=== PATIENT | female | born 1930 | race Caucasian/White ===

== ENCOUNTER → 2018-07-07 | Outpatient (CLI) | payer MEDICARE ==
[~2018-07-07] MED LIST: FURO20TA4; IRBE300T42 PO; METF500T8; NITR-65 PO; ONDA4TAB8 PO; POTA10CA43
[2018-07-07 14:41] LABS: BASOPHILS % (AUTO) 0 % (0-10); EOSINOPHILS # (AUTO) 0.2 10^3/uL (0.0-0.3); EOSINOPHILS % (AUTO) 3 % (0-10); HEMATOCRIT 32 % (35-52); HEMOGLOBIN 10.3 G/DL (11.5-16.0); LYMPHOCYTES # (AUTO) 1.1 X 10^3 (1.0-4.0); LYMPHOCYTES % (AUTO) 17 % (12-44); MEAN CORPUSCULAR HEMOGLOBIN 29 PG (25-34); MEAN CORPUSCULAR HGB CONC 32 G/DL (32-36); MEAN CORPUSCULAR VOLUME 92 FL (80-99); MEAN PLATELET VOLUME 9.1 FL (7.4-10.4); MONOCYTES # (AUTO) 0.6 X 10^3 (0.0-1.0); MONOCYTES % (AUTO) 10 % (0-12); NEUTROPHILS # (AUTO) 4.5 X 10^3 (1.8-7.8); NEUTROPHILS % (AUTO) 71 % (42-75); PLATELET COUNT 232 10^3/uL (130-400); RED CELL DISTRIBUTION WIDTH 15.4 % (10.0-14.5); WHITE BLOOD COUNT 6.4 10^3/uL (4.3-11.0)
[2018-07-07 14:56] LABS: CALCIUM 9.4 MG/DL (8.5-10.1); CREATININE SERUM 1.22 MG/DL (0.60-1.30)
[2018-07-07 15:07] LABS: ABG BASE EXCESS -0.5 MMOL/L (-2.5-2.5); ABG OXYGEN SATURATION 96 % (94-100); ABG PCO2 39 MMHG (35-45); ABG PO2 72 MMHG (79-93); ABG TCO2 25.1 MMOL/L (21.0-31.0)
[2018-07-07 15:08] LABS: ALLENS TEST YES-POS; INSPIRED O2 RA; PATIENT TEMP 96.3; VENTILATOR NO
== END ==
LOC: RT 14:23
PROVIDERS: ATTEND Internal Medicine Critical Care Medicine
DX: G47.33 Obstructive sleep apnea (adult) (pediatric) (principal); R06.00 Dyspnea, unspecified; R05 Cough; R04.0 Epistaxis; R60.9 Edema, unspecified; E66.01 Morbid (severe) obesity due to excess calories
CPT/HCPCS: 36415; 36600; 80048; 82805; 83880; 85025; 94761

== ENCOUNTER → 2018-08-13 | Outpatient (CLI) | payer MEDICARE ==
[~2018-08-13] MED LIST changes: +RT-ALBUTEROL SULF 2.5 MG/3 ML PRE-MIX VIAL INH ONE
--- NOTE | 2018-08-13 16:16 | Diagnostic Imaging Report ---
PROCEDURE: US Venous Lower Ext Thiago. TECHNIQUE: Multiple real-time grayscale images were obtained over the lower extremities in various projections, bilaterally. Additional duplex Doppler and color Doppler images were also obtained. INDICATION: Leg swelling. The deep veins have good color filling and compressibility. There is normal phasic and augmented flow. IMPRESSION: Negative venous Doppler lower extremities. Dictated by: Dictated on workstation # [id number]
--- NOTE | 2018-08-13 16:24 | Diagnostic Imaging Report ---
PROCEDURE: CT chest without contrast. TECHNIQUE: Multiple contiguous axial images were obtained through the chest without the use of intravenous contrast. Auto Exposure Controls were utilized during the CT exam to meet ALARA standards for radiation dose reduction. INDICATION: Shortness of air with exertion. COMPARISON: No priors. FINDINGS: Coronary arterial calcifications and coronary arterial stenting noted. The aorta is calcified but appeared nonaneurysmal. Vascular patency cannot be addressed owing to the absence of contrast. There is tiny pericardial effusion anterior versus mild pericardial thickening. There is no pleural effusion. Heart size is within normal limits. No gross overdistention of the vascularity. No edema, pneumonia, effusion or pneumothorax. There is a thin-walled air cyst in the left lower lobe. There is no bronchiectasis. There is no evidence for thoracic lymphadenopathy and no acute chest wall abnormality. Visualized upper abdomen showed previous cholecystectomy with no acute abnormality. IMPRESSION: Nonaneurysmal atherosclerosis. No suspicious mass or acute abnormality. Dictated by: Dictated on workstation # [id number]
== END ==
LOC: RAD 13:53
PROVIDERS: ATTEND Internal Medicine Critical Care Medicine
DX: E66.01 Morbid (severe) obesity due to excess calories (principal); G47.33 Obstructive sleep apnea (adult) (pediatric); M79.89 Other specified soft tissue disorders; I70.0 Atherosclerosis of aorta; R04.0 Epistaxis; Z90.49 Acquired absence of other specified parts of digestive tract
CPT/HCPCS: 71250; 93970; 94060; 94726; 94729

== ENCOUNTER 2018-09-07 10:29 | Inpatient (IN) | payer MEDICARE ==
[~2018-09-07] VITALS: Ht 160 cm; Wt 140.6 kg
[~2018-09-07 10:29] MED LIST changes: -RT-ALBUTEROL SULF 2.5 MG/3 ML PRE-MIX VIAL INH ONE
--- NOTE | 2018-09-07 11:04 | NUR ---
PT STATES DOES TAKE RT TX AT HOME
--- NOTE | 2018-09-07 11:04 | NUR ---
SEE LIST FOR CURRENT MEDS
--- OUTSIDE RECORDS SUMMARY | 2018-09-07 11:07 | XMS REPORT | Continuity of Care Document ---
Author Organization Unknown Address Unknown Allergies Active Description Code Type Severity Reaction Onset Reported/Identified Relationship to Patient Clinical Status Yes CODEINE SULFATE UNKNOWN OTHER Yes NO KNOWN DRUG ALLERGIES UNKNOWN NO KNOWN DRUG ALLERG Yes PENICILLINS UNKNOWN ITCHING Yes codeine [id number] Drug Allergy Unknown N/A 10/15/2015 Yes Penicillins [id number] Drug Allergy Unknown N/A 10/15/2015 Medications Medication Packaging Start Date Stop Date Route Dosage Sig NEOSYNEPHRINE NASAL SPRAY LIQ 1 % (PHENYLEPHRINE NS) spray 03/17/2018 03/17/2018 ONCE&1230 Tranexamic acid IV solution 1 Gm vials (TXA) ML 05/13/2018 05/13/2018 ONCE&2350 Problems Date Dx Coded Attending Type Code Diagnosis Diagnosed By 09/11/2013 ELIE LYLES DO Ot 327.23 OBSTRUCTIVE SLEEP APNEA (ADULT) (PEDIATR 09/11/2013 ELIE LYLES DO Ot 401.9 HYPERTENSION NOS 09/11/2013 ELIE LYLES DO Ot 799.02 HYPOXEMIA 10/25/2014 ELIE LYLES DO Ot 401.9 11/17/2014 PAVEL LYLES Ot 719.45 11/17/2014 PAVEL LYLES TRACK LAYING EQUIPMENT OPERATOR Ot 724.3 12/06/2014 PAVEL LYLES TRACK LAYING EQUIPMENT OPERATOR Ot 719.45 12/06/2014 PAVEL LYLESP Ot 724.3 04/16/2015 ELIE LYLES DO Ot 401.9 04/16/2015 PAVEL LYLESP Ot 719.45 04/16/2015 PAVEL LYLES TRACK LAYING EQUIPMENT OPERATOR Ot 724.3 04/17/2015 ELIE LYLES DO Ot G47.33 OBSTRUCTIVE SLEEP APNEA (ADULT) (PEDIATR 10/15/2015 SILVIA DO, ALEX K Ot E86.0 DEHYDRATION 10/15/2015 SILVIA DO, ALEX K Ot I44.0 ATRIOVENTRICULAR BLOCK, FIRST DEGREE 10/15/2015 SILVIA DO, ALEX K Ot N39.0 URINARY TRACT INFECTION, SITE NOT SPECIF 10/19/2015 SILVIA SHERI MAUROA K Ot E86.0 DEHYDRATION 10/19/2015 SILVIA DO, ALEX K Ot I44.0 ATRIOVENTRICULAR BLOCK, FIRST DEGREE 10/19/2015 SILVIA DO, ALEX Pelletier Ot N39.0 URINARY TRACT INFECTION, SITE NOT SPECIF 11/29/2017 SARAY ONEIL JR 724.4 THORACIC OR LUMBOSACRAL NEURITIS OR RADICULITIS, UNSPECIFIED 11/29/2017 SARAY ONEIL JR M54.16 RADICULOPATHY, LUMBAR REGION 11/29/2017 SARAY ONEIL JR 724.4 THORACIC OR LUMBOSACRAL NEURITIS OR RADICULITIS, UNSPECIFIED 11/29/2017 SARAY ONEIL JR M54.16 RADICULOPATHY, LUMBAR REGION 12/05/2017 LYLESELIE MOREJON DO Ot I10 ESSENTIAL (PRIMARY) HYPERTENSION 12/05/2017 LYLES DO, ELIE Saucedo Ot R06.00 DYSPNEA, UNSPECIFIED 01/03/2018 LYLES DO, ELIE Saucedo Ot I10 ESSENTIAL (PRIMARY) HYPERTENSION 01/03/2018 LYLES DO, ELIE Saucedo Ot R06.00 DYSPNEA, UNSPECIFIED 01/08/2018 LYLES DO, ELIE Saucedo Ot I10 ESSENTIAL (PRIMARY) HYPERTENSION 01/08/2018 LYLES ELIE MAURO Ot R06.00 DYSPNEA, UNSPECIFIED 02/27/2018 Lucas Morel 784.7 EPISTAXIS 02/27/2018 Lucas Morel R04.0 EPISTAXIS 03/17/2018 Ar French 784.7 EPISTAXIS 03/17/2018 Ar French R04.0 EPISTAXIS 03/18/2018 Ar French V58.30 ENCOUNTER FOR CHANGE OR REMOVAL OF NONSURGICAL WOUND DRESSING 03/18/2018 Ar French Z48.00 ENCOUNTER FOR CHANGE OR REMOVAL OF NONSURG WOUND DRESSING 03/18/2018 Ar French 784.7 EPISTAXIS 03/18/2018 Ar French R04.0 EPISTAXIS 05/13/2018 Lucas Morel W 784.7 EPISTAXIS 05/13/2018 Lucas Morel W R04.0 EPISTAXIS 06/17/2018 Ar French W 784.7 EPISTAXIS 06/17/2018 BarbaraalexanderAr W R04.0 EPISTAXIS 07/08/2018 SISSY LEE DO Ot E66.01 MORBID (SEVERE) OBESITY DUE TO EXCESS CA 07/08/2018 ROSA DOSISSY Ot G47.33 OBSTRUCTIVE SLEEP APNEA (ADULT) (PEDIATR 07/08/2018 ROSA DO, SISSY Navarro Ot R04.0 EPISTAXIS 07/08/2018 ROSA DOSISSY Ot R05 COUGH 07/08/2018 SISSY LEE DO Ot R06.00 DYSPNEA, UNSPECIFIED 07/08/2018 ROSA DOSISSY Ot R60.9 EDEMA, UNSPECIFIED 07/08/2018 ROSA DOSISSY Ot R60.9 EDEMA, UNSPECIFIED 07/16/2018 ROSA DOSISSY Ot R60.9 EDEMA, UNSPECIFIED 07/31/2018 ROSA DOSISSY Ot E66.01 MORBID (SEVERE) OBESITY DUE TO EXCESS CA 07/31/2018 ROSA DOSISSY Ot G47.33 OBSTRUCTIVE SLEEP APNEA (ADULT) (PEDIATR 07/31/2018 ROSA DOSISSY Ot R04.0 EPISTAXIS 07/31/2018 ROSA DOSISSY Ot R05 COUGH 07/31/2018 ROSA DOSISSY Ot R06.00 DYSPNEA, UNSPECIFIED 07/31/2018 ROSA DOSISSY Ot R60.9 EDEMA, UNSPECIFIED 08/06/2018 ROSA DOSISSY Ot E66.01 MORBID (SEVERE) OBESITY DUE TO EXCESS CA 08/06/2018 ROSA DOSISSY Ot G47.33 OBSTRUCTIVE SLEEP APNEA (ADULT) (PEDIATR 08/06/2018 ROSA DOSISSY Ot R04.0 EPISTAXIS 08/06/2018 ROSA DOSISSY Ot R05 COUGH 08/06/2018 ROSA DOSISSY Ot R06.00 DYSPNEA, UNSPECIFIED 08/06/2018 SISSY LEE DO Ot R60.9 EDEMA, UNSPECIFIED 08/12/2018 ELIE LYLES DO Ot 401.9 HYPERTENSION NOS 08/12/2018 PAVEL LYLES TRACK LAYING EQUIPMENT OPERATOR Ot 719.45 JOINT PAIN-PELVIS 08/12/2018 PAVEL LYLES TRACK LAYING EQUIPMENT OPERATOR Ot 724.3 SCIATICA 08/12/2018 LYLES DOELIE Ot I10 ESSENTIAL (PRIMARY) HYPERTENSION 08/12/2018 RAFAL DO ELIE Lewis Ot R06.00 DYSPNEA, UNSPECIFIED 08/12/2018 SISSY LEE DO Ot E66.01 MORBID (SEVERE) OBESITY DUE TO EXCESS CA 08/12/2018 SISSY LEE DO Ot G47.33 OBSTRUCTIVE SLEEP APNEA (ADULT) (PEDIATR 08/12/2018 SISSY LEE DO Ot R04.0 EPISTAXIS 08/12/2018 SISSY LEE DO Ot R05 COUGH 08/12/2018 SISSY LEE DO Ot R06.00 DYSPNEA, UNSPECIFIED 08/12/2018 SISSY LEE DO Ot R60.9 EDEMA, UNSPECIFIED 08/12/2018 SISSY LEE DO Ot R60.0 LOCALIZED EDEMA 08/12/2018 SISSY LEE DO Ot R60.0 LOCALIZED EDEMA 08/13/2018 SISSY LEE DO Ot R60.0 LOCALIZED EDEMA 08/13/2018 SISSY LEE DO Ot R60.0 LOCALIZED EDEMA 08/13/2018 SISSY LEE DO Ot R60.0 LOCALIZED EDEMA 09/04/2018 SISSY LEE DO Ot E66.01 MORBID (SEVERE) OBESITY DUE TO EXCESS CA 09/04/2018 SISSY LEE DO Ot G47.33 OBSTRUCTIVE SLEEP APNEA (ADULT) (PEDIATR 09/04/2018 SISSY LEE DO Ot I70.0 ATHEROSCLEROSIS OF AORTA 09/04/2018 SISSY LEE DO Ot M79.89 OTHER SPECIFIED SOFT TISSUE DISORDERS 09/04/2018 SISSY LEE DO Ot R04.0 EPISTAXIS 09/04/2018 SISSY LEE DO Ot Z90.49 ACQUIRED ABSENCE OF OTHER SPECIFIED PART Procedures There is no data. Results Test Result Range CBC with Auto Diff - 03/17/18 12:55 Baso% 0.30 % 0.00-2.50 Eos 0.1 K/uL 0.0-0.7 Eos% 1.7 % 0.0-7.0 Hct 36.3 % 36.0-46.0 Hgb 11.3 g/dL 13.0-15.0 Lym 1.02 K/uL 0.60-3.40 Lym% 14.2 % 10.0-50.0 MCH 30.0 pg 27.0-31.0 MCHC 31.1 g/dL 32.0-36.0 MCV 96.3 fL 80.0-97.0 Sublette% 7.5 % 0.0-12.0 MPV 9.0 fL 7.4-10.0 Leno% 76.3 % 37.0-80.0 Plt 274 K/uL 150-400 RBC 3.77 M/uL 3.60-5.00 RDW 14.2 % 11.6-14.8 WBC 7.16 K/uL 5.00-10.00 Leno 5.46 K/uL 2.00-6.90 Sublette 0.5 K/uL 0.0-0.9 Baso 0.0 K/uL 0.0-0.2 HH - 03/18/18 20:15 Hct 36.2 % 36.0-46.0 Hgb 11.3 Result Verified by Repeat Analysis g/dL 13.0-15.0 Arterial blood gas measurement - 07/07/18 14:57 Blood pCO2 39 mm[Hg] 35-45 Blood pO2 72 mm[Hg] 79-93 Arterial blood bicarbonate measurement (moles/volume) 24 mmol/L 23-27 Arterial blood base excess by calculation -0.5 mmol/L -2.5-2.5 Arterial blood oxygen saturation measurement 96 % 94-100 * Inhaled oxygen flow rate RA NRG Arterial blood pH measurement with patient temperature correction 7.40 7.37-7.43 Arterial blood carbon dioxide, total measurement (moles/volume) 25.1 mmol/L 21.0-31.0 Body site R BRACH NRG Assessment of wrist artery patency prior to arterial puncture YES-POS NRG Setting of ventilation mode NO NRG Measurement of body temperature 96.3 NRG Encounters ACCT No. Visit Date/Time Discharge Status Pt. Type Provider Facility Loc./Unit Complaint [id number] 08/13/2018 13:53:00 08/13/2018 23:59:59 CLS Outpatient SISSY LEE DO [facility] RAD STEPHAN ON CPAP, MORBID OBESITY. [id number] 07/08/2018 15:58:00 07/08/2018 23:59:59 CLS Preadmit ROSA MAUROSISSY [facility] RAD STEPHAN ON CPAP, MORBID OBESITY [id number] 07/07/2018 14:23:00 07/07/2018 23:59:59 CLS Outpatient ROSA MAURO SISSY [facility] RT G47.33,E66.01,R05 [id number] 04/30/2018 11:45:00 04/30/2018 23:59:59 CLS Preadmit ELIE LYLES DO [facility] RT R06.00 DYSPNEA [id number] 12/02/2017 06:33:00 12/02/2017 23:59:59 CLS Outpatient ELIE LYLES DO [facility] CARD HYPERTENSION,DYSPNEA [id number] 10/15/2015 17:25:00 10/15/2015 20:25:00 DIS Emergency SILVIA DO ALEX Liyah [facility] ER WEAKNESS [id number] 04/16/2015 19:47:00 04/17/2015 07:10:00 DIS Outpatient ELIE LYLES DO [facility] SLEEP OBSERVED SLEEP APPNEA, [id number] 10/25/2014 12:30:00 10/25/2014 23:59:59 CLS Outpatient PAVEL LYLES [facility] RAD HIP PAIN [id number] 09/10/2013 21:02:00 09/11/2013 06:45:00 DIS Outpatient ELIE LYLES DO [facility] SLEEP STEPHAN,SNORING [id number] 06/26/2013 09:33:00 06/26/2013 23:59:59 CLS Outpatient ELIE LYLES DO [facility] CARD REFRACTORY HTN [id number] 06/17/2018 11:00:00 06/17/2018 11:58:[address] [id number] 05/13/2018 23:17:00 05/13/2018 23:53:00 DIS Outpatient [facility] ER [id number] 03/18/2018 19:31:00 03/18/2018 20:55:00 [facility] [id number] 03/18/2018 07:52:00 03/18/2018 08:10:00 DIS Outpatient Man[facility] [place] [id number] 03/17/2018 11:49:00 03/17/2018 13:12:00 DIS Outpatient [facility] ER [id number] 02/27/2018 12:44:00 02/27/2018 13:20:00 DIS Outpatient [facility] ER [id number] 11/26/2017 13:48:00 11/29/2017 15:20:00 DIS Outpatient SARAY ONEIL JR [id number] 03/17/2018 12:59:17 Document Registration
[2018-09-07] MEDS ORDERED: fentaNYL INJECTION 100 MCG/2 ML AMP IVP STA ×2 (11:20→11:55)
--- NOTE | 2018-09-07 11:24 | ED General ---
General Chief Complaint: Respiratory Problems Stated Complaint: DX WITH PNEUMONIA/COUGH/SOB Nursing Triage Note: PT TO ROOM 6 PT CO OF SOB, STATE HAS L RIB PAIN FROM COUGHING STATES WAS SEEN AT [facility] AND [facility] AND IS CURRENTLY ON LEVOQUIN, PREDNISONE, AND TESSLON PEARLS. WAS SEEN AT [facility] AND [facility] ON 09/02/18 Nursing Sepsis Screen: No Definite Risk Source of Information: Patient Exam Limitations: No Limitations History of Present Illness Date Seen by Provider: September 07, 2018 Time Seen by Provider: 11:14 Initial Comments Here with report of shortness of breath and left rib pain that started coughing. She apparently has been diagnosed with pneumonia and currently is on Levaquin. States that she is not yet better and in fact she is getting more weak. Denies fever currently. Having difficulty even moving around because of the pain with coughing and weakness. Timing/Duration: 1 Week, Getting Worse Severity: Moderate Associated Systoms: Chest Pain, Cough; No Fever/Chills; Malaise; No Nausea/Vomiting; Shortness of Air, Weakness Allergies and Home Medications Allergies Coded Allergies: Penicillins (Verified Allergy, Unknown, 10/15/15) codeine (Verified Allergy, Unknown, 10/15/15) Home Medications Nitrofurantoin Monohyd/M-Cryst 100 Mg Capsule, 100 MG PO BID Prescribed by: ALEX VEGA on 10/15/151933 Ondansetron 4 Mg Tab.rapdis, 4 MG PO Q4H Prescribed by: ALEX VEGA on 10/15/151933 Patient Home Medication List Home Medication List Reviewed: Yes Review of Systems Review of Systems Constitutional: see HPI; No chills, No fever; weakness EENTM: no symptoms reported Respiratory: see HPI Cardiovascular: chest pain, edema; No palpitations Gastrointestinal: No abdominal pain, No nausea, No vomiting Genitourinary: no symptoms reported Musculoskeletal: see HPI, joint pain, muscle pain Skin: no symptoms reported Psychiatric/Neurological: No Symptoms Reported Hematologic/Lymphatic: No Symptoms Reported All Other Systems Reviewed Negative Unless Noted: Yes Past Svryotk-Sooqej-Gpmoaf Hx Past Med/Social Hx: Reviewed Nursing Past Med/Soc Hx Patient Social History Alcohol Use: Denies Use Recreational Drug Use: No Smoking Status: Never a Smoker Recent Foreign Travel: No Contact w/Someone Who Travel: No Recent Infectious Disease Expo: No Recent Hopitalizations: No Past Medical History Surgeries: Yes Appendectomy, Eye Surgery, Gallbladder Respiratory: Yes (BI PAP) Sleep Apnea Cardiac: Yes Chronic Edema/Swelling, Hypertension Neurological: No Gastrointestinal: No Musculoskeletal: Yes Arthritis, Back Injury Endocrine: Yes Diabetes, Non-Insulin dep Cancer: No Psychosocial: No Integumentary: No Blood Disorders: No Family Medical History Reviewed Nursing Family Hx Physical Exam-Suspected Sepsis Physical Exam Vital Signs Vital Signs - First Documented 09/07/18 09/07/18 10:35 12:33 Temp 98.1 Pulse 75 Resp 25 B/P (MAP) 143/83 (103) Pulse Ox 91 O2 Delivery Room Air Capillary Refill : Less Than 3 Seconds Blood Pressure Mean: 103 Height, Weight, BMI Height: 5'3.00" Weight: 300lbs. oz. 136.166383hn; BMI Method:Stated General Appearance: No Apparent Distress, WD/WN HEENT: PERRL/EOMI, Pharynx Normal Neck: Non Tender, Supple Respiratory: Decreased Breath Sounds, Other (pain to left chest wall on palpation lateral aspect and lower) Cardiovascular: Regular Rate, Rhythm, No Murmur Gastrointestinal: Non Tender, Soft Back: Normal Inspection, No CVA Tenderness, No Vertebral Tenderness Extremity: Normal Range of Motion, Non Tender, Pedal Edema (1+ bilateral to mid tibia) Neurologic/Psychiatric: Alert, Oriented x3 Skin: normal color, warm/dry Focused Exam Lactate Level 09/07/18 10:50: Lactic Acid Level 1.67 Lactic Acid Level Laboratory Tests Test 09/07/18 10:50 Lactic Acid Level 1.67 MMOL/L (0.50-2.00) Progress/Results/Core Measures Suspected Sepsis Recent Fever Within 48 Hours: No Infection Criteria Present: Documented Infection New/Unexplained Altered Menta: No Sepsis Screen: No Definite Risk SIRS Temperature:98.1 Pulse: 75 Respiratory Rate: 25 Laboratory Tests 09/07/18 10:50: White Blood Count 7.6 Blood Pressure 143 /83 Mean: 103 09/07/18 10:50: Lactic Acid Level 1.67 Laboratory Tests 09/07/18 10:50: Creatinine 1.61H, INR Comment 1.0, Platelet Count 264, Total Bilirubin 0.4 Results/Orders Lab Results Laboratory Tests Test 09/07/18 10:50 09/07/18 13:03 Range/Units White Blood Count 7.6 4.3-11.0 10^3/uL Red Blood Count 4.04 L 4.35-5.85 10^6/uL Hemoglobin 11.5 11.5-16.0 G/DL Hematocrit 36 35-52 % Mean Corpuscular Volume 90 80-99 FL Mean Corpuscular Hemoglobin 29 25-34 PG Mean Corpuscular Hemoglobin Concent 32 32-36 G/DL Red Cell Distribution Width 15.5 H 10.0-14.5 % Platelet Count 264 130-400 10^3/uL Mean Platelet Volume 9.3 7.4-10.4 FL Neutrophils (%) (Auto) 73 42-75 % Lymphocytes (%) (Auto) 18 12-44 % Monocytes (%) (Auto) 8 0-12 % Eosinophils (%) (Auto) 1 0-10 % Basophils (%) (Auto) 0 0-10 % Neutrophils # (Auto) 5.5 1.8-7.8 X 10^3 Lymphocytes # (Auto) 1.4 1.0-4.0 X 10^3 Monocytes # (Auto) 0.6 0.0-1.0 X 10^3 Eosinophils # (Auto) 0.1 0.0-0.3 10^3/uL Basophils # (Auto) 0.0 0.0-0.1 10^3/uL Prothrombin Time 14.0 12.2-14.7 SEC INR Comment 1.0 0.8-1.4 Activated Partial Thromboplast Time 24 24-35 SEC Sodium Level 141 135-145 MMOL/L Potassium Level 4.3 3.6-5.0 MMOL/L Chloride Level 103 98-107 MMOL/L Carbon Dioxide Level 31 21-32 MMOL/L Anion Gap 7 5-14 MMOL/L Blood Urea Nitrogen 35 H 7-18 MG/DL Creatinine 1.61 H 0.60-1.30 MG/DL Estimat Glomerular Filtration Rate 30 BUN/Creatinine Ratio 22 Glucose Level 102 70-105 MG/DL Lactic Acid Level 1.67 0.50-2.00 MMOL/L Calcium Level 10.1 8.5-10.1 MG/DL Corrected Calcium 10.3 H 8.5-10.1 MG/DL Total Bilirubin 0.4 0.1-1.0 MG/DL Aspartate Amino Transf (AST/SGOT) 14 5-34 U/L Alanine Aminotransferase (ALT/SGPT) 13 0-55 U/L Alkaline Phosphatase 91 40-136 U/L Troponin I < 0.028 <0.028 NG/ML Total Protein 6.5 6.4-8.2 GM/DL Albumin 3.7 3.2-4.5 GM/DL My Orders Orders - VERONIKA CHEUNG MD Cbc With Automated Diff (09/07/18 11:20) Comprehensive Metabolic Panel (09/07/18 11:20) Blood Culture (09/07/18 11:20) Sputum Culture (09/07/18 11:20) Urinalysis (09/07/18 11:20) Urine Culture (09/07/18 11:20) Protime With Inr (09/07/18 11:20) Partial Thromboplastin Time (09/07/18 11:20) Chest 1 View, Ap/Pa Only (09/07/18 11:20) Ed Iv/Invasive Line Start (09/07/18 11:20) Ed Iv/Invasive Line Start (09/07/18 11:20) Ekg Tracing (09/07/18 11:20) Troponin I (09/07/18 11:20) Vital Signs Adult Sepsis Patie Q15M (09/07/18 11:20) O2 (09/07/18 11:20) Remove Rings In Anticipation O (09/07/18 11:20) Lactic Acid Analyzer (09/07/18 11:20) Fentanyl Injection (Sublimaze Injection (09/07/18 11:20) Ct Chest Wo (09/07/18 11:47) Fentanyl Injection (Sublimaze Injection (09/07/18 11:55) Albuterol/Ipra Inhalation Soln (Duoneb I (09/07/18 12:25) Meropenem (Merrem 500 Mg) (09/07/18 13:00) Medications Given in ED Current Medications Medications Dose Ordered Sig/Desirae Route Start Time Stop Time Status Last Admin Dose Admin Albuterol/ Ipratropium 3 ml STK-MED ONCE .ROUTE 09/07/18 12:25 09/07/18 12:30 DC 09/07/18 12:32 3 ML Vital Signs/I&O 09/07/18 09/07/18 10:35 12:33 Temp 98.1 Pulse 75 Resp 25 B/P (MAP) 143/83 (103) Pulse Ox 91 92 O2 Delivery Room Air Capillary Refill : Less Than 3 Seconds Blood Pressure Mean: 103 Progress Note : Progress Note Seen and evaluated. IV, labs, blood cultures and lactic acid ordered. Chest x- ray and EKG ordered. Family is very concerned about her weakness and would like admission. We will evaluate for validity and then rediscuss. Monitor patient. 1248: CT scan has been ordered due to persistent pain and concerns of rib fracture after acute persistent cough. This does show pretty good size left lower lobe pneumonia. Patient has failed outpatient therapy for pneumonia with Levaquin and we will change that to meropenem and vancomycin. I did discuss the case with Dr. Friedman. He will see the patient in consult and recommends the vancomycin. All findings concerns discussed with patient and family who agree with plan. Catheter UA obtained as patient was unable to urinate. She requested Miller catheter placement and we can do that at least initially. We did discuss with her regarding the need for her to be active to help improve her overall physical health. Family is requesting evaluation for inpatient rehabilitation at the end of hospitalization and this was passed on to Dr. Edwards. Dr. Edwards accepts patient for admission, inpatient status. ECG Initial ECG Impression Date: September 07, 2018 Initial ECG Impression Time: 11:33 Initial ECG Rate: 69 Initial ECG Rhythm: Normal Sinus Comment Sinus rhythm with multifocal PVCs. No evidence of ST elevation [place]. Similar to 15 October 2015. Normal axis. Interpreted by me. Diagnostic Imaging Diagonstic Imaging: Xray Plain Films/CT/US/NM/MRI: chest Comments NAME: AMARILYS MINAYA [facility] REC#: [id number] PT STATUS: REG ER : 1930 PHYSICIAN: VERONIKA CHEUNG MD ADMIT DATE: 09/07/18/ER Signed Date of Exam: 09/07/18 CHEST 1 VIEW, AP/PA ONLY Indication: Pneumonia, bronchitis Comparison: 12/02/2017 Technique: Single radiograph of the chest dated 09/07/2018. Findings: The cardiac silhouette is enlarged, though stable from prior examination. No significant pulmonary vascular congestion. Low lung volumes with developing bibasilar pulmonary opacities. No significant pleural effusion. No pneumothorax. No acute osseous abnormality. Impression: Low lung volumes with new bibasilar infiltrate or less likely atelectasis. Dictated by: Dictated on workstation # [id number] Dict: 09/07/18 1149 Trans: 09/07/18 1155 Interpreted by: SAIMA WILSON MD Electronically signed by: SAIMA WILSON MD 09/07/18 1155 Diagonstic Imaging: CT Plain Films/CT/US/NM/MRI: chest Comments [facility] [place] NAME: AMARILYS MINAYA [facility] REC#: [id number] PT STATUS: REG ER : 1930 PHYSICIAN: VERONIKA CHEUNG MD ADMIT DATE: 09/07/18/ER Draft Date of Exam:09/07/18 CT CHEST WO PROCEDURE: CT chest without contrast. TECHNIQUE: Multiple contiguous axial images were obtained through the chest without the use of intravenous contrast. Auto Exposure Controls were utilized during the CT exam to meet ALARA standards for radiation dose reduction. INDICATION: Chest pain, respiratory distress. FINDINGS: The previous CT chest exam of 08/13/2018 failed to show any sign of an acute abnormality. The chest exam performed prior to this study did note bibasilar atelectasis/infiltrate. On this study, there is indeed atelectasis/infiltrate involving both lung bases, particularly the left lower lobe. Most likely, these findings are due to pneumonia/atelectasis. The upper lungs are generally clear. The heart size is borderline enlarged but stable when compared to the prior exam. The extensive coronary artery calcifications seen previously are again visualized and no different. There is no sign of a pericardial effusion. The aorta is not abnormally dilated and stable when compared to the prior study. There is no mediastinal or hilar adenopathy. The thyroid gland where visualized is unremarkable. There is no obvious breast mass. The sections through the upper abdomen fail to show any sign of an acute abnormality. The bone windows are unremarkable for fracture or for destructive lesion. IMPRESSION: 1. In the interval since the prior exam of 08/13/2018, bibasilar pneumonia/atelectasis has developed. There is greater involvement on the left. 2. There is no acute cardiopulmonary abnormality noted, otherwise. 3. There is borderline cardiomegaly and coronary artery disease. Dictated on workstation # [id number] Dict: 09/07/18 1225 Trans: 09/07/18 1243 [id number] Interpreted by: CHRISTINE NEWELL MD Electronically signed by: Departure Communication (Admissions) Time/Spoke to Admitting Phy: 12:48 Time/Spoke to Consulting Phy: 12:55 Impression Primary Impression: Pneumonia of both lower lobes Qualified Codes: J18.1 - Lobar pneumonia, unspecified organism Disposition: ADMITTED INPATIENT Condition: Stable Admissions Decision to Admit Reason: Admit from ER (General) Decision to Admit/Date: September 07, 2018 Time/Decision to Admit Time: 12:48 Departure-Patient Inst. Referrals: ELIE LYLES DO (PCP/Family) Primary Care Physician VERONIKA CHEUNG MD September 07, 2018 11:24
[2018-09-07 11:28] LABS: BASOPHILS % (AUTO) 0 % (0-10); EOSINOPHILS # (AUTO) 0.1 10^3/uL (0.0-0.3); EOSINOPHILS % (AUTO) 1 % (0-10); HEMATOCRIT 36 % (35-52); HEMOGLOBIN 11.5 G/DL (11.5-16.0); LYMPHOCYTES # (AUTO) 1.4 X 10^3 (1.0-4.0); LYMPHOCYTES % (AUTO) 18 % (12-44); MEAN CORPUSCULAR HEMOGLOBIN 29 PG (25-34); MEAN CORPUSCULAR HGB CONC 32 G/DL (32-36); MEAN CORPUSCULAR VOLUME 90 FL (80-99); MEAN PLATELET VOLUME 9.3 FL (7.4-10.4); MONOCYTES # (AUTO) 0.6 X 10^3 (0.0-1.0); MONOCYTES % (AUTO) 8 % (0-12); NEUTROPHILS # (AUTO) 5.5 X 10^3 (1.8-7.8); NEUTROPHILS % (AUTO) 73 % (42-75); PLATELET COUNT 264 10^3/uL (130-400); RED CELL DISTRIBUTION WIDTH 15.5 % (10.0-14.5); WHITE BLOOD COUNT 7.6 10^3/uL (4.3-11.0)
[2018-09-07 11:42] LABS: ALANINE AMINOTRANSFERASE 13 U/L (0-55); ALBUMIN 3.7 GM/DL (3.2-4.5); ALKALINE PHOSPHATASE 91 U/L (40-136); BILIRUBIN,TOTAL 0.4 MG/DL (0.1-1.0); BUN/CREATININE RATIO 22; CALCIUM 10.1 MG/DL (8.5-10.1); CARBON DIOXIDE 31 MMOL/L (21-32); CHLORIDE 103 MMOL/L (98-107); CREATININE SERUM 1.61 MG/DL (0.60-1.30); GFR ESTIMATED 30; GLUCOSE 102 MG/DL (70-105); POTASSIUM 4.3 MMOL/L (3.6-5.0); SODIUM 141 MMOL/L (135-145); TOTAL PROTEIN 6.5 GM/DL (6.4-8.2)
--- NOTE | 2018-09-07 11:53 | Diagnostic Imaging Report ---
Indication: Pneumonia, bronchitis Comparison: 12/02/2017 Technique: Single radiograph of the chest dated 09/07/2018. Findings: The cardiac silhouette is enlarged, though stable from prior examination. No significant pulmonary vascular congestion. Low lung volumes with developing bibasilar pulmonary opacities. No significant pleural effusion. No pneumothorax. No acute osseous abnormality. Impression: Low lung volumes with new bibasilar infiltrate or less likely atelectasis. Dictated by: Dictated on workstation # [id number]
[2018-09-07] MEDS ORDERED: RT-ALBUTEROL/IPRATROPIUM 3 ML (DUONEB) VIAL ONE (12:25)
--- NOTE | 2018-09-07 12:43 | Diagnostic Imaging Report ---
PROCEDURE: CT chest without contrast. TECHNIQUE: Multiple contiguous axial images were obtained through the chest without the use of intravenous contrast. Auto Exposure Controls were utilized during the CT exam to meet ALARA standards for radiation dose reduction. INDICATION: Chest pain, respiratory distress. FINDINGS: The previous CT chest exam of 08/13/2018 failed to show any sign of an acute abnormality. The chest exam performed prior to this study did note bibasilar atelectasis/infiltrate. On this study, there is indeed atelectasis/infiltrate involving both lung bases, particularly the left lower lobe. Most likely, these findings are due to pneumonia/atelectasis. The upper lungs are generally clear. The heart size is borderline enlarged but stable when compared to the prior exam. The extensive coronary artery calcifications seen previously are again visualized and no different. There is no sign of a pericardial effusion. The aorta is not abnormally dilated and stable when compared to the prior study. There is no mediastinal or hilar adenopathy. The thyroid gland where visualized is unremarkable. There is no obvious breast mass. The sections through the upper abdomen fail to show any sign of an acute abnormality. The bone windows are unremarkable for fracture or for destructive lesion. IMPRESSION: 1. In the interval since the prior exam of 08/13/2018, bibasilar pneumonia/atelectasis has developed. There is greater involvement on the left. 2. There is no acute cardiopulmonary abnormality noted, otherwise. 3. There is borderline cardiomegaly and coronary artery disease. Dictated by: Dictated on workstation # [id number]
[2018-09-07] MEDS ORDERED: MEROPENEM 500 MG in WATER (STERILE) FOR INJECTION 10 ML IV ONE (13:00)
--- OUTSIDE RECORDS SUMMARY | 2018-09-07 13:11 | XMS REPORT | Continuity of Care Document ---
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 724.3 12/06/2014 PAVEL LYLES SN[employer]SPORT INSTRUCTOR Ot 719.45 12/06/2014 PAVEL LYLESP Ot 724.3 04/16/2015 ELIE LYLES DO Ot 401.9 04/16/2015 PAVEL LYLESP Ot 719.45 04/16/2015 PAVEL LYLES [employer]SP[employer] INSTRUCTOR Ot 724.3 04/17/2015 ELIE LYLES DO Ot [...] Ot 401.9 HYPERTENSION NOS 08/12/2018 PAVEL LYLES SNOWSPORT INSTRUCTOR Ot 719.45 JOINT PAIN-PELVIS 08/12/2018 PAVEL LYLES [employer]SP[employer] INSTRUCTOR Ot 724.3 SCIATICA 08/12/2018 LYLES DOELIE Ot [...] 31.1 g/dL 32.0-36.0 MCV 96.3 fL 80.0-97.0 Lares% 7.5 % 0.0-12.0 MPV 9.0 fL 7.4-10.0 Leno% 76.3 % 37.0-80.0 Plt 274 K/uL 150-400 RBC 3.77 M/uL 3.60-5.00 RDW 14.2 % 11.6-14.8 WBC 7.16 K/uL 5.00-10.00 Leno 5.46 K/uL 2.00-6.90 Lares 0.5 K/uL 0.0-0.9 Baso 0.0 K/uL 0.0-0.2 [...] NRG Measurement of body temperature 96.3 NRG Complete blood count (CBC) with automated white blood cell (WBC) differential - 09/07/18 10:50 Blood leukocytes automated count (number/volume) 7.6 10*3/uL 4.3-11.0 Blood erythrocytes automated count (number/volume) 4.04 10*6/uL 4.35-5.85 Venous blood hemoglobin measurement (mass/volume) 11.5 g/dL 11.5-16.0 Blood hematocrit (volume fraction) 36 % 35-52 Automated erythrocyte mean corpuscular volume 90 [foz_us] 80-99 Automated erythrocyte mean corpuscular hemoglobin (mass per erythrocyte) 29 pg 25-34 Automated erythrocyte mean corpuscular hemoglobin concentration measurement (mass/volume) 32 g/dL 32-36 Automated erythrocyte distribution width ratio 15.5 % 10.0- 14.5 Automated blood platelet count (count/volume) 264 10*3/uL 130-400 Automated blood platelet mean volume measurement 9.3 [foz_us] 7.4-10.4 Automated blood neutrophils/100 leukocytes 73 % 42-75 Automated blood lymphocytes/100 leukocytes 18 % 12-44 Blood monocytes/100 leukocytes 8 % 0-12 Automated blood eosinophils/100 leukocytes 1 % 0-10 Automated blood basophils/100 leukocytes 0 % 0-10 Blood neutrophils automated count (number/volume) 5.5 10*3 1.8-7.8 Blood lymphocytes automated count (number/volume) 1.4 10*3 1.0-4.0 Blood monocytes automated count (number/volume) 0.6 10*3 0.0- 1.0 Automated eosinophil count 0.1 10*3/uL 0.0-0.3 Automated blood basophil count (count/volume) 0.0 10*3/uL 0.0-0.1 Blood lactic acid measurement (moles/volume) - 09/07/18 10:50 Blood lactic acid measurement (moles/volume) 1.67 mmol/L 0.50- 2.00 PT panel in platelet poor plasma by coagulation assay - 09/07/18 10:50 Prothrombin time (PT) in platelet poor plasma by coagulation assay 14.0 s 12.2-14.7 INR in platelet poor plasma or blood by coagulation assay 1.0 0.8-1.4 Activated partial thromboplastin time (aPTT) in platelet poor plasma bycoagulation assay - 09/07/18 10:50 Activated partial thromboplastin time (aPTT) in platelet poor plasma bycoagulation assay 24 s 24-35 Comprehensive metabolic panel - 09/07/18 10:50 Serum or plasma sodium measurement (moles/volume) 141 mmol/L 135-145 Serum or plasma potassium measurement (moles/volume) 4.3 mmol/L 3.6-5.0 Serum or plasma chloride measurement (moles/volume) 103 mmol/L 98-107 Carbon dioxide 31 mmol/L 21-32 Serum or plasma anion gap determination (moles/volume) 7 mmol/L 5-14 Serum or plasma urea nitrogen measurement (mass/volume) 35 mg/dL 7-18 Serum or plasma creatinine measurement (mass/volume) 1.61 mg/dL 0.60-1.30 Serum or plasma urea nitrogen/creatinine mass ratio 22 NRG Serum or plasma creatinine measurement with calculation of estimated glomerular filtration rate 30 NRG Serum or plasma glucose measurement (mass/volume) 102 mg/dL 70-105 Serum or plasma calcium measurement (mass/volume) 10.1 mg/dL 8.5-10.1 Serum or plasma total bilirubin measurement (mass/volume) 0.4 mg/dL 0.1-1.0 Serum or plasma alkaline phosphatase measurement (enzymatic activity/volume) 91 U/L 40-136 Serum or plasma aspartate aminotransferase measurement (enzymatic activity/volume) 14 U/L 5-34 Serum or plasma alanine aminotransferase measurement (enzymatic activity/volume) 13 U/L 0-55 Serum or plasma protein measurement (mass/volume) 6.5 g/dL 6.4-8.2 Serum or plasma albumin measurement (mass/volume) 3.7 g/dL 3.2-4.5 CALCIUM CORRECTED 10.3 mg/dL 8.5-10.1 Serum or plasma troponin i.cardiac measurement (mass/volume) - 09/07/18 10:50 Serum or plasma troponin i.cardiac measurement (mass/volume) < ng/mL <0.028 Encounters ACCT No. Visit Date/Time Discharge Status Pt. Type Provider Facility Loc./Unit Complaint [id number] 08/13/2018 13:53:00 08/13/2018 23:59:59 CLS Outpatient SISSY LEE DO [facility] RAD STEPHAN ON CPAP, MORBID OBESITY. [id number] 07/08/2018 15:58:00 07/08/2018 23:59:59 CLS Preadmit SISSY LEE DO [facility] RAD STEPHAN ON CPAP, MORBID OBESITY [id number] 07/07/2018 14:23:00 07/07/2018 23:59:59 CLS Outpatient SISSY LEE DO [facility] RT G47.33,E66.01,R05 [id number] 04/30/2018 11:45:00 04/30/2018 23:59:59 CLS Preadmit ELIE LYLES DO [facility] RT R06.00 DYSPNEA [id number] 12/02/2017 06:33:00 12/02/2017 23:59:59 CLS Outpatient ELIE LYLES DO [facility] CARD HYPERTENSION,DYSPNEA [id number] 10/15/2015 17:25:00 10/15/2015 20:25:00 DIS Emergency ALEX VEGA DO [facility] ER WEAKNESS [id number] 04/16/2015 19:47:00 04/17/2015 07:10:00 DIS Outpatient ELIE LYLES DO [facility] SLEEP OBSERVED SLEEP APPNEA, [id number] 10/25/2014 12:30:00 10/25/2014 23:59:59 CLS Outpatient PAVEL LYLES [employer] INSTRUCTOR [facility] RAD HIP PAIN [id number] 09/10/2013 21:02:00 09/11/2013 06:45:00 DIS Outpatient ELIE LYLES DO [facility] SLEEP STEPHAN,SNORING [id number] 06/26/2013 09:33:00 06/26/2013 23:59:59 CLS Outpatient ELIE LYLES DO [facility] CARD REFRACTORY HTN [id number] 09/07/2018 11:29:00 Document Registration [id number] 06/17/2018 11:00:00 06/17/2018 11:58:00 [id number]/13/2018 23:17:00 05/13/2018 23:53:00 [id number] 03/18/2018 19:31:00 03/18/2018 20:55:00 [id number] 03/18/2018 07:52:00 03/18/2018 08:10:00 DIS Outpatient Manolo [place] [id number] 03/17/2018 11:49:00 03/17/2018 13:12:00 DIS Outpatient Manolo [facility] ER [id number] 02/27/2018 12:44:00 02/27/2018 13:20:00 DIS Outpatient [facility] ER [id number] 11/26/2017 13:48:00 11/29/2017 15:20:00 DIS Outpatient SARAY ONEIL JR [id number] 03/17/2018 12:59:17 Document Registration
[2018-09-07 13:14] LABS: BILIRUBIN,URINE NEGATIVE (NEGATIVE); CLARITY,URINE CLEAR; COLOR,URINE YELLOW; GLUCOSE, URINE (UA) NEGATIVE (NEGATIVE); KETONES,URINE NEGATIVE (NEGATIVE); LEUKOCYTE ESTERASE ,URINE NEGATIVE (NEGATIVE); NITRITE,URINE NEGATIVE (NEGATIVE); PH,URINE 7 (5-9); PROTEIN,URINE NEGATIVE (NEGATIVE); UROBILINOGEN,URINE NORMAL (NORMAL)
[2018-09-07 13:23] LABS: BACTERIA,URINE NEGATIVE /HPF; SQUAMOUS EPITHELIAL CELL,UR RARE /HPF
--- NOTE | 2018-09-07 14:00 | NUR ---
AMARILYS MINAYA admitted to room 420-1, with an admitting diagnosis of PNEUMONIA, on 09/07/18 from ER via STRETCHER, accompanied by STAFF.AMARILYS MINAYA introduced to surroundings, call light, bed controls, phone, TV, temperature control, lights, meal times, smoking policy, visitor policy, side rail policy, bathrooms and showers. Patient Rights given to patient in the handbook. AMARILYS MINAYA verbalizes understanding that [facility] is not responsible for the loss or damage to any personal effects or valuables that are kept in the patients posession during their hospitalization. AMARILYS MINAYA verbalizes understanding of Interdisciplinary Patient Education. Patient and/or family were informed about the Rapid Response Team and its purpose.
[2018-09-07 14:05] VITALS: BP 129/60
[2018-09-07 14:13] VITALS: BP 129/71
[2018-09-07] MEDS: HYDROcodone/APAP 5 MG/325 MG (LORTAB) TAB PO PRN ×2 (14:17→20:28)
[2018-09-07] MEDS: NS IV 1000 ML 1,000 ML IV SCH (14:18)
--- NOTE | 2018-09-07 14:20 | NUR ---
Antibiotics: Vancomycin - Loading Dose: 2gm IVPB x 1, then 750mg IVPB every 12 hours. CrCl of 33ml/min utilizing patient adjusted body weight. Trough ordered for 09/09 @ 0200. Hold subsequent doses IF trough result is 20 or greater. Meropenem - Reduced schedule to Q8H secondary to reduced renal function, CrCl of 33ml/min.
[2018-09-07] MEDS ORDERED: VANCOMYCIN 2000 MG/NS 500 ML IVPB IV NR ×2 (15:00)
[2018-09-07 16:16] VITALS: BP 129/60
[2018-09-07] MEDS: ACETAMINOPHEN 325 MG TABLET PO PRN ×2 (16:57→22:57)
[2018-09-07] MEDS: RT-ALBUTEROL/IPRATROPIUM 3 ML (DUONEB) VIAL INH SCH ×2 (17:25→20:59)
[2018-09-07] MEDS ORDERED: AMLO5TAB4 PO (18:48)
[2018-09-07] MEDS ORDERED: CLOP75TA69 PO (18:48)
[2018-09-07] MEDS ORDERED: BENZ100C18 PO (18:49)
[2018-09-07] MEDS ORDERED: LEVO750T39 PO (18:49)
[2018-09-07] MEDS ORDERED: ATOR40TA70 PO (18:49)
[2018-09-07 19:16] VITALS: BP 149/67
[2018-09-07] MEDS: MEROPENEM 500 MG/SWFI 10 ML IV PUSH IV SCH ×2 (19:37)
[2018-09-07] MEDS ORDERED: BENZONATATE 100 MG (TESSALON) CAPSULE PO ONE (19:38)
[2018-09-07] MEDS ORDERED: ATORVASTATIN 40 MG (LIPITOR) TABLET ONE (19:38)
[2018-09-07] MEDS: BENZONATATE 100 MG (TESSALON) CAPSULE PO SCH (19:43)
[2018-09-07] MEDS: ATORVASTATIN 40 MG (LIPITOR) TABLET PO SCH (19:43)
[2018-09-08] VITALS (8 sets, daily range): BP systolic 129–188; BP diastolic 52–71
[2018-09-08] MEDS ORDERED: guaiFENesin/DM (ROBITUSSIN DM) 10 ML UDC ONE (00:04)
[2018-09-08] MEDS ORDERED: HYDROcodone/APAP 10 MG/325 MG (LORTAB) TAB PO ONE (00:04)
[2018-09-08] MEDS: RT-ALBUTEROL/IPRATROPIUM 3 ML (DUONEB) VIAL INH PRN (00:06)
[2018-09-08] MEDS: guaiFENesin/DM (ROBITUSSIN DM) 10 ML UDC PO PRN ×3 (00:10→09:40)
[2018-09-08] MEDS: HYDROcodone/APAP 10 MG/325 MG (LORTAB) TAB PO PRN ×3 (00:10→09:40)
[2018-09-08] MEDS: RT-ALBUTEROL/IPRATROPIUM 3 ML (DUONEB) VIAL INH SCH ×4 (02:49→19:51)
[2018-09-08] MEDS: MEROPENEM 500 MG/SWFI 10 ML IV PUSH IV SCH ×6 (03:42→20:06)
[2018-09-08] MEDS: BENZONATATE 100 MG (TESSALON) CAPSULE PO SCH ×3 (03:43→20:06)
[2018-09-08] MEDS: VANCOMYCIN 750 MG/NS 250 ML IVPB IV SCH ×4 (03:58→15:43)
[2018-09-08 05:41] LABS: BASOPHILS % (AUTO) 0 % (0-10); EOSINOPHILS # (AUTO) 0.1 10^3/uL (0.0-0.3); EOSINOPHILS % (AUTO) 1 % (0-10); HEMATOCRIT 34 % (35-52); HEMOGLOBIN 10.9 G/DL (11.5-16.0); LYMPHOCYTES % (AUTO) 20 % (12-44); MEAN CORPUSCULAR HEMOGLOBIN 29 PG (25-34); MEAN CORPUSCULAR HGB CONC 32 G/DL (32-36); MEAN CORPUSCULAR VOLUME 90 FL (80-99); MONOCYTES # (AUTO) 0.8 X 10^3 (0.0-1.0); MONOCYTES % (AUTO) 9 % (0-12); NEUTROPHILS # (AUTO) 6.9 X 10^3 (1.8-7.8); NEUTROPHILS % (AUTO) 70 % (42-75); PLATELET COUNT 263 10^3/uL (130-400); RED CELL DISTRIBUTION WIDTH 15.7 % (10.0-14.5); WHITE BLOOD COUNT 9.8 10^3/uL (4.3-11.0)
[2018-09-08] MEDS: predniSONE 10 MG TAB PO SCH (06:03)
[2018-09-08 06:04] LABS: ALBUMIN 3.2 GM/DL (3.2-4.5); BILIRUBIN,TOTAL 0.5 MG/DL (0.1-1.0); CALCIUM 9.4 MG/DL (8.5-10.1); CREATININE SERUM 1.35 MG/DL (0.60-1.30); POTASSIUM 4.2 MMOL/L (3.6-5.0); TOTAL PROTEIN 5.7 GM/DL (6.4-8.2)
--- NOTE | 2018-09-08 08:55 | Pulmonary Consultation ---
History of Present Illness History of Present Illness Date of Consultation 09/08/18 08:55 Time Seen by Provider: 09:51 Date of Admission History of Present Illness 88yo presented to ED secondary to worsening SOB, Left rib pain secondary to coughing. Pt was seen at [facility] and was dx with pneumonia. SHe was placed on Levaquin, prednisone, and tessalon pearls then discharged. Pt stats her SOB and weakness worsened and decided to come here. CT scan done in ED shows new onset pulmonary infiltrates. I am consulted for pulmonary management. Allergies and Home Medications Allergies Coded Allergies: Penicillins (Verified Allergy, Unknown, 10/15/15) codeine (Verified Allergy, Unknown, 10/15/15) Home Medications Amlodipine Besylate 5 Mg Tablet, 5 MG PO DAILY, (Reported) Atorvastatin Calcium 40 Mg Tablet, 40 MG PO HS, (Reported) Benzonatate 100 Mg Capsule, 100 MG PO Q8H, (Reported) Clopidogrel Bisulfate 75 Mg Tablet, 75 MG PO DAILY, (Reported) Past Cjoksuq-Ieuofc-Ifmxtn Hx Past Med/Social Hx: Reviewed Nursing Past Med/Soc Hx Patient Social History Alcohol Use: Denies Use Recreational Drug Use: No Smoking Status: Never a Smoker Recent Foreign Travel: No Contact w/Someone Who Travel: No Recent Infectious Disease Expo: No Recent Hopitalizations: No Past Medical History Surgeries: Yes Appendectomy, Eye Surgery, Gallbladder Respiratory: Yes (BI PAP) Sleep Apnea Cardiac: Yes Chronic Edema/Swelling, Hypertension Neurological: No Gastrointestinal: No Musculoskeletal: Yes Arthritis, Back Injury Endocrine: Yes Diabetes, Non-Insulin dep Cancer: No Psychosocial: No Integumentary: No Blood Disorders: No Family Medical History Reviewed Nursing Family Hx Review of Systems Time Seen by Provider: 09:54 Sepsis Event Evaluation Height, Weight, BMI Height: 5'3.00" Weight: 310lbs. 0.0oz. 140.192232xi; 54.9 BMI Method:Stated Exam Exam Vital Signs Date Time Temp Pulse Resp B/P (MAP) Pulse Ox O2 Delivery O2 Flow Rate FiO2 09/08/18 08:26 97.8 72 20 141/52 (81) 95 Room Air 0.00 09/08/18 04:39 97.4 70 18 150/61 (90) 91 Room Air 09/08/18 02:49 93 Room Air 09/08/18 00:54 98.0 67 16 188/64 (105) 93 Room Air 09/08/18 00:06 65 93 21 09/08/18 00:06 93 Room Air 09/07/18 21:00 91 Room Air 09/07/18 20:00 Room Air 09/07/18 19:16 98.0 74 20 149/67 (94) 91 Room Air 09/07/18 17:26 94 Room Air 09/07/18 16:16 97.9 72 20 129/60 (83) 91 Room Air 09/07/18 14:13 65 93 21 09/07/18 14:05 97.9 72 20 129/60 91 Room Air 09/07/18 14:00 Room Air 09/07/18 13:38 65 31 129/71 (90) 93 09/07/18 12:33 92 Room Air 09/07/18 10:35 98.1 75 25 143/83 (103) 91 I & O 09/08/18 07:00 Intake Total 1237.5 ml Output Total 1400 ml Balance -162.5 ml Height & Weight Height: 5'3.00" Weight: 310lbs. 0.0oz. 140.125321tr; 54.9 BMI Method:Stated General Appearance: No Apparent Distress, WD/WN HEENT: PERRL/EOMI, Pharynx Normal Neck: Non Tender, Supple Respiratory: Decreased Breath Sounds, Other (pain to left chest wall on palpation lateral aspect and lower) Cardiovascular: Regular Rate, Rhythm, No Murmur Capillary Refill: Less Than 3 Seconds Extremity: Normal Range of Motion, Non Tender, Pedal Edema (1+ bilateral to mid tibia) Neurologic/Psychiatric: Alert, Oriented x3 Results Lab Laboratory Tests 09/07/18 10:50 09/08/18 05:25 Assessment/Plan Assessment/Plan Bibasilar pneumonia - failed out pt treatment -continue Merrem -IS Asthma - per last PFT -SVNS Deconditioning -PT/OT SISSY LEE DO September 08, 2018 08:55
[2018-09-08] MEDS ORDERED: NON-FORMULARY MEDICATION 1 EA EA (Amlodipine Besylate (Norvasc) 5 MG) PO SCH (09:00)
[2018-09-08] MEDS ORDERED: methylPREDNISolone 40 MG/ML (Solu-MEDROL) VIAL IV ONE (09:00)
[2018-09-08] MEDS: CLOPIDOGREL 75 MG (PLAVIX) TABLET PO SCH (09:02)
[2018-09-08] MEDS: metFORMIN XR 500 MG (GLUCOPHAGE XR) TAB PO SCH (09:02)
[2018-09-08] MEDS: amLODIPine 5 MG (NORVASC) TAB PO SCH (09:02)
[2018-09-08] MEDS: ACETAMINOPHEN 325 MG TABLET PO PRN (09:04)
--- NOTE | 2018-09-08 09:32 | History & Physical-Hospitalist ---
History of Present Illness HPI/Chief Complaint The patient is an 88-year-old white female who reports feeling fatigued and short of breath really since around of last year. She first underwent cardiac evaluation was noted to have triple-vessel disease and had multiple stents placed by Dr. Rubin sometime around . This was done for her shortness of breath but did not improve her symptoms. She even underwent repeat catheterization revealing stent patency. Have after 6 months aspirin was stopped and Plavix was continued partially due to problematic epistaxis. Roughly 10 days ago she noted increased coughing without chills or fever was reportedly nonproductive and she blamed it on a recently initiated inhaler which may have been Advair by Dr. Friedman. This was done his pulmonary function tests were compatible with reactive airways responsive to bronchodilator therapy and she apparently was still having symptoms despite albuterol. Her DLCO was normal and she had bilateral venous Doppler studies that were normal. I suspect helical CT scanning was not done because of renal insufficiency. Cough became worse and she presented to [facility] last Saturday where she was started on Levaquin. She reported no improvement and then developed severe left-sided pleuritic chest pain the reason for her presentation to the emergency room. She denied chills or fever but did report significant fatigue. Her cough remained loose but nonproductive. In the emergency room initial chest x-ray revealed some minor atelectasis with subsequent noncontrast CT scan revealed by basilar infiltrates worse on the left suspicious for pneumonia. She was subsequently admitted for treatment of presumed pneumonia with broad-spectrum antibiotics considering failure of Levaquin. Date Seen 09/08/18 Time Seen by a Provider: 07:30 Attending Physician George Edwards MD PCP Elie Blakely DO Referring Physician Date of Admission September 07, 2018 at 12:45 Home Medications & Allergies Home Medications Reviewed patient Home Medication Reconciliation performed by pharmacy medication reconciliations chemical radiation technician and/or nursing. Patients Allergies have been reviewed. Allergies Allergies Coded Allergies Penicillins (Verified Allergy, Unknown, 10/15/15) codeine (Verified Allergy, Unknown, 10/15/15) Past Yvehnjk-Sazdsl-Zubhut Hx Past Med/Social Hx: Reviewed Nursing Past Med/Soc Hx, Reviewed and Corrections made Patient Social History Alcohol Use: Denies Use Recreational Drug Use: No Smoking Status: Never a Smoker Recent Foreign Travel: No Contact w/other who traveled: No Recent Hopitalizations: No Recent Infectious Disease Expo: No Past Medical History Surgeries: Appendectomy, Eye Surgery, Gallbladder Cardiac: Chronic Edema/Swelling, Hypertension Musculoskeletal: Arthritis, Back Injury Endocrine: Diabetes, Non-Insulin dep History of Blood Disorders: No Family History Reviewed Nursing Family Hx Review of Systems Constitutional: see HPI; No chills, No diaphoresis, No dizziness, No fever, No malaise; weakness; No weight gain, No weight loss, No other Respiratory: cough, dyspnea on exertion; No hemoptysis, No orthopnea, No phlegm, No short of breath, No stridor; wheezing; No other Cardiovascular: see HPI; No chest pain; edema, Hx of Intervention; No palpitations, No syncope; vascular heart diseas; No other Physical Exam Physical Exam Vital Signs Vital Signs - First Documented 09/07/18 09/07/18 09/07/18 09/08/18 10:35 12:33 14:13 08:26 Temp 98.1 Pulse 75 Resp 25 B/P (MAP) 143/83 (103) Pulse Ox 91 O2 Delivery Room Air O2 Flow Rate 0.00 FiO2 21 Capillary Refill : Less Than 3 Seconds Height, Weight, BMI Height: 5'3.00" Weight: 310lbs. 0.0oz. 140.602570mw; 54.9 BMI Method:Stated General Appearance: Chronically ill, Mild Distress, Obese HEENT: PERRL/EOMI Neck: Full Range of Motion, Normal Inspection, Non Tender Respiratory: No Accessory Muscle Use, Other (Bibasilar rales and rhonchi left greater than right there is significant splinting on inspiration reportedly due to left-sided chest pain.) Cardiovascular: Regular Rate, Rhythm, No Gallop, No JVD, No Murmur, Normal Peripheral Pulses Gastrointestinal: Normal Bowel Sounds, No Organomegaly, No Pulsatile Mass, Non Tender, Soft Extremity: Normal Capillary Refill, No Calf Tenderness, Pedal Edema Neurologic/Psychiatric: Alert, Oriented x3 Results Results/Procedures Labs Laboratory Tests 09/07/18 10:50 09/08/18 05:25 Patient resulted labs reviewed. Assessment/Plan Admission Diagnosis 1. Probable bibasilar pneumonia due to Levaquin failure and history of penicillin allergy patient was started on meropenem will continue to monitor. 2. Likely adult-onset asthma continue bronchodilator therapy. While the patient is not significantly wheezing at this time considering pleuritic chest pain and renal insufficiency will give a dose of IV Solu-Medrol today and switch to prednisone tomorrow. 3. Coronary artery disease clinically stable. 4. Mild hypercalcemia will add PTH level. 5. Multifactorial deconditioning Will consult physical therapy and strongly encouraged the patient to follow through with outpatient pulmonary rehabilitation that the patient reports she was being set up for I believe in [place] where she lives. 6. Hypertension continue antihypertensive medication considering edema may try to find a substitute for amlodipine. Admission Status: Inpatient Order (span 2 midnights) Reason for Inpatient Admission: See admission diagnosis Clinical Quality Measures DVT/VTE Risk/Contraindication: Risk Factor Score Per Nursin RFS Level Per Nursing on Admit: 4+=Very High Copy Copies To 1: ELIE BLAKELY MARK D MD September 08, 2018 09:32
[2018-09-08] MEDS ORDERED: KETOROLAC 30 MG/ML VIAL IVP ONE (10:00)
[2018-09-08] MEDS ORDERED: KETOROLAC 30 MG/ML VIAL IVP PRN (15:45)
[2018-09-08] MEDS ORDERED: KETOROLAC 15 MG/ML VIAL IV PRN (15:45)
[2018-09-08] MEDS: NS IV 1000 ML 1,000 ML IV SCH (15:48)
[2018-09-08] MEDS: ATORVASTATIN 40 MG (LIPITOR) TABLET PO SCH (20:06)
[2018-09-09] MEDS ORDERED: TROUGH ORDER-PHARMACY XX NR (02:00)
[2018-09-09] MEDS: guaiFENesin/DM (ROBITUSSIN DM) 10 ML UDC PO PRN ×2 (03:32→12:20)
[2018-09-09] MEDS: HYDROcodone/APAP 10 MG/325 MG (LORTAB) TAB PO PRN ×3 (03:33→23:44)
[2018-09-09] MEDS: BENZONATATE 100 MG (TESSALON) CAPSULE PO SCH ×3 (03:34→20:00)
[2018-09-09] MEDS: RT-ALBUTEROL/IPRATROPIUM 3 ML (DUONEB) VIAL INH SCH ×4 (03:53→18:53)
[2018-09-09] MEDS: MEROPENEM 500 MG/SWFI 10 ML IV PUSH IV SCH ×6 (04:11→20:01)
[2018-09-09 04:21] LABS: CALCIUM 9.7 MG/DL (8.5-10.1); CREATININE SERUM 1.29 MG/DL (0.60-1.30); POTASSIUM 4.8 MMOL/L (3.6-5.0)
[2018-09-09] MEDS: VANCOMYCIN 750 MG/NS 250 ML IVPB IV SCH ×4 (04:35→15:55)
[2018-09-09] MEDS: predniSONE 10 MG TAB PO SCH (05:52)
[2018-09-09] MEDS: predniSONE 20 MG TAB PO SCH (05:52)
[2018-09-09 08:30] VITALS: BP 136/83
[2018-09-09] MEDS: metFORMIN XR 500 MG (GLUCOPHAGE XR) TAB PO SCH (09:21)
[2018-09-09] MEDS: CLOPIDOGREL 75 MG (PLAVIX) TABLET PO SCH (09:21)
[2018-09-09] MEDS: amLODIPine 5 MG (NORVASC) TAB PO SCH (09:21)
[2018-09-09] MEDS: NS IV 1000 ML 1,000 ML IV SCH ×2 (09:22→14:13)
[2018-09-09] MEDS ORDERED: AZIT250T12 PO (10:28)
[2018-09-09] MEDS ORDERED: IRBE300T18 PO (10:28)
[2018-09-09] MEDS ORDERED: TORS20TA3 PO (10:28)
[2018-09-09] MEDS ORDERED: ALBU2.5V4 NEB (10:28)
[2018-09-09] MEDS ORDERED: ALBU18HF2 INH (10:28)
[2018-09-09] MEDS ORDERED: CNC1KV INJ (10:28)
[2018-09-09] MEDS ORDERED: PRD20T PO (10:28)
[2018-09-09] MEDS ORDERED: LABE100T6 PO (10:28)
[2018-09-09] MEDS ORDERED: MV-M1TAB38 PO (10:28)
[2018-09-09] MEDS ORDERED: METF-397 PO (10:28)
[2018-09-09] MEDS ORDERED: BENZ-36 PO (10:28)
[2018-09-09] MEDS ORDERED: AMLO5TAB9 PO (10:28)
[2018-09-09] MEDS ORDERED: POTA10TA10 PO (10:28)
[2018-09-09] MEDS ORDERED: CLOP75TA28 PO (10:28)
[2018-09-09] MEDS ORDERED: CHOL50005 PO (10:30)
--- NOTE | 2018-09-09 10:32 | NUR ---
WENT OVER THE EXT MED HX WELL THE LIST THE PATIENT BROUGHT IN. SHE STATES SHE WAS TAKING ALL THE ANTIBIOTICS THAT WERE PRESCRIBED TO HER RECENTLY. SHE IS NOT CURRENTLY TAKING THE DOXAZOSIN.
--- NOTE | 2018-09-09 13:45 | Pulmonary Progress Note ---
Subjective Time Seen by a Provider: 07:05 Subjective/Events-last exam Appears to be doing better. Sepsis Event Evaluation Height, Weight, BMI Height: 5'3.00" Weight: 310lbs. 0.0oz. 140.503898lj; 54.9 BMI Method:Stated Focused Exam Lactate Level 09/07/18 10:50: Lactic Acid Level 1.67 Exam Exam Vital Signs Date Time Temp Pulse Resp B/P (MAP) Pulse Ox O2 Delivery O2 Flow Rate FiO2 09/09/18 09:42 91 Room Air 09/09/18 08:30 97.5 72 22 136/83 (100) 92 Room Air 0.00 09/09/18 08:00 Room Air 09/08/18 23:55 97.1 72 20 144/63 (90) 93 Room Air 09/08/18 20:00 Room Air 09/08/18 20:00 97.5 70 18 146/69 (94) 94 Room Air 09/08/18 19:51 92 Room Air 09/08/18 16:00 97.5 70 20 163/71 (101) 92 Room Air 09/08/18 14:39 94 Room Air I & O 09/09/18 07:00 Intake Total 2360 ml Output Total 1425 ml Balance 935 ml Height & Weight Height: 5'3.00" Weight: 310lbs. 0.0oz. 140.508216wg; 54.9 BMI Method:Stated General Appearance: No Apparent Distress, WD/WN HEENT: PERRL/EOMI, Pharynx Normal Neck: Non Tender, Supple Respiratory: Decreased Breath Sounds, Other (pain to left chest wall on palpation lateral aspect and lower) Cardiovascular: Regular Rate, Rhythm, No Murmur Capillary Refill: Less Than 3 Seconds Extremity: Normal Range of Motion, Non Tender, Pedal Edema (1+ bilateral to mid tibia) Neurologic/Psychiatric: Alert, Oriented x3 Results Lab Laboratory Tests 09/08/18 05:25 09/09/18 03:55 Assessment/Plan Assessment/Plan Bibasilar pneumonia - failed out pt treatment - vanco Merrem -IS -CT scan reviewed Atelectasis Asthma - per last PFT -SVNS Deconditioning -PT/OT SISSY LEE DO September 09, 2018 13:45
--- NOTE | 2018-09-09 15:15 | NUR ---
Pastoral care visit.
--- NOTE | 2018-09-09 15:52 | Progress Note-Hospitalist ---
Progress Note Progress Notes/Assess & Plan Date Seen 09/09/18 Time Seen by Provider: 15:46 Assessment & Plan The patient reports that she had a spell at 0230 this morning. With chest pain and coughing. She was given a pain medicine this helped for several hours. She had an additional spell later this morning. She is not coughing anything up. Chest x-ray showed a possible bibasilar infiltrate. White blood count was no rmal. Physical exam: I awakened her from napping in her chair and snoring. Her cheeks are flushed. Lungs show rather distant breath sounds without wheezing. CV was regular. Impression: Likely bibasilar pneumonia with failed outpatient treatment. Plan: RAMIN Miller. Check on frequency of respiratory therapy treatments. Focused Exam Lactate Level 09/07/18 10:50: Lactic Acid Level 1.67 MARCO A MANZANO MD September 09, 2018 15:52
[2018-09-09 15:55] VITALS: BP 185/76
[2018-09-09] MEDS: POLYETHYLENE GLYCOL 17 GM (MIRALAX) PACK PO SCH (20:00)
[2018-09-09] MEDS: ATORVASTATIN 40 MG (LIPITOR) TABLET PO SCH (20:00)
[2018-09-09] MEDS: RT-ALBUTEROL/IPRATROPIUM 3 ML (DUONEB) VIAL INH PRN (23:50)
[2018-09-10] VITALS: BP 160/61
[2018-09-10] MEDS: guaiFENesin/DM (ROBITUSSIN DM) 10 ML UDC PO PRN (02:18)
[2018-09-10] MEDS: RT-ALBUTEROL/IPRATROPIUM 3 ML (DUONEB) VIAL INH SCH ×4 (03:20→20:40)
[2018-09-10] MEDS: MEROPENEM 500 MG/SWFI 10 ML IV PUSH IV SCH ×2 (03:24)
[2018-09-10] MEDS: BENZONATATE 100 MG (TESSALON) CAPSULE PO SCH ×4 (03:24→20:45)
[2018-09-10] MEDS: VANCOMYCIN 750 MG/NS 250 ML IVPB IV SCH ×2 (03:24)
[2018-09-10] MEDS: predniSONE 10 MG TAB PO SCH (05:57)
[2018-09-10] MEDS: predniSONE 20 MG TAB PO SCH (05:57)
--- NOTE | 2018-09-10 07:11 | Pulmonary Progress Note ---
Subjective Time Seen by a Provider: 07:11 Subjective/Events-last exam PT complains of rib pain from coughing Sepsis Event Evaluation Height, Weight, BMI Height: 5'3.00" Weight: 310lbs. 0.0oz. 140.864349ux; 54.9 BMI Method:Stated Focused Exam Lactate Level 09/07/18 10:50: Lactic Acid Level 1.67 Exam Exam Vital Signs Date Time Temp Pulse Resp B/P (MAP) Pulse Ox O2 Delivery O2 Flow Rate FiO2 09/10/18 03:20 90 NIV Bilevel 09/10/18 00:00 96.6 81 18 160/61 (94) 92 Room Air 09/09/18 23:51 94 Room Air 09/09/18 20:00 Room Air 09/09/18 18:53 94 09/09/18 16:06 93 Room Air 09/09/18 15:55 98.2 77 20 185/76 (112) 95 Room Air 0.00 09/09/18 09:42 91 Room Air 09/09/18 08:30 97.5 72 22 136/83 (100) 92 Room Air 0.00 09/09/18 08:00 Room Air I & O 09/10/18 07:00 Intake Total 3060 ml Output Total 950 ml Balance 2110 ml Height & Weight Height: 5'3.00" Weight: 310lbs. 0.0oz. 140.385950kl; 54.9 BMI Method:Stated General Appearance: No Apparent Distress, WD/WN HEENT: PERRL/EOMI, Pharynx Normal Neck: Non Tender, Supple Respiratory: Decreased Breath Sounds, Other (pain to left chest wall on palpation lateral aspect and lower) Cardiovascular: Regular Rate, Rhythm, No Murmur Capillary Refill: Less Than 3 Seconds Extremity: Normal Range of Motion, Non Tender, Pedal Edema (1+ bilateral to mid tibia) Neurologic/Psychiatric: Alert, Oriented x3 Results Lab Laboratory Tests 09/09/18 03:55 Assessment/Plan Assessment/Plan Bibasilar pneumonia - failed out pt treatment - Omnicef -Repeat CXR -Check BNP and repeat labs -IS -CT scan reviewed Persistent cough with pleuritic CP -Lidoderm patch -Pt is allergic Codeine -Tessalon pearls -Will give Ketorolac IV x1 Atelectasis Asthma - per last PFT -SVNS Deconditioning -PT/OT SISSY LEE DO September 10, 2018 07:11
[2018-09-10 07:30] LABS: BASOPHILS % (AUTO) 0 % (0-10); EOSINOPHILS # (AUTO) 0.1 10^3/uL (0.0-0.3); EOSINOPHILS % (AUTO) 1 % (0-10); HEMATOCRIT 38 % (35-52); HEMOGLOBIN 11.9 G/DL (11.5-16.0); LYMPHOCYTES # (AUTO) 1.7 X 10^3 (1.0-4.0); LYMPHOCYTES % (AUTO) 15 % (12-44); MEAN CORPUSCULAR HEMOGLOBIN 29 PG (25-34); MEAN CORPUSCULAR HGB CONC 32 G/DL (32-36); MEAN CORPUSCULAR VOLUME 90 FL (80-99); MEAN PLATELET VOLUME 8.6 FL (7.4-10.4); MONOCYTES # (AUTO) 1.1 X 10^3 (0.0-1.0); MONOCYTES % (AUTO) 10 % (0-12); NEUTROPHILS # (AUTO) 8.3 X 10^3 (1.8-7.8); NEUTROPHILS % (AUTO) 74 % (42-75); PLATELET COUNT 305 10^3/uL (130-400); RED CELL DISTRIBUTION WIDTH 15.7 % (10.0-14.5); WHITE BLOOD COUNT 11.2 10^3/uL (4.3-11.0)
[2018-09-10 07:45] LABS: CALCIUM 9.7 MG/DL (8.5-10.1); CREATININE SERUM 1.05 MG/DL (0.60-1.30); POTASSIUM 4.6 MMOL/L (3.6-5.0)
[2018-09-10 08:00] VITALS: BP 133/71
--- NOTE | 2018-09-10 08:09 | Diagnostic Imaging Report ---
INDICATION: Respiratory distress. COMPARISON: 09/07/2018. FINDINGS: Bibasilar infiltrates have improved in the interim with much better visualization of the heart borders and diaphragms. Upper lobes clear. No adverse development. IMPRESSION: Significant improvements in bibasilar infiltrates with no apparent pleural fluid or adverse change. Dictated by: Dictated on workstation # [id number]
[2018-09-10] MEDS ORDERED: KETOROLAC 30 MG/ML VIAL IVP NR (08:30)
[2018-09-10] MEDS ORDERED: FUROSEMIDE 40 MG/4 ML INJ (LASIX) IVP NR (08:30)
[2018-09-10 09:27] VITALS: BP 133/71
[2018-09-10] MEDS: metFORMIN XR 500 MG (GLUCOPHAGE XR) TAB PO SCH (09:36)
[2018-09-10] MEDS: CLOPIDOGREL 75 MG (PLAVIX) TABLET PO SCH (09:36)
[2018-09-10] MEDS: CEFDINIR 300 MG (OMNICEF) CAP PO SCH ×2 (09:36→20:45)
[2018-09-10] MEDS: LIDOCAINE 4% (SALONPAS) PATCH TOP SCH (09:37)
[2018-09-10] MEDS: amLODIPine 5 MG (NORVASC) TAB PO SCH (09:37)
--- NOTE | 2018-09-10 10:59 | Progress Note-Hospitalist ---
Subjective HPI/CC On Admission Date Seen by Provider: September 10, 2018 Time Seen by Provider: 10:30 The patient is an 88-year-old white female who reports feeling fatigued and short of breath really since around of last year. She first underwent cardiac evaluation was noted to have triple-vessel disease and had multiple stents placed by Dr. Rubin sometime around . This was done for her shortness of breath but did not improve her symptoms. She even underwent repeat catheterization revealing stent patency. Have after 6 months aspirin was stopped and Plavix was continued partially due to problematic e pistaxis. Roughly 10 days ago she noted increased coughing without chills or fever was reportedly nonproductive and she blamed it on a recently initiated inhaler which may have been Advair by Dr. Friedman. This was done his pulmonary function tests were compatible with reactive airways responsive to bronchodilator therapy and she apparently was still having symptoms despite albuterol. Her DLCO was normal and she had bilateral venous Doppler studies that were normal. I suspect helical CT scanning was not done because of renal insufficiency. Cough became worse and she presented to [place] emergency room last Saturday where she was started on Levaquin. She reported no improvement and then developed severe left-sided pleuritic chest pain the reason for her presentation to the emergency room. She denied chills or fever but did report significant fatigue. Her cough remained loose but nonproductive. In the emergency room initial chest x-ray revealed some minor atelectasis with subsequent noncontrast CT scan revealed by basilar infiltrates worse on the left suspicious for pneumonia. She was subsequently admitted for treatment of presumed pneumonia with broad-spectrum antibiotics considering failure of Levaquin. Subjective/Events-last exam Patient "feels awful." Chest pain continues and considering elevated BNP I will consult Dr Luna since he treats her son and she is familiar with him since her primary Manager Field Service is Dr Rubin. Checked meds and labs Very weak and considering her advanced age she has high risk for requiring residential placement Talks to me with her eyes closed most of the time Daughter called adjunct nursing faculty and told her that she looked everything up on [employer] and she is now convinced that the inhaler and Lasix "will kill her mother" so we will try our best to update her daughter on our management and the daughter is set to arrive from [place] tomorrow. I conferred with Dr Friedman in-depth Will order PT/OT IRF possibility as long as daughter is satisfied with the care we are providing the patient here at [facility] O2 sat is stable Needs BM since she is constipated Review of Systems General: Fatigue Pulmonary: Cough Cardiovascular: Chest Pain Gastrointestinal: Constipation Neurological: Weakness Objective Exam Vital Signs Vital Signs Date Time Temp Pulse Resp B/P (MAP) Pulse Ox O2 Delivery O2 Flow Rate FiO2 09/10/18 09:27 82 94 09/10/18 09:27 Room Air 09/10/18 08:00 96.9 18 133/71 (91) 09/09/18 15:55 0.00 09/08/18 00:06 21 Capillary Refill : Less Than 3 Seconds General Appearance: No Apparent Distress, WD/WN, Chronically ill, Obese HEENT: PERRL/EOMI, Pharynx Normal Neck: Non Tender, Supple Respiratory: Decreased Breath Sounds, Other (pain to left chest wall on palpation lateral aspect and lower) Cardiovascular: Regular Rate, Rhythm, No Murmur Gastrointestinal: Normal Bowel Sounds, No Organomegaly, No Pulsatile Mass, Non Tender, Soft Back: Normal Inspection, No CVA Tenderness, No Vertebral Tenderness Extremity: Normal Range of Motion, Non Tender, Pedal Edema (1+ bilateral to mid tibia) Neurologic/Psychiatric: Alert, Oriented x3, Disoriented (subtle poor recall) Results/Procedures Lab Laboratory Tests 09/10/18 07:20 Patient resulted labs reviewed. Assessment/Plan Assessment and Plan Assess & Plan/Chief Complaint Assessment: Bibasilar pneumonia now on PO Omnicef to complete treatment Persistent cough with pleuritic CP- on max meds to manage this acute issue Atelectasis on CXR Asthma placed on ICS Deconditioning- oredered PT/OT may need IRF or SNF CAD recent stents 03/02 Dr Rubin Elevated BNP consulting Dr Jeremy Franz given gently ARF improved creatinine Subtle poor memory recall noted Constipation DM HLP Leukocytosis STEPHAN on biPAP Plan: Roxi Luna and Idalia are both appreciated especially considering additional time required for daughter's questions and confusion regarding medical management Severe weakness may require IRF or SNF Monitor labs including creatinine Advanced age precludes anything other than a poor prison prognosis Diagnosis/Problems Diagnosis/Problems (1) Pneumonia of both lower lobes Status: Acute Qualifiers: Pneumonia type: due to unspecified organism Qualified Codes: J18.1 - Lobar pneumonia, unspecified organism (2) STEPHAN treated with BiPAP Status: Chronic (3) Obesity Status: Chronic Qualifiers: Obesity type: due to excess calories Obesity classification: adult class 3 (BMI >= 40) Serious obesity comorbidity presence: with serious comorbidity Body mass index: BMI 50.0-59.9 Qualified Codes: E66.01 - Morbid (severe) obesity due to excess calories; Z68.43 - Body mass index (BMI) 50-59.9, adult (4) Weakness Status: Acute (5) Renal insufficiency Status: Acute (6) Elevated brain natriuretic peptide (BNP) level Status: Acute (7) CAD (coronary artery disease) Status: Chronic Qualifiers: Coronary Disease-Associated Artery/Lesion type: [place] artery [place] vs. transplanted heart: [place] heart Associated angina: without angina Qualified Codes: I25.10 - Atherosclerotic heart disease of [place] coronary artery without angina pectoris (8) Constipation Status: Acute Qualifiers: Constipation type: slow transit constipation Qualified Codes: K59.01 - Slow transit constipation (9) Diabetes mellitus Status: Chronic Qualifiers: Diabetes mellitus type: type 2 Diabetes mellitus loan and credit manager insulin use: without prison use Diabetes mellitus complication status: with circulatory complication Diabetes mellitus complication detail: with other circulatory complications Qualified Codes: E11.59 - Type 2 diabetes mellitus with other circulatory complications (10) Hypertension (11) Hyperlipemia Status: Chronic Qualifiers: Hyperlipidemia type: mixed hyperlipidemia Qualified Codes: E78.2 - Mixed hyperlipidemia (12) Cough Status: Acute (13) Pleurisy Status: Acute (14) Asthma Status: Acute Qualifiers: Asthma severity: moderate Asthma persistence: persistent Asthma complicat ion type: with acute exacerbation Qualified Codes: J45.41 - Moderate persistent asthma with (acute) exacerbation (15) Leukocytosis Status: Acute Qualifiers: Leukocytosis type: leukemoid reaction Qualified Codes: D72.823 - Leukemoid reaction (16) History of coronary artery stent placement Status: Chronic Clinical Quality Measures DVT/VTE Risk/Contraindication: Risk Factor Score Per Nursin RFS Level Per Nursing on Admit: 4+=Very High ROXANA BISHOP DO September 10, 2018 10:59
--- NOTE | 2018-09-10 11:49 | NUR ---
Timeline note: 1105- Spoke with Bette- patients daughter in [place] about her mothers condition and current care. Bette voiced concerns about the lasix her mother received this morning due to history of kidney failure within the last 3 months. 1120-Dr. Gonzalez notified of concerns. 1127-Dr. Friedman notified of concerns. 1146-Bette called back at [phone]. Informed her of conversation with Dr. Morris. She stated that she felt better and plans to come to [place] tomorrow.
[2018-09-10] MEDS ORDERED: LACTULOSE SYRUP 10GM/15ML (ENULOSE) 30ML UDC PO NR (12:00)
[2018-09-10] MEDS ORDERED: SENNA W/DOCUSATE (SENOKOT S) TABLET PO NR (12:00)
--- NOTE | 2018-09-10 12:50 | NUR ---
IRF Evaluation Order received to evaluate patient for the ARU. Chart reviewed and discussed with Dr. Gonzalez - patient accepted to ARU. CM/SS notified. Met with patient to discuss details of rehabilitation program. She is agreeable to admission and required therapy regimen. Anticipate admission, 09/11/18. Thank you for this referral.
--- NOTE | 2018-09-10 13:02 | Occupational Therapy Eval ---
OT Evaluation-General/PLF Medical Diagnosis Admission Date September 07, 2018 at 12:45 Medical Diagnosis: pneumonia Onset Date: September 07, 2018 Therapy Diagnosis Therapy Diagnosis: decreased self care skills Height/Weight Height (Feet): 5 Height (Inches): 3.00 Weight (Pounds): 310 Weight (Ounces): 0.0 Precautions Precautions/Isolations: Fall Prevention Safety Interventions: Bed Exit Alarm Referral Physician: Carlos Medical History Pertinent Medical History: Arthritis, CAD, DM, HTN Additional Medical History sleep apnea, chronic edema Reviewed History: Yes Social History Home: Assisted Living ADL-Prior Level of Function Therapy Code Descriptions/Definitions Functional [place] Measure: 0=Not Assessed/NA 4=Minimal Assistance 1=Total Assistance 5=Supervision or Setup 2=Maximal Assistance 6=Modified [place] 3=Moderate Assistance 7=Complete [place] Therapy Quality Codes: 6 Independent with activity with or without an assistive device 5 Patient requires set up or clean up by helper. Patient completes activity by themselves 4 Supervision or touching assist (CGA). Robins provide cues , steadying assist 3 The helper provides less than half the effort to complete the activity 2 The helper provides more than half the effort to complete the activity 1 Dependent. The helper does all the effort to complete an activity 7 Patient refused to complete or attempt activity 9 The patient did not perform the activity before the current illness or injury 88 Not attempted due to Medical conditions or safety concerns Functional Abilities and Goals: Independent: Patient completed the activities by him/herself, with or without an assistive device, with no assistance from a helper. Needed Some Help: Patient needed partial assistance from another person to complete activities. Dependent: A helper completed the activities for the patient. Unknown: Not Applicable: ADL PLOF Comments Pt states she is normally able to complete self care tasks without assist, but she can get help if needed. Meals are provided by assisted living. Pt states she does her own laundry, but does not clean her apartment. Self Care: Needed Some Help DME/Equipment: Bath Chair, Grab Bars, Shower, Tall Toilet OT Current Status Subjective Pt sitting in chair, states she's not feeling well today. Reports 4/10 pain in left rib area secondary to coughing. Mental Status/Objective Patient Orientation: Person, Place, Situation Current Glasses/Contacts: Yes Hearing Aids: No Dentures/Partials: No Hand Dominance: Right Upper Extremity ROM Grossly WFL Upper Extremity Coordination Intact ADL-Treatment ADL-Current Pt sitting in chair, states she has already taken a shower this morning, but reports difficulty with ADLs secondary to weakness and fatigue. Pt states she has been getting up to restroom with assist. Pt required assist to don socks. Able to complete sit to stand with supervision and transfer with CGA using FWW. Fatigues with activity. Pt's meal tray arrives. Pt able to open containers and feed herself. Sitting in chair with needs met after session. Therapy Code Descriptions/Definitions Functional [place] Measure: 0=Not Assessed/NA 4=Minimal Assistance 1=Total Assistance 5=Supervision or Setup 2=Maximal Assistance 6=Modified [place] 3=Moderate Assistance 7=Complete [place] Therapy Quality Codes: 6 Independent with activity with or without an assistive device 5 Patient requires set up or clean up by helper. Patient completes activity by themselves 4 Supervision or touching assist (CGA). Robins provide cues , steadying assist 3 The helper provides less than half the effort to complete the activity 2 The helper provides more than half the effort to complete the activity 1 Dependent. The helper does all the effort to complete an activity 7 Patient refused to complete or attempt activity 9 The patient did not perform the activity before the current illness or injury 88 Not attempted due to Medical conditions or safety concerns Eating (FIM): 7 Education OT Patient Education: Rehab process Teaching Recipient: Patient Teaching Methods: Discussion Response to Teaching: Verbalize Understanding OT Short Term Goals Short Term Goals 1=Demonstrate adherence to instructed precautions during ADL tasks. 2=Patient will verbalize/demonstrate understanding of assistive devices/modifications for ADL. 3=Patient will improve strength/tolerance for activity to enable patient to perform ADL's. OT House Painter Helper Goals House Painter Helper Goals Time Frame: Sep 24, 2018 Grooming(FIM): 6 Bathing(FIM): 5 Upper Body Dressing(FIM): 6 Lower Body Dressing(FIM): 5 Toileting(FIM): 6 Toilet/Commode Transfer(FIM): 6 Additional Goals: 1-Demonstrate ADL Tasks, 2-Verbalize Understanding, 3-ImproveStrength/Lucia 1=Demonstrate adherence to instructed precautions during ADL tasks. 2=Patient will verbalize/demonstrate understanding of assistive devices/modifications for ADL. 3=Patient will improve strength/tolerance for activity to enable patient to perform ADL's. OT Education/Plan Problem List/Assessment Assessment: Decreased Activ Tolerance, Decreased UE Strength, Dependent Transfers, Impaired Self-Care Skills Discharge Recommendations Plan/Recommendations: Continue POC Treatment Plan/Plan of Care Treatment,Training & Education: Yes Patient would benefit from OT for education, treatment and training to promote independence in ADL's, mobility, safety and/or upper extremity function for ADL's. Plan of Care: ADL Retraining, Functional Mobility, UE Funct Exercise/Act Treatment Duration: Sep 24, 2018 Frequency: 5 times per week Estimated Hrs Per Day: .25 hour per day Rehab Potential: Fair Time/GCodes Start Time: 11:32 Stop Time: 11:47 Total Time Billed (hr/min): 15 Billed Treatment Time 1 visit, PARMINDER(15minutes) KRISTIN FUENTES OT September 10, 2018 13:02
--- NOTE | 2018-09-10 14:47 | Physical Therapy Evaluation ---
PT Evaluation-General Medical Diagnosis Admission Date September 07, 2018 at 12:45 Medical Diagnosis: pneumonia Onset Date: September 07, 2018 Therapy Diagnosis Therapy Diagnosis: impaired mobility, endurance, strength Height/Weight Height (Feet): 5 Height (Inches): 3.00 Weight (Pounds): 310 Weight (Ounces): 0.0 Precautions Precautions/Isolations: Fall Prevention Referral Physician: Rhonda Gonzalez DO Reason for Referral: Evaluation/Treatment Medical History Pertinent Medical History: Arthritis, CAD, DM, HTN Additional Medical History Past Medical History Surgeries: Appendectomy, Eye Surgery, Gallbladder Cardiac: Chronic Edema/Swelling, Hypertension Musculoskeletal: Arthritis, Back Injury Endocrine: Diabetes, Non-Insulin dep History of Blood Disorders: No Reviewed History: Yes Social History Home: Assisted Living Entry Into Home: Level Entry Prior/Core FIM Prior Level of Function Therapy Code Descriptions/Definitions Functional [place] Measure: 0=Not Assessed/NA 4=Minimal Assistance 1=Total Assistance 5=Supervision or Setup 2=Maximal Assistance 6=Modified [place] 3=Moderate Assistance 7=Complete [place] Therapy Quality Codes: 6 Independent with activity with or without an assistive device 5 Patient requires set up or clean up by helper. Patient completes activity by themselves 4 Supervision or touching assist (CGA). Andrews provide cues , steadying assist 3 The helper provides less than half the effort to complete the activity 2 The helper provides more than half the effort to complete the activity 1 Dependent. The helper does all the effort to complete an activity 7 Patient refused to complete or attempt activity 9 The patient did not perform the activity before the current illness or injury 88 Not attempted due to Medical conditions or safety concerns Functional Abilities and Goals: Independent: Patient completed the activities by him/herself, with or without an assistive device, with no assistance from a helper. Needed Some Help: Patient needed partial assistance from another person to complete activities. Dependent: A helper completed the activities for the patient. Unknown: Not Applicable: Bed Mobility: 7 Transfers (B,C,W/C) (FIM): 7 Gait: 7 Indoor Mobility (Ambulation): Independent PT Evaluation-Current Subjective Patient in recliner pre tx, agrees to PT, has pain of 9-10/10 when coughing. Pt/Family Goals "to improve my endurance, I get SOB easily" Objective Patient Orientation: Person, Place, Situation ROM/Strength ROM Lower Extremities Limited generally due to obesity and LE edema Strength Lower Extremities 4+/5 gross bilateral lower extremities Neuromuscular (Tone, Coordination, Reflexes) NT Sensory Hearing: Functional Hand Dominance: Right Sensation Right Lower Extremit: Impaired Sensation Left Lower Extremity: Impaired Sensation Lower Extremities Decreased light touch sensation from the calves down Transfers Therapy Code Descriptions/Definitions Functional [place] Measure: 0=Not Assessed/NA 4=Minimal Assistance 1=Total Assistance 5=Supervision or Setup 2=Maximal Assistance 6=Modified [place] 3=Moderate Assistance 7=Complete [place] Transfers (B, C, W/C) (FIM): 5 Sit to/from Stand: 5 Gait Mode of Locomotion: Walk Anticipated Mode of Locomotion: Walk Gait (FIM): 2 Distance: 100' Gait Level of Assist: 5 Gait Persons Needed: 1 Gait Assistive Device: None Comments/Gait Description Steady ambulation, no LOB, slow, wide DARBY Balance Sitting Static: Normal Sitting Dynamic: Normal Standing Static: Good Standing Dynamic: Good Treatment seated BLE exercises x15 (AP, LAQ) Assessment/Needs Patient has impaired mobility, strength, endurance. She got SOB after walking about 100'. Patient in recliner post tx with nurse call, phone, tray, all needs met. Rehab Potential: Fair PT Short Term Goals Short Term Goals Time Frame: Sep 17, 2018 Transfers (B,C,W/C) (FIM): 7 Gait (FIM): 5 Gait Distance Comment: 150' Gait Level of Assist: 5 Gait Assistive Device: None PT Plan Problem List Problem List: Activity Tolerance, Functional Strength, Safety, Balance, Gait, Transfer, Bed Mobility, ROM Treatment/Plan Treatment Plan: Continue Plan of Care Treatment Plan: Bed Mobility, Education, Functional Activity Lucia, Functional Strength, Gait, Safety, Therapeutic Exercise, Transfers Treatment Duration: Sep 17, 2018 Frequency: 6 times per week Estimated Hrs Per Day: .25 hour per day (15-30') Patient and/or Family Agrees t: Yes Safety Risks/Education Patient Education: Gait Training, Transfer Techniques, Correct Positioning, S afety Issues Teaching Recipient: Patient Teaching Methods: Demonstration, Discussion Response to Teaching: Reinforcement Needed Discharge Recommendations Plan Patient will perform bed mobility and transfer training, balance and endurance training, functional strengthening, gait training, and education, to improve functional mobility and independence at home. Therapy D/C Recommendations: Assisted Living, Home w/ Family Support Time/GCodes Time In: 1428 Time Out: 1440 Total Billed Treatment Time: 12 Total Billed Treatment 1 visit NITZA PORTLILO PT September 10, 2018 14:47
[2018-09-10 15:40] VITALS: BP 138/72
--- NOTE | 2018-09-10 19:00 | Consultation-Cardiology ---
HPI-Cardiology Cardiology Consultation: Date of Consultation 09/10/18 Time Seen by a Provider: 17:15 Date of Admission Attending Physician George Edwards MD Admitting Physician Mark Blakely DO Consulting Physician AUNG AARON MD, MA FACP, FACC, [facility] [place], [facility] Physician requesting consult: Dr Gonzalez HPI: Chief Complaint: Reason for consultation: Elevated BNP HPI: 88 yo woman with several months of exertional shortness of breath, slowly progressive. A workup in Feb 2018 in [place] had indicated CAD. She underwent cor stenting (2 stents, according to her) by Dr Rubin. Symptoms did not improve. Repeat cath a few weeks ago (according to her) by Dr Rubin showed patent stents and no significant cardiac issues. She remains short of breath and has generalized malaise and weakness. Has been admitted with the diagnosis of bibasilar pneumonia. BNP has been elevated for which she has received Lasix and we have been asked to see her. He notes pain with deep inspiration the R lower ribcage area (at the back). She does not repeat fever or chills. She does report bilat leg swelling that is chronic and has been worse lately Review of Systems-Cardiology Review of Systems Constitutional: As described under HPI Eyes: No vision change Ears/Nose/Throat: No ear discharge, No nasal drainage, No recent hearing loss Respiratory: As described under HPI Cardiovascular: As described under HPI Gastrointestinal: No constipation, No diarrhea, No nausea, No vomiting Genitourinary: No dysuria, No hematuria, No urine frequency changes Musculoskeletal: back pain (chronic) Skin: No rash, No ulcerations Psychiatric/Neurological: No seizure, No focal weakness, No syncope Hematologic: No bleeding abnormalities All Other Systems Reviewed Negative Unless Noted: Yes [id number] Hx Patient Social History Alcohol Use: Denies Use Recreational Drug Use: No Smoking Status: Never a Smoker Recent Foreign Travel: No Recent Infectious Disease Expo: No Hospitalization with Isolation: Denies Past Medical History PMH As described under Assessment. Family Medical History Family Medical History: A son has had known CAD since his 40s Allergies and Home Medications Allergies Coded Allergies: Penicillins (Verified Allergy, Unknown, 10/15/15) codeine (Verified Allergy, Unknown, 10/15/15) Home Medications Albuterol Sulfate 2.5 Mg/3 Ml Vial.neb, 2.5 MG NEB Q4H PRN for SHORTNESS OF BREATH, (Reported) Albuterol Sulfate 18 Gm Hfa.aer.ad, 2 PUFF INH QID PRN for SHORTNESS OF BREATH, (Reported) Amlodipine Besylate 5 Mg Tablet, 5 MG PO DAILY, (Reported) Atorvastatin Calcium 40 Mg Tablet, 40 MG PO HS, (Reported) Azithromycin 250 Mg Tablet, PO UD, (Reported) TAKE 2 TABLETS BY MOUTH TODAY, THEN 1 TABLET DAILY UNTIL GONE 5 DAY THEARPY FILLED 09-03-18 Benzonatate 100 Mg Capsule, 100 MG PO Q8H PRN for COUGH, (Reported) Cholecalciferol (Vitamin D3) 50,000 Unit Capsule, 50,000 UNITS PO WEEK, (Reported) Clopidogrel Bisulfate 75 Mg Tablet, 75 MG PO DAILY, (Reported) Cyanocobalamin 1,000 Mcg/Ml Inj, 1,000 MCG INJ MONTHLY, (Reported) Irbesartan 300 Mg Tablet, 300 MG PO DAILY, (Reported) Labetalol HCl 100 Mg Tablet, 100 MG PO BID, (Reported) Levofloxacin 750 Mg Tablet, 750 MG PO DAILY, (Reported) 7 DAY THERAPY FILLED 09-02-18 Metformin HCl 500 Mg Tablet, 1,000 MG PO DAILY, (Reported) TAKES 2 (500MG) TABLETS Mv-Mn/FA/Vit K/Lycop/Lut/Zeaxa 1 Each Tablet, 1 TAB PO DAILY, (Reported) Potassium Chloride 10 Meq Tablet.er, 10 MEQ PO DAILY, (Reported) Prednisone 20 Mg Tab, 20 MG PO DAILY, (Reported) 7 DAY THERAPY FILLED 09-02-18 Torsemide 20 Mg Tablet, 60 MG PO DAILY, (Reported) TAKES 3 (20MG) TABLETS Patient Home Medication List Home Medication List Reviewed: Yes Physical Exam-Cardiology Physical Exam Vital Signs/I&O 09/10/18 09/10/18 09/10/18 09/10/18 08:00 08:20 09:27 09:27 Temp 96.9 Pulse 77 82 Resp 18 B/P (MAP) 133/71 (91) Pulse Ox 94 94 94 O2 Delivery Room Air Room Air Room Air 09/10/18 09/10/18 14:55 15:40 Temp 98.0 Pulse 80 Resp 22 B/P (MAP) 138/72 (94) Pulse Ox 93 95 O2 Delivery Room Air Room Air 09/10/18 00:00 Intake Total 2660 ml Output Total 950 ml Balance 1710 ml Capillary Refill : Less Than 3 Seconds Constitutional: AAO x 3, well-developed, well-nourished, other (obese) HEENT: PERRL, EOMI, hearing is well preserved; No xanthelasmas are seen Neck: No carotid bruit; carotid pulses are 2 + bilaterally, with good upstrokes Respiratory: No accessory muscle use; other (fair to good air entry, but diminished at the bases) Cardiovascular: regular rate-rhythm, S1 and S2, systolic murmur (soft JACK at card base) Gastrointestinal: No tender; soft; No guarding, No rebound; audible bowel sounds Extremities: No clubbing, No cyanosis; significant edema (mod, bilat, pitting edema of the legs) Neurologic/Psychiatric: oriented x 3, grossly intact, power is 5/5 both on sides Skin: normal color, warm/dry; No rash on exposed areas, No ulcerations on exposed areas Data Review Labs Laboratory Tests 09/10/18 07:20: White Blood Count 11.2H, Red Blood Count 4.17L, Hemoglobin 11.9, Hematocrit 38, Mean Corpuscular Volume 90, Mean Corpuscular Hemoglobin 29, Mean Corpuscular Hemoglobin Concent 32, Red Cell Distribution Width 15.7H, Platelet Count 305, Mean Platelet Volume 8.6, Neutrophils (%) (Auto) 74, Lymphocytes (%) (Auto) 15, Monocytes (%) (Auto) 10, Eosinophils (%) (Auto) 1, Basophils (%) (Auto) 0, Neutrophils # (Auto) 8.3H, Lymphocytes # (Auto) 1.7, Monocytes # (Auto) 1.1H, Eosinophils # (Auto) 0.1, Basophils # (Auto) 0.0, Sodium Level 141, Potassium Level 4.6, Chloride Level 107, Carbon Dioxide Level 26, Anion Gap 8, Blood Urea Nitrogen 29H, Creatinine 1.05, Estimat Glomerular Filtration Rate 49, BUN/Creatinine Ratio 28, Glucose Level 112H, Calcium Level 9.7, Phosphorus Level 4.0, Magnesium Level 2.0, B-Type Natriuretic Peptide 531.1H Microbiology 09/07/18 Blood Culture - Preliminary, Resulted No growth 09/07/18 Urine Culture - Final, Complete NO GROWTH Laboratory Tests 09/09/18 03:55 09/10/18 07:20 A/P-Cardiology Assessment/Admission Diagnosis Multifactorial shortness of breath: pneumonia, obesity-hypoventilation, ac CHF (etiology undetermined) H/o CAD and cor stents in Feb [address] Rubin in [place], [place]. A recent cath showed patent stents, according to the patient HTN HL Borderline DM II H/o asthma Discussion and Recomendations * Diuretics as needed and as tolerated * Monitor labs * Obtain cardiac records from [facility] * Echo * Further recs to be based on her hosp course Clinical Quality Measures DVT/VTE Risk/Contraindication: Risk Factor Score Per Nursin RFS Level Per Nursing on Admit: 4+=Very High AUNG AARON MD FACP FACC CCDS September 10, 2018 19:00
[2018-09-10] MEDS: POLYETHYLENE GLYCOL 17 GM (MIRALAX) PACK PO SCH (20:45)
[2018-09-10] MEDS: ATORVASTATIN 40 MG (LIPITOR) TABLET PO SCH (20:45)
[2018-09-10] MEDS: SENNA W/DOCUSATE (SENOKOT S) TABLET PO SCH (20:45)
[2018-09-10] MEDS ORDERED: LIDOCAINE PATCH REMOVAL TP SCH (21:00)
[2018-09-11] VITALS: BP 113/73
[2018-09-11] MEDS: RT-ALBUTEROL/IPRATROPIUM 3 ML (DUONEB) VIAL INH SCH ×2 (02:35→08:14)
[2018-09-11] MEDS: HYDROcodone/APAP 10 MG/325 MG (LORTAB) TAB PO PRN (02:43)
[2018-09-11] MEDS: guaiFENesin/DM (ROBITUSSIN DM) 10 ML UDC PO PRN (02:43)
[2018-09-11 06:00] LABS: BASOPHILS % (AUTO) 0 % (0-10); EOSINOPHILS # (AUTO) 0.1 10^3/uL (0.0-0.3); EOSINOPHILS % (AUTO) 1 % (0-10); HEMATOCRIT 35 % (35-52); HEMOGLOBIN 11.2 G/DL (11.5-16.0); LYMPHOCYTES # (AUTO) 2.1 X 10^3 (1.0-4.0); LYMPHOCYTES % (AUTO) 20 % (12-44); MEAN CORPUSCULAR HEMOGLOBIN 29 PG (25-34); MEAN CORPUSCULAR HGB CONC 32 G/DL (32-36); MEAN CORPUSCULAR VOLUME 89 FL (80-99); MONOCYTES # (AUTO) 1.1 X 10^3 (0.0-1.0); MONOCYTES % (AUTO) 11 % (0-12); NEUTROPHILS # (AUTO) 7.2 X 10^3 (1.8-7.8); NEUTROPHILS % (AUTO) 68 % (42-75); PLATELET COUNT 278 10^3/uL (130-400); RED CELL DISTRIBUTION WIDTH 15.6 % (10.0-14.5); WHITE BLOOD COUNT 10.5 10^3/uL (4.3-11.0)
[2018-09-11] MEDS: predniSONE 20 MG TAB PO SCH (06:20)
[2018-09-11] MEDS: predniSONE 10 MG TAB PO SCH (06:20)
[2018-09-11 06:22] LABS: ALBUMIN 3.3 GM/DL (3.2-4.5); BILIRUBIN,TOTAL 0.4 MG/DL (0.1-1.0); CALCIUM 9.6 MG/DL (8.5-10.1); CREATININE SERUM 1.08 MG/DL (0.60-1.30); POTASSIUM 4.8 MMOL/L (3.6-5.0); TOTAL PROTEIN 5.9 GM/DL (6.4-8.2)
--- NOTE | 2018-09-11 06:29 | Pulmonary Progress Note ---
Subjective Time Seen by a Provider: 07:11 Subjective/Events-last exam PT is feeling better. SHe is on Room air. Sepsis Event Evaluation Height, Weight, BMI Height: 5'3.00" Weight: 310lbs. 0.0oz. 140.689619lv; 54.9 BMI Method:Stated Exam Exam Vital Signs Date Time Temp Pulse Resp B/P (MAP) Pulse Ox O2 Delivery O2 Flow Rate FiO2 09/11/18 02:36 95 Room Air 09/11/18 00:00 97.6 74 18 113/73 (86) 95 Room Air 09/10/18 20:41 91 Room Air 09/10/18 20:00 Room Air 09/10/18 15:40 98.0 80 22 138/72 (94) 95 Room Air 09/10/18 14:55 93 Room Air 09/10/18 09:27 82 94 09/10/18 09:27 94 Room Air 09/10/18 08:20 Room Air 09/10/18 08:00 96.9 77 18 133/71 (91) 94 Room Air I & O 09/11/18 07:00 Intake Total 2180 ml Balance 2180 ml Height & Weight Height: 5'3.00" Weight: 310lbs. 0.0oz. 140.231498xb; 54.9 BMI Method:Stated General Appearance: No Apparent Distress, WD/WN, Chronically ill, Obese HEENT: PERRL/EOMI, Pharynx Normal Neck: Non Tender, Supple Respiratory: Decreased Breath Sounds Cardiovascular: Regular Rate, Rhythm, No Murmur Capillary Refill: Less Than 3 Seconds Extremity: Normal Range of Motion, Non Tender, Pedal Edema (1+ bilateral to mid tibia) Neurologic/Psychiatric: Alert, Oriented x3 Skin: Normal Color, Warm/Dry Lymphatic: No Adenopathy Results Lab Laboratory Tests 09/10/18 07:20 09/11/18 05:38 Assessment/Plan Assessment/Plan Bibasilar pneumonia - failed out pt treatment - Omnicef -Repeat CXR this AM -Last CXR is showing improvement. -BNP and repeat labs - reviewed -S/P lasix x 1 dose yesterday secondary to SOB and elevated BNP -IVF SL -IS -CT scan reviewed -Will need repeat CT scan of chest 8 wks after discharge to ensure complete resolution Persistent cough with pleuritic CP -Lidoderm patch -Pt is allergic Codeine -Tessalon pearls Atelectasis Asthma - per last PFT -SVNS Deconditioning -PT/OT Pt is ok from pulmonary standpoint for discharge. SISSY LEE DO September 11, 2018 06:29
--- NOTE | 2018-09-11 07:07 | Pulmonary Procedures ---
SISSY LEE DO September 11, 2018 07:07
[2018-09-11 08:18] VITALS: BP 153/73
[2018-09-11] MEDS: CLOPIDOGREL 75 MG (PLAVIX) TABLET PO SCH (08:41)
[2018-09-11] MEDS: BENZONATATE 100 MG (TESSALON) CAPSULE PO SCH (08:41)
[2018-09-11] MEDS: CEFDINIR 300 MG (OMNICEF) CAP PO SCH (08:41)
[2018-09-11] MEDS: SENNA W/DOCUSATE (SENOKOT S) TABLET PO SCH (08:41)
[2018-09-11] MEDS: amLODIPine 5 MG (NORVASC) TAB PO SCH (08:41)
[2018-09-11] MEDS: metFORMIN XR 500 MG (GLUCOPHAGE XR) TAB PO SCH (08:41)
[2018-09-11] MEDS: LIDOCAINE 4% (SALONPAS) PATCH TOP SCH (08:41)
--- NOTE | 2018-09-11 09:08 | Progress Note-Cardiology ---
Cardiology SOAP Progress Note Subjective: Still short of breath. Has a dry cough Denies cp or palp or syncope Notes gen malaise Bothered by her leg swelling Objective: I&O/Vital Signs 09/11/18 09/11/18 09/11/18 09/11/18 00:00 02:36 07:49 08:14 Temp 97.6 Pulse 74 Resp 18 B/P (MAP) 113/73 (86) Pulse Ox 95 95 95 O2 Delivery Room Air Room Air Room Air Room Air 09/11/18 08:18 Temp 97.5 Pulse 74 Resp 21 B/P (MAP) 153/73 (99) Pulse Ox 94 O2 Delivery Room Air O2 Flow Rate 0.00 09/11/18 00:00 Intake Total 2080 ml Balance 2080 ml Weight (Pounds): 310 Weight (Ounces): 0.0 Weight (Calculated Kilograms): 140.078009 Constitutional: AAO x 3, well-developed, well-nourished, other (obese) Respiratory: No accessory muscle use; other (fair to good air entry, but dimi nished at the bases) Cardiovascular: regular rate-rhythm, S1 and S2, systolic murmur (soft JACK at card base) Gastrointestional: No tender; soft; No guarding, No rebound; audible bowel sounds Extremities: No clubbing, No cyanosis; significant edema (mod, bilat, pitting edema of the legs) Neurologic/Psychiatric: oriented x 3, grossly intact, power is 5/5 both on sides Skin: normal color, warm/dry; No rash on exposed areas, No ulcerations on exposed areas Results/Procedures: Labs Laboratory Tests 09/11/18 05:38: White Blood Count 10.5, Red Blood Count 3.93L, Hemoglobin 11.2L, Hematocrit 35, Mean Corpuscular Volume 89, Mean Corpuscular Hemoglobin 29, Mean Corpuscular Hemoglobin Concent 32, Red Cell Distribution Width 15.6H, Platelet Count 278, Mean Platelet Volume 9.0, Neutrophils (%) (Auto) 68, Lymphocytes (%) (Auto) 20, Monocytes (%) (Auto) 11, Eosinophils (%) (Auto) 1, Basophils (%) (Auto) 0, Neutrophils # (Auto) 7.2, Lymphocytes # (Auto) 2.1, Monocytes # (Auto) 1.1H, Eosinophils # (Auto) 0.1, Basophils # (Auto) 0.0, Sodium Level 141, Potassium Level 4.8, Chloride Level 106, Carbon Dioxide Level 28, Anion Gap 7, Blood Urea Nitrogen 32H, Creatinine 1.08, Estimat Glomerular Filtration Rate 48, BUN/Creatinine Ratio 30, Glucose Level 114H, Calcium Level 9.6, Corrected Calcium 10.2H, Total Bilirubin 0.4, Aspartate Amino Transf (AST/SGOT) 16, Alanine Aminotransferase (ALT/SGPT) 14, Alkaline Phosphatase 86, Total Protein 5.9L, Albumin 3.3 Microbiology 09/07/18 Blood Culture - Preliminary, Resulted No growth 09/07/18 Urine Culture - Final, Complete NO GROWTH A/P: Assessment: Multifactorial shortness of breath: pneumonia, obesity-hypoventilation, ac CHF (etiology undetermined, suspected to be [id number] diastolic) Leg swelling, multifactorial: venous insuff and amlodipine therapy and suspected diastolic CHF H/o CAD and cor stents in Feb [address] Rubin in [place], [place]. A recent cath showed patent stents, according to the patient HTN HL Borderline DM II H/o asthma Plan: * We recommend the following: * D/c amlodipine in effort to reduce leg swelling * Diuretics to treat suspected acute ponce CHF * Initiate beta-blockers to control bp and because of a h/o CAD * Continue to try to obtain cardiac records from [facility] * Echo * Further recs to be based on her hosp course AUNG AARON MD FACP FAC CCDS September 11, 2018 09:08
[2018-09-11] MEDS ORDERED: meTOprolol SUCCINATE 100 MG (TOPROL XL) TAB PO ONE (09:15)
[2018-09-11] MEDS ORDERED: FUROSEMIDE 40 MG (LASIX) TAB PO ONE (09:15)
[2018-09-11] MEDS ORDERED: KCL 10 MEQ TAB (MICRO K) PO ONE (09:15)
--- NOTE | 2018-09-11 10:01 | Discharge Summary-Hospitalist ---
Diagnosis/Chief Complaint Date of Admission September 07, 2018 at 12:45 Date of Discharge Discharge Date: September 11, 2018 Admission Diagnosis 1. Probable bibasilar pneumonia due to Levaquin failure and history of penicillin allergy patient was started on meropenem will continue to monitor. 2. Likely adult-onset asthma continue bronchodilator therapy. While the patient is not significantly wheezing at this time considering pleuritic chest pain and renal insufficiency will give a dose of IV Solu-Medrol today and switch to prednisone tomorrow. 3. Coronary artery disease clinically stable. 4. Mild hypercalcemia will add PTH level. 5. Multifactorial deconditioning Will consult physical therapy and strongly encouraged the patient to follow through with outpatient pulmonary rehabilitation that the patient reports she was being set up for I believe in [place] where she lives. 6. Hypertension continue antihypertensive medication considering edema may try to find a substitute for amlodipine. Discharge Diagnosis (1) Pneumonia of both lower lobes Status: Acute (2) STEPHAN treated with BiPAP Status: Chronic (3) Obesity Status: Chronic (4) Weakness Status: Acute (5) Renal insufficiency Status: Acute (6) Elevated brain natriuretic peptide (BNP) level Status: Acute (7) CAD (coronary artery disease) Status: Chronic (8) Constipation Status: Acute (9) Diabetes mellitus Status: Chronic (10) Hypertension (11) Hyperlipemia Status: Chronic (12) Cough Status: Acute (13) Pleurisy Status: Acute (14) Asthma Status: Acute (15) Leukocytosis Status: Acute (16) History of coronary artery stent placement Status: Chronic Discharge Summary Discharge Physical Exam Allergies: Coded Allergies: Penicillins (Verified Allergy, Unknown, 10/15/15) codeine (Verified Allergy, Unknown, 10/15/15) Vitals & I&Os Vital Signs Date Time Temp Pulse Resp B/P (MAP) Pulse Ox O2 Delivery O2 Flow Rate FiO2 09/11/18 10:50 Room Air 09/11/18 08:18 97.5 74 21 94 0.00 09/08/18 00:06 21 General Appearance: No Apparent Distress, WD/WN, Chronically ill Respiratory: Chest Non Tender, Lungs Clear, Normal Breath Sounds, No Accessory Muscle Use, No Respiratory Distress Cardiovascular: Regular Rate, Rhythm, No Edema, No Gallop, No JVD, No Murmur, Normal Peripheral Pulses Neurologic/Psychiatric: Alert, Oriented x3, No Motor/Sensory Deficits, Normal Mood/Affect Hospital Course Was the Problem List Reviewed?: Yes Hospital Course: Pt had an uneventful hospital course for 5 days after she was admitted for B/L Pneumonia and failed oral antibiotics so she was placed on Meropenem and Iv steroids and close monitoring. Dr. Friedman saw her in consu ltation initiated nebulizer treatments and maintained her CPAP machine. Overall she did well, bowels were not moving at time of DC so that will be aggressively treated in inpatient rehab but overall her lungs were much improved although the cough and pleuritic chest pain continued to be an issue so will aggressively treat that as best as we can. Her daughter was said to arrive from [place] and she will be started in an intensive therapy program in order to [place] able [place] Labs (last 24 hrs) Laboratory Tests 09/11/18 05:38: White Blood Count 10.5, Red Blood Count 3.93L, Hemoglobin 11.2L, Hematocrit 35, Mean Corpuscular Volume 89, Mean Corpuscular Hemoglobin 29, Mean Corpuscular Hemoglobin Concent 32, Red Cell Distribution Width 15.6H, Platelet Count 278, Mean Platelet Volume 9.0, Neutrophils (%) (Auto) 68, Lymphocytes (%) (Auto) 20, Monocytes (%) (Auto) 11, Eosinophils (%) (Auto) 1, Basophils (%) (Auto) 0, Neutrophils # (Auto) 7.2, Lymphocytes # (Auto) 2.1, Monocytes # (Auto) 1.1H, Eosinophils # (Auto) 0.1, Basophils # (Auto) 0.0, Sodium Level 141, Potassium Level 4.8, Chloride Level 106, Carbon Dioxide Level 28, Anion Gap 7, Blood Urea Nitrogen 32H, Creatinine 1.08, Estimat Glomerular Filtration Rate 48, BUN/Creatinine Ratio 30, Glucose Level 114H, Calcium Level 9.6, Corrected Calcium 10.2H, Total Bilirubin 0.4, Aspartate Amino Transf (AST/SGOT) 16, Alanine Aminotransferase (ALT/SGPT) 14, Alkaline Phosphatase 86, Total Protein 5.9L, Albumin 3.3 Microbiology 09/07/18 Blood Culture - Preliminary, Resulted No growth 09/07/18 Urine Culture - Final, Complete NO GROWTH Patient resulted labs reviewed. Pending Labs Discussion & Recommendations Discharge Planning: <30 minutes discharge planning Discharge Home Medications: Active Scripts Active Reported D3-50 (Cholecalciferol (Vitamin D3)) 50,000 Unit Capsule 50,000 Units PO WEEK Cyanocobalamin Injection (Cyanocobalamin) 1,000 Mcg/Ml Inj 1,000 Mcg INJ MONTHLY Ocuvite Eye + Multi Tablet (Mv-Mn/FA/Vit K/Lycop/Lut/Zeaxa) 1 Each Tablet 1 Tab PO DAILY Amlodipine Besylate 5 Mg Tablet 5 Mg PO DAILY Metformin HCl 500 Mg Tablet 1,000 Mg PO DAILY TAKES 2 (500MG) TABLETS Irbesartan 300 Mg Tablet 300 Mg PO DAILY Potassium Chloride 10 Meq Tablet.er 10 Meq PO DAILY Clopidogrel (Clopidogrel Bisulfate) 75 Mg Tablet 75 Mg PO DAILY Torsemide 20 Mg Tablet 60 Mg PO DAILY TAKES 3 (20MG) TABLETS Ventolin Hfa (Albuterol Sulfate) 18 Gm Hfa.aer.ad 2 Puff INH QID PRN Labetalol HCl 100 Mg Tablet 100 Mg PO BID Prednisone 20 Mg Tab 20 Mg PO DAILY 7 Days 7 DAY THERAPY FILLED 09-02-18 Benzonatate 100 Mg Capsule 100 Mg PO Q8H PRN Azithromycin 250 Mg Tablet PO UD TAKE 2 TABLETS BY MOUTH TODAY, THEN 1 TABLET DAILY UNTIL GONE 5 DAY THEARPY FILLED 09-03-18 Albuterol Sulfate 2.5 Mg/3 Ml Vial.neb 2.5 Mg NEB Q4H PRN Levofloxacin 750 Mg Tablet 750 Mg PO DAILY 7 DAY THERAPY FILLED 09-02-18 Atorvastatin Calcium 40 Mg Tablet 40 Mg PO HS Instructions to patient/family Please see electronic discharge instructions given to patient. Clinical Quality Measures DVT/VTE Risk/Contraindication: Risk Factor Score Per Nursin RFS Level Per Nursing on Admit: 4+=Very High Problem Qualifiers (1) Pneumonia of both lower lobes: Pneumonia type: due to unspecified organism Qualified Codes: J18.1 - Lobar pneumonia, unspecified organism (2) Obesity: Obesity type: due to excess calories Obesity classification: adult class 3 (BMI >= 40) Serious obesity comorbidity presence: with serious comorbidity Body mass index: BMI 50.0-59.9 Qualified Codes: E66.01 - Morbid (severe) obesity due to excess calories; Z68.43 - Body mass index (BMI) 50-59.9, adult (3) CAD (coronary artery disease): Coronary Disease-Associated Artery/Lesion type: [place] artery [place] vs. transplanted heart: [place] heart Associated angina: without angina Qualified Codes: I25.10 - Atherosclerotic heart disease of [place] coronary artery without angina pectoris (4) Constipation: Constipation type: slow transit constipation Qualified Codes: K59.01 - Slow transit constipation (5) Diabetes mellitus: Diabetes mellitus type: type 2 Diabetes mellitus alf insulin use: without alf use Diabetes mellitus complication status: with circulatory complication Diabetes mellitus complication detail: with other circulatory complications Qualified Codes: E11.59 - Type 2 diabetes mellitus with other circulatory complications (6) Hypertension: Hypertension type: essential hypertension Qualified Codes: I10 - Essential (primary) hypertension (7) Hyperlipemia: Hyperlipidemia type: mixed hyperlipidemia Qualified Codes: E78.2 - Mixed hyperlipidemia (8) Asthma: Asthma severity: moderate Asthma persistence: persistent Asthma complication type: with acute exacerbation Qualified Codes: J45.41 - Moderate persistent asthma with (acute) exacerbation (9) Leukocytosis: Leukocytosis type: leukemoid reaction Qualified Codes: D72.823 - Leukemoid reaction ROXANA BISHOP DO September 11, 2018 10:01
[2018-09-12] MEDS ORDERED: KCL 10 MEQ TAB (MICRO K) PO SCH (07:00)
[2018-09-12] MEDS ORDERED: FUROSEMIDE 40 MG (LASIX) TAB PO SCH (09:00)
[2018-09-12] MEDS ORDERED: meTOprolol SUCCINATE 100 MG (TOPROL XL) TAB PO SCH (09:00)
== END 2018-09-11 10:50 | DRG 193 ==
LOC: EDUNIT# 10:29 → ER 10:30 → 4TH 12:45
PROVIDERS: ADMIT Internal Medicine; ATTEND Internal Medicine
DX: J18.1 Lobar pneumonia, unspecified organism (principal); I11.0 Hypertensive heart disease with heart failure; I50.33 Acute on chronic diastolic (congestive) heart failure; J98.11 Atelectasis; J45.41 Moderate persistent asthma with (acute) exacerbation; N17.9 Acute kidney failure, unspecified; E66.2 Morbid (severe) obesity with alveolar hypoventilation; Z68.43 Body mass index [BMI] 50.0-59.9, adult; R07.81 Pleurodynia; R60.0 Localized edema; E11.9 Type 2 diabetes mellitus without complications; E83.52 Hypercalcemia; I25.10 Atherosclerotic heart disease of native coronary artery without angina pectoris; E78.2 Mixed hyperlipidemia; K59.01 Slow transit constipation; M19.91 Primary osteoarthritis, unspecified site; R53.1 Weakness; Z95.5 Presence of coronary angioplasty implant and graft; Z79.84 Long term (current) use of oral hypoglycemic drugs
CPT/HCPCS: 36415; 51702; 71045; 71250; 80048; 80053; 80202; 81000; 83605; 83735; 83880; 83970; 84100; 84484; 85025; 85610; 85730; 87040; 87088; 93005; 93306; 94640; 94664; 94760; 96374; 96375; 96376

== ENCOUNTER 2018-09-11 09:27 | Inpatient (IN) | payer MEDICARE ==
[~2018-09-11] VITALS: Ht 160 cm; Wt 140.0 kg
[~2018-09-11 09:27] MED LIST changes: +ALBU18HF2 INH; +ALBU2.5V4 NEB; +AMLO5TAB4 PO; +AMLO5TAB9 PO; +ATOR40TA70 PO; +AZIT250T12 PO; +BENZ-36 PO; +BENZ100C18 PO; +CHOL50005 PO; +CLOP75TA28 PO; +CLOP75TA69 PO; +CNC1KV INJ; +IRBE300T18 PO; +LABE100T6 PO; +LEVO750T39 PO; +METF-397 PO; +MV-M1TAB38 PO; +POTA10TA10 PO; +PRD20T PO; +TORS20TA3 PO
--- NOTE | 2018-09-11 10:50 | NUR ---
Pt admitted to room 228-1, with an admitting diagnosis of debility, S/P LLL Pneumonia on 09/11/18 from 4th floor, via w/c, accompanied by PT. AMARILYS MINAYA introduced to surroundings, call light, bed controls, phone, TV, temperature control, lights, meal times, smoking policy, visitor policy, side rail policy, bathrooms and showers. Patient Rights given to patient in the handbook.AMARILYS MINAYA acknowledges understanding that [facility] is not responsible for the loss or damage to any personal effects or valuables that are kept in the patients posession during their hospitalization. The following Patient Care Plans were discussed with the pt: Discharge Planning, Impaired Mobility, Self Care Deficit, Potential for fall/injury, alteration in gas exchange/pneumonia. AMARILYS MINAYA verbalizes understanding of Interdisciplinary Patient Education. Patient and/or family were informed about the Rapid Response Team and its purpose. Patient received Patient Rights Booklet, which includes Privacy Act Statement and Data Collection Information Summary. Pt working w PT upon admission.
--- NOTE | 2018-09-11 10:56 | NUR ---
REVIEWED MED REC IT WAS REPORTED UPON ADMISSION TO 4TH FLOOR. NO CHANGES WERE MADE WHEN THE PATIENT DISCHARGED TO REHAB.
--- NOTE | 2018-09-11 11:53 | Physical Therapy Evaluation ---
PT Evaluation-General Medical Diagnosis Admission Date September 11, 2018 at 10:55 Medical Diagnosis: debility Onset Date: September 07, 2018 Therapy Diagnosis Therapy Diagnosis: impaired mobility, strength, endurance Height/Weight Height (Feet): 5 Height (Inches): 3.00 Weight (Pounds): 310 Weight (Ounces): 0.0 Referral Physician: Rhonda Gonzalez DO Medical History Pertinent Medical History: Arthritis, CAD, DM, HTN Additional Medical History Past Medical History Surgeries: Appendectomy, Eye Surgery, Gallbladder Cardiac: Chronic Edema/Swelling, Hypertension Musculoskeletal: Arthritis, Back Injury Endocrine: Diabetes, Non-Insulin dep History of Blood Disorders: No Reviewed History: Yes Reviewed History: Yes Social History Home: Assisted Living Entry Into Home: Level Entry Prior/Core FIM Prior Level of Function Therapy Code Descriptions/Definitions Functional [place] Measure: 0=Not Assessed/NA 4=Minimal Assistance 1=Total Assistance 5=Supervision or Setup 2=Maximal Assistance 6=Modified [place] 3=Moderate Assistance 7=Complete [place] Therapy Quality Codes: 6 Independent with activity with or without an assistive device 5 Patient requires set up or clean up by helper. Patient completes activity by themselves 4 Supervision or touching assist (CGA). [place] provide cues , steadying assist 3 The helper provides less than half the effort to complete the activity 2 The helper provides more than half the effort to complete the activity 1 Dependent. The helper does all the effort to complete an activity 7 Patient refused to complete or attempt activity 9 The patient did not perform the activity before the current illness or injury 88 Not attempted due to Medical conditions or safety concerns Functional Abilities and Goals: Independent: Patient completed the activities by him/herself, with or without an assistive device, with no assistance from a helper. Needed Some Help: Patient needed partial assistance from another person to complete activities. Dependent: A helper completed the activities for the patient. Unknown: Not Applicable: Bed Mobility: 7 Transfers (B,C,W/C) (FIM): 7 Gait: 7 Indoor Mobility (Ambulation): Independent PT Evaluation-Current Subjective Patient in recliner pre tx, agrees to PT, has no pain at rest. She says she has pain mostly when she coughs, pain located in her left trunk/side area. Pt/Family Goals to be independent at home Objective Patient Orientation: Person, Place, Situation ROM/Strength ROM Lower Extremities limited generally due to obesity and LE swelling Strenght Lower Extremities 4+/5 gross bilateral lower extremities Neuromuscular (Tone, Coordination, Reflexes) NT Sensory Vision: Wears Glasses Hearing: Functional Sensation Right Lower Extremit: Impaired Sensation Left Lower Extremity: Impaired Sensation Lower Extremities Decreased light touch sensation from the calves down Transfers Therapy Code Descriptions/Definitions Functional [place] Measure: 0=Not Assessed/NA 4=Minimal Assistance 1=Total Assistance 5=Supervision or Setup 2=Maximal Assistance 6=Modified [place] 3=Moderate Assistance 7=Complete [place] Therapy Quality Codes: 6 Independent with activity with or without an assistive device 5 Patient requires set up or clean up by helper. Patient completes activity by themselves 4 Supervision or touching assist (CGA). [place] provide cues , steadying assist 3 The helper provides less than half the effort to complete the activity 2 The helper provides more than half the effort to complete the activity 1 Dependent. The helper does all the effort to complete an activity 7 Patient refused to complete or attempt activity 9 The patient did not perform the activity before the current illness or injury 88 Not attempted due to Medical conditions or safety concerns Transfers (B, C, W/C) (FIM): 3 Scootin Rollin Roll Left to Right (QC): 4 Supine to/from Sit: 3 Sit to/from Stand: 5 Sit to Lying (QC): 2 Lying to Sitting/Side of Bed(Q: 2 Sit to Stand (QC): 4 Chair/Efm-zt-Rusee Xfer(QC): 4 Car Transfer (QC): 3 Patient performs bed mobility with SBA, supine <-> sit with mod assist, sit <-> stand with SBA, transfers with SBA, car transfer min assist. Patient needs assist with one leg getting into car simulator and both legs going from sit to supine and mod assist also for supine to sit. Gait Does the Patient Walk?: Yes Mode of Locomotion: Walk Anticipated Mode of Locomotion: Walk Gait (FIM): 2 Walk 10 feet (QC): 4 Walk 50 ft with 2 Turns(QC): 4 Walking 10ft/uneven surface-QC: 4 Distance: 120', 20', 100' Gait Level of Assist: 5 Gait Persons Needed: 1 Gait Assistive Device: None Comments/Gait Description Patient can ambulate 120' without an assistive device with SBA (including 50' with at least 2 turns of 90 degrees but needs CGA for ambulating 10' over an uneven surface). Patient wobbles back and forth due to hip weakness, no LOB. Wheelchair Training Does the Pt Use a Wheelchair?: No Stairs If not tested on admit;explain Patient refuses to perform stairs or even a step at this time, she says she can't do it and doesn't want to try. Balance Sitting Static: Normal Sitting Dynamic: Normal Standing Static: Good Standing Dynamic: Good Treatment NuStep level 5 for 15 min. Parallel bars exercises x15 (heel raises, mini- squats, hip abd, marching, hamstring curls, hip flexion) Assessment/Needs Patient has impaired mobility, strength, endurance. She gets SOB quickly with activity and needs frequent rest breaks. Poor endurance. Rehab Potential: Fair PT Short Term Goals Short Term Goals Time Frame: Sep 18, 2018 Transfers (B,C,W/C) (FIM): 6 Gait (FIM): 5 Gait Distance Comment: 150' Gait Level of Assist: 5 Gait Assistive Device: None PT Usp Goals Usp Goals PT Certified Histologic Technician Goals Time Frame: Oct 02, 2018 Transfers (B,C,W/C) (FIM): 6 Sit to Lying (QC): 6 Lying-Sitting on Side/Bed(QC): 6 Sit to Stand (QC): 6 Rollin Roll Left to Right (QC): 6 Chair/Ryo-gw-Febyw Xfer(QC): 6 Car Transfer (QC): 6 Gait (FIM): 5 Distance: 200' Walk 10 feet (QC): 4 Walk 10ft-Uneven Surface(QC): 4 Walk 50ft with 2 Turns (QC): 4 Walk 150 ft (QC): 4 Gait Level of Assist: 5 Gait Assistive Device: None Stairs (FIM): 2 # of Steps: 4 1 Step (curb) (QC): 4 4 Steps (QC): 4 Stairs Level Of Assist: 4 PT Plan Problem List Problem List: Activity Tolerance, Functional Strength, Safety, Balance, Gait, Transfer, Bed Mobility, ROM Treatment/Plan Treatment Plan: Continue Plan of Care Treatment Plan: Bed Mobility, Education, Functional Activity Lucia, Functional Strength, Group Therapy, Gait, Safety, Therapeutic Exercise, Transfers Treatment Duration: Oct 02, 2018 Frequency: At least 5 of 7 days/Wk (IRF) Estimated Hrs Per Day: 1.5 hours per day Patient and/or Family Agrees t: Yes Safety Risks/Education Patient Education: Gait Training, Transfer Techniques, Correct Positioning, Safety Issues Teaching Recipient: Patient Teaching Methods: Demonstration, Discussion Response to Teaching: Reinforcement Needed Discharge Recommendations Plan Patient will perform bed mobility and transfer training, balance and endurance training, functional strengthening, stair training, gait training, and education, to improve functional mobility and independence at home. Therapy D/C Recommendations: Home w/ Family Support Time/GCodes Time In: 1045 Time Out: 1155 Total Billed Treatment Time: 70 Total Billed Treatment 1 visit EVM 30' GT 10' EX 30' NITZA DING PT September 11, 2018 11:53
[2018-09-11] MEDS ORDERED: BISACODYL 10 MG SUPP (DULCOLAX) PR ONE (12:15)
[2018-09-11 12:38] VITALS: BP 149/67
[2018-09-11 12:56] VITALS: BP 149/67
--- NOTE | 2018-09-11 14:02 | ST Cognitive Linguistic Eval ---
Speech Evaluation-General Medical Diagnosis debility Onset Date: September 07, 2018 Therapy Diagnosis Therapy Diagnosis: Cognitive-communication Precautions Precautions/Isolations: Standard Precautions Referral Referring Physician: Dr. Gonzalez Medical History Pertinent Medical History: Arthritis, CAD, DM, HTN Reviewed History: Yes Speech PLF-Current Status Prior Level of Function The patient lived home alone in an assisted living apartment where she was independent for most of her daily needs. Subjective The patient was cooperative and attentive during the evaluation process. Language Eval: Auditory Comprehends Simple Yes/No Ques: Functional Indent/Objects Multiple [place]: Functional Ident/Pics in Multiple [place]: Functional Follows 1-Step Commands: Functional Follows Complex Directions: Mild Follows General Conversations: Functional Language Eval: Verbal Language Completes Spontaneous Greeting: Functional Produces Auto, Serial Info: Functional Imitates Simple Words/Phrases: Functional Word Finding: Functional Requests Basic Needs: Functional States Basic Personal Info: Functional Expresses Complex Ideas: Mild Objective Cognitive Domain Attention: WNL Memory: Mild Problem Solving: Mild Executive Functions: Mild Composite Severity Rating: WNL Clock Drawing Severity Rating: WNL Objective Formal/Standardized Tests [facility] Mental Status ([facility]) Results The patient scored 25/30 with deficits noted in memory and problem solving. 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 Oral Motor/Speech Production Within Functional Limits Impression The patient is a pleasant 88 year old female who was admitted to the ARU due to debility. The patient was referred for cognitive evaluation to determine if skilled ST services were warranted. The patient completed the [facility] with MNCD status, which warrants skilled services related to safety and independence. She plans on returning home. Communication/Social Cognition Comprehension: 7 Expression: 6 Social Interaction: 7 Problem Solvin Memory: 5 Speech Patient Assess Expression of Ideas/Wants: Expression (4) Understanding Verbal Content: Understands (4) Brief Interview-Mental Status: Yes Repetition of Three Words: Three (3) Temporal Orientation: Month: Accurate within 5 days(2) Temporal Orientation: Day: Correct (1) Recall : Wear to say "Sock": Yes,after cueing (1) Recall : Color: No, could not recall (0) Recall : Bed: No, could not recall (0) Memory/Recall Ability: Current season, That he or she is in a hsp/hsp unit Speech Short Term Goals Short Term Goals Short Term Goals 1) The patient will complete memory tasks at 90% or greater without verbal cues. 2) The patient will complete problem solving tasks at 90% or greater without verbal cues. Speech Computer Typesetter Keyliner Goals Computer Typesetter Keyliner Goals The patient will improve her memory and problem solving abilities to increase his level of safety and independence. Speech-Plan Patient/Family Goals Patient/Family Goals: The patient plans on returning home to her assisted living apartment post rehab. Treatment Plan Speech Therapy Treatment Plan: Continue Plan of Care The patient will receive skilled ST services with focus on improving safety and independence. Treatment Duration: Sep 19, 2018 Frequency: 1 time per week Estimated Hrs Per Day: .25 hour per day Rehab Potential: Fair Barriers to Learning: Memory and problem solving deficits Pt/Family Agrees to Plan: Yes Safety Risks/Education Teaching Recipient: Patient Teaching Methods: Discussion Response to Teaching: Verbalize Understanding Education Topics Provided: Safety within her room Time Speech Therapy Time In: 13:00 Speech Therapy Time Out: 13:15 Total Billed Time: 15 Billed Treatment Time 1, SPSNDCOMP LITTLE Lynn September 11, 2018 14:02
[2018-09-11] MEDS: BENZONATATE 100 MG (TESSALON) CAPSULE PO SCH ×2 (14:10→20:29)
--- NOTE | 2018-09-11 14:53 | Occupational Ther Daily Note ---
OT Current Status-Daily Note Subjective No pain reported other than when she coughs in her side. Pt. is wearing a pain patch. Appearance Pt. up in chair. Alert and oriented. Mental Status/Objective Patient Orientation: Person, Place, Time, Situation Therapy Code Descriptions/Definitions Functional [place] Measure: 0=Not Assessed/NA 4=Minimal Assistance 1=Total Assistance 5=Supervision or Setup 2=Maximal Assistance 6=Modified [place] 3=Moderate Assistance 7=Complete [place] ADL-Treatment Therapy Code Descriptions/Definitions Functional [place] Measure: 0=Not Assessed/NA 4=Minimal Assistance 1=Total Assistance 5=Supervision or Setup 2=Maximal Assistance 6=Modified [place] 3=Moderate Assistance 7=Complete [place] Therapy Quality Codes: 6 Independent with activity with or without an assistive device 5 Patient requires set up or clean up by helper. Patient completes activity by themselves 4 Supervision or touching assist (CGA). [place] provide cues , steadying assist 3 The helper provides less than half the effort to complete the activity 2 The helper provides more than half the effort to complete the activity 1 Dependent. The helper does all the effort to complete an activity 7 Patient refused to complete or attempt activity 9 The patient did not perform the activity before the current illness or injury 88 Not attempted due to Medical conditions or safety concerns Eating (FIM): 6 (Lunch arrived in room and pt. able to set up tray with no difficulty.) Eating (QC): 6 Grooming (FIM): 5 Bathing (FIM): 4 (Pt. requires assistance to wash anthony area.) Shower/Bathe Self (QC): 4 Upper Body (FIM): 4 (Min assist in stance to don house gown.) Upper Body Dressing (QC): 4 Lower Body Dressing (FIM): 3 (Pt. requires assistance to doff slipper socks, but requires no assist to don house shoes.) Lower Body Dressing (QC): 3 On/Off Footwear (QC): 3 Toileting (FIM): 4 (CGA for urination only.) Toileting Hygiene (QC): 4 Transfers (B, C, W/C) (FIM): 4 (CGA to ambulate to bathroom and to shower.) Toilet/Commode Transfer (FIM): 4 Toilet Transfer (QC): 4 Shower Transfer(FIM): 4 OT Short Term Goals Short Term Goals Transfers (B,C,W/C) (FIM): 6 1=Demonstrate adherence to instructed precautions during ADL tasks. 2=Patient will verbalize/demonstrate understanding of assistive devices/modifications for ADL. 3=Patient will improve strength/tolerance for activity to enable patient to perform ADL's. OT Fdc Goals Ordnance Keeper Goals 1=Demonstrate adherence to instructed precautions during ADL tasks. 2=Patient will verbalize/demonstrate understanding of assistive devices/modifications for ADL. 3=Patient will improve strength/tolerance for activity to enable patient to perform ADL's. OT Education/Plan Treatment Plan/Plan of Care Patient would benefit from OT for education, treatment and training to promote independence in ADL's, mobility, safety and/or upper extremity function for ADL's. Rehab Potential: MAGGY Gayle OT September 11, 2018 14:53
[2018-09-11] MEDS ORDERED: LORATADINE (CLARITIN) 10 MG TAB PO NR (15:00)
--- NOTE | 2018-09-11 15:00 | NUR ---
Pt stated that, "the ER doctor at [facility] in [place] told her that she should start taking Claritin daily for allergies." Notified Dr. Gonzalez & received orders for this.
--- NOTE | 2018-09-11 15:02 | Occupational Therapy Eval ---
OT Evaluation-General/PLF Medical Diagnosis Admission Date September 11, 2018 at 10:55 Medical Diagnosis: debility Onset Date: September 07, 2018 Therapy Diagnosis Therapy Diagnosis: Weakness Height/Weight Height (Feet): 5 Height (Inches): 3.00 Weight (Pounds): 310 Weight (Ounces): 0.0 Precautions Precautions/Isolations: Standard Precautions Weight Bear Status Weight Bearing Restriction: Weight Bearing/Tolerated Referral Physician: Rhonda Gonzalez DO Referral Reason: Activity Tolerance, Self Care, Evaluation/Treatment, Strengthening/ROM Medical History Pertinent Medical History: Arthritis, CAD, DM, HTN Current History Pt. has pneumonia. States that she had two stents put in in February. Reviewed History: Yes Social History Home: Assisted Living Current Living Status: Entry Into Home: Level Entry Pt. lives in assisted living facility. She states that she does her own laundry, but that someone cooks for her and cleans for her. ADL-Prior Level of Function Therapy Code Descriptions/Definitions Functional [place] Measure: 0=Not Assessed/NA 4=Minimal Assistance 1=Total Assistance 5=Supervision or Setup 2=Maximal Assistance 6=Modified [place] 3=Moderate Assistance 7=Complete [place] Therapy Quality Codes: 6 Independent with activity with or without an assistive device 5 Patient requires set up or clean up by helper. Patient completes activity by themselves 4 Supervision or touching assist (CGA). [place] provide cues , steadying assist 3 The helper provides less than half the effort to complete the activity 2 The helper provides more than half the effort to complete the activity 1 Dependent. The helper does all the effort to complete an activity 7 Patient refused to complete or attempt activity 9 The patient did not perform the activity before the current illness or injury 88 Not attempted due to Medical conditions or safety concerns Functional Abilities and Goals: Independent: Patient completed the activities by him/herself, with or without an assistive device, with no assistance from a helper. Needed Some Help: Patient needed partial assistance from another person to complete activities. Dependent: A helper completed the activities for the patient. Unknown: Not Applicable: ADL PLOF Comments Pt. is independent with daily tasks such as bathing/dressing. States that she drives "some" short distances. 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 Self Care: Independent Functional Cognition: Independent DME/Equipment: Bath Chair, Shower DME/Equipment Comments Pt. sleeps in lift recliner. OT Current Status Subjective Pt. doesn't report pain other than when she coughs. Pt. is currently wearing a pain patch. Appearance Pt. up in chair. Agrees to work with OT. Mental Status/Objective Patient Orientation: Person, Place, Time, Situation Attachments: IV Current Glasses/Contacts: Yes Upper Extremity ROM WFL Upper Extremity Strength WFL ADL-Treatment Eating (FIM): 6 (Lunch tray came in room and pt. able to set up full meal tray.) Eating (QC): 6 Grooming (FIM): 5 (SBA to brush hair.) Bathing (FIM): 4 (Pt. requires min assist to wash anthony area.) Shower/Bathe Self (QC): 4 Upper Body Dressing (FIM): 4 (CGA to don house dress in stance.) Upper Body Dressing (QC): 4 Lower Body Dressing (FIM): 3 (Pt. requires assistance to doff slipper socks but is able to don house shoes. Pt. states that she has AE at home for this.) Lower Body Dressing (QC): 3 On/Off Footwear (QC): 3 Toileting (FIM): 4 (CGA for urination only.) Toileting Hygiene (QC): 4 Transfers (B, C, W/C) (FIM): 4 (CGA to ambulate to bathroom and into shower.) Toilet/Commode Transfer (FIM): 4 Toilet Transfer (QC): 4 Shower Transfer (FIM): 4 Education OT Patient Education: Correct positioning, Modified ADL techniques, Progress toward Goal/Update tx plan, Purpose of tx/functional activities, Reviewed precautions, Rehab process, Transfer techniques Teaching Recipient: Patient Teaching Methods: Demonstration, Discussion Response to Teaching: Verbalize Understanding, Return Demonstration OT Short Term Goals Short Term Goals Transfers (B,C,W/C) (FIM): 6 1=Demonstrate adherence to instructed precautions during ADL tasks. 2=Patient will verbalize/demonstrate understanding of assistive devices/modifications for ADL. 3=Patient will improve strength/tolerance for activity to enable patient to perform ADL's. OT Case Fitter Goals [facility]it[facility]iary Goals Time Frame: Sep 25, 2018 Eating (FIM): 6 Eating (QC): 6 Groomin Oral Hygiene (QC): 6 Bathing(FIM): 5 Shower/Bathe Self (QC): 5 Upper Body Dressing(FIM): 6 Upper Body Dressing (QC): 6 Lower Body Dressing(FIM): 6 Lower Body Dressing (QC): 6 On/Off Footwear (QC): 6 Toileting(FIM): 6 Toileting Hygiene (QC): 6 Transfers (B,C,W/C) (FIM): 6 Toilet/Commode Transfer(FIM): 6 Toilet/Commode Transfer (QC): 6 Shower Transfer(FIM): 5 Additional Goals: 1-Demonstrate ADL Tasks, 2-Verbalize Understanding, 3- ImproveStrength/Lucia 1=Demonstrate adherence to instructed precautions during ADL tasks. 2=Patient will verbalize/demonstrate understanding of assistive devices/modifications for ADL. 3=Patient will improve strength/tolerance for activity to enable patient to perform ADL's. OT Education/Plan Problem List/Assessment Assessment: Decreased Activ Tolerance, Decreased UE Strength, Impaired I ADL's, Impaired Self-Care Skills Discharge Recommendations Plan/Recommendations: Continue POC Therapy D/C Recommendations: Home w/ Family Support, Occupational Therapy Home Care Equpiment Recommendations-D/C: Hip Kit Treatment Plan/Plan of Care Treatment,Training & Education: Yes Patient would benefit from OT for education, treatment and training to promote independence in ADL's, mobility, safety and/or upper extremity function for ADL's. Plan of Care: ADL Retraining, Functional Mobility, Group Exercise/Act as Ind, UE Funct Exercise/Act Treatment Duration: Sep 25, 2018 Frequency: At least 5 of 7 days/Wk (IRF) Estimated Hrs Per Day: 1.5 hours per day Agreement: Yes Rehab Potential: Fair Time/GCodes Start Time: 12:00 Stop Time: 13:30 Total Time Billed (hr/min): 75 Billed Treatment Time 5412-2590 1, EVL x 15minutes, ADL x 45minutes [id number] ADL x 15minutes MAGGY DAVIS OT September 11, 2018 15:01
--- NOTE | 2018-09-11 15:15 | Occupational Ther Daily Note ---
OT Current Status-Daily Note Subjective Pt alert, sitting in recliner. Agrees to therapy. No c/o pain. Mental Status/Objective Patient Orientation: Person, Place, Time, Situation Therapy Code Descriptions/Definitions Functional [place] Measure: 0=Not Assessed/NA 4=Minimal Assistance 1=Total Assistance 5=Supervision or Setup 2=Maximal Assistance 6=Modified [place] 3=Moderate Assistance 7=Complete [place] ADL-Treatment Pt is having difficulty with cleansing self after toileting, cleansing buttocks while shower. Pt was educated on toilet tongs and long handle sponge. Pt verbalized understanding of AE and was able to retell how to use equipment. After therapy, pt sitting in recliner with call light/phone in reach. All needs met in room. Therapy Code Descriptions/Definitions Functional [place] Measure: 0=Not Assessed/NA 4=Minimal Assistance 1=Total Assistance 5=Supervision or Setup 2=Maximal Assistance 6=Modified [place] 3=Moderate Assistance 7=Complete [place] Therapy Quality Codes: 6 Independent with activity with or without an assistive device 5 Patient requires set up or clean up by helper. Patient completes activity by themselves 4 Supervision or touching assist (CGA). [place] provide cues , steadying assist 3 The helper provides less than half the effort to complete the activity 2 The helper provides more than half the effort to complete the activity 1 Dependent. The helper does all the effort to complete an activity 7 Patient refused to complete or attempt activity 9 The patient did not perform the activity before the current illness or in jury 88 Not attempted due to Medical conditions or safety concerns OT Short Term Goals Short Term Goals Transfers (B,C,W/C) (FIM): 6 1=Demonstrate adherence to instructed precautions during ADL tasks. 2=Patient will verbalize/demonstrate understanding of assistive devices/modifications for ADL. 3=Patient will improve strength/tolerance for activity to enable patient to perform ADL's. OT Mcfp Goals Polls Or Surveys Interviewer Goals 1=Demonstrate adherence to instructed precautions during ADL tasks. 2=Patient will verbalize/demonstrate understanding of assistive devic es/modifications for ADL. 3=Patient will improve strength/tolerance for activity to enable patient to perform ADL's. OT Education/Plan Problem List/Assessment Assessment: Decreased UE Strength, Impaired Funct Balance, Impaired Self-Care Skills Discharge Recommendations Plan/Recommendations: Continue POC Treatment Plan/Plan of Care Patient would benefit from OT for education, treatment and training to promote independence in ADL's, mobility, safety and/or upper extremity function for ADL's. Treatment Duration: Sep 25, 2018 Frequency: At least 5 of 7 days/Wk (IRF) Estimated Hrs Per Day: 1.5 hours per day Rehab Potential: Good Time/GCodes Start Time: 14:50 Stop Time: 15:10 Total Time Billed (hr/min): 20 Billed Treatment Time 1 visit-ADL 1 (20 min) ABRIL ELENA September 11, 2018 15:15
[2018-09-11] MEDS: RT-ALBUTEROL/IPRATROPIUM 3 ML (DUONEB) VIAL INH SCH ×2 (15:39→20:38)
[2018-09-11 16:34] VITALS: BP 173/69
--- NOTE | 2018-09-11 16:56 | NUR ---
WATER POLLUTION CONTROL TECHNICIAN met with patient to complete initial assessment. Patient was alert and oriented and agreeable to assessment. Patient admitted to a [facility] from [facility] with debility. Prior to hospitalization patient resided in independent living at [place], [place]. 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 Prior to recent declined patient was able to complete all ambulation and ADLs independently, but does have staff to assist with cooking and cleaning. Patient does possess a lift chair, home bipap and front-wheeled walker; however, did not utilize FWW prior to hospitalization. Patient identifies primary, local contact as sonEdmond at [phone] and secondary contact as daughter Bette of [place], [place] at [phone]. Edmond provides patient transportation as needed. Bette plans to arrive in town later today and will stay for a few days. Patient does inquire about POA paperwork, as she would like to appoint her daughter. WATER POLLUTION CONTROL TECHNICIAN provided by mouth a documents and will request notary services tomorrow. PCP identified as Dr. Mark Blakely, engraver letter as Dr. Jackson of [place] and internet marketing executive as Dr. Friedman. Insurance verified as Medicare and Blue Cross Medicare supplement with [employer] prescription coverage and preferred pharmacy as [facility] in [place]. Patient also has a long-term care policy which provides 100% financial coverage for independent living placement. WATER POLLUTION CONTROL TECHNICIAN reviewed typical a length of stay and weekly team conferences. Patient expresses no concerns at this time; however, is hopeful to complete only a short length of stay. WATER POLLUTION CONTROL TECHNICIAN will continue to follow.
[2018-09-11 18:34] VITALS: BP 136/55
[2018-09-11] MEDS: CEFDINIR 300 MG (OMNICEF) CAP PO SCH (20:29)
[2018-09-11] MEDS: HYDROcodone/APAP 10 MG/325 MG (LORTAB) TAB PO PRN (20:29)
[2018-09-11] MEDS: guaiFENesin/DM (ROBITUSSIN DM) 10 ML UDC PO PRN (20:29)
[2018-09-11] MEDS: ATORVASTATIN 40 MG (LIPITOR) TABLET PO SCH (20:29)
[2018-09-11] MEDS: LIDOCAINE PATCH REMOVAL TP SCH (20:30)
[2018-09-11] MEDS: POLYETHYLENE GLYCOL 17 GM (MIRALAX) PACK PO SCH (20:55)
[2018-09-11] MEDS: SENNA W/DOCUSATE (SENOKOT S) TABLET PO SCH (20:55)
[2018-09-12] MEDS: RT-ALBUTEROL/IPRATROPIUM 3 ML (DUONEB) VIAL INH SCH ×4 (02:56→20:11)
[2018-09-12 05:29] VITALS: BP 164/66
[2018-09-12 05:43] LABS: BASOPHILS % (AUTO) 0 % (0-10); EOSINOPHILS # (AUTO) 0.2 10^3/uL (0.0-0.3); EOSINOPHILS % (AUTO) 2 % (0-10); HEMATOCRIT 34 % (35-52); LYMPHOCYTES # (AUTO) 2.2 X 10^3 (1.0-4.0); LYMPHOCYTES % (AUTO) 20 % (12-44); MEAN CORPUSCULAR HEMOGLOBIN 28 PG (25-34); MEAN CORPUSCULAR HGB CONC 32 G/DL (32-36); MEAN CORPUSCULAR VOLUME 89 FL (80-99); MEAN PLATELET VOLUME 8.8 FL (7.4-10.4); MONOCYTES # (AUTO) 1.1 X 10^3 (0.0-1.0); MONOCYTES % (AUTO) 11 % (0-12); NEUTROPHILS # (AUTO) 7.2 X 10^3 (1.8-7.8); NEUTROPHILS % (AUTO) 67 % (42-75); PLATELET COUNT 274 10^3/uL (130-400); RED CELL DISTRIBUTION WIDTH 15.7 % (10.0-14.5); WHITE BLOOD COUNT 10.7 10^3/uL (4.3-11.0)
[2018-09-12 06:04] LABS: ALBUMIN 3.1 GM/DL (3.2-4.5); BILIRUBIN,TOTAL 0.5 MG/DL (0.1-1.0); CALCIUM 9.2 MG/DL (8.5-10.1); CREATININE SERUM 0.95 MG/DL (0.60-1.30); POTASSIUM 4.3 MMOL/L (3.6-5.0); TOTAL PROTEIN 5.5 GM/DL (6.4-8.2)
[2018-09-12] MEDS: predniSONE 10 MG TAB PO SCH (06:28)
[2018-09-12] MEDS: predniSONE 20 MG TAB PO SCH (06:28)
[2018-09-12] MEDS: KCL 10 MEQ TAB (MICRO K) PO SCH (06:28)
--- NOTE | 2018-09-12 06:37 | Pulmonary Progress Note ---
Subjective Time Seen by a Provider: 07:08 Subjective/Events-last exam Pt is doing much better. Daughter at bedside. Sepsis Event Evaluation Height, Weight, BMI Height: 5'3.00" Weight: 310lbs. 0.0oz. 140.664914zq; 54.9 BMI Method:Stated Exam Exam Vital Signs Date Time Temp Pulse Resp B/P (MAP) Pulse Ox O2 Delivery O2 Flow Rate FiO2 09/12/18 05:29 97.0 68 20 164/66 (98) 94 Room Air 09/12/18 02:56 96 NIV CPAP 09/11/18 20:38 95 Room Air 09/11/18 20:00 Room Air 09/11/18 18:34 136/55 (82) 09/11/18 16:34 96.2 68 16 173/69 (103) 95 Room Air 09/11/18 15:39 95 Room Air 09/11/18 12:56 99.0 72 20 149/67 Room Air 09/11/18 12:43 Room Air I & O 09/12/18 07:00 Intake Total 1600 ml Balance 1600 ml Height & Weight Height: 5'3.00" Weight: 310lbs. 0.0oz. 140.045121ma; 54.9 BMI Method:Stated General Appearance: No Apparent Distress, WD/WN HEENT: PERRL/EOMI, Normal ENT Inspection, Pharynx Normal Neck: Full Range of Motion, Normal Inspection, Non Tender, Supple Respiratory: Chest Non Tender, No Accessory Muscle Use, No Respiratory Distres s, Decreased Breath Sounds, Rhonci, Wheezing Cardiovascular: Regular Rate, Rhythm, No Edema, No Gallop Capillary Refill: Less Than 3 Seconds Gastrointestinal: normal bowel sounds, non tender, soft Extremity: Normal Capillary Refill, Normal Inspection Neurologic/Psychiatric: Alert, Oriented x3 Skin: Normal Color, Warm/Dry Lymphatic: No Adenopathy Results Lab Laboratory Tests 09/12/18 05:30 Assessment/Plan Assessment/Plan Bibasilar pneumonia - failed out pt treatment - Omnicef -IS -CT scan reviewed -Will need repeat CT scan of chest 8 wks after discharge to ensure complete resolution Persistent cough with pleuritic CP -Lidoderm patch -Pt is allergic Codeine -Tessalon pearls Atelectasis Asthma - per last PFT -SVNS Deconditioning -PT/OT Daughter at bedside with RN present I answered all of daughters questions and concerns. Daughter is very concerned about steroid INH that was started as out patient. Daughter states "I have researched this and steroid INH can cause pneumonia" . I explained to daughter that is a possible complication however just because she had this PNA 1 time after starting on steroid INH doesn't mean we should absolutely not use it. Pt was referred to me initially secondary to worsening SOB and INH were started. Secondary to daughter's concerns I will try to avoid steroid INH. I did explain to daughter despite possible side effects of steroid INH they are sometime needed in patients with lung disease/asthma. Daughter had multiple complaints/concerns (Lasix, PNA, renal failure tx, doctors, RTs, and nurses.). I did my best to explain and to comfort daughter. Overall pt is getting much better secondary to the good medical care delivered to patient during this hospitalization. Critical Care: Critically Ill Patient Time spent with patient (mins): 30 Advance Care discuss with: patient, family member (s) SISSY LEE DO September 12, 2018 06:37
--- NOTE | 2018-09-12 08:35 | PM&R H&P / Post Admit Assess ---
History of Present Illness HPI/Chief Complaint CC: Debility HPI: This is an 88yoWF clinic patient of Dr Blakely who presents to IRF in need of aggressive rehab before returning to [facility] in [place] following an lengthy hospital course for bilateral pneumonia and AECOPD. Patient was very weak and could not manage her ADL's or walk very well in order to go back to AL facility. Currently patient is improving quite a bit since arrival to IRF. OT will focus on ADL's and toileting processes and PT will focus on strengthening and ambulation with walker. Daughter at the bedside has arrived from [place], [place] and is convinced the ICS caused an allergic reaction and gave her pneumonia. Patient is completing abx and steroid taper and her bowels are now moving well after meds given yesterday. Patient denies pain issues and I have checked meds and labs. Labs were checked and creatinine was normal of which her daughter was very concerned that the Lasix would "kill her kidneys." I spent a great deal of time in the room educating and counseling the patient and her daughter regarding her results and meds. Source: patient Exam Limitations: no limitations Date Seen 09/12/18 Time Seen by a Provider: 09:45 Attending Physician Rhonda Gonzalez DO PCP Mark Blakely DO Referring Physician Date of Admission September 11, 2018 at 10:55 Home Medications & Allergies Home Medications Reviewed patient Home Medication Reconciliation performed by pharmacy medication reconciliations pest control chemical technician and/or nursing. Patients Allergies have been reviewed. Allergies Allergies Coded Allergies Penicillins (Verified Allergy, Unknown, 10/15/15) codeine (Verified Allergy, Unknown, 10/15/15) Past Ztxrdrr-Vhpshk-Vigtvy Hx Past Med/Social Hx: Reviewed Nursing Past Med/Soc Hx, Reviewed and Corrections made Patient Social History Marrital Status: single Employed/Student: retired Alcohol Use: Denies Use Recreational Drug Use: No Smoking Status: Never a Smoker Physical Abuse Screen: No Sexual Abuse: No Recent Foreign Travel: No Contact w/other who traveled: No Recent Hopitalizations: No Recent Infectious Disease Expo: No Seasonal Allergies Seasonal Allergies: No Past Medical History Surgeries: Appendectomy, Eye Surgery, Gallbladder Respiratory: Asthma, COPD, Sleep Apnea Currently Using CPAP: No Currently Using BIPAP: Yes Cardiac: Chronic Edema/Swelling, Hypertension Genitourinary: Renal Failure Gastrointestinal: Chronic Constipation Musculoskeletal: Arthritis, Back Injury Endocrine: Diabetes, Non-Insulin dep History of Blood Disorders: No Adverse Reaction to Blood Baldwin: No Review of Systems Constitutional: see HPI, weakness EENTM: no symptoms reported Respiratory: dyspnea on exertion Cardiovascular: no symptoms reported Gastrointestinal: constipation Genitourinary: no symptoms reported Musculoskeletal: back pain, joint pain Skin: no symptoms reported Psychiatric/Neurological: Anxiety All Other Systems Reviewed Negative Unless Noted: Yes Physical Exam Exam Vital Signs Vital Signs Date Time Temp Pulse Resp B/P (MAP) Pulse Ox O2 Delivery O2 Flow Rate FiO2 09/12/18 05:29 97.0 68 20 164/66 (98) 94 Room Air Capillary Refill : Less Than 3 Seconds General Appearance: No Apparent Distress, WD/WN, Chronically ill, Obese HEENT: PERRL/EOMI, Normal ENT Inspection, Pharynx Normal Neck: Full Range of Motion, Normal Inspection, Non Tender, Supple Respiratory: Chest Non Tender, Lungs Clear, Normal Breath Sounds, No Accessory Muscle Use, No Respiratory Distress Cardiovascular: Regular Rate, Rhythm, No Edema, No Gallop, No JVD, No Murmur, Normal Peripheral Pulses Back: Normal Inspection, No CVA Tenderness, No Vertebral Tenderness Extremity: Normal Capillary Refill, Normal Inspection, Normal Range of Motion, Non Tender, No Calf Tenderness Neurologic/Psychiatric: Alert, Oriented x3, No Motor/Sensory Deficits, Normal Mood/Affect, core cleaner II-XII Norm as Tested, Abnormal Gait, Motor Weakness (subtle weakness all extremities) Skin: Normal Color, Warm/Dry Lymphatic: No Adenopathy Results Results/Procedures Labs Laboratory Tests 09/12/18 05:30 Patient resulted labs reviewed. Assessment/Plan Assessment and Plan Assess & Plan/Chief Complaint Assessment: (1) Pneumonia of both lower lobes Status: Acute (2) STEPHAN treated with BiPAP Status: Chronic (3) Obesity Status: Chronic (4) Weakness Status: Acute (5) Renal insufficiency Status: Acute (6) Elevated brain natriuretic peptide (BNP) level Status: Acute (7) CAD (coronary artery disease) Status: Chronic (8) Constipation Status: Acute (9) Diabetes mellitus Status: Chronic (10) Hypertension (11) Hyperlipemia Status: Chronic (12) Cough Status: Acute (13) Pleurisy Status: Acute (14) Asthma Status: Acute (15) Leukocytosis Status: Acute (16) History of coronary artery stent placement Status: Chronic Plan: Reviewed all meds Improved status Updated daughter and patient on results Lasix prn IRF protocols (1) Debility (2) History of coronary artery stent placement (3) Pleurisy (4) Asthma (5) Leukocytosis (6) Cough (7) STEPHAN treated with BiPAP (8) Elevated brain natriuretic peptide (BNP) level (9) Obesity (10) Hypertension (11) Weakness (12) Renal insufficiency (13) Hyperlipemia (14) CAD (coronary artery disease) (15) Diabetes mellitus (16) Constipation (17) Pneumonia of both lower lobes Critical Care Critical Care: Critically Ill Patient Post Admission Physician Asses Date seen by provider: September 12, 2018 Time seen by provider: 08:45 Admisison Dx: (1) Debility (2) Constipation Status: Acute (3) Diabetes mellitus Status: Chronic (4) CAD (coronary artery disease) Status: Chronic (5) Cough Status: Acute (6) Hyperlipemia Status: Chronic (7) Leukocytosis Status: Acute (8) Renal insufficiency Status: Acute (9) Weakness Status: Acute (10) Hypertension (11) Pleurisy Status: Acute (12) Obesity Status: Chronic (13) Asthma Status: Acute (14) Elevated brain natriuretic peptide (BNP) level Status: Acute (15) STEPHAN treated with BiPAP Status: Chronic (16) History of coronary artery stent placement Status: Chronic (17) Pneumonia of both lower lobes Status: Acute The preadmission screen agrees with the post admission assessment that the patient is a good candidate for inpatient rehabilitation. The patient will have a comprehensive program of inpatient rehabilitation with a goal of maximizing level of functional independence prior to discharge home to [place]. The patient will have PT/OT ninety minutes per day, each discipline, five days a week for gait, strengthening, conditioning, balance, ADLs, any patient/family/caregiver training as necessary. Speech therapy to do cognitive assessment and treat as indicated. Rehabilitation nursing to assist with bowel, bladder, skin, wound care, medication administration, pain management. Cook Helper Dessert to assist with discharge planning, community reentry. SCD's for DVT prophylaxis. She appears to be well motivated to participate in three hours of therapy a day. She should be able to tolerate three hours of therapy a day from a medical standpoint. She should benefit from the three hours of therapy a day. She has a reasonable discharge plan, reasonable discharge rehabilitation goals and a supportive family. She has various comorbidities that need to be closely monitored with medications and treatments adjusted on a daily basis as needed. These include: see list Barriers to discharge for this patient who had been independent prior to this are for her to be modified independent to supervision for ADLs and mobility skills prior to discharge home to AL, so as to lessen the burden of the careg aldo. Risks for this patient include: 1. Fall 2. Fracture 3. DVT 4. Pulmonary embolism 5. Wound infection 6. Skin breakdown 7. Contractures 8. Poorly controlled pain 9. Urinary retention 10. UTI 11. Respiratory infection 12. Aspiration Estimated Length of Stay: 7 days Prognosis: Rehab prognosis appears good for goal of discharge home to AL modified independent to supervision for ADLs and mobility skills. RHONDA GONZALEZ DO September 12, 2018 08:35
[2018-09-12] MEDS: BENZONATATE 100 MG (TESSALON) CAPSULE PO SCH ×3 (09:36→21:30)
[2018-09-12] MEDS: CEFDINIR 300 MG (OMNICEF) CAP PO SCH ×2 (09:36→21:30)
[2018-09-12] MEDS: LORATADINE (CLARITIN) 10 MG TAB PO SCH (09:36)
[2018-09-12] MEDS: LIDOCAINE 4% (SALONPAS) PATCH TOP SCH (09:36)
[2018-09-12] MEDS: metFORMIN XR 500 MG (GLUCOPHAGE XR) TAB PO SCH (09:36)
[2018-09-12] MEDS: meTOprolol SUCCINATE 100 MG (TOPROL XL) TAB PO SCH (09:37)
[2018-09-12] MEDS: CLOPIDOGREL 75 MG (PLAVIX) TABLET PO SCH (09:37)
[2018-09-12] MEDS: FUROSEMIDE 40 MG (LASIX) TAB PO SCH (09:38)
--- NOTE | 2018-09-12 10:50 | Occupational Ther Daily Note ---
OT Current Status-Daily Note Subjective Pt alert, sitting in recliner. Daughter present in room. Pt agrees to therapy. Mental Status/Objective Patient Orientation: Person, Place, Time, Situation Therapy Code Descriptions/Definitions Functional [place] Measure: 0=Not Assessed/NA 4=Minimal Assistance 1=Total Assistance 5=Supervision or Setup 2=Maximal Assistance 6=Modified [place] 3=Moderate Assistance 7=Complete [place] Attachments: IV ADL-Treatment Pt agrees to shower. Pt ambulated to sink, no AD, then stood and completed grooming by self. Pt then transferred into shower with supervision using grabbars. Pt completed shower using grabbar, hand held shower, shower bench and long handle sponge. Pt has difficulty with cleansing self after toileting and has toilet tongs though is getting used to them and used towel at this time. Pt does use long handle sponges and is getting use to using them. After set up, pt able to complete upper body dressing and with difficulty donning/doffing pants and sandals. Assist to don/doff JAVY hose and socks. Pt introduced to AE for lower body dressing for energy conservation. Pt demonstrated understanding to complete dressing with AE and will require continued skilled instruction. After therapy, pt sitting in recliner with call light/phone in reach. All needs met in room. Therapy Code Descriptions/Definitions Functional [place] Measure: 0=Not Assessed/NA 4=Minimal Assistance 1=Total Assistance 5=Supervision or Setup 2=Maximal Assistance 6=Modified [place] 3=Moderate Assistance 7=Complete [place] Therapy Quality Codes: 6 Independent with activity with or without an assistive device 5 Patient requires set up or clean up by helper. Patient completes activity by themselves 4 Supervision or touching assist (CGA). [place] provide cues , steadying assist 3 The helper provides less than half the effort to complete the activity 2 The helper provides more than half the effort to complete the activity 1 Dependent. The helper does all the effort to complete an activity 7 Patient refused to complete or attempt activity 9 The patient did not perform the activity before the current illness or injury 88 Not attempted due to Medical conditions or safety concerns Grooming (FIM): 6 Oral Hygiene (QC): 6 Bathing (FIM): 5 Bathing Location: L Arm, R Arm, L Upper Leg, R Upper Leg, L Lower Leg (includi ng foot), R Lower Leg (including foot), Chest, Abdomen, Buttocks, Perineal Area Shower/Bathe Self (QC): 4 Upper Body (FIM): 5 Upper Body Dressing (QC): 5 Lower Body Dressing (FIM): 4 Lower Body Dressing (QC): 4 On/Off Footwear (QC): 3 Transfers (B, C, W/C) (FIM): 5 Shower Transfer(FIM): 5 OT Short Term Goals Short Term Goals Transfers (B,C,W/C) (FIM): 6 1=Demonstrate adherence to instructed precautions during ADL tasks. 2=Patient will verbalize/demonstrate understanding of assistive devices/modifications for ADL. 3=Patient will improve strength/tolerance for activity to enable patient to perform ADL's. OT Cafe Helper Goals Skilled Nursing Goals Time Frame: Sep 25, 2018 Eating (FIM): 6 Eating (QC): 6 Groomin Oral Hygiene (QC): 6 Bathing(FIM): 5 Shower/Bathe Self (QC): 5 Upper Body Dressing(FIM): 6 Upper Body Dressing (QC): 6 Lower Body Dressing(FIM): 6 Lower Body Dressing (QC): 6 On/Off Footwear (QC): 6 Toileting(FIM): 6 Toileting Hygiene (QC): 6 Transfers (B,C,W/C) (FIM): 6 Toilet/Commode Transfer(FIM): 6 Toilet/Commode Transfer (QC): 6 Shower Transfer(FIM): 5 Comprehension(FIM): 6 Expression (FIM): 6 Social Interaction(FIM): 6 Problem Solving(FIM): 6 Memory(FIM): 6 Additional Goals: 1-Demonstrate ADL Tasks, 2-Verbalize Understanding, 3-ImproveStrength/Lucia 1=Demonstrate adherence to instructed precautions during ADL tasks. 2=Patient will verbalize/demonstrate understanding of assistive devices/modifications for ADL. 3=Patient will improve strength/tolerance for activity to enable patient to perform ADL's. OT Education/Plan Problem List/Assessment Assessment: Decreased Activ Tolerance, Impaired Self-Care Skills Discharge Recommendations Plan/Recommendations: Continue POC Treatment Plan/Plan of Care Patient would benefit from OT for education, treatment and training to promote independence in ADL's, mobility, safety and/or upper extremity function for ADL's. Plan of Care: ADL Retraining, Functional Mobility, Group Exercise/Act as Ind, UE Funct Exercise/Act Treatment Duration: Sep 25, 2018 Frequency: At least 5 of 7 days/Wk (IRF) Estimated Hrs Per Day: 1.5 hours per day Agreement: Yes Rehab Potential: Good Time/GCodes Start Time: 08:30 Stop Time: 09:30 Total Time Billed (hr/min): 60 Billed Treatment Time 1 visit-ADL 4 (60 min) ABRIL ELENA September 12, 2018 10:50
[2018-09-12] MEDS: SENNA W/DOCUSATE (SENOKOT S) TABLET PO SCH ×2 (10:58→21:33)
--- NOTE | 2018-09-12 11:02 | Speech Therapy Daily Note ---
Speech Daily Progress Note Subjective Date Seen by Provider: September 12, 2018 Time Seen by Provider: 00:30 The patient was happy to have her daughter and granddaughter visiting from [place]. Objective The patient completed memory tasks related to her daily routine with 80% accuracy given minimal verbal cues. Assessment Assessment Current Status: Good Progress Treatment Plan Continue Plan of Care Communication Comprehension: 7 Expression: 6 Social Cognition Social Interaction: 7 Problem Solvin Memory: 5 Speech Short Term Goals Short Term Goals Short Term Goals 1) The patient will complete memory tasks at 90% or greater without verbal cues. 2) The patient will complete problem solving tasks at 90% or greater without verbal cues. Speech Engagement Quality Consultant Goals Retirement Goals The patient will improve her memory and problem solving abilities to increase his level of safety and independence. Comprehension: 6 Expression: 6 Social Interaction: 6 Problem Solvin Memory: 6 Speech-Plan Patient/Family Goals Patient/Family Goals: The patient plans to return home with family support near by post rehab. Treatment Plan Speech Therapy Treatment Plan: Continue Plan of Care The patient is working hard to be able to return home. Treatment Duration: Sep 19, 2018 Frequency: 1 time per week Estimated Hrs Per Day: .25 hour per day Rehab Potential: Good Barriers to Learning: Patient's debility as well as memory and problem solving deficits Pt/Family Agrees to Plan: Yes Safety Risks/Education Teaching Recipient: Patient, Family Teaching Methods: Discussion Response to Teaching: Verbalize Understanding Education Topics Provided: Continued safety within her room Time Speech Therapy Time In: 09:30 Speech Therapy Time Out: 10:00 Total Billed Time: 30 Billed Treatment Time 1, LITTLE Rizvi September 12, 2018 11:02
--- NOTE | 2018-09-12 11:02 | Physical Therapy Daily Note ---
PT Daily Note-Current Appearance Pt. agrees to Rx, spoke a lot about not making sense of what happened to her, feels she was given an inhaler that may have caused a reaction Mental Status Patient Orientation: Normal For Age Transfers Therapy Code Descriptions/Definitions Functional [place] Measure: 0=Not Assessed/NA 4=Minimal Assistance 1=Total Assistance 5=Supervision or Setup 2=Maximal Assistance 6=Modified [place] 3=Moderate Assistance 7=Complete [place] Therapy Quality Codes: 6 Independent with activity with or without an assistive device 5 Patient requires set up or clean up by helper. Patient completes activity by themselves 4 Supervision or touching assist (CGA). [place] provide cues , steadying assist 3 The helper provides less than half the effort to complete the activity 2 The helper provides more than half the effort to complete the activity 1 Dependent. The helper does all the effort to complete an activity 7 Patient refused to complete or attempt activity 9 The patient did not perform the activity before the current illness or injury 88 Not attempted due to Medical conditions or safety concerns Transfers (B, C, W/C) (FIM): 6 Scootin Rollin Supine to/from Sit: 6 Sit to/from Stand: 6 Bed to/from Chair: 6 Gait Training Does the Patient Walk?: Yes Gait (FIM): 6 Distance (FIM): 3=150 ft (175x2,50) Gait Level of Assist: 6 Gait Persons Needed: 0 Gait Assistive Device: None Pt. weight shifts laterally quite a bit, with noted upper body side flexion etc. 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 Exercises Seated Therapy Exercises: Ankle pumps, Sit to stand, Long arc quads Seated Reps: 15 Standing: Hip Abduction, Hamstring curls, Heel/toe raises, Marching, Mini squats Standing Reps: 12 NuStep Minutes: 11 NuStep Workload: 5 Treatments balance challenges for eyes closed, attempted SLS, unable, side step and retro with no LOB Assessment Current Status: Good Progress audible wheezes, nasal breathing PT Short Term Goals Short Term Goals Time Frame: Sep 18, 2018 Transfers (B,C,W/C) (FIM): 6 Gait (FIM): 5 Gait Distance Comment: 150' Gait Level of Assist: 5 Gait Assistive Device: None PT Intermediate Goals Intermediate Goals PT Freight Breaker Goals Time Frame: Oct 02, 2018 Transfers (B,C,W/C) (FIM): 6 Sit to Lying (QC): 6 Lying-Sitting on Side/Bed(QC): 6 Sit to Stand (QC): 6 Rollin Roll Left to Right (QC): 6 Chair/Enw-wl-Yelug Xfer(QC): 6 Car Transfer (QC): 6 Gait (FIM): 5 Distance: 200' Walk 10 feet (QC): 4 Walk 10ft-Uneven Surface(QC): 4 Walk 50ft with 2 Turns (QC): 4 Walk 150 ft (QC): 4 Gait Level of Assist: 5 Gait Assistive Device: None Stairs (FIM): 2 # of Steps: 4 1 Step (curb) (QC): 4 4 Steps (QC): 4 Stairs Level Of Assist: 4 PT Plan Treatment/Plan Treatment Plan: Continue Plan of Care Treatment Plan: Bed Mobility, Education, Functional Activity Lucia, Functional Strength, Group Therapy, Gait, Safety, Therapeutic Exercise, Transfers Treatment Duration: Oct 02, 2018 Frequency: At least 5 of 7 days/Wk (IRF) Estimated Hrs Per Day: 1.5 hours per day Patient and/or Family Agrees t: Yes Safety Risks/Education Patient Education: Gait Training, Transfer Techniques, Disease Process, Safety Issues Teaching Recipient: Patient Teaching Methods: Demonstration, Discussion Response to Teaching: Verbalize Understanding, Return Demonstration, Reinforcement Needed Time/GCodes Time In: 1000 Time Out: 1100 Total Billed Treatment Time: 60 Total Billed Treatment 1,EX30m,FA10m,GT20m G Codes Necessary: SARAH Maki ASSISTANT GOLF COURSE SUPERINTENDENT September 12, 2018 11:02
[2018-09-12] MEDS: HYDROcodone/APAP 10 MG/325 MG (LORTAB) TAB PO PRN (11:15)
[2018-09-12] MEDS: inSUlin ASPART (NovoLOG) 1 UNIT/0.01 ML (CHARGE PER UNIT) SC SCH ×2 (11:46→16:53)
--- NOTE | 2018-09-12 14:20 | Individualized Plan of Care ---
Individualized Plan of Care Rehab Nursing IPOC Order Admission Date September 11, 2018 at 10:55 Current Orders Orders Admission Order(Inpt,Obs,Sdc) (09/11/18 10:02) Vital Signs: Per Unit Policy ( 08,16,00 (09/11/18 10:02) Obstetrician Gynecologist-Inpt Rehab Con (09/11/18 10:02) Rehab Nursing Orders-Ipoc (09/11/18 10:02) Physical Therapy Rehab Orders (09/11/18 10:02) Occupational Therapy Rehab Ord (09/11/18 10:02) Speech Therapy Rehab Orders (09/11/18 10:02) Precautions (Aru) (09/11/18 10:02) Weekly Weight (Lbs) WEEK (09/11/18 10:02) Rehab-Intensity Of Therapy (09/11/18 10:02) Initiate Admission Nursing Pro .admission (09/11/18 10:02) Code/Resuscitation (09/11/18 12:05) Follow-Up Appointment (09/11/18 12:05) Initiate Admission Nursing Pro .admission (09/11/18 12:05) Notify Physician (09/11/18 12:05) Sequential Compression Device 08,20 (09/11/18 12:05) Acetaminophen Tablet/Caplet (Tylenol T (09/11/18 12:15) Albuterol/Ipra Inhalation Soln (Duoneb I (09/11/18 15:00) Atorvastatin Tablet (Lipitor) (09/11/18 21:00) Benzonatate Capsule (Tessalon Perles) (09/11/18 13:00) Cefdinir Capsule (Omnicef Capsule) (09/11/18 21:00) Clopidogrel Tablet (Plavix Tablet) (09/12/18 09:00) Furosemide Tablet (Lasix Tablet) (09/12/18 09:00) Hydrocodone/Apap 10/325 Tablet (Lortab 1 (09/11/18 12:15) Lidocaine 4% Patch (Salonpas 4% Patch) (09/12/18 09:00) Patch Removal (Patch Removal) (09/11/18 21:00) Polyethylene Glycol Powder Pkt (Miralax (09/11/18 21:00) Potassium Chloride (Tablet) (Klor Con Ta (09/12/18 07:00) Senna S Tablet (Senokot S Tablet) (09/11/18 21:00) Guaifenesin/Dm Syrup (Robitussin Dm Syru (09/11/18 12:15) Metoprolol Succinate (Xl) Tab (Toprol Xl (09/12/18 09:00) Metformin Xr Tablet (Glucophage Xr Table (09/12/18 09:00) Prednisone Tablet (Deltasone Tablet) (09/12/18 07:00) Prednisone Tablet (Deltasone Tablet) (09/12/18 07:00) Communication For Respiratory (09/11/18 12:05) Consult Cardiology (09/11/18 12:05) Consult Pulmonology (09/11/18 12:05) Incentive Spirometry Initial (09/11/18 12:05) Mat Initiate Protocol (09/11/18 12:05) Rt Request For Service (09/11/18 12:05) Svn Small Volume Nebulizer (09/11/18 12:05) Svn Small Volume Nebulizer (09/11/18 12:05) Incentive Spirometry (Nursing) Q2H (09/11/18 12:05) Bisacodyl Suppository (Dulcolax Supposit (09/11/18 12:15) General/Regular (09/11/18 Lunch) Ambulate 08,12,20 (09/11/18 12:40) Dvt/Vte Risk - Notifiy Physici 08 (09/11/18 12:40) Patient Visit (09/11/18 ) Speech Sound Lang Comp (09/11/18 ) Loratadine Tablet (Claritin Tablet) (09/11/18 15:00) Loratadine Tablet (Claritin Tablet) (09/12/18 09:00) Patient Visit (09/11/18 ) Pt Eval Moderate Complexity (09/11/18 ) Exercise Therap, Ea 15 Min (09/11/18 ) Gait Training, Ea 15 Min (09/11/18 ) Cbc With Automated Diff (09/12/18 06:00) Comprehensive Metabolic Panel (09/12/18 06:00) Accucheck Bid DBID (09/12/18 11:25) Insulin Aspart (Novolog) (Novolog (Charg (09/12/18 11:30) Patient Visit (09/12/18 ) Treat. Speech/Lang/Voice (09/12/18 ) Rehab Nursing Orders: Ongoing Assess. of Cognitive Status, Ongoing Assess. of Function Status, Bladder Management, Bladder Scan, Bladder Training, Bowel Management, Bowel Training, Disease Management & Educaiton, DVT Prophylaxis, Fall Prevention, Fluid/Electrolyte/Nutrition Mgmt, Infection Prevention, Medication Management & Education, Management of Risks & Complications, Management of Skin Intergrity, Pain Management, Patient/Family Support, Safety Management Intensity of Therapy to be met Patient to be seen: Min.3h per day/5 of 7d PT IPOC Problem List: Activity Tolerance, Functional Strength, Safety, Balance, Gait, Transfer, Bed Mobility, ROM Treatment Plan: Continue Plan of Care Bed Mobility, Education, Functional Activity Lucia, Functional Strength, Group Therapy, Gait, Safety, Therapeutic Exercise, Transfers Treatment Duration: Oct 02, 2018 Frequency: At least 5 of 7 days/Wk (IRF) Estimated Hrs Per Day: 1.5 hours per day OT IPOC Problems: Decreased Activ Tolerance, Impaired Self-Care Skills OT Treatment, Training and Edu: Yes Plan of Care: ADL Retraining, Functional Mobility, Group Exercise/Act as Ind, UE Funct Exercise/Act Treatment Duration: Sep 25, 2018 Frequency: At least 5 of 7 days/Wk (IRF) Estimated Hrs Per Day: 1.[address] IPOC Speech Therapy Treatment Plan: Continue Plan of Care Treatment Duration: Sep 19, 2018 Frequency: 1 time per week Estimated Hrs Per Day: .25 hour per day Obstetrician Gynecologist/Case Mgmt Obstetrician Gynecologist/Case Managemen: Discharge Planning Dietitian/Environmental Assistant Dietitian/Environmental Assistant to monitor nutritional status and make changes and/or recommendations as needed and work with speech pathology on dietary upgrades as the occur. Physician IPOC Medical Issues being managed closely and that require the 24 hour availability of a physician: Hypoxia and dyspnea will require close monitoring in order to return back to [place] Medical Issues: Bowel/Bladder Function, DVT Prophylaxis, Falls Precautions, Fluid/Electrolyte/Nutrition Balance, Infection Protection Brief Synthesis of Preadmission Screen, Post-Admission Evaluation, and Therapy Evaluations: PT will focus on ambulation and gain stamina for dyspnea OT will focus on ADL's in order to return back to [place] Medical Prognosis: Good Anticipated Length of Stay: 7 days ROXANA BISHOP DO September 12, 2018 14:20
--- NOTE | 2018-09-12 14:31 | Therapy Group Daily Note ---
Therapy Daily Group Note Patient Education Topic Other List Below (benefits of exercise, ARU orientation) Exercises LE Seated Exercise, UE Exercise Session Ratio (pt:therapist): 3:1 Goal of Session: Education on ARU Expectations, UE/LE Strengthing Goal Met for this Session: Yes Pt Benefit of Group: Increased Functional Strength, Recognition of Peers, Soci alization Other/Notes Pt. participated in group PT OT session this date. Pt. came and went by w/c walking short dist to from w/c and bed. Pt. was social and shared her name , home town and her favorite exercise/activity. Pt. participated in ADARTIS for # then leading and demonstrating an exercise they had learned or practiced at home previously. Pt. to room after with some assist to bed, emmett at hand Start Time: 13:00 Stop Time: 14:05 Total Billed Treatment Time: 65 Total Billed Treatment 1,GRP SARAH PIZANO RUNSTITCHING MACHINE OPERATOR September 12, 2018 14:31
--- NOTE | 2018-09-12 15:10 | NUR ---
Dr. Luna in room, talking w pt, dgtr, & granddgtr, answering questions. Pt received RT tx prior to that.
[2018-09-12] MEDS: guaiFENesin/DM (ROBITUSSIN DM) 10 ML UDC PO PRN ×2 (15:25→21:30)
[2018-09-12 16:29] VITALS: BP 153/80
--- NOTE | 2018-09-12 19:34 | NUR ---
bedside report received from DONNIE PERRY, assume care of pt
--- NOTE | 2018-09-12 21:00 | NUR ---
assessments & interventions completed, see assessments & interventions
[2018-09-12] MEDS: ATORVASTATIN 40 MG (LIPITOR) TABLET PO SCH (21:30)
--- NOTE | 2018-09-12 21:30 | NUR ---
refused miralax & Senemmyot, requested Robitussin cough syrup
[2018-09-12] MEDS: POLYETHYLENE GLYCOL 17 GM (MIRALAX) PACK PO SCH (21:32)
[2018-09-12] MEDS: LIDOCAINE PATCH REMOVAL TP SCH (21:35)
[2018-09-13] MEDS: HYDROcodone/APAP 10 MG/325 MG (LORTAB) TAB PO PRN ×2 (00:10→09:23)
--- NOTE | 2018-09-13 00:10 | NUR ---
c/o lt rib pain level 10/10 on numeric scale, Lortab 10/325 1 tab po given
--- NOTE | 2018-09-13 00:45 | NUR ---
resting quietly in bed, pain level 0/10 on flacc scale
[2018-09-13] MEDS: RT-ALBUTEROL/IPRATROPIUM 3 ML (DUONEB) VIAL INH SCH ×2 (02:44→19:08)
[2018-09-13 06:10] VITALS: BP 134/55
[2018-09-13] MEDS: KCL 10 MEQ TAB (MICRO K) PO SCH (06:27)
[2018-09-13] MEDS: predniSONE 20 MG TAB PO SCH (06:27)
[2018-09-13] MEDS: inSUlin ASPART (NovoLOG) 1 UNIT/0.01 ML (CHARGE PER UNIT) SC SCH ×2 (06:27→16:15)
[2018-09-13] MEDS: predniSONE 10 MG TAB PO SCH (06:27)
--- NOTE | 2018-09-13 07:28 | NUR ---
bedside report given to VIOLETTA PERRY
--- NOTE | 2018-09-13 07:34 | Pulmonary Progress Note ---
Sepsis Event Evaluation Height, Weight, BMI Height: 5'3.00" Weight: 310lbs. 0.0oz. 140.935759rw; 54.9 BMI Method:Stated Exam Exam Vital Signs Date Time Temp Pulse Resp B/P (MAP) Pulse Ox O2 Delivery O2 Flow Rate FiO2 09/13/18 06:10 97.7 56 18 134/55 (81) 96 Room Air 09/13/18 06:03 97 21 09/13/18 02:45 97 Room Air 09/12/18 21:00 Room Air 09/12/18 20:11 94 Room Air 09/12/18 16:29 96.6 54 16 153/80 (104) 95 Room Air 09/12/18 14:58 98 Room Air 09/12/18 08:48 98 Room Air I & O 09/13/18 07:00 Intake Total 1600 ml Balance 1600 ml Height & Weight Height: 5'3.00" Weight: 310lbs. 0.0oz. 140.174002mo; 54.9 BMI Method:Stated General Appearance: No Apparent Distress, WD/WN, Chronically ill, Obese HEENT: PERRL/EOMI, Normal ENT Inspection, Pharynx Normal Neck: Full Range of Motion, Normal Inspection, Non Tender, Supple Respiratory: Chest Non Tender, Lungs Clear, Normal Breath Sounds, No Accessory Muscle Use, No Respiratory Distress Cardiovascular: Regular Rate, Rhythm, No Edema, No Gallop, No JVD, No Murmur, Normal Peripheral Pulses Capillary Refill: Less Than 3 Seconds Gastrointestinal: normal bowel sounds, non tender, soft Extremity: Normal Capillary Refill, Normal Inspection, Normal Range of Motion, Non Tender, No Calf Tenderness Neurologic/Psychiatric: Alert, Oriented x3, No Motor/Sensory Deficits, Normal Mood/Affect, starch and prosize mixer II-XII Norm as Tested, Abnormal Gait, Motor Weakness (subtle weakness all extremities) Skin: Normal Color, Warm/Dry Lymphatic: No Adenopathy Results Lab Laboratory Tests 09/12/18 05:30 Assessment/Plan Assessment/Plan Bibasilar pneumonia - failed out pt treatment - Omnicef -IS -CT scan reviewed -Will need repeat CT scan of chest 8 wks after discharge to ensure complete resolution Persistent cough with pleuritic CP -Lidoderm patch -Pt is allergic Codeine -Tessalon pearls Atelectasis Asthma - per last PFT -SVNS Deconditioning -PT/OT SISSY LEE DO Sep 13, 2018 07:33
[2018-09-13 08:00] VITALS: BP 125/53
[2018-09-13] MEDS: BENZONATATE 100 MG (TESSALON) CAPSULE PO SCH ×3 (08:17→20:38)
[2018-09-13] MEDS: LORATADINE (CLARITIN) 10 MG TAB PO SCH (08:17)
[2018-09-13] MEDS: ACETAMINOPHEN 325 MG TABLET PO PRN ×2 (08:17→20:50)
[2018-09-13] MEDS: CLOPIDOGREL 75 MG (PLAVIX) TABLET PO SCH (08:17)
[2018-09-13] MEDS: CEFDINIR 300 MG (OMNICEF) CAP PO SCH ×2 (08:17→20:38)
[2018-09-13] MEDS: meTOprolol SUCCINATE 100 MG (TOPROL XL) TAB PO SCH (08:17)
[2018-09-13] MEDS: FUROSEMIDE 40 MG (LASIX) TAB PO SCH (08:17)
[2018-09-13] MEDS: metFORMIN XR 500 MG (GLUCOPHAGE XR) TAB PO SCH (08:17)
[2018-09-13] MEDS: SENNA W/DOCUSATE (SENOKOT S) TABLET PO SCH ×3 (08:17→20:47)
--- NOTE | 2018-09-13 09:25 | Diagnostic Imaging Report ---
INDICATION: Pneumonia. TIME OF EXAM: 9:03 AM CORRELATION is made with prior study of 09/10/2018. FINDINGS: The heart size is stable. The lungs are clear. No infiltrate or failure is detected. No effusion or pneumothorax is seen. IMPRESSION: No acute cardiopulmonary process is detected. Dictated by: Dictated on workstation # [id number]
--- NOTE | 2018-09-13 09:30 | NUR ---
DR. LEE HAS SEEN PATIENT. CXR DONE. STATES LIDOCAINE HELPS LEFT SIDE PAIN. STATES NOT COUGHING MUCH AND PAIN IS BETTER. LOWER EXTREMITY EDEMA NOTED AND JAVY YUNG APPLIED. FAMILY VISITING.
[2018-09-13] MEDS: LIDOCAINE 4% (SALONPAS) PATCH TOP SCH (10:30)
--- NOTE | 2018-09-13 11:00 | NUR ---
NOT ON ANY IV MEDS AND PATIENT STATES SALINE LOCK IS 4 DAYS OLD AND WOULD LIKE IT OUT. IV DC'D.
--- NOTE | 2018-09-13 11:39 | PM&R Progress Note ---
Subjective HPI/CC On Admission Date Seen by Provider: Sep 13, 2018 Time Seen by Provider: 11:00 CC: Debility HPI: This is an 88yoWF clinic patient of Dr Blakely who presents to IRF in need of aggressive rehab before returning to [facility] in [place] following an lengthy hospital course for bilateral pneumonia and AECOPD. Patient was very weak and could not manage her ADL's or walk very well in order to go back to [place] facility. Currently patient is improving quite a bit since arrival to IRF. OT will focus on ADL's and toileting processes and PT will focus on strengthening and ambulation with walker. Daughter at the bedside has arrived from [place], [place] and is convinced the ICS caused an allergic reaction and gave her pneumonia. Patient is completing abx and steroid taper and her bowels are now moving well after meds given yesterday. Patient denies pain issues and I have checked meds and labs. Labs were checked and creatinine was normal of which her daughter was very concerned that the Lasix would "kill her kidneys." I spent a great deal of time in the room educating and counseling the patient and her daughter regarding her results and meds. Subjective/Events-last exam CXR clear Dr Friedman saw the patient in consultation and thinks she is doing very well Daughter at he bedside Eating well BM+ Overall much improved No pain except left sided chest pain when she coughs Lidocaine is much improved No falls Uses assistive devices Review of Systems General: Fatigue Pulmonary: Cough Cardiovascular: Chest Pain Objective Exam Vital Signs Vital Signs Date Time Temp Pulse Resp B/P (MAP) Pulse Ox O2 Delivery O2 Flow Rate FiO2 09/13/18 09:00 Room Air 09/13/18 06:10 97.7 56 18 134/55 (81) 96 09/13/18 06:03 21 Capillary Refill : Less Than 3 Seconds General Appearance: No Apparent Distress, WD/WN, Chronically ill, Obese HEENT: PERRL/EOMI, Normal ENT Inspection, Pharynx Normal Neck: Full Range of Motion, Normal Inspection, Non Tender, Supple Respiratory: Chest Non Tender, Lungs Clear, Normal Breath Sounds, No Accessory Muscle Use, No Respiratory Distress Cardiovascular: Regular Rate, Rhythm, No Edema, No Gallop, No JVD, No Murmur, Normal Peripheral Pulses Back: Normal Inspection, No CVA Tenderness, No Vertebral Tenderness Extremity: Normal Capillary Refill, Normal Inspection, Normal Range of Motion, Non Tender, No Calf Tenderness Neurologic/Psychiatric: Alert, Oriented x3, No Motor/Sensory Deficits, Normal Mood/Affect, line inspector II-XII Norm as Tested, Abnormal Gait, Motor Weakness (subtle weakness all extremities) Skin: Normal Color, Warm/Dry Lymphatic: No Adenopathy Results/Procedures Lab Patient resulted labs reviewed. FIM Transfers Therapy Code Descriptions/Definitions Functional [place] Measure: 0=Not Assessed/NA 4=Minimal Assistance 1=Total Assistance 5=Supervision or Setup 2=Maximal Assistance 6=Modified [place] 3=Moderate Assistance 7=Complete [place] Therapy Quality Codes: 6 Independent with activity with or without an assistive device 5 Patient requires set up or clean up by helper. Patient completes activity by themselves 4 Supervision or touching assist (CGA). [place] provide cues , steadying assist 3 The helper provides less than half the effort to complete the activity 2 The helper provides more than half the effort to complete the activity 1 Dependent. The helper does all the effort to complete an activity 7 Patient refused to complete or attempt activity 9 The patient did not perform the activity before the current illness or injury 88 Not attempted due to Medical conditions or safety concerns Transfers (B, C, W/C) (FIM): 6 Scootin Rollin Roll Left to Right (QC): 4 Supine to/from Sit: 6 Sit to/from Stand: 6 Sit to Lying (QC): 2 Sit to Stand (QC): 4 Chair/Zwh-da-Xlcqq Xfer(QC): 4 Bed to/from Chair: 6 Car Transfer (QC): 3 Gait Training Does the Patient Walk?: Yes Gait (FIM): 6 Distance (FIM): 3=150 ft (175x2,50) Walk 10 feet (QC): 4 Walk 50 ft with 2 Turns(QC): 4 Walking 10ft/uneven surface-QC: 4 Gait Level of Assist: 6 Gait Persons Needed: 0 Gait Assistive Device: None Wheelchair Training Does the Pt Use a Wheelchair?: No Stair Training Stair Training: Handrails/: 2 handrails Stairs (FIM): 5 #of Steps: 4 Stairs: Pattern: Step to Level of Assist: 5 Mental Status/Objective Comprehension: 7 Expression: 6 Social Interaction: 7 Problem Solvin Memory: 5 ADL-Treatment Feedin (Lunch tray came in room and pt. able to set up full meal tray.) Eating (QC): 6 Groomin Oral Hygiene (QC): 6 Bathin Bathing Location: L Arm, R Arm, L Upper Leg, R Upper Leg, L Lower Leg (including foot), R Lower Leg (including foot), Chest, Abdomen, Buttocks, Perineal Area Shower/Bathe Self (QC): 4 Upper Extremity Dressin Upper Body Dressing (QC): 5 Lower Extremity Dressin Lower Body Dressing (QC): 4 On/Off Footwear (QC): 3 Toiletin (CGA for urination only.) Toileting Hygiene (QC): 4 Toilet/Commode Transfer: 4 Toilet Transfer (QC): 4 Shower: 5 Assessment/Plan Assessment and Plan Assess & Plan/Chief Complaint Assessment: (1) Pneumonia of both lower lobes Status: Acute (2) STEPHAN treated with BiPAP Status: Chronic (3) Obesity Status: Chronic (4) Weakness Status: Acute (5) Renal insufficiency Status: Acute (6) Elevated brain natriuretic peptide (BNP) level Status: Acute (7) CAD (coronary artery disease) Status: Chronic (8) Constipation Status: Acute (9) Diabetes mellitus Status: Chronic (10) Hypertension (11) Hyperlipemia Status: Chronic (12) Cough Status: Acute (13) Pleurisy Status: Acute (14) Asthma Status: Acute (15) Leukocytosis Status: Acute (16) History of coronary artery stent placement Status: Chronic Plan: Reviewed all meds Improved status Updated daughter and patient on results Lasix prn IRF protocols (1) Debility (2) Constipation (3) Diabetes mellitus (4) CAD (coronary artery disease) (5) Cough (6) Hyperlipemia (7) Leukocytosis (8) Renal insufficiency (9) Weakness (10) Hypertension (11) Pleurisy (12) Obesity (13) Asthma (14) Elevated brain natriuretic peptide (BNP) level (15) STEPHAN treated with BiPAP (16) History of coronary artery stent placement (17) Pneumonia of both lower lobes Critical Care Critical Care: Critically Ill Patient ROXANA BISHOP DO Sep 13, 2018 11:39
--- NOTE | 2018-09-13 12:14 | Physical Therapy Daily Note ---
PT Daily Note-Current Subjective Pt reports she had a rough night, coughing and pain in ribs. States she does not feel that her LLE works as well as her RLE. Agreeable to PT session Pain Numeric Pain Scale: 10-Worst Possible Pain Comment: in ribs with coughing, slowly subsides then right back with more coughing Appearance 1st attempt, pt getting ready to get into shower. 2nd attempt, upon arrival, pt sitting up in chair conversing with visitors, agreeable to session. Mental Status Patient Orientation: Person, Place, Eyes Open Transfers Therapy Code Descriptions/Definitions Functional [place] Measure: 0=Not Assessed/NA 4=Minimal Assistance 1=Total Assistance 5=Supervision or Setup 2=Maximal Assistance 6=Modified [place] 3=Moderate Assistance 7=Complete [place] Therapy Quality Codes: 6 Independent with activity with or without an assistive device 5 Patient requires set up or clean up by helper. Patient completes activity by themselves 4 Supervision or touching assist (CGA). [place] provide cues , steadying assist 3 The helper provides less than half the effort to complete the activity 2 The helper provides more than half the effort to complete the activity 1 Dependent. The helper does all the effort to complete an activity 7 Patient refused to complete or attempt activity 9 The patient did not perform the activity before the current illness or injury 88 Not attempted due to Medical conditions or safety concerns Transfers (B, C, W/C) (FIM): 5 Sit to/from Stand: 5 pt demonstrating safety with all transitions performed this session. Noted some effort required to transition to standing but able to perform upon 1st attempt Gait Training Does the Patient Walk?: Yes Gait (FIM): 2 Distance (FIM): 5=329-70 ft Distance: 125 x2 Gait Level of Assist: 5 Gait Persons Needed: 1 Gait Assistive Device: None SOA, wheezing, steady katya, fair speed, lateral sway, decreased step length and height Exercises Seated Therapy Exercises: Ankle pumps, Long arc quads, Hip flexion Seated Reps: 15 Standing: Hip Abduction, Marching, Mini squats, Sit to Stand Standing Reps: 15 (in // bars) NuStep Minutes: 10 NuStep Workload: 3 (seat 11 and 10, arms 12. Followed instruction to scoot seat further forward to increase motion in LE's) Treatments transfers, safety, gait, activity tolerance, functional mobility, balance, strengthening, breathing techniques Assessment Pt very motivated to improve and increase activity PT Short Term Goals Short Term Goals Time Frame: Sep 18, 2018 Transfers (B,C,W/C) (FIM): 6 Gait (FIM): 5 Gait Distance Comment: 150' Gait Level of Assist: 5 Gait Assistive Device: None PT Chcf Goals Intelligence Applications Goals PT Intelligence Applications Goals Time Frame: Oct 02, 2018 Transfers (B,C,W/C) (FIM): 6 Sit to Lying (QC): 6 Lying-Sitting on Side/Bed(QC): 6 Sit to Stand (QC): 6 Rollin Roll Left to Right (QC): 6 Chair/Cze-pk-Kgyth Xfer(QC): 6 Car Transfer (QC): 6 Gait (FIM): 5 Distance: 200' Walk 10 feet (QC): 4 Walk 10ft-Uneven Surface(QC): 4 Walk 50ft with 2 Turns (QC): 4 Walk 150 ft (QC): 4 Gait Level of Assist: 5 Gait Assistive Device: None Stairs (FIM): 2 # of Steps: 4 1 Step (curb) (QC): 4 4 Steps (QC): 4 Stairs Level Of Assist: 4 PT Plan Treatment/Plan Treatment Plan: Continue Plan of Care Treatment Plan: Bed Mobility, Education, Functional Activity Lucia, Functional Strength, Group Therapy, Gait, Safety, Therapeutic Exercise, Transfers Treatment Duration: Oct 02, 2018 Frequency: At least 5 of 7 days/Wk (IRF) Estimated Hrs Per Day: 1.5 hours per day Patient and/or Family Agrees t: Yes Safety Risks/Education Patient Education: Gait Training, Transfer Techniques, Safety Issues Teaching Recipient: Patient Teaching Methods: Discussion Response to Teaching: Verbalize Understanding Time/GCodes Time In: 945 Time Out: 1008 Total Billed Treatment Time: 23 Total Billed Treatment 1 visit, GT x 1 unit, Ex x 1 unit PEDRITO ROSS UPPER TIER Sep 13, 2018 12:14
--- NOTE | 2018-09-13 16:14 | Progress Note-Cardiology ---
Cardiology SOAP Progress Note Subjective: No cp or palp or syncope Gen malaise and exertional shortness of breath and weakness Objective: I&O/Vital Signs 09/13/18 09/13/18 09/13/18 06:03 06:10 09:00 Temp 97.7 Pulse 56 Resp 18 B/P (MAP) 134/55 (81) Pulse Ox 97 96 O2 Delivery Room Air Room Air FiO2 21 09/13/18 00:00 Intake Total 1200 ml Balance 1200 ml Weight (Pounds): 310 Weight (Ounces): 0.0 Weight (Calculated Kilograms): 140.144891 Constitutional: AAO x 3, well-developed, well-nourished, other (obese) Respiratory: No accessory muscle use; other (fair air entry; exp rhonchi; basal coarse crackles) Cardiovascular: regular rate-rhythm, S1 and S2, systolic murmur (soft JACK at card basee) Gastrointestional: No tender; soft; No guarding, No rebound; audible bowel sounds Extremities: No clubbing, No cyanosis; significant edema (bilateral mod, pitting and non-pitting edema of legs) Neurologic/Psychiatric: oriented x 3, other (moves all limbs equally), grossly intact Results/Procedures: Labs Laboratory Tests 09/12/18 16:51: Glucometer 171H 09/13/18 05:13: Glucometer 118H 09/13/18 15:41: Glucometer 252H Laboratory Tests 09/12/18 05:30 A/P: Assessment: Multifactorial shortness of breath: pneumonia, obesity-hypoventilation, ac CHF (etiology undetermined, suspected to be cmubw-ae-daitkcg diastolic) Leg swelling, multifactorial: venous insuff and amlodipine therapy and suspected diastolic CHF CAD. She had kissing LAD stents (LAD and a diag) in Feb [address] Rubin in [place], [place]. A cath in 2019 showed patent stents, LVEF 60% HTN HL Borderline DM II Plan: * I obtained, reviewed and discussed with her and her family the records from [facility]. They are summarized above (see italics) * On 09/11/18, the pt was hesitant to take furosemide. Her records from Dr Rubin indicate that she has chronically been on torsemide. I discussed this with her and her family today. She is ok with taking one diuretic (furosemide) but states that she went into renal failure on a previous occasion when another diuretic was added to furosemide * Monitor labs from time to time * I answered her and her family's questions Note: This is late entry to document my visit to the patient on 09/12/18 at around 2:30 pm AUNG AARON MD FACP FAC CCDS Sep 13, 2018 16:14
--- NOTE | 2018-09-13 16:22 | Progress Note-Cardiology ---
Cardiology SOAP Progress Note Subjective: Has been having recurrent, intermittent, right lower rib cage pain since yesterday evening No palp or syncope Gen weakness, malaise and exertional shortness of breath as before Objective: I&O/Vital Signs 09/13/18 09/13/18 09/13/18 06:03 06:10 09:00 Temp 97.7 Pulse 56 Resp 18 B/P (MAP) 134/55 (81) Pulse Ox 97 96 O2 Delivery Room Air Room Air FiO2 21 09/13/18 00:00 Intake Total 1200 ml Balance 1200 ml Weight (Pounds): 310 Weight (Ounces): 0.0 Weight (Calculated Kilograms): 140.893498 Constitutional: AAO x 3, well-developed, well-nourished, other (obese) Respiratory: No accessory muscle use; other (fair air entry; exp rhonchi; basal coarse crackles) Cardiovascular: regular rate-rhythm, S1 and S2, systolic murmur (soft JACK at card basee) Gastrointestional: No tender; soft; No guarding, No rebound; audible bowel sounds Extremities: No clubbing, No cyanosis; significant edema (bilateral mod, pitting and non-pitting edema of legs) Neurologic/Psychiatric: oriented x 3, other (moves all limbs equally), grossly intact Results/Procedures: Labs Laboratory Tests 09/12/18 16:51: Glucometer 171H 09/13/18 05:13: Glucometer 118H 09/13/18 15:41: Glucometer 252H A/P: Assessment: Intermittent, left lower rib cage pain, noncardiac Multifactorial shortness of breath: pneumonia, obesity-hypoventilation, ac CHF (etiology undetermined, suspected to be yvvog-wt-dkujeyt diastolic) Leg swelling, multifactorial: venous insuff and amlodipine therapy and suspected diastolic CHF CAD. She had kissing LAD stents (LAD and a diag) in Feb [address] Rubin in [place], [place]. A cath in 2019 showed patent stents, LVEF 60% HTN HL Borderline DM II Plan: * Continue current cardiac regimen * We have her on only on clopidogrel because the DAPT has resulted in marked nose bleeds. Dr Rubin, her regular erp developer, has since had her on clopidogrel only and his has worked well for her * I spoke with her and her family again today and answered CV-related questions GALEN,ALI MD FACP FACC CCDS Sep 13, 2018 16:22
[2018-09-13 17:15] VITALS: BP 149/70
--- NOTE | 2018-09-13 19:24 | NUR ---
bedside report received from VIOLETTA PERRY, assume care of pt
[2018-09-13] MEDS: ATORVASTATIN 40 MG (LIPITOR) TABLET PO SCH (20:38)
[2018-09-13] MEDS: guaiFENesin/DM (ROBITUSSIN DM) 10 ML UDC PO PRN (20:42)
[2018-09-13] MEDS: POLYETHYLENE GLYCOL 17 GM (MIRALAX) PACK PO SCH (20:47)
[2018-09-13] MEDS: LIDOCAINE PATCH REMOVAL TP SCH (20:47)
--- NOTE | 2018-09-13 20:50 | NUR ---
c/o lt sided pain level 8/10 on numeric scale, Tylenol 650mg po given
--- NOTE | 2018-09-13 21:00 | NUR ---
assessments & interventions completed, see assessments & interventions, pt refused miralax & Senokot, took Robitussin 10ml for cough
--- NOTE | 2018-09-13 21:45 | NUR ---
pain level 4/10 on numeric scale
--- NOTE | 2018-09-13 23:30 | NUR ---
states having trouble catching breath, 02 sat 98% up to chair with cpap on, given warm blanket, resting up in the chair, resp unlabored & even, lung sounds clear & diminished
[2018-09-14 06:18] VITALS: BP 125/61
[2018-09-14] MEDS: inSUlin ASPART (NovoLOG) 1 UNIT/0.01 ML (CHARGE PER UNIT) SC SCH ×2 (06:22→15:56)
[2018-09-14] MEDS: predniSONE 20 MG TAB PO SCH (06:30)
[2018-09-14] MEDS: predniSONE 10 MG TAB PO SCH (06:30)
[2018-09-14] MEDS: KCL 10 MEQ TAB (MICRO K) PO SCH (06:30)
[2018-09-14] MEDS: RT-ALBUTEROL/IPRATROPIUM 3 ML (DUONEB) VIAL INH SCH ×2 (06:54→15:00)
--- NOTE | 2018-09-14 07:25 | NUR ---
bedside report given to VIOLETTA PERRY
[2018-09-14] MEDS: FUROSEMIDE 40 MG (LASIX) TAB PO SCH (09:09)
[2018-09-14] MEDS: BENZONATATE 100 MG (TESSALON) CAPSULE PO SCH ×3 (09:09→20:20)
[2018-09-14] MEDS: CEFDINIR 300 MG (OMNICEF) CAP PO SCH ×2 (09:09→20:20)
[2018-09-14] MEDS: CLOPIDOGREL 75 MG (PLAVIX) TABLET PO SCH (09:09)
[2018-09-14] MEDS: LORATADINE (CLARITIN) 10 MG TAB PO SCH (09:09)
[2018-09-14] MEDS: meTOprolol SUCCINATE 100 MG (TOPROL XL) TAB PO SCH (09:10)
[2018-09-14] MEDS: metFORMIN XR 500 MG (GLUCOPHAGE XR) TAB PO SCH (09:10)
[2018-09-14] MEDS: LIDOCAINE 4% (SALONPAS) PATCH TOP SCH (09:11)
[2018-09-14] MEDS: SENNA W/DOCUSATE (SENOKOT S) TABLET PO SCH ×2 (09:11→20:20)
[2018-09-14] MEDS: HYDROcodone/APAP 10 MG/325 MG (LORTAB) TAB PO PRN (09:17)
--- NOTE | 2018-09-14 10:30 | NUR ---
STATES HAS MORE PAIN AT HS BECAUSE COUGHS MORE. WILL BE CHANGED TO TESSALON PERLES Q 8 HOURS INSTEAD OF TID. IS COARSE SOUNDING AND MM TX CHANGED TO TID. 2+ EDEMA CONTINUES IN LOWER LEGS AND JAVY HOSE PUT ON.
--- NOTE | 2018-09-14 11:21 | PM&R Progress Note ---
Subjective HPI/CC On Admission Date Seen by Provider: Sep 14, 2018 Time Seen by Provider: 11:20 CC: Debility HPI: This is an 88yoWF clinic patient of Dr Blakely who presents to IRF in need of aggressive rehab before returning to [facility] in [place] following an lengthy hospital course for bilateral pneumonia and AECOPD. Patient was very weak and could not manage her ADL's or walk very well in order to go back to [place] facility. Currently patient is improving quite a bit since arrival to IRF. OT will focus on ADL's and toileting processes and PT will focus on strengthening and ambulation with walker. Daughter at the bedside has arrived from [place], [place] and is convinced the ICS caused an allergic reaction and gave her pneumonia. Patient is completing abx and steroid taper and her bowels are now moving well after meds given yesterday. Patient denies pain issues and I have checked meds and labs. Labs were checked and creatinine was normal of which her daughter was very concerned that the Lasix would "kill her kidneys." I spent a great deal of time in the room educating and counseling the patient and her daughter regarding her results and meds. Subjective/Events-last exam Lungs sound a bit more coarse today so increasing the Nebs from BID to TID Daughter is at bedside Denies any pain except during cough Eating well BM+ Overall much improved No hypoxia noted Slept in chair last night with her CPAP Tessalon Pearles will be given at night also Lidocaine is much improved No falls Uses assistive devices Conferred with RN Reviewed therapy notes Walking very well Review of Systems General: Fatigue Pulmonary: Cough Objective Exam Vital Signs Vital Signs Date Time Temp Pulse Resp B/P (MAP) Pulse Ox O2 Delivery O2 Flow Rate FiO2 09/14/18 17:19 98.7 65 18 163/75 (104) 95 Room Air 09/13/18 06:03 21 Capillary Refill : Less Than 3 Seconds General Appearance: No Apparent Distress, WD/WN, Chronically ill, Obese HEENT: PERRL/EOMI, Normal ENT Inspection, Pharynx Normal Neck: Full Range of Motion, Normal Inspection, Non Tender, Supple Respiratory: Chest Non Tender, No Accessory Muscle Use, No Respiratory Distress, Crackles, Decreased Breath Sounds Cardiovascular: Regular Rate, Rhythm, No Edema, No Gallop, No JVD, No Murmur, Normal Peripheral Pulses Back: Normal Inspection, No CVA Tenderness, No Vertebral Tenderness Extremity: Normal Capillary Refill, Normal Inspection, Normal Range of Motion, Non Tender, No Calf Tenderness Neurologic/Psychiatric: Alert, Oriented x3, No Motor/Sensory Deficits, Normal Mood/Affect, blocker heated metal forms II-XII Norm as Tested, Abnormal Gait, Motor Weakness (subtle weakness all extremities) Skin: Normal Color, Warm/Dry Lymphatic: No Adenopathy Results/Procedures Lab Patient resulted labs reviewed. FIM Transfers Therapy Code Descriptions/Definitions Functional [place] Measure: 0=Not Assessed/NA 4=Minimal Assistance 1=Total Assistance 5=Supervision or Setup 2=Maximal Assistance 6=Modified [place] 3=Moderate Assistance 7=Complete [place] Therapy Quality Codes: 6 Independent with activity with or without an assistive device 5 Patient requires set up or clean up by helper. Patient completes activity by themselves 4 Supervision or touching assist (CGA). [place] provide cues , steadying assist 3 The helper provides less than half the effort to complete the activity 2 The helper provides more than half the effort to complete the activity 1 Dependent. The helper does all the effort to complete an activity 7 Patient refused to complete or attempt activity 9 The patient did not perform the activity before the current illness or injury 88 Not attempted due to Medical conditions or safety concerns Transfers (B, C, W/C) (FIM): 5 Scootin Rollin Roll Left to Right (QC): 4 Supine to/from Sit: 6 Sit to/from Stand: 5 Sit to Lying (QC): 2 Sit to Stand (QC): 4 Chair/Faa-sq-Sxpph Xfer(QC): 4 Bed to/from Chair: 6 Car Transfer (QC): 3 Gait Training Does the Patient Walk?: Yes Gait (FIM): 2 Distance (FIM): 9=437-62 ft Distance: 125 x2 Walk 10 feet (QC): 4 Walk 50 ft with 2 Turns(QC): 4 Walking 10ft/uneven surface-QC: 4 Gait Level of Assist: 5 Gait Persons Needed: 1 Gait Assistive Device: None Wheelchair Training Does the Pt Use a Wheelchair?: No Stair Training Stair Training: Handrails/: 2 handrails Stairs (FIM): 5 #of Steps: 4 Stairs: Pattern: Step to Level of Assist: 5 Mental Status/Objective Comprehension: 7 Expression: 6 Social Interaction: 7 Problem Solvin Memory: 5 ADL-Treatment Feedin (Lunch tray came in room and pt. able to set up full meal tray.) Eating (QC): 6 Groomin Oral Hygiene (QC): 6 Bathin Bathing Location: L Arm, R Arm, L Upper Leg, R Upper Leg, L Lower Leg (including foot), R Lower Leg (including foot), Chest, Abdomen, Buttocks, Perineal Area Shower/Bathe Self (QC): 4 Upper Extremity Dressin Upper Body Dressing (QC): 5 Lower Extremity Dressin Lower Body Dressing (QC): 4 On/Off Footwear (QC): 3 Toiletin (CGA for urination only.) Toileting Hygiene (QC): 4 Toilet/Commode Transfer: 4 Toilet Transfer (QC): 4 Shower: 5 Assessment/Plan Assessment and Plan Assess & Plan/Chief Complaint Assessment: (1) Pneumonia of both lower lobes Status: Acute (2) STEPHAN treated with BiPAP Status: Chronic (3) Obesity Status: Chronic (4) Weakness Status: Acute (5) Renal insufficiency Status: Acute (6) Elevated brain natriuretic peptide (BNP) level Status: Acute (7) CAD (coronary artery disease) Status: Chronic (8) Constipation Status: Acute (9) Diabetes mellitus Status: Chronic (10) Hypertension (11) Hyperlipemia Status: Chronic (12) Cough Status: Acute (13) Pleurisy Status: Acute (14) Asthma Status: Acute (15) Leukocytosis Status: Acute (16) History of coronary artery stent placement Status: Chronic Plan: Reviewed all meds Improved status Updated daughter and patient on results Lasix prn IRF protocols Nebs TID instead of BID due to coarseness of lungs today (1) Debility (2) Constipation (3) Diabetes mellitus (4) CAD (coronary artery disease) (5) Cough (6) Hyperlipemia (7) Leukocytosis (8) Renal insufficiency (9) Weakness (10) Hypertension (11) Pleurisy (12) Obesity (13) Asthma (14) Elevated brain natriuretic peptide (BNP) level (15) STEPHAN treated with BiPAP (16) History of coronary artery stent placement (17) Pneumonia of both lower lobes Critical Care Critical Care: Critically Ill Patient ROXANA BISHOP DO Sep 14, 2018 11:21
[2018-09-14 17:19] VITALS: BP 163/75
--- NOTE | 2018-09-14 19:20 | NUR ---
bedside report received from VIOLETTA PERRY, assume care of pt
[2018-09-14] MEDS: guaiFENesin/DM (ROBITUSSIN DM) 10 ML UDC PO PRN (20:20)
[2018-09-14] MEDS: ATORVASTATIN 40 MG (LIPITOR) TABLET PO SCH (20:20)
--- NOTE | 2018-09-14 20:20 | NUR ---
refused miralax, requesting cough syrup, given Robitussin
[2018-09-14] MEDS: LIDOCAINE PATCH REMOVAL TP SCH (20:24)
[2018-09-14] MEDS: POLYETHYLENE GLYCOL 17 GM (MIRALAX) PACK PO SCH (20:24)
--- NOTE | 2018-09-14 20:25 | NUR ---
assessments & interventions completed, see assessments & interventions, up in the chair
[2018-09-15] MEDS: guaiFENesin/DM (ROBITUSSIN DM) 10 ML UDC PO PRN ×3 (00:25→21:01)
[2018-09-15] MEDS: ACETAMINOPHEN 325 MG TABLET PO PRN ×2 (00:25→21:06)
--- NOTE | 2018-09-15 00:25 | NUR ---
c/o lt sided pain level 5/10 on numeric scale, tylenol 650mg & Robitussin 10ml for cough given
--- NOTE | 2018-09-15 00:55 | NUR ---
resting quietly in chair, pain level 0/10 on flacc scale
[2018-09-15] MEDS: BENZONATATE 100 MG (TESSALON) CAPSULE PO SCH ×3 (05:12→21:01)
[2018-09-15 05:47] VITALS: BP 147/82
[2018-09-15] MEDS: inSUlin ASPART (NovoLOG) 1 UNIT/0.01 ML (CHARGE PER UNIT) SC SCH ×2 (06:30→16:08)
[2018-09-15 06:36] LABS: BASOPHILS % (AUTO) 0 % (0-10); EOSINOPHILS # (AUTO) 0.1 10^3/uL (0.0-0.3); EOSINOPHILS % (AUTO) 1 % (0-10); HEMATOCRIT 37 % (35-52); HEMOGLOBIN 11.7 G/DL (11.5-16.0); LYMPHOCYTES # (AUTO) 2.1 X 10^3 (1.0-4.0); LYMPHOCYTES % (AUTO) 19 % (12-44); MEAN CORPUSCULAR HEMOGLOBIN 29 PG (25-34); MEAN CORPUSCULAR HGB CONC 32 G/DL (32-36); MEAN CORPUSCULAR VOLUME 90 FL (80-99); MEAN PLATELET VOLUME 9.2 FL (7.4-10.4); MONOCYTES # (AUTO) 0.9 X 10^3 (0.0-1.0); MONOCYTES % (AUTO) 9 % (0-12); NEUTROPHILS # (AUTO) 7.7 X 10^3 (1.8-7.8); NEUTROPHILS % (AUTO) 71 % (42-75); PLATELET COUNT 272 10^3/uL (130-400); WHITE BLOOD COUNT 10.8 10^3/uL (4.3-11.0)
[2018-09-15] MEDS: predniSONE 10 MG TAB PO SCH (06:37)
[2018-09-15] MEDS: predniSONE 20 MG TAB PO SCH (06:37)
[2018-09-15] MEDS: KCL 10 MEQ TAB (MICRO K) PO SCH (06:37)
[2018-09-15] MEDS: RT-ALBUTEROL/IPRATROPIUM 3 ML (DUONEB) VIAL INH SCH ×3 (06:38→20:04)
[2018-09-15 06:41] LABS: ALBUMIN 3.3 GM/DL (3.2-4.5); BILIRUBIN,TOTAL 0.4 MG/DL (0.1-1.0); CALCIUM 9.1 MG/DL (8.5-10.1); CREATININE SERUM 1.15 MG/DL (0.60-1.30); POTASSIUM 4.3 MMOL/L (3.6-5.0); TOTAL PROTEIN 5.8 GM/DL (6.4-8.2)
--- NOTE | 2018-09-15 07:31 | NUR ---
bedside report given to Pebbles jenkins
--- NOTE | 2018-09-15 08:10 | PM&R Progress Note ---
Subjective HPI/CC On Admission Date Seen by Provider: Sep 15, 2018 Time Seen by Provider: 08:15 CC: Debility HPI: This is an 88yoWF clinic patient of Dr Blakely who presents to IRF in need of aggressive rehab before returning to [facility] in [place] following an lengthy hospital course for bilateral pneumonia and AECOPD. Patient was very weak and could not manage her ADL's or walk very well in order to go back to [place] facility. Currently patient is improving quite a bit since arrival to IRF. OT will focus on ADL's and toileting processes and PT will focus on strengthening and ambulation with walker. Daughter at the bedside has arrived from [place], [place] and is convinced the ICS caused an allergic reaction and gave her pneumonia. Patient is completing abx and steroid taper and her bowels are now moving well after meds given yesterday. Patient denies pain issues and I have checked meds and labs. Labs were checked and creatinine was normal of which her daughter was very concerned that the Lasix would "kill her kidneys." I spent a great deal of time in the room educating and counseling the patient and her daughter regarding her results and meds. Subjective/Events-last exam Dr. Morin is consulted for toe nail care Doing much better Less pain with cough Slept well last night Overall improved a great deal Lungs are improved after nebulizer treatments are increased from BID to TID Conferred with RN Reviewed therapy notes Review of Systems General: Fatigue Pulmonary: Dyspnea, Cough Cardiovascular: Chest Pain Objective Exam Vital Signs Vital Signs Date Time Temp Pulse Resp B/P (MAP) Pulse Ox O2 Delivery O2 Flow Rate FiO2 09/15/18 15:40 97.5 65 16 175/72 (106) 97 Room Air 09/13/18 06:03 21 Capillary Refill : Less Than 3 Seconds General Appearance: No Apparent Distress, WD/WN, Chronically ill, Obese HEENT: PERRL/EOMI, Normal ENT Inspection, Pharynx Normal Neck: Full Range of Motion, Normal Inspection, Non Tender, Supple Respiratory: Chest Non Tender, Lungs Clear, Normal Breath Sounds, No Accessory Muscle Use, No Respiratory Distress Cardiovascular: Regular Rate, Rhythm, No Edema, No Gallop, No JVD, No Murmur, Normal Peripheral Pulses Back: Normal Inspection, No CVA Tenderness, No Vertebral Tenderness Extremity: Normal Capillary Refill, Normal Inspection, Normal Range of Motion, Non Tender, No Calf Tenderness Neurologic/Psychiatric: Alert, Oriented x3, No Motor/Sensory Deficits, Normal Mood/Affect, scrap materials buyer II-XII Norm as Tested, Abnormal Gait, Motor Weakness (subtle weakness all extremities) Skin: Normal Color, Warm/Dry Lymphatic: No Adenopathy Results/Procedures Lab Laboratory Tests 09/15/18 05:35 Patient resulted labs reviewed. FIM Transfers Therapy Code Descriptions/Definitions Functional [place] Measure: 0=Not Assessed/NA 4=Minimal Assistance 1=Total Assistance 5=Supervision or Setup 2=Maximal Assistance 6=Modified [place] 3=Moderate Assistance 7=Complete [place] Therapy Quality Codes: 6 Independent with activity with or without an assistive device 5 Patient requires set up or clean up by helper. Patient completes activity by themselves 4 Supervision or touching assist (CGA). [place] provide cues , steadying assist 3 The helper provides less than half the effort to complete the activity 2 The helper provides more than half the effort to complete the activity 1 Dependent. The helper does all the effort to complete an activity 7 Patient refused to complete or attempt activity 9 The patient did not perform the activity before the current illness or injury 88 Not attempted due to Medical conditions or safety concerns Transfers (B, C, W/C) (FIM): 5 Scootin Rollin Roll Left to Right (QC): 4 Supine to/from Sit: 6 Sit to/from Stand: 5 Sit to Lying (QC): 2 Sit to Stand (QC): 4 Chair/Rer-zf-Qymyu Xfer(QC): 4 Bed to/from Chair: 6 Car Transfer (QC): 3 Gait Training Does the Patient Walk?: Yes Gait (FIM): 2 Distance (FIM): 8=448-68 ft Distance: 125 x2 Walk 10 feet (QC): 4 Walk 50 ft with 2 Turns(QC): 4 Walking 10ft/uneven surface-QC: 4 Gait Level of Assist: 5 Gait Persons Needed: 1 Gait Assistive Device: None Wheelchair Training Does the Pt Use a Wheelchair?: No Stair Training Stair Training: Handrails/: 2 handrails Stairs (FIM): 5 #of Steps: 4 Stairs: Pattern: Step to Level of Assist: 5 Mental Status/Objective Comprehension: 7 Expression: 6 Social Interaction: 7 Problem Solvin Memory: 5 ADL-Treatment Feedin (Lunch tray came in room and pt. able to set up full meal tray.) Eating (QC): 6 Groomin Oral Hygiene (QC): 6 Bathin Bathing Location: L Arm, R Arm, L Upper Leg, R Upper Leg, L Lower Leg (including foot), R Lower Leg (including foot), Chest, Abdomen, Buttocks, Perineal Area Shower/Bathe Self (QC): 4 Upper Extremity Dressin Upper Body Dressing (QC): 5 Lower Extremity Dressin Lower Body Dressing (QC): 4 On/Off Footwear (QC): 3 Toiletin (CGA for urination only.) Toileting Hygiene (QC): 4 Toilet/Commode Transfer: 4 Toilet Transfer (QC): 4 Shower: 5 Assessment/Plan Assessment and Plan Assess & Plan/Chief Complaint Assessment: (1) Pneumonia of both lower lobes Status: Acute (2) STEPHAN treated with BiPAP Status: Chronic (3) Obesity Status: Chronic (4) Weakness Status: Acute (5) Renal insufficiency Status: Acute (6) Elevated brain natriuretic peptide (BNP) level Status: Acute (7) CAD (coronary artery disease) Status: Chronic (8) Constipation Status: Acute (9) Diabetes mellitus Status: Chronic (10) Hypertension (11) Hyperlipemia Status: Chronic (12) Cough Status: Acute (13) Pleurisy Status: Acute (14) Asthma Status: Acute (15) Leukocytosis Status: Acute (16) History of coronary artery stent placement Status: Chronic Plan: Reviewed all meds Improved status Updated daughter and patient on results Lasix prn IRF protocols Nebs TID instead of BID due to coarseness of lungs yesterday and now completely clear on exam (1) Debility (2) Constipation (3) Diabetes mellitus (4) CAD (coronary artery disease) (5) Cough (6) Hyperlipemia (7) Leukocytosis (8) Renal insufficiency (9) Weakness (10) Hypertension (11) Pleurisy (12) Obesity (13) Asthma (14) Elevated brain natriuretic peptide (BNP) level (15) STEPHAN treated with BiPAP (16) History of coronary artery stent placement (17) Pneumonia of both lower lobes Critical Care Critical Care: Critically Ill Patient ROXANA BISHOP DO Sep 15, 2018 08:10
--- NOTE | 2018-09-15 08:38 | Occupational Ther Daily Note ---
OT Current Status-Daily Note Subjective Pt alert, in bathroom. Pt agrees to therapy. No c/o pain at this time. Mental Status/Objective Patient Orientation: Person, Place, Time, Situation Therapy Code Descriptions/Definitions Functional [place] Measure: 0=Not Assessed/NA 4=Minimal Assistance 1=Total Assistance 5=Supervision or Setup 2=Maximal Assistance 6=Modified [place] 3=Moderate Assistance 7=Complete [place] ADL-Treatment Pt taking shower when DWYER entered room. Nrsg had gotten pt towels. Per pt, pt had retrieved own clothing and transported into bathroom. Pt completed shower by self using shower bench and grabbars. Pt completed own grooming. Therapy Code Descriptions/Definitions Functional [place] Measure: 0=Not Assessed/NA 4=Minimal Assistance 1=Total Assistance 5=Supervision or Setup 2=Maximal Assistance 6=Modified [place] 3=Moderate Assistance 7=Complete [place] Therapy Quality Codes: 6 Independent with activity with or without an assistive device 5 Patient requires set up or clean up by helper. Patient completes activity by themselves 4 Supervision or touching assist (CGA). [place] provide cues , steadying assist 3 The helper provides less than half the effort to complete the activity 2 The helper provides more than half the effort to complete the activity 1 Dependent. The helper does all the effort to complete an activity 7 Patient refused to complete or attempt activity 9 The patient did not perform the activity before the current illness or injury 88 Not attempted due to Medical conditions or safety concerns Grooming (FIM): 7 Oral Hygiene (QC): 6 Bathing (FIM): 6 Bathing Location: L Arm, R Arm, L Upper Leg, R Upper Leg, L Lower Leg (including foot), R Lower Leg (including foot), Chest, Abdomen, Buttocks, Perineal Area Shower/Bathe Self (QC): 6 Upper Body (FIM): 7 Upper Body Dressing (QC): 6 Lower Body Dressing (FIM): 4 (Pt dons/doff pants and underpants by self. Educated and assisted to use sock aide to don socks.) Lower Body Dressing (QC): 3 On/Off Footwear (QC): 3 Shower Transfer(FIM): 6 (Using grabbar and shower bench.) OT Short Term Goals Short Term Goals Transfers (B,C,W/C) (FIM): 6 1=Demonstrate adherence to instructed precautions during ADL tasks. 2=Patient will verbalize/demonstrate understanding of assistive devices/modifications for ADL. 3=Patient will improve strength/tolerance for activity to enable patient to perform ADL's. OT Bankruptcy Judge Goals Residential Goals Time Frame: Sep 25, 2018 Eating (FIM): 6 Eating (QC): 6 Groomin Oral Hygiene (QC): 6 Bathing(FIM): 5 Shower/Bathe Self (QC): 5 Upper Body Dressing(FIM): 6 Upper Body Dressing (QC): 6 Lower Body Dressing(FIM): 6 Lower Body Dressing (QC): 6 On/Off Footwear (QC): 6 Toileting(FIM): 6 Toileting Hygiene (QC): 6 Transfers (B,C,W/C) (FIM): 6 Toilet/Commode Transfer(FIM): 6 Toilet/Commode Transfer (QC): 6 Shower Transfer(FIM): 5 Comprehension(FIM): 6 Expression (FIM): 6 Social Interaction(FIM): 6 Problem Solving(FIM): 6 Memory(FIM): 6 Additional Goals: 1-Demonstrate ADL Tasks, 2-Verbalize Understanding, 3- ImproveStrength/Lucia 1=Demonstrate adherence to instructed precautions during ADL tasks. 2=Patient will verbalize/demonstrate understanding of assistive devices/modifications for ADL. 3=Patient will improve strength/tolerance for activity to enable patient to perform ADL's. OT Education/Plan Problem List/Assessment Assessment: Decreased Activ Tolerance Discharge Recommendations Plan/Recommendations: Continue POC Treatment Plan/Plan of Care Patient would benefit from OT for education, treatment and training to promote independence in ADL's, mobility, safety and/or upper extremity function for ADL's. Plan of Care: ADL Retraining, Functional Mobility, Group Exercise/Act as Ind, UE Funct Exercise/Act Treatment Duration: Sep 25, 2018 Frequency: At least 5 of 7 days/Wk (IRF) Estimated Hrs Per Day: 1.5 hours per day Agreement: Yes Rehab Potential: Good Time/GCodes Start Time: 08:30 Stop Time: 09:30 Total Time Billed (hr/min): 60 Billed Treatment Time 1 visit-ADL 4 (60 min) ABRIL ELENA Sep 15, 2018 08:38
[2018-09-15] MEDS: meTOprolol SUCCINATE 100 MG (TOPROL XL) TAB PO SCH (09:07)
[2018-09-15] MEDS: LIDOCAINE 4% (SALONPAS) PATCH TOP SCH (09:07)
[2018-09-15] MEDS: CEFDINIR 300 MG (OMNICEF) CAP PO SCH ×2 (09:07→21:01)
[2018-09-15] MEDS: CLOPIDOGREL 75 MG (PLAVIX) TABLET PO SCH (09:08)
[2018-09-15] MEDS: LORATADINE (CLARITIN) 10 MG TAB PO SCH (09:08)
[2018-09-15] MEDS: FUROSEMIDE 40 MG (LASIX) TAB PO SCH (09:08)
[2018-09-15] MEDS: SENNA W/DOCUSATE (SENOKOT S) TABLET PO SCH ×3 (09:08→21:00)
[2018-09-15] MEDS: metFORMIN XR 500 MG (GLUCOPHAGE XR) TAB PO SCH (09:08)
--- NOTE | 2018-09-15 09:41 | Pulmonary Progress Note ---
Sepsis Event Evaluation Height, Weight, BMI Height: 5'3.00" Weight: 310lbs. 0.0oz. 140.461320gy; 54.9 BMI Method:Stated Exam Exam Vital Signs Date Time Temp Pulse Resp B/P (MAP) Pulse Ox O2 Delivery O2 Flow Rate FiO2 09/15/18 06:38 96 Room Air 09/15/18 05:47 97.5 62 18 147/82 (103) 93 Room Air 09/14/18 20:25 Room Air 09/14/18 17:19 98.7 65 18 163/75 (104) 95 Room Air 09/14/18 15:01 95 Room Air I & O 09/15/18 07:00 Intake Total 1480 ml Balance 1480 ml Height & Weight Height: 5'3.00" Weight: 310lbs. 0.0oz. 140.979358gh; 54.9 BMI Method:Stated General Appearance: No Apparent Distress, WD/WN, Chronically ill, Obese HEENT: PERRL/EOMI, Normal ENT Inspection, Pharynx Normal Neck: Full Range of Motion, Normal Inspection, Non Tender, Supple Respiratory: Chest Non Tender, No Accessory Muscle Use, No Respiratory Distres s, Crackles, Decreased Breath Sounds Cardiovascular: Regular Rate, Rhythm, No Edema, No Gallop, No JVD, No Murmur, Normal Peripheral Pulses Capillary Refill: Less Than 3 Seconds Gastrointestinal: normal bowel sounds, non tender, soft Extremity: Normal Capillary Refill, Normal Inspection, Normal Range of Motion, Non Tender, No Calf Tenderness Neurologic/Psychiatric: Alert, Oriented x3, No Motor/Sensory Deficits, Normal Mood/Affect, mini shifter II-XII Norm as Tested, Abnormal Gait, Motor Weakness (subtle weakness all extremities) Skin: Normal Color, Warm/Dry Lymphatic: No Adenopathy Results Lab Laboratory Tests 09/15/18 05:35 Assessment/Plan Assessment/Plan Bibasilar pneumonia - failed out pt treatment - Omnicef -IS -CT scan reviewed -Will need repeat CT scan of chest 8 wks after discharge to ensure complete resolution Persistent cough with pleuritic CP -Lidoderm patch -Pt is allergic Codeine -Tessalon pearls Atelectasis Asthma - per last PFT -SVNS Deconditioning -PT/OT SISSY LEE DO Sep 15, 2018 09:41
--- NOTE | 2018-09-15 10:38 | Speech Therapy Daily Note ---
Speech Daily Progress Note Subjective Date Seen by Provider: Sep 15, 2018 Time Seen by Provider: 00:30 The patient stated she is feeling much stronger. Objective The patient completed some memory exercises with 90% accuracy given minimal cues. Assessment Assessment Current Status: Good Progress Treatment Plan Continue Plan of Care Communication Comprehension: 7 Expression: 6 Social Cognition Social Interaction: 7 Problem Solvin Memory: 5 Speech Short Term Goals Short Term Goals Short Term Goals 1) The patient will complete memory tasks at 90% or greater without verbal cues. 2) The patient will complete problem solving tasks at 90% or greater without verbal cues. Speech Fireworks Inspector Goals Fireworks Inspector Goals The patient will improve her memory and problem solving abilities to increase his level of safety and independence. Comprehension: 6 Expression: 6 Social Interaction: 6 Problem Solvin Memory: 6 Speech-Plan Patient/Family Goals Patient/Family Goals: The patient plans on returning home alone with family support post rehab. Treatment Plan Speech Therapy Treatment Plan: Continue Plan of Care The patient is making good progress as a result of skilled ST services. Treatment Duration: Sep 19, 2018 Frequency: 1 time per week Estimated Hrs Per Day: .25 hour per day Rehab Potential: Good Barriers to Learning: Patient has memory and problem solving deficits which are resolving. Pt/Family Agrees to Plan: Yes Safety Risks/Education Teaching Recipient: Patient Teaching Methods: Discussion Response to Teaching: Verbalize Understanding Education Topics Provided: Continued safety within her room. Time Speech Therapy Time In: 09:30 Speech Therapy Time Out: 10:00 Total Billed Time: 30 Billed Treatment Time 1[address] Sep 15, 2018 10:38
--- NOTE | 2018-09-15 11:13 | Physical Therapy Daily Note ---
PT Daily Note-Current Subjective Pt agreeable to PT although stating she has already ordered her lunch. Pain Numeric Pain Scale: 4 Comment: left side ribs only with coughing Appearance Pt in bathroom upon arrival. Pt's lunch arrived during therapy session and pt requesting to eat lunch and finish therapy later. At end of session, pt sitting in recliner eating lunch after it was heated up per pt request, call light, phone, bedside table within reach Mental Status Patient Orientation: Person, Place, Time, Eyes Open, Situation Transfers Therapy Code Descriptions/Definitions Functional [place] Measure: 0=Not Assessed/NA 4=Minimal Assistance 1=Total Assistance 5=Supervision or Setup 2=Maximal Assistance 6=Modified [place] 3=Moderate Assistance 7=Complete [place] Therapy Quality Codes: 6 Independent with activity with or without an assistive device 5 Patient requires set up or clean up by helper. Patient completes activity by themselves 4 Supervision or touching assist (CGA). [place] provide cues , steadying assist 3 The helper provides less than half the effort to complete the activity 2 The helper provides more than half the effort to complete the activity 1 Dependent. The helper does all the effort to complete an activity 7 Patient refused to complete or attempt activity 9 The patient did not perform the activity before the current illness or injury 88 Not attempted due to Medical conditions or safety concerns Transfers (B, C, W/C) (FIM): 5 Sit to/from Stand: 5 (demo's safe hand placement, does require effort to stand) Gait Training Does the Patient Walk?: Yes Gait (FIM): 5 Distance (FIM): 3=150 ft Distance: 232, 124 Gait Level of Assist: 5 (SBA provided due to fatigue, weakness and SOA and for safety) Gait Persons Needed: 1 Gait Assistive Device: None standing rest breaks required, short fast steps, slight fwd flexed posture, follows instruction to correct but re instruction is required Exercises NuStep Minutes: 20 NuStep Workload: 3 (arms 9, seat 10 x14 min, seat 9 x6 min to increase LE motions) Treatments bathroom, transfers, safety, balance, gait, activity tolerance, strength, functional mobility Assessment Current Status: Good Progress PT Short Term Goals Short Term Goals Time Frame: Sep 18, 2018 Transfers (B,C,W/C) (FIM): 6 Gait (FIM): 5 Gait Distance Comment: 150' Gait Level of Assist: 5 Gait Assistive Device: None PT Long-Term Goals Long-Term Goals PT Grants Analyst Goals Time Frame: Oct 02, 2018 Transfers (B,C,W/C) (FIM): 6 Sit to Lying (QC): 6 Lying-Sitting on Side/Bed(QC): 6 Sit to Stand (QC): 6 Rollin Roll Left to Right (QC): 6 Chair/Jtn-fs-Iydmx Xfer(QC): 6 Car Transfer (QC): 6 Gait (FIM): 5 Distance: 200' Walk 10 feet (QC): 4 Walk 10ft-Uneven Surface(QC): 4 Walk 50ft with 2 Turns (QC): 4 Walk 150 ft (QC): 4 Gait Level of Assist: 5 Gait Assistive Device: None Stairs (FIM): 2 # of Steps: 4 1 Step (curb) (QC): 4 4 Steps (QC): 4 Stairs Level Of Assist: 4 PT Plan Treatment/Plan Treatment Plan: Continue Plan of Care Treatment Plan: Bed Mobility, Education, Functional Activity Lucia, Functional Strength, Group Therapy, Gait, Safety, Therapeutic Exercise, Transfers Treatment Duration: Oct 02, 2018 Frequency: At least 5 of 7 days/Wk (IRF) Estimated Hrs Per Day: 1.5 hours per day Patient and/or Family Agrees t: Yes Safety Risks/Education Patient Education: Gait Training, Transfer Techniques, Safety Issues Teaching Recipient: Patient Teaching Methods: Discussion Response to Teaching: Verbalize Understanding, Return Demonstration, Reinforcement Needed Time/GCodes Time In: 1100 Time Out: 1146 Total Billed Treatment Time: 46 Total Billed Treatment 1 visit, GT x2 units, EX x 1 unit PEDRITO ROSS ESCALATOR ATTENDANT Sep 15, 2018 11:13
--- NOTE | 2018-09-15 13:50 | Occupational Ther Daily Note ---
OT Current Status-Daily Note Subjective Pt alert, sitting in recliner. Pt agrees to therapy. No c/o pain. Mental Status/Objective Patient Orientation: Person, Place, Time, Situation Therapy Code Descriptions/Definitions Functional [place] Measure: 0=Not Assessed/NA 4=Minimal Assistance 1=Total Assistance 5=Supervision or Setup 2=Maximal Assistance 6=Modified [place] 3=Moderate Assistance 7=Complete [place] ADL-Treatment Therapy Code Descriptions/Definitions Functional [place] Measure: 0=Not Assessed/NA 4=Minimal Assistance 1=Total Assistance 5=Supervision or Setup 2=Maximal Assistance 6=Modified [place] 3=Moderate Assistance 7=Complete [place] Therapy Quality Codes: 6 Independent with activity with or without an assistive device 5 Patient requires set up or clean up by helper. Patient completes activity by themselves 4 Supervision or touching assist (CGA). [place] provide cues , steadying assist 3 The helper provides less than half the effort to complete the activity 2 The helper provides more than half the effort to complete the activity 1 Dependent. The helper does all the effort to complete an activity 7 Patient refused to complete or attempt activity 9 The patient did not perform the activity before the current illness or injury 88 Not attempted due to Medical conditions or safety concerns Toileting (FIM): 6 (Completed by self. Using towel to completely get self clean.) Toileting Hygiene (QC): 6 Toilet/Commode Transfer (FIM): 7 Toilet Transfer (QC): 6 Other Treatment Pt ambulated to therapy gym by self. 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 After therapy, pt sitting in recliner with call light/phone in reach. All needs met in room. OT Short Term Goals Short Term Goals Transfers (B,C,W/C) (FIM): 6 1=Demonstrate adherence to instructed precautions during ADL tasks. 2=Patient will verbalize/demonstrate understanding of assistive devices/modific ations for ADL. 3=Patient will improve strength/tolerance for activity to enable patient to perform ADL's. OT Deployment Specialist Goals Deployment Specialist Goals Time Frame: Sep 25, 2018 Eating (FIM): 6 Eating (QC): 6 Groomin Oral Hygiene (QC): 6 Bathing(FIM): 5 Shower/Bathe Self (QC): 5 Upper Body Dressing(FIM): 6 Upper Body Dressing (QC): 6 Lower Body Dressing(FIM): 6 Lower Body Dressing (QC): 6 On/Off Footwear (QC): 6 Toileting(FIM): 6 Toileting Hygiene (QC): 6 Transfers (B,C,W/C) (FIM): 6 Toilet/Commode Transfer(FIM): 6 Toilet/Commode Transfer (QC): 6 Shower Transfer(FIM): 5 Comprehension(FIM): 6 Expression (FIM): 6 Social Interaction(FIM): 6 Problem Solving(FIM): 6 Memory(FIM): 6 Additional Goals: 1-Demonstrate ADL Tasks, 2-Verbalize Understanding, 3- ImproveStrength/Lucia 1=Demonstrate adherence to instructed precautions during ADL tasks. 2=Patient will verbalize/demonstrate understanding of assistive devices/modifications for ADL. 3=Patient will improve strength/tolerance for activity to enable patient to perform ADL's. OT Education/Plan Problem List/Assessment Assessment: Decreased Activ Tolerance Discharge Recommendations Plan/Recommendations: Continue POC Treatment Plan/Plan of Care Patient would benefit from OT for education, treatment and training to promote independence in ADL's, mobility, safety and/or upper extremity function for ADL's. Plan of Care: ADL Retraining, Functional Mobility, Group Exercise/Act as Ind, UE Funct Exercise/Act Treatment Duration: Sep 25, 2018 Frequency: At least 5 of 7 days/Wk (IRF) Estimated Hrs Per Day: 1.5 hours per day Agreement: Yes Rehab Potential: Good Time/GCodes Start Time: 13:00 Stop Time: 13:15 Total Time Billed (hr/min): 15 Billed Treatment Time 1 visit-EX 1 (15 min) ABRIL ELENA Sep 15, 2018 13:50
--- NOTE | 2018-09-15 14:00 | Physical Therapy Daily Note ---
PT Daily Note-Current Subjective Patient in recliner pre tx, agrees to PT, has no pain at rest. Appearance Patient in recliner post tx with nurse call, phone, tray, all needs met. Mental Status Patient Orientation: Person, Place, Situation Transfers Therapy Code Descriptions/Definitions Functional [place] Measure: 0=Not Assessed/NA 4=Minimal Assistance 1=Total Assistance 5=Supervision or Setup 2=Maximal Assistance 6=Modified [place] 3=Moderate Assistance 7=Complete [place] Therapy Quality Codes: 6 Independent with activity with or without an assistive device 5 Patient requires set up or clean up by helper. Patient completes activity by themselves 4 Supervision or touching assist (CGA). [place] provide cues , steadying assist 3 The helper provides less than half the effort to complete the activity 2 The helper provides more than half the effort to complete the activity 1 Dependent. The helper does all the effort to complete an activity 7 Patient refused to complete or attempt activity 9 The patient did not perform the activity before the current illness or injury 88 Not attempted due to Medical conditions or safety concerns Transfers (B, C, W/C) (FIM): 6 Sit to/from Stand: 6 Bed to/from Chair: 6 Gait Training Gait (FIM): 6 Distance: 150'x2, 120' Gait Level of Assist: 6 Gait Assistive Device: None Patient needs frequent rest breaks, fatigues quickly, not SOB but just fatigue. Exercises Seated Therapy Exercises: Ankle pumps, Hip flexion Seated Reps: 15 LAQ alternating for 5 min with 2# ankle weights Treatments transfers, ambulation, LE strengthening Assessment Current Status: Fair Progress slowly improving endurance, needs frequent rest breaks PT Short Term Goals Short Term Goals Time Frame: Sep 18, 2018 Transfers (B,C,W/C) (FIM): 6 Gait (FIM): 5 Gait Distance Comment: 150' Gait Level of Assist: 5 Gait Assistive Device: None PT Senior Living Goals Senior Living Goals PT Senior Living Goals Time Frame: Oct 02, 2018 Transfers (B,C,W/C) (FIM): 6 Sit to Lying (QC): 6 Lying-Sitting on Side/Bed(QC): 6 Sit to Stand (QC): 6 Rollin Roll Left to Right (QC): 6 Chair/Amr-dy-Waxlu Xfer(QC): 6 Car Transfer (QC): 6 Gait (FIM): 5 Distance: 200' Walk 10 feet (QC): 4 Walk 10ft-Uneven Surface(QC): 4 Walk 50ft with 2 Turns (QC): 4 Walk 150 ft (QC): 4 Gait Level of Assist: 5 Gait Assistive Device: None Stairs (FIM): 2 # of Steps: 4 1 Step (curb) (QC): 4 4 Steps (QC): 4 Stairs Level Of Assist: 4 PT Plan Problem List Problem List: Activity Tolerance, Functional Strength, Safety, Balance, Gait, Transfer, Bed Mobility, ROM Treatment/Plan Treatment Plan: Continue Plan of Care Treatment Plan: Bed Mobility, Education, Functional Activity Lucia, Functional Strength, Group Therapy, Gait, Safety, Therapeutic Exercise, Transfers Treatment Duration: Oct 02, 2018 Frequency: At least 5 of 7 days/Wk (IRF) Estimated Hrs Per Day: 1.5 hours per day Patient and/or Family Agrees t: Yes Safety Risks/Education Patient Education: Gait Training, Transfer Techniques, Correct Positioning, Safety Issues Teaching Recipient: Patient Teaching Methods: Demonstration, Discussion Response to Teaching: Reinforcement Needed Time/GCodes Time In: 1330 Time Out: 1400 Total Billed Treatment Time: 30 Total Billed Treatment 1 visit GT 20' EX 10' NITZA DING PT Sep 15, 2018 14:00
[2018-09-15 15:40] VITALS: BP 175/72
--- NOTE | 2018-09-15 19:25 | NUR ---
bedside report received from DONNIE PERRY, assume care of pt
[2018-09-15] MEDS: POLYETHYLENE GLYCOL 17 GM (MIRALAX) PACK PO SCH (21:00)
--- NOTE | 2018-09-15 21:00 | NUR ---
assessments & interventions completed, see assessments & interventions, up in the chair, up to bathroom with stand by assist
[2018-09-15] MEDS: ATORVASTATIN 40 MG (LIPITOR) TABLET PO SCH (21:01)
[2018-09-15] MEDS: LIDOCAINE PATCH REMOVAL TP SCH (21:02)
--- NOTE | 2018-09-15 21:06 | NUR ---
c/o lt sided pain from coughing, pain level 4/10 on numeric scale, Tylenol 650mg & Robitussin 10ml po given
--- NOTE | 2018-09-15 21:35 | NUR ---
resting quietly in chair, pain level 0/10 on flacc scale
[2018-09-16 05:40] VITALS: BP 132/78
[2018-09-16] MEDS: BENZONATATE 100 MG (TESSALON) CAPSULE PO SCH ×3 (05:46→20:19)
[2018-09-16] MEDS: predniSONE 20 MG TAB PO SCH (06:28)
[2018-09-16] MEDS: KCL 10 MEQ TAB (MICRO K) PO SCH (06:28)
[2018-09-16] MEDS: inSUlin ASPART (NovoLOG) 1 UNIT/0.01 ML (CHARGE PER UNIT) SC SCH ×2 (06:28→18:04)
[2018-09-16] MEDS: predniSONE 10 MG TAB PO SCH (06:28)
--- NOTE | 2018-09-16 07:06 | NUR ---
bedside report given to BREANNA PERRY
--- NOTE | 2018-09-16 08:11 | Cardiology Progress Note ---
Subjective Date Seen by Provider: Sep 16, 2018 Time Seen by Provider: 08:07 Subjective/Events-last exam Patient with PT, no new complaints. Continues to complain of some rib pain, denies chest pain or dyspnea. Objective-Cardiology Exam Last Set of Vital Signs Vital Signs 09/13/18 09/17/18 09/17/18 09/17/18 06:03 06:00 08:12 08:15 Temp 97.0 Pulse 82 Resp 20 B/P (MAP) 130/61 (84) Pulse Ox 96 O2 Delivery Room Air FiO2 21 Capillary Refill : Less Than 3 Seconds I&O Intake and Output 09/17/18 00:00 Intake Total 1370 ml Balance 1370 ml Intake Oral 1370 ml # Voids 6 # Bowel Movements 1 General: Alert, Oriented X3, Cooperative HEENT: Atraumatic, PERRLA Neck: Supple, No JVD, No Thyromegaly Lungs: Clear to Auscultation, Normal Air Movement Heart: Regular Rate, Normal S1, Normal S2, No Murmurs Abdomen: Normal Bowel Sounds, Soft, No Tenderness, No Hepatosplenomegaly, No Masses Extremities: No Clubbing, No Cyanosis, No Edema, Normal Pulses, No Tenderness/Swelling Skin: No Rashes, No Breakdown, No Significant Lesion Neuro: Normal Gait, Normal Speech, Strength at 5/5 X4 Ext, Normal Tone, Sensation Intact Psych/Mental Status: Mental Status NL, Mood NL A/P-Cardiology Admission Diagnosis Rib pain Dyspnea CAD HTN HLP Assessment/Plan Intermittent, left lower rib cage pain, noncardiac in nature. Patient reports some improvement. Multifactorial shortness of breath: pneumonia, obesity-hypoventilation, acute CHF (etiology undetermined, suspected to be ilegd-ap-qsfbfyv diastolic) Leg swelling, multifactorial: venous insuff and amlodipine therapy and suspected diastolic CHF CAD, history of kissing LAD stents (LAD and a diag) in Feb [address] Rubin in [place], [place]. Most recent cath in 2019 showed patent stents, LVEF 60%. Maintained on Plavix. Patient has history of frequent nose bleed while on DAPT. HTN, controlled, continue to monitor. Hyperlipidemia, continue to monitor lipids as outpatient. Borderline DM II, management per medical services. Clinical Quality Measures DVT/VTE Risk/Contraindication: Risk Factor Score Per Nursin RFS Level Per Nursing on Admit: 4+=Very High MOSHE RODRIGUEZ Sep 16, 2018 08:10
[2018-09-16] MEDS: RT-ALBUTEROL/IPRATROPIUM 3 ML (DUONEB) VIAL INH SCH ×3 (08:21→19:36)
--- NOTE | 2018-09-16 08:21 | NUR ---
PATIENT WAS NOT IN THE ROOM AND THE BOARD ON THE FLOOR SHOWS THAT SHE IS UNAVAILABLE UNTIL 1015
--- NOTE | 2018-09-16 08:37 | PM&R Progress Note ---
Subjective HPI/CC On Admission Date Seen by Provider: Sep 16, 2018 Time Seen by Provider: 08:45 CC: Debility HPI: This is an 88yoWF clinic patient of Dr Blakely who presents to IRF in need of aggressive rehab before returning to [facility] in [place] following an lengthy hospital course for bilateral pneumonia and AECOPD. Patient was very weak and could not manage her ADL's or walk very well in order to go back to [facility] facility. Currently patient is improving quite a bit since arrival to IRF. OT will focus on ADL's and toileting processes and PT will focus on strengthening and ambulation with walker. Daughter at the bedside has arrived from [place], [place] and is convinced the ICS caused an allergic reaction and gave her pneumonia. Patient is completing abx and steroid taper and her bowels are now moving well after meds given yesterday. Patient denies pain issues and I have checked meds and labs. Labs were checked and creatinine was normal of which her daughter was very concerned that the Lasix would "kill her kidneys." I spent a great deal of time in the room educating and counseling the patient and her daughter regarding her results and meds. Subjective/Events-last exam Pt feels much better Pain is better with the cough Stand by assist now No significant issues Will discuss disposition tomorrow in conference Conferred with RN Reviewed therapy notes Review of Systems General: Fatigue Objective Exam Vital Signs Vital Signs Date Time Temp Pulse Resp B/P (MAP) Pulse Ox O2 Delivery O2 Flow Rate FiO2 09/16/18 19:38 96 Room Air 09/16/18 15:59 97.2 53 16 187/74 (111) 09/13/18 06:03 21 Capillary Refill : Less Than 3 Seconds General Appearance: No Apparent Distress, WD/WN, Chronically ill, Obese HEENT: PERRL/EOMI, Normal ENT Inspection, Pharynx Normal Neck: Full Range of Motion, Normal Inspection, Non Tender, Supple Respiratory: Chest Non Tender, Lungs Clear, Normal Breath Sounds, No Accessory Muscle Use, No Respiratory Distress Cardiovascular: Regular Rate, Rhythm, No Edema, No Gallop, No JVD, No Murmur, Normal Peripheral Pulses Back: Normal Inspection, No CVA Tenderness, No Vertebral Tenderness Extremity: Normal Capillary Refill, Normal Inspection, Normal Range of Motion, Non Tender, No Calf Tenderness Neurologic/Psychiatric: Alert, Oriented x3, No Motor/Sensory Deficits, Normal Mood/Affect, travel counselor II-XII Norm as Tested, Abnormal Gait, Motor Weakness (subtle weakness all extremities) Skin: Normal Color, Warm/Dry Lymphatic: No Adenopathy Results/Procedures Lab Patient resulted labs reviewed. FIM Transfers Therapy Code Descriptions/Definitions Functional [place] Measure: 0=Not Assessed/NA 4=Minimal Assistance 1=Total Assistance 5=Supervision or Setup 2=Maximal Assistance 6=Modified [place] 3=Moderate Assistance 7=Complete [place] Therapy Quality Codes: 6 Independent with activity with or without an assistive device 5 Patient requires set up or clean up by helper. Patient completes activity by themselves 4 Supervision or touching assist (CGA). [place] provide cues , steadying assist 3 The helper provides less than half the effort to complete the activity 2 The helper provides more than half the effort to complete the activity 1 Dependent. The helper does all the effort to complete an activity 7 Patient refused to complete or attempt activity 9 The patient did not perform the activity before the current illness or injury 88 Not attempted due to Medical conditions or safety concerns Transfers (B, C, W/C) (FIM): 6 Scootin Rollin Roll Left to Right (QC): 4 Supine to/from Sit: 6 Sit to/from Stand: 6 Sit to Lying (QC): 2 Sit to Stand (QC): 4 Chair/Uch-ug-Azioy Xfer(QC): 4 Bed to/from Chair: 6 Car Transfer (QC): 3 Gait Training Does the Patient Walk?: Yes Gait (FIM): 6 Distance (FIM): 3=150 ft Distance: 150'x2, 120' Walk 10 feet (QC): 4 Walk 50 ft with 2 Turns(QC): 4 Walking 10ft/uneven surface-QC: 4 Gait Level of Assist: 6 Gait Persons Needed: 1 Gait Assistive Device: None Wheelchair Training Does the Pt Use a Wheelchair?: No Stair Training Stair Training: Handrails/: 2 handrails Stairs (FIM): 5 #of Steps: 4 Stairs: Pattern: Step to Level of Assist: 5 Mental Status/Objective Comprehension: 7 Expression: 6 Social Interaction: 7 Problem Solvin Memory: 5 ADL-Treatment Feedin (Lunch tray came in room and pt. able to set up full meal tray.) Eating (QC): 6 Groomin Oral Hygiene (QC): 6 Bathin Bathing Location: L Arm, R Arm, L Upper Leg, R Upper Leg, L Lower Leg (including foot), R Lower Leg (including foot), Chest, Abdomen, Buttocks, Perineal Area Shower/Bathe Self (QC): 6 Upper Extremity Dressin Upper Body Dressing (QC): 6 Lower Extremity Dressin (Pt dons/doff pants and underpants by self. Educated and assisted to use sock aide to don socks.) Lower Body Dressing (QC): 3 On/Off Footwear (QC): 3 Toiletin (Completed by self. Using towel to completely get self clean.) Toileting Hygiene (QC): 6 Toilet/Commode Transfer: 7 Toilet Transfer (QC): 6 Shower: 6 (Using grabbar and shower bench.) Assessment/Plan Assessment and Plan Assess & Plan/Chief Complaint Assessment: (1) Pneumonia of both lower lobes Status: Acute (2) STEPHAN treated with BiPAP Status: Chronic (3) Obesity Status: Chronic (4) Weakness Status: Acute (5) Renal insufficiency Status: Acute (6) Elevated brain natriuretic peptide (BNP) level Status: Acute (7) CAD (coronary artery disease) Status: Chronic (8) Constipation Status: Acute (9) Diabetes mellitus Status: Chronic (10) Hypertension (11) Hyperlipemia Status: Chronic (12) Cough Status: Acute (13) Pleurisy Status: Acute (14) Asthma Status: Acute (15) Leukocytosis Status: Acute (16) History of coronary artery stent placement Status: Chronic Plan: Reviewed all meds Improved status Updated daughter and patient on results Lasix prn IRF protocols Nebs TID instead of BID due to coarseness of lungs yesterday and now completely clear on exam Dispo soon (1) Debility (2) Constipation (3) Diabetes mellitus (4) CAD (coronary artery disease) (5) Cough (6) Hyperlipemia (7) Leukocytosis (8) Renal insufficiency (9) Weakness (10) Hypertension (11) Pleurisy (12) Obesity (13) Asthma (14) Elevated brain natriuretic peptide (BNP) level (15) STEPHAN treated with BiPAP (16) History of coronary artery stent placement (17) Pneumonia of both lower lobes Critical Care Critical Care: Critically Ill Patient ROXANA BISHOP DO Sep 16, 2018 08:37
--- NOTE | 2018-09-16 08:42 | Physical Therapy Daily Note ---
PT Daily Note-Current Subjective Patient in recliner pre tx, agrees to PT, has no complaints of pain but wants a tylenol, nurse notified. Patient wants to get dressed and she does so with independence. Appearance Patient in recliner post tx with nurse call, phone, tray, all needs met. Mental Status Patient Orientation: Normal For Age Transfers Therapy Code Descriptions/Definitions Functional [place] Measure: 0=Not Assessed/NA 4=Minimal Assistance 1=Total Assistance 5=Supervision or Setup 2=Maximal Assistance 6=Modified [place] 3=Moderate Assistance 7=Complete [place] Therapy Quality Codes: 6 Independent with activity with or without an assistive device 5 Patient requires set up or clean up by helper. Patient completes activity by themselves 4 Supervision or touching assist (CGA). [place] provide cues , steadying assist 3 The helper provides less than half the effort to complete the activity 2 The helper provides more than half the effort to complete the activity 1 Dependent. The helper does all the effort to complete an activity 7 Patient refused to complete or attempt activity 9 The patient did not perform the activity before the current illness or injury 88 Not attempted due to Medical conditions or safety concerns Transfers (B, C, W/C) (FIM): 6 Sit to/from Stand: 6 Bed to/from Chair: 6 Gait Training Gait (FIM): 6 Distance: 150'x2 Gait Level of Assist: 6 Gait Assistive Device: FWW Patient wanted to try a walker so she could take some pressure off of her back. She can ambulate 150' with a rolling walker with mod I. She also ambulated 150' without an assistive device with SBA. Exercises NuStep Minutes: 15 NuStep Workload: 5 Treatments transfers, ambulation, functional strengthening Assessment Current Status: Fair Progress improving endurance PT Short Term Goals Short Term Goals Time Frame: Sep 18, 2018 Transfers (B,C,W/C) (FIM): 6 Gait (FIM): 5 Gait Distance Comment: 150' Gait Level of Assist: 5 Gait Assistive Device: None PT Cook Italian Style Food Goals Cook Italian Style Food Goals PT Penitent[facility] Goals Time Frame: Oct 02, 2018 Transfers (B,C,W/C) (FIM): 6 Sit to Lying (QC): 6 Lying-Sitting on Side/Bed(QC): 6 Sit to Stand (QC): 6 Rollin Roll Left to Right (QC): 6 Chair/Fyv-gk-Kbzib Xfer(QC): 6 Car Transfer (QC): 6 Gait (FIM): 5 Distance: 200' Walk 10 feet (QC): 4 Walk 10ft-Uneven Surface(QC): 4 Walk 50ft with 2 Turns (QC): 4 Walk 150 ft (QC): 4 Gait Level of Assist: 5 Gait Assistive Device: None Stairs (FIM): 2 # of Steps: 4 1 Step (curb) (QC): 4 4 Steps (QC): 4 Stairs Level Of Assist: 4 PT Plan Problem List Problem List: Activity Tolerance, Functional Strength, Safety, Balance, Gait, Transfer, Bed Mobility, ROM Treatment/Plan Treatment Plan: Continue Plan of Care Treatment Plan: Bed Mobility, Education, Functional Activity Lucia, Functional Strength, Group Therapy, Gait, Safety, Therapeutic Exercise, Transfers Treatment Duration: Oct 02, 2018 Frequency: At least 5 of 7 days/Wk (IRF) Estimated Hrs Per Day: 1.5 hours per day Patient and/or Family Agrees t: Yes Safety Risks/Education Patient Education: Gait Training, Transfer Techniques, Correct Positioning, Safety Issues Teaching Recipient: Patient Teaching Methods: Demonstration, Discussion Response to Teaching: Reinforcement Needed Time/GCodes Time In: 0800 Time Out: 0830 Total Billed Treatment Time: 30 Total Billed Treatment 1 visit EX 15' GT 15' NITZA DING PT Sep 16, 2018 08:42
[2018-09-16] MEDS: meTOprolol SUCCINATE 100 MG (TOPROL XL) TAB PO SCH (08:55)
[2018-09-16] MEDS: LORATADINE (CLARITIN) 10 MG TAB PO SCH (08:55)
[2018-09-16] MEDS: ACETAMINOPHEN 325 MG TABLET PO PRN (08:55)
[2018-09-16] MEDS: LIDOCAINE 4% (SALONPAS) PATCH TOP SCH (08:55)
[2018-09-16] MEDS: CLOPIDOGREL 75 MG (PLAVIX) TABLET PO SCH (08:55)
[2018-09-16] MEDS: FUROSEMIDE 40 MG (LASIX) TAB PO SCH (08:55)
[2018-09-16] MEDS: CEFDINIR 300 MG (OMNICEF) CAP PO SCH ×2 (08:55→20:19)
[2018-09-16] MEDS: SENNA W/DOCUSATE (SENOKOT S) TABLET PO SCH ×2 (08:55→20:19)
[2018-09-16] MEDS: metFORMIN XR 500 MG (GLUCOPHAGE XR) TAB PO SCH (08:55)
[2018-09-16 08:56] VITALS: BP 166/80
--- NOTE | 2018-09-16 10:02 | Occupational Ther Daily Note ---
OT Current Status-Daily Note Subjective Pt alert, sitting in recliner. Pt agrees to therapy. No c/o pain at this time. Mental Status/Objective Patient Orientation: Person, Place, Time, Situation Therapy Code Descriptions/Definitions Functional [place] Measure: 0=Not Assessed/NA 4=Minimal Assistance 1=Total Assistance 5=Supervision or Setup 2=Maximal Assistance 6=Modified [place] 3=Moderate Assistance 7=Complete [place] ADL-Treatment Pt declines shower and changing clothing today. Pt stated that she has already completed grooming. Therapy Code Descriptions/Definitions Functional [place] Measure: 0=Not Assessed/NA 4=Minimal Assistance 1=Total Assistance 5=Supervision or Setup 2=Maximal Assistance 6=Modified [place] 3=Moderate Assistance 7=Complete [place] Therapy Quality Codes: 6 Independent with activity with or without an assistive device 5 Patient requires set up or clean up by helper. Patient completes activity by themselves 4 Supervision or touching assist (CGA). [place] provide cues , steadying assist 3 The helper provides less than half the effort to complete the activity 2 The helper provides more than half the effort to complete the activity 1 Dependent. The helper does all the effort to complete an activity 7 Patient refused to complete or attempt activity 9 The patient did not perform the activity before the current illness or injury 88 Not attempted due to Medical conditions or safety concerns Other Treatment Pt ambulates to therapy gym to complete UE exercises to increase strength and activity tolerance for daily functional tasks. During session, nrsg gave meds and took vital signs. Arm bike completed for 15 min at 15 pierre resistance with multiple recovery breaks. [place] dequan exercises no wt attached with B shldr exercises and 2# wt attached for bicep/tricep exercises, 30 reps each with recovery breaks throughout. Pt ambulated with FWW back to room. Discussed energy conservation with pt. Pt verbalized using some strategies already during the day. Pt stated that she does not like the meals that are provided at her home, discussed about services that grocery stores have available though pt does not use online and per pt that daughter does not want her to drive because of nose bleeds. Then pt states that she has breakfast with her son every morning and goes to [employer] 1x per week then to the [employer]. 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 Pt states that she will be getting new glasses from Dr. Kannar soon. After therapy, pt sitting in recliner with call light/phone in reach. All needs met in room. OT Short Term Goals Short Term Goals Transfers (B,C,W/C) (FIM): 6 1=Demonstrate adherence to instructed precautions during ADL tasks. 2=Patient will verbalize/demonstrate understanding of assistive devices/modifications for ADL. 3=Patient will improve strength/tolerance for activity to enable patient to perform ADL's. OT Tax Services Professional Goals Tax Services Professional Goals Time Frame: Sep 25, 2018 Eating (FIM): 6 Eating (QC): 6 Groomin Oral Hygiene (QC): 6 Bathing(FIM): 5 Shower/Bathe Self (QC): 5 Upper Body Dressing(FIM): 6 Upper Body Dressing (QC): 6 Lower Body Dressing(FIM): 6 Lower Body Dressing (QC): 6 On/Off Footwear (QC): 6 Toileting(FIM): 6 Toileting Hygiene (QC): 6 Transfers (B,C,W/C) (FIM): 6 Toilet/Commode Transfer(FIM): 6 Toilet/Commode Transfer (QC): 6 Shower Transfer(FIM): 5 Comprehension(FIM): 6 Expression (FIM): 6 Social Interaction(FIM): 6 Problem Solving(FIM): 6 Memory(FIM): 6 Additional Goals: 1-Demonstrate ADL Tasks, 2-Verbalize Understanding, 3- ImproveStrength/Lucia 1=Demonstrate adherence to instructed precautions during ADL tasks. 2=Patient will verbalize/demonstrate understanding of assistive devices/ modifications for ADL. 3=Patient will improve strength/tolerance for activity to enable patient to perform ADL's. OT Education/Plan Problem List/Assessment Assessment: Decreased Activ Tolerance, Impaired Self-Care Skills Discharge Recommendations Plan/Recommendations: Continue POC Treatment Plan/Plan of Care Patient would benefit from OT for education, treatment and training to promote independence in ADL's, mobility, safety and/or upper extremity function for ADL's. Plan of Care: ADL Retraining, Functional Mobility, Group Exercise/Act as Ind, UE Funct Exercise/Act Treatment Duration: Sep 25, 2018 Frequency: At least 5 of 7 days/Wk (IRF) Estimated Hrs Per Day: 1.5 hours per day Agreement: Yes Rehab Potential: Good Time/GCodes Start Time: 08:30 Stop Time: 09:45 Total Time Billed (hr/min): 75 Billed Treatment Time 1 visit-EX 4 (60 min) FA 1 (15 min) ABRIL ELENA Sep 16, 2018 10:02
--- NOTE | 2018-09-16 11:00 | NUR ---
Pastoral care visit.
--- NOTE | 2018-09-16 11:28 | Speech Therapy Daily Note ---
Speech Daily Progress Note Subjective Date Seen by Provider: Sep 16, 2018 Time Seen by Provider: 00:30 The patient was alert and participated with session well today. Objective The patient completed problem solving tasks related to her daily routine with 80% accuracy given minimal verbal cues. Assessment Assessment Current Status: Good Progress Treatment Plan Continue Plan of Care Communication Comprehension: 7 Expression: 6 Social Cognition Social Interaction: 7 Problem Solvin Memory: 5 Speech Short Term Goals Short Term Goals Short Term Goals 1) The patient will complete memory tasks at 90% or greater without verbal cues. 2) The patient will complete problem solving tasks at 90% or greater without verbal cues. Speech Fdc Goals Fdc Goals The patient will improve her memory and problem solving abilities to increase his level of safety and independence. Comprehension: 6 Expression: 6 Social Interaction: 6 Problem Solvin Memory: 6 Speech-Plan Patient/Family Goals Patient/Family Goals: The patient plans on returning home to her assisted living apartment. Treatment Plan Speech Therapy Treatment Plan: Continue Plan of Care The patient is progressing as her medical status improves. Treatment Duration: Sep 19, 2018 Frequency: 1 time per week Estimated Hrs Per Day: .25 hour per day Rehab Potential: Good Barriers to Learning: Patient has mild memory and problem solving deficits. Pt/Family Agrees to Plan: Yes Safety Risks/Education Teaching Recipient: Patient Teaching Methods: Discussion Response to Teaching: Verbalize Understanding Education Topics Provided: Safety within her room. Time Speech Therapy Time In: 09:45 Speech Therapy Time Out: 10:15 Total Billed Time: 30 Billed Treatment Time 1JOSE [address] Sep 16, 2018 11:28
--- NOTE | 2018-09-16 11:52 | Physical Therapy Daily Note ---
PT Daily Note-Current Subjective Patient in recliner pre tx, agrees to PT, no complaints of pain at rest. Appearance Patient in recliner post tx with nurse call, phone, tray, all needs met. Mental Status Patient Orientation: Person, Place, Situation, Normal For Age Transfers Therapy Code Descriptions/Definitions Functional [place] Measure: 0=Not Assessed/NA 4=Minimal Assistance 1=Total Assistance 5=Supervision or Setup 2=Maximal Assistance 6=Modified [place] 3=Moderate Assistance 7=Complete [place] Therapy Quality Codes: 6 Independent with activity with or without an assistive device 5 Patient requires set up or clean up by helper. Patient completes activity by themselves 4 Supervision or touching assist (CGA). [place] provide cues , steadying assist 3 The helper provides less than half the effort to complete the activity 2 The helper provides more than half the effort to complete the activity 1 Dependent. The helper does all the effort to complete an activity 7 Patient refused to complete or attempt activity 9 The patient did not perform the activity before the current illness or injury 88 Not attempted due to Medical conditions or safety concerns Transfers (B, C, W/C) (FIM): 6 Sit to/from Stand: 6 Bed to/from Chair: 6 safe transfers, appropriate hand placement and positioning Gait Training Gait (FIM): 6 Distance: 500'x2 Gait Level of Assist: 6 Gait Assistive Device: FWW slow ambulation, no LOB or unsteadiness, one rest break between bouts of ambulation Treatments transfers, ambulation Assessment Current Status: Fair Progress improving endurance, less to no back pain when using the walker PT Short Term Goals Short Term Goals Time Frame: Sep 18, 2018 Transfers (B,C,W/C) (FIM): 6 Gait (FIM): 5 Gait Distance Comment: 150' Gait Level of Assist: 5 Gait Assistive Device: None PT Warrant Clerk Goals Warrant Clerk Goals PT Warrant Clerk Goals Time Frame: Oct 02, 2018 Transfers (B,C,W/C) (FIM): 6 Sit to Lying (QC): 6 Lying-Sitting on Side/Bed(QC): 6 Sit to Stand (QC): 6 Rollin Roll Left to Right (QC): 6 Chair/Sln-dv-Dzxqz Xfer(QC): 6 Car Transfer (QC): 6 Gait (FIM): 5 Distance: 200' Walk 10 feet (QC): 4 Walk 10ft-Uneven Surface(QC): 4 Walk 50ft with 2 Turns (QC): 4 Walk 150 ft (QC): 4 Gait Level of Assist: 5 Gait Assistive Device: None Stairs (FIM): 2 # of Steps: 4 1 Step (curb) (QC): 4 4 Steps (QC): 4 Stairs Level Of Assist: 4 PT Plan Problem List Problem List: Activity Tolerance, Functional Strength, Safety, Balance, Gait, Transfer Treatment/Plan Treatment Plan: Continue Plan of Care Treatment Plan: Bed Mobility, Education, Functional Activity Lucia, Functional Strength, Group Therapy, Gait, Safety, Therapeutic Exercise, Transfers Treatment Duration: Oct 02, 2018 Frequency: At least 5 of 7 days/Wk (IRF) Estimated Hrs Per Day: 1.5 hours per day Patient and/or Family Agrees t: Yes Safety Risks/Education Patient Education: Gait Training, Transfer Techniques, Correct Positioning, Safety Issues Teaching Recipient: Patient Teaching Methods: Demonstration, Discussion Response to Teaching: Reinforcement Needed Time/GCodes Time In: 1130 Time Out: 1200 Total Billed Treatment Time: 30 Total Billed Treatment 1 visit GT 30' NITZA DING PT Sep 16, 2018 11:52
--- NOTE | 2018-09-16 14:55 | Physical Therapy Daily Note ---
PT Daily Note-Current Subjective Patient in recliner pre tx, agrees to PT, has no complaints of pain at rest. Appearance Patient in recliner post tx with nurse call, phone, tray, all needs met. Mental Status Patient Orientation: Person, Place, Situation Transfers Therapy Code Descriptions/Definitions Functional [place] Measure: 0=Not Assessed/NA 4=Minimal Assistance 1=Total Assistance 5=Supervision or Setup 2=Maximal Assistance 6=Modified [place] 3=Moderate Assistance 7=Complete [place] Therapy Quality Codes: 6 Independent with activity with or without an assistive device 5 Patient requires set up or clean up by helper. Patient completes activity by themselves 4 Supervision or touching assist (CGA). [place] provide cues , steadying assist 3 The helper provides less than half the effort to complete the activity 2 The helper provides more than half the effort to complete the activity 1 Dependent. The helper does all the effort to complete an activity 7 Patient refused to complete or attempt activity 9 The patient did not perform the activity before the current illness or injury 88 Not attempted due to Medical conditions or safety concerns Transfers (B, C, W/C) (FIM): 7 Sit to/from Stand: 7 Bed to/from Chair: 7 Gait Training Gait (FIM): 6 Distance: 400'x2 Gait Assistive Device: FWW slow but steady ambulation Exercises NuStep Minutes: 10 NuStep Workload: 4 Treatments ambulation, functional strengthening Assessment Current Status: Fair Progress some SOB with activity, recovers quickly with rest. PT Short Term Goals Short Term Goals Time Frame: Sep 18, 2018 Transfers (B,C,W/C) (FIM): 6 Gait (FIM): 5 Gait Distance Comment: 150' Gait Level of Assist: 5 Gait Assistive Device: None PT Skilled Nursing Goals Skilled Nursing Goals PT Skilled Nursing Goals Time Frame: Oct 02, 2018 Transfers (B,C,W/C) (FIM): 6 Sit to Lying (QC): 6 Lying-Sitting on Side/Bed(QC): 6 Sit to Stand (QC): 6 Rollin Roll Left to Right (QC): 6 Chair/Jib-tl-Ochuv Xfer(QC): 6 Car Transfer (QC): 6 Gait (FIM): 5 Distance: 200' Walk 10 feet (QC): 4 Walk 10ft-Uneven Surface(QC): 4 Walk 50ft with 2 Turns (QC): 4 Walk 150 ft (QC): 4 Gait Level of Assist: 5 Gait Assistive Device: None Stairs (FIM): 2 # of Steps: 4 1 Step (curb) (QC): 4 4 Steps (QC): 4 Stairs Level Of Assist: 4 PT Plan Problem List Problem List: Activity Tolerance, Functional Strength, Safety, Balance, Gait, Transfer, Bed Mobility, ROM Treatment/Plan Treatment Plan: Continue Plan of Care Treatment Plan: Bed Mobility, Education, Functional Activity Lucia, Functional Strength, Group Therapy, Gait, Safety, Therapeutic Exercise, Transfers Treatment Duration: Oct 02, 2018 Frequency: At least 5 of 7 days/Wk (IRF) Estimated Hrs Per Day: 1.5 hours per day Patient and/or Family Agrees t: Yes Safety Risks/Education Patient Education: Gait Training, Transfer Techniques, Correct Positioning, Safety Issues Teaching Recipient: Patient Teaching Methods: Demonstration, Discussion Response to Teaching: Reinforcement Needed Time/GCodes Time In: 1430 Time Out: 1500 Total Billed Treatment Time: 30 Total Billed Treatment 1 visit EX 10' GT 20' NITZA DING PT Sep 16, 2018 14:55
--- NOTE | 2018-09-16 15:14 | Pulmonary Progress Note ---
Sepsis Event Evaluation Height, Weight, BMI Height: 5'3.00" Weight: 310lbs. 0.0oz. 140.040212qb; 54.9 BMI Method:Stated Exam Exam Vital Signs Date Time Temp Pulse Resp B/P (MAP) Pulse Ox O2 Delivery O2 Flow Rate FiO2 09/16/18 09:00 97 Room Air 09/16/18 08:56 75 166/80 (108) 09/16/18 05:40 97.2 51 18 132/78 (96) 95 Room Air 09/15/18 21:00 Room Air 09/15/18 15:40 97.5 65 16 175/72 (106) 97 Room Air I & O 09/16/18 07:00 Intake Total 2030 ml Balance 2030 ml Height & Weight Height: 5'3.00" Weight: 310lbs. 0.0oz. 140.258278ga; 54.9 BMI Method:Stated General Appearance: No Apparent Distress, WD/WN, Chronically ill, Obese HEENT: PERRL/EOMI, Normal ENT Inspection, Pharynx Normal Neck: Full Range of Motion, Normal Inspection, Non Tender, Supple Respiratory: Chest Non Tender, Lungs Clear, Normal Breath Sounds, No Accessory Muscle Use, No Respiratory Distress Cardiovascular: Regular Rate, Rhythm, No Edema, No Gallop, No JVD, No Murmur, Normal Peripheral Pulses Capillary Refill: Less Than 3 Seconds Gastrointestinal: normal bowel sounds, non tender, soft Extremity: Normal Capillary Refill, Normal Inspection, Normal Range of Motion, Non Tender, No Calf Tenderness Neurologic/Psychiatric: Alert, Oriented x3, No Motor/Sensory Deficits, Normal Mood/Affect, car repairer helper II-XII Norm as Tested, Abnormal Gait, Motor Weakness (subtle weakness all extremities) Skin: Normal Color, Warm/Dry Lymphatic: No Adenopathy Results Lab Laboratory Tests 09/15/18 05:35 Assessment/Plan Assessment/Plan Bibasilar pneumonia - failed out pt treatment - Omnicef -IS -CT scan reviewed -Will need repeat CT scan of chest 8 wks after discharge to ensure complete resolution Persistent cough with pleuritic CP -Lidoderm patch -Pt is allergic Codeine -Tessalon pearls Atelectasis Asthma - per last PFT -SVNS Deconditioning -PT/OT SISSY LEE DO Sep 16, 2018 15:14
[2018-09-16 15:59] VITALS: BP 187/74
--- NOTE | 2018-09-16 16:23 | Podiatry Progress Note ---
Standard Progress Note Progress Notes/Assess & Plan Date Seen by a Provider: Sep 16, 2018 Time Seen by a Provider: 16:21 Progress/Assessment & Plan Consult dictated. Foot care given. Recommend follow up in no longer than 3 months. Final Diagnosis Diabetic Neuropathy, Edema, Onychomycosis AZUL SIMPSON DPM Sep 16, 2018 16:23
--- NOTE | 2018-09-16 18:52 | CONSULTATION REPORT ---
DATE OF SERVICE: 09/16/2018 REASON FOR CONSULTATION: Foot care. HISTORY OF PRESENT ILLNESS: This 88-year-old female was admitted for rehabilitation services secondary to renal failure as well as respiratory issues including bilateral pneumonia and COPD. She progresses in her rehabilitation, but she is unable to reach for and care for her feet. She has difficulty caring for the feet on a regular basis and was anticipating seeing myself at the [facility], but was unable to do so due to her rehabilitation here at [facility]. PAST MEDICAL HISTORY: Includes generalized weakness, wheelchair bound, dyspnea on exertion, back pain, joint pain, history of appendectomy, eye surgery, cholecystectomy. She also has a history of chronic edema of lower extremity. She will wear compression hose on occasion, but does not like them because of the exertion it takes to put them on. She is diabetic, which is non-insulin dependent. SOCIAL HISTORY: The patient lives at an assisted living in [place]. She denies tobacco or alcohol use. CURRENT MEDICATIONS: Listed on the patient's chart. PHYSICAL EXAMINATION: LOWER EXTREMITIES: The patient has 2/4 dorsalis pedis pulse bilaterally, 0/4 posterior tibial pulse bilaterally. Capillary refill time is less than 3 seconds. No digital hair growth. Pitting edema is noted to the lower leg, ankle and rearfoot bilaterally. NEUROLOGIC: The patient has diminished protective sensation per 10-gram monofilament wire examination bilaterally, absent vibratory sensation to the forefoot bilaterally. Deep tendon reflexes are also diminished to the Achilles tendon bilaterally. The patient has a thick, yellow, dystrophic toenail with subungual debris associated with the R2, 5 and L1, 3 5 digits. No open wounds are noted bilaterally. MUSCULOSKELETAL: The patient has 5/5 muscle strength to the four major quadrants of the foot bilaterally. ASSESSMENT: Diabetic neuropathy, edema, atherosclerosis, onychomycosis. PLAN: The toenails were debrided today manually and mechanically. Betadine was applied. The patient is advised to follow up in my clinic here in [place] or at the [facility] as needed. Diabetic foot care was discussed at length as well as appropriate shoe gear and fit. We will see the patient back in no later than 3 months period of time or sooner if necessary. Job ID: [id number] DocumentID: [id number] Dictated Date: 09/16/2018 16:21:19 Grinder Hand Date: 09/16/2018 18:52:13 Dictated By: ALBRET BURNS
--- NOTE | 2018-09-16 19:15 | Cardiology Progress Note ---
Subjective Date Seen by Provider: Sep 16, 2018 Time Seen by Provider: 18:00 Subjective/Events-last exam Patient is in a chair, feeling better, no new complaint Review of Systems General: No Chills, No Night Sweats, No Fatigue, No Malaise, No Appetite, No Other HEENT: No Head Aches, No Visual Changes, No Eye Pain, No Ear Pain, No Dysphasia, No Sinus Congestion, No Post Nasal Drip, No Sore Throat, No Other Pulmonary: No Dyspnea, No Cough, No Pleuritic Chest Pain, No Other Cardiovascular: No: Chest Pain, Palpitations, Orthopnea, Paroxysmal Noc. Dyspnea, Edema, Lt Headedness, Other Objective-Cardiology Exam Last Set of Vital Signs Vital Signs 09/13/18 09/16/18 06:03 15:59 Temp 97.2 Pulse 53 Resp 16 B/P (MAP) 187/74 (111) Pulse Ox 96 O2 Delivery Room Air FiO2 21 Capillary Refill : Less Than 3 Seconds I&O Intake and Output 09/16/18 00:00 Intake Total 1680 ml Balance 1680 ml Intake Oral 1680 ml # Voids 6 # Bowel Movements 1 General: Alert, Oriented X3, Cooperative HEENT: Atraumatic, PERRLA Neck: Supple, No JVD, No Thyromegaly Lungs: Clear to Auscultation, Normal Air Movement Heart: Regular Rate, Normal S1, Normal S2, No Murmurs Abdomen: Normal Bowel Sounds, Soft, No Tenderness, No Hepatosplenomegaly, No Masses Extremities: No Clubbing, No Cyanosis, No Edema, Normal Pulses, No Te nderness/Swelling Skin: No Rashes, No Breakdown, No Significant Lesion Neuro: Normal Gait, Normal Speech, Strength at 5/5 X4 Ext, Normal Tone, Sensation Intact Psych/Mental Status: Mental Status NL, Mood NL Results Lab Laboratory Tests Test 09/16/18 05:22 09/16/18 17:21 Range/Units Glucometer 108 221 H 70-110 MG/DL A/P-Cardiology Admission Diagnosis Rib pain Dyspnea CAD HTN HLP Assessment/Plan Intermittent, left lower rib cage pain, noncardiac in nature. Patient reports some improvement. Multifactorial shortness of breath: pneumonia, obesity-hypoventilation, acute CHF (etiology undetermined, suspected to be spjkh-[id number] diastolic) Leg swelling, multifactorial: venous insuff and amlodipine therapy and suspected diastolic CHF CAD, history of kissing LAD stents (LAD and a diag) in Feb [address] Rubin in [place], [place]. Most recent cath in 2019 showed patent stents, LVEF 60%. Maintained on Plavix. Patient has history of frequent nose bleed while on DAPT. HTN, controlled, continue to monitor. Hyperlipidemia, continue to monitor lipids as outpatient. Borderline DM II, management per medical services. Clinical Quality Measures DVT/VTE Risk/Contraindication: Risk Factor Score Per Nursin RFS Level Per Nursing on Admit: 4+=Very High RC VILLA MD Sep 16, 2018 19:15
[2018-09-16] MEDS: POLYETHYLENE GLYCOL 17 GM (MIRALAX) PACK PO SCH (19:20)
[2018-09-16] MEDS: LIDOCAINE PATCH REMOVAL TP SCH (20:19)
[2018-09-16] MEDS: ATORVASTATIN 40 MG (LIPITOR) TABLET PO SCH (20:19)
[2018-09-17] MEDS: BENZONATATE 100 MG (TESSALON) CAPSULE PO SCH ×3 (04:07→20:53)
[2018-09-17] MEDS: ACETAMINOPHEN 325 MG TABLET PO PRN (04:07)
[2018-09-17 06:00] VITALS: BP 150/68
[2018-09-17] MEDS: inSUlin ASPART (NovoLOG) 1 UNIT/0.01 ML (CHARGE PER UNIT) SC SCH ×2 (06:03→16:24)
[2018-09-17] MEDS: predniSONE 10 MG TAB PO SCH (06:20)
[2018-09-17] MEDS: KCL 10 MEQ TAB (MICRO K) PO SCH (06:20)
[2018-09-17] MEDS: predniSONE 20 MG TAB PO SCH (06:20)
[2018-09-17] MEDS: guaiFENesin/DM (ROBITUSSIN DM) 10 ML UDC PO PRN (06:20)
[2018-09-17 08:12] VITALS: BP 130/61
[2018-09-17] MEDS: LORATADINE (CLARITIN) 10 MG TAB PO SCH (08:13)
[2018-09-17] MEDS: meTOprolol SUCCINATE 100 MG (TOPROL XL) TAB PO SCH (08:13)
[2018-09-17] MEDS: FUROSEMIDE 40 MG (LASIX) TAB PO SCH (08:14)
[2018-09-17] MEDS: SENNA W/DOCUSATE (SENOKOT S) TABLET PO SCH ×2 (08:14→20:54)
[2018-09-17] MEDS: metFORMIN XR 500 MG (GLUCOPHAGE XR) TAB PO SCH (08:14)
[2018-09-17] MEDS: CLOPIDOGREL 75 MG (PLAVIX) TABLET PO SCH (08:14)
[2018-09-17] MEDS: LIDOCAINE 4% (SALONPAS) PATCH TOP SCH (08:14)
[2018-09-17] MEDS: RT-ALBUTEROL/IPRATROPIUM 3 ML (DUONEB) VIAL INH SCH ×3 (08:15→19:32)
--- NOTE | 2018-09-17 08:21 | PM&R Progress Note ---
Subjective HPI/CC On Admission Date Seen by Provider: Sep 17, 2018 Time Seen by Provider: 08:30 CC: Debility HPI: This is an 88yoWF clinic patient of Dr Blakely who presents to IRF in need of aggressive rehab before returning to [facility] in [place] following an lengthy hospital course for bilateral pneumonia and AECOPD. Patient was very weak and could not manage her ADL's or walk very well in order to go back to [place] facility. Currently patient is improving quite a bit since arrival to IRF. OT will focus on ADL's and toileting processes and PT will focus on strengthening and ambulation with walker. Daughter at the bedside has arrived from [place], [place] and is convinced the ICS caused an allergic reaction and gave her pneumonia. Patient is completing abx and steroid taper and her bowels are now moving well after meds given yesterday. Patient denies pain issues and I have checked meds and labs. Labs were checked and creatinine was normal of which her daughter was very concerned that the Lasix would "kill her kidneys." I spent a great deal of time in the room educating and counseling the patient and her daughter regarding her results and meds. Subjective/Events-last exam Pt is doing very well Coarse lungs at times Tylenol for pain Ambulating very well Disposition very soon Conferred with RN Reviewed therapy notes DC home to [place] tomorrow Review of Systems Pulmonary: Cough Objective Exam Vital Signs Vital Signs Date Time Temp Pulse Resp B/P (MAP) Pulse Ox O2 Delivery O2 Flow Rate FiO2 09/17/18 19:32 95 Room Air 09/17/18 17:31 98.4 66 18 193/63 (106) 09/13/18 06:03 21 Capillary Refill : Less Than 3 Seconds General Appearance: No Apparent Distress, WD/WN, Chronically ill, Obese HEENT: PERRL/EOMI, Normal ENT Inspection, Pharynx Normal Neck: Full Range of Motion, Normal Inspection, Non Tender, Supple Respiratory: Chest Non Tender, Lungs Clear, Normal Breath Sounds, No Accessory Muscle Use, No Respiratory Distress Cardiovascular: Regular Rate, Rhythm, No Edema, No Gallop, No JVD, No Murmur, Normal Peripheral Pulses Back: Normal Inspection, No CVA Tenderness, No Vertebral Tenderness Extremity: Normal Capillary Refill, Normal Inspection, Normal Range of Motion, Non Tender, No Calf Tenderness Neurologic/Psychiatric: Alert, Oriented x3, No Motor/Sensory Deficits, Normal Mood/Affect, 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 FIM Transfers Therapy Code Descriptions/Definitions Functional Counselor Measure: 0=Not Assessed/NA 4=Minimal Assistance 1=Total Assistance 5=Supervision or Setup 2=Maximal Assistance 6=Modified Counselor 3=Moderate Assistance 7=Complete Counselor Therapy Quality Codes: 6 Independent with activity with or without an assistive device 5 Patient requires set up or clean up by helper. Patient completes activity by themselves 4 Supervision or touching assist (CGA). [place] provide cues , steadying assist 3 The helper provides less than half the effort to complete the activity 2 The helper provides more than half the effort to complete the activity 1 Dependent. The helper does all the effort to complete an activity 7 Patient refused to complete or attempt activity 9 The patient did not perform the activity before the current illness or injury 88 Not attempted due to Medical conditions or safety concerns Transfers (B, C, W/C) (FIM): 7 Scootin Rollin Roll Left to Right (QC): 4 Supine to/from Sit: 6 Sit to/from Stand: 7 Sit to Lying (QC): 2 Sit to Stand (QC): 4 Chair/Ggp-pc-Joylk Xfer(QC): 4 Bed to/from Chair: 7 Car Transfer (QC): 3 Gait Training Does the Patient Walk?: Yes Gait (FIM): 6 Distance (FIM): 3=150 ft Distance: 400'x2 Walk 10 feet (QC): 4 Walk 50 ft with 2 Turns(QC): 4 Walking 10ft/uneven surface-QC: 4 Gait Level of Assist: 6 Gait Persons Needed: 1 Gait Assistive Device: FWW Wheelchair Training Does the Pt Use a Wheelchair?: No Stair Training Stair Training: Handrails/: 2 handrails Stairs (FIM): 5 #of Steps: 4 Stairs: Pattern: Step to Level of Assist: 5 Mental Status/Objective Comprehension: 7 Expression: 6 Social Interaction: 7 Problem Solvin Memory: 5 ADL-Treatment Feedin (Lunch tray came in room and pt. able to set up full meal tray.) Eating (QC): 6 Groomin Oral Hygiene (QC): 6 Bathin Bathing Location: L Arm, R Arm, L Upper Leg, R Upper Leg, L Lower Leg (including foot), R Lower Leg (including foot), Chest, Abdomen, Buttocks, Perineal Area Shower/Bathe Self (QC): 6 Upper Extremity Dressin Upper Body Dressing (QC): 6 Lower Extremity Dressin (Pt dons/doff pants and underpants by self. Educated and assisted to use sock aide to don socks.) Lower Body Dressing (QC): 3 On/Off Footwear (QC): 3 Toiletin (Completed by self. Using towel to completely get self clean.) Toileting Hygiene (QC): 6 Toilet/Commode Transfer: 7 Toilet Transfer (QC): 6 Shower: 6 (Using grabbar and shower bench.) Assessment/Plan Assessment and Plan Assess & Plan/Chief Complaint Assessment: (1) Pneumonia of both lower lobes Status: Acute (2) STEPHAN treated with BiPAP Status: Chronic (3) Obesity Status: Chronic (4) Weakness Status: Acute (5) Renal insufficiency Status: Acute (6) Elevated brain natriuretic peptide (BNP) level Status: Acute (7) CAD (coronary artery disease) Status: Chronic (8) Constipation Status: Acute (9) Diabetes mellitus Status: Chronic (10) Hypertension (11) Hyperlipemia Status: Chronic (12) Cough Status: Acute (13) Pleurisy Status: Acute (14) Asthma Status: Acute (15) Leukocytosis Status: Acute (16) History of coronary artery stent placement Status: Chronic Plan: Reviewed all meds Improved status Updated daughter and patient on results Lasix prn IRF protocols Nebs TID instead of BID due to coarseness of lungs yesterday and now completely clear on exam Dispo tomorrow (1) Debility (2) Constipation (3) Diabetes mellitus (4) CAD (coronary artery disease) (5) Cough (6) Hyperlipemia (7) Leukocytosis (8) Renal insufficiency (9) Weakness (10) Hypertension (11) Pleurisy (12) Obesity (13) Asthma (14) Elevated brain natriuretic peptide (BNP) level (15) STEPHAN treated with BiPAP (16) History of coronary artery stent placement (17) Pneumonia of both lower lobes Critical Care Critical Care: Critically Ill Patient ROXANA BISHOP DO Sep 17, 2018 08:20
--- NOTE | 2018-09-17 08:26 | Occupational Ther Daily Note ---
OT Current Status-Daily Note Subjective Pt alert, sitting in recliner. Nrsg and respiratory in room. Mental Status/Objective Patient Orientation: Person, Place, Time, Situation Therapy Code Descriptions/Definitions Functional [place] Measure: 0=Not Assessed/NA 4=Minimal Assistance 1=Total Assistance 5=Supervision or Setup 2=Maximal Assistance 6=Modified [place] 3=Moderate Assistance 7=Complete [place] ADL-Treatment Pt agrees to shower. Pt retrieves clothing without AD. Therapy Code Descriptions/Definitions Functional [place] Measure: 0=Not Assessed/NA 4=Minimal Assistance 1=Total Assistance 5=Supervision or Setup 2=Maximal Assistance 6=Modified [place] 3=Moderate Assistance 7=Complete [place] Therapy Quality Codes: 6 Independent with activity with or without an assistive device 5 Patient requires set up or clean up by helper. Patient completes activity by themselves 4 Supervision or touching assist (CGA). [place] provide cues , steadying assist 3 The helper provides less than half the effort to complete the activity 2 The helper provides more than half the effort to complete the activity 1 Dependent. The helper does all the effort to complete an activity 7 Patient refused to complete or attempt activity 9 The patient did not perform the activity before the current illness or injury 88 Not attempted due to Medical conditions or safety concerns Eating (FIM): 6 (Pt has demonstrates ability to complete by self.) Eating (QC): 6 Grooming (FIM): 7 (Completes standing at sink.) Oral Hygiene (QC): 6 Bathing (FIM): 6 (Using grabbar, hand held shower, long handle sponge and shower bench.) Bathing Location: L Arm, R Arm, L Upper Leg, R Upper Leg, L Lower Leg (including foot), R Lower Leg (including foot), Chest, Abdomen, Buttocks, Perineal Area Shower/Bathe Self (QC): 6 Upper Body (FIM): 7 (Retrieves clothing by self and dresses self.) Upper Body Dressing (QC): 6 Lower Body Dressing (FIM): 6 (Using AE to don/doff socks. Dresses self and retrieves clothing without AD.) Lower Body Dressing (QC): 6 On/Off Footwear (QC): 6 Toileting (FIM): 6 (Using AE to cleanse self and grabbars to steady self when needed.) Toileting Hygiene (QC): 6 Transfers (B, C, W/C) (FIM): 7 (Completes without AD.) Toilet/Commode Transfer (FIM): 7 (Completes without AD.) Toilet Transfer (QC): 6 Shower Transfer(FIM): 6 (Using grabbar and shower bench.) Other Treatment Ambulated to therapy gym with FWW. Completes arm bike 10 min at 15 pierre resistance to increase strength and activity tolerance for daily functional tasks. After therapy, pt sitting in recliner with call light/phone in reach. All needs met in room. OT Short Term Goals Short Term Goals Transfers (B,C,W/C) (FIM): 6 1=Demonstrate adherence to instructed precautions during ADL tasks. 2=Patient will verbalize/demonstrate understanding of assistive devices/modifications for ADL. 3=Patient will improve strength/tolerance for activity to enable patient to perform ADL's. OT Halfway Goals Halfway Goals Time Frame: Sep 25, 2018 Eating (FIM): 6 (met-09/17/18) Eating (QC): 6 (met-09/17/18) Groomin (met-09/17/18) Oral Hygiene (QC): 6 (met-09/17/18) Bathing(FIM): 5 (met-09/17/18) Shower/Bathe Self (QC): 5 (met-09/17/18) Upper Body Dressing(FIM): 6 (met-09/17/18) Upper Body Dressing (QC): 6 (met-09/17/18) Lower Body Dressing(FIM): 6 (met-09/17/18) Lower Body Dressing (QC): 6 (met-09/17/18) On/Off Footwear (QC): 6 (met-09/17/18) Toileting(FIM): 6 (met-09/17/18) Toileting Hygiene (QC): 6 (met-09/17/18) Transfers (B,C,W/C) (FIM): 6 (met-09/17/18) Toilet/Commode Transfer(FIM): 6 (met-09/17/18) Toilet/Commode Transfer (QC): 6 (met-09/17/18) Shower Transfer(FIM): 5 (met-09/17/18) Comprehension(FIM): 6 Expression (FIM): 6 Social Interaction(FIM): 6 Problem Solving(FIM): 6 Memory(FIM): 6 Additional Goals: 1-Demonstrate ADL Tasks, 2-Verbalize Understanding, 3- ImproveStrength/Lucia 1=Demonstrate adherence to instructed precautions during ADL tasks. 2=Patient will verbalize/demonstrate understanding of assistive devices/modifications for ADL. 3=Patient will improve strength/tolerance for activity to enable patient to perform ADL's. OT Education/Plan Problem List/Assessment Assessment: Decreased Activ Tolerance, Impaired Self-Care Skills Discharge Recommendations Plan/Recommendations: Continue POC Treatment Plan/Plan of Care Patient would benefit from OT for education, treatment and training to promote independence in ADL's, mobility, safety and/or upper extremity function for ADL's. Plan of Care: ADL Retraining, Functional Mobility, Group Exercise/Act as Ind, UE Funct Exercise/Act Treatment Duration: Sep 25, 2018 Frequency: At least 5 of 7 days/Wk (IRF) Estimated Hrs Per Day: 1.5 hours per day Agreement: Yes Rehab Potential: Good Time/GCodes Start Time: 08:15 Stop Time: 09:15 Total Time Billed (hr/min): 60 Billed Treatment Time 1 visit-ADL 3 (50 min) EX 1 (10 min) ABRIL ELENA Sep 17, 2018 08:26
--- NOTE | 2018-09-17 11:38 | Speech Therapy Daily Note ---
Speech Daily Progress Note Subjective Date Seen by Provider: Sep 17, 2018 Time Seen by Provider: 00:30 The patient was resting in her recliner when I entered her room. Objective The patient completed memory tasks related to her daily needs with 80% given minimal verbal cues. Assessment Assessment Current Status: Good Progress Treatment Plan Continue Plan of Care Communication Comprehension: 7 Expression: 6 Social Cognition Social Interaction: 7 Problem Solvin Memory: 5 Speech Short Term Goals Short Term Goals Short Term Goals 1) The patient will complete memory tasks at 90% or greater without verbal cues. 2) The patient will complete problem solving tasks at 90% or greater without verbal cues. Speech Lead Vulcanizing Operator Goals Prison Goals The patient will improve her memory and problem solving abilities to increase his level of safety and independence. Comprehension: 6 Expression: 6 Social Interaction: 6 Problem Solvin Memory: 6 Speech-Plan Patient/Family Goals Patient/Family Goals: The patient plans on returning home to her assisted living apartment post rehab. Treatment Plan Speech Therapy Treatment Plan: Continue Plan of Care The patient is progressing well as a result of skilled ST services. Treatment Duration: Sep 19, 2018 Frequency: 1 time per week Estimated Hrs Per Day: .25 hour per day Rehab Potential: Good Barriers to Learning: The patient has memory and problem solving deficits. Pt/Family Agrees to Plan: Yes Safety Risks/Education Teaching Recipient: Patient Teaching Methods: Discussion Response to Teaching: Verbalize Understanding Education Topics Provided: Continued safety within her room and upon her return home. Time Speech Therapy Time In: 10:00 Speech Therapy Time Out: 10:30 Total Billed Time: 30 Billed Treatment Time 1JOSE BETHANIA ST Sep 17, 2018 11:38
--- NOTE | 2018-09-17 11:53 | Pulmonary Progress Note ---
Sepsis Event Evaluation Height, Weight, BMI Height: 5'3.00" Weight: 308lbs. 11.2oz. 140.083765cc; 54.9 BMI Method:Stated Exam Exam Vital Signs Date Time Temp Pulse Resp B/P (MAP) Pulse Ox O2 Delivery O2 Flow Rate FiO2 09/17/18 09:00 97 Room Air 09/17/18 08:15 96 Room Air 09/17/18 08:12 82 130/61 (84) 09/17/18 06:00 97.0 53 20 150/68 (95) 96 Room Air 09/16/18 20:00 Room Air 09/16/18 19:38 96 Room Air 09/16/18 15:59 97.2 53 16 187/74 (111) 96 Room Air I & O 09/17/18 07:00 Intake Total 1490 ml Balance 1490 ml Height & Weight Height: 5'3.00" Weight: 308lbs. 11.2oz. 140.867850fe; 54.9 BMI Method:Stated General Appearance: No Apparent Distress, WD/WN, Chronically ill, Obese HEENT: PERRL/EOMI, Normal ENT Inspection, Pharynx Normal Neck: Full Range of Motion, Normal Inspection, Non Tender, Supple Respiratory: Chest Non Tender, Lungs Clear, Normal Breath Sounds, No Accessory Muscle Use, No Respiratory Distress Cardiovascular: Regular Rate, Rhythm, No Edema, No Gallop, No JVD, No Murmur, Normal Peripheral Pulses Capillary Refill: Less Than 3 Seconds Gastrointestinal: normal bowel sounds, non tender, soft Extremity: Normal Capillary Refill, Normal Inspection, Normal Range of Motion, Non Tender, No Calf Tenderness Neurologic/Psychiatric: Alert, Oriented x3, No Motor/Sensory Deficits, Normal 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
--- NOTE | 2018-09-17 11:57 | Physical Therapy Daily Note ---
PT Daily Note-Current Subjective Pt. feels she has made significant progress, misses her apartment and feels ready to go home. Says she will go to pulmonary rehab after DC, stilled plagued by a wheeze at exhale and with activity. States she has learned that if she is going to move around a lot she really finds the walker is an energy conservation tool Pain Location: No Pain Reported Appearance some audible wheezes but much better over last time pt.was seen by this DINKEY DRIVER Mental Status Patient Orientation: Normal For Age Transfers Therapy Code Descriptions/Definitions Functional [place] Measure: 0=Not Assessed/NA 4=Minimal Assistance 1=Total Assistance 5=Supervision or Setup 2=Maximal Assistance 6=Modified [place] 3=Moderate Assistance 7=Complete [place] Therapy Quality Codes: 6 Independent with activity with or without an assistive device 5 Patient requires set up or clean up by helper. Patient completes activity by themselves 4 Supervision or touching assist (CGA). [place] provide cues , steadying assist 3 The helper provides less than half the effort to complete the activity 2 The helper provides more than half the effort to complete the activity 1 Dependent. The helper does all the effort to complete an activity 7 Patient refused to complete or attempt activity 9 The patient did not perform the activity before the current illness or injury 88 Not attempted due to Medical conditions or safety concerns Transfers (B, C, W/C) (FIM): 6 Scootin Rollin Roll Left to Right (QC): 6 Supine to/from Sit: 6 Sit to/from Stand: 6 Sit to Lying (QC): 6 Sit to Stand (QC): 6 Chair/Ylo-yv-Phqiq Xfer(QC): 6 Bed to/from Chair: 6 Car Transfer (QC): 6 pt. gets into bed in crawl fashion so she can immediately go to sidelying , otherwise breathing is a problem. This is a longstanding issue. Pt. demonstrated this style TRF without problem Gait Training Does the Patient Walk?: Yes Gait (FIM): 6 Distance (FIM): 3=150 ft (200x2) Walk 10 feet (QC): 6 Walk 50 ft with 2 Turns(QC): 6 Walk 150 ft (QC): 6 Walking 10ft/uneven surface-QC: 6 Gait Level of Assist: 6 Gait Persons Needed: 0 Gait Assistive Device: FWW gait with and without AD no LOB Stair Training Stair Training: Handrails/: 2 handrails Stairs (FIM): 5 #of Steps: 4 1 Step (curb) (QC): 5 4 Steps (QC): 5 Stairs: Pattern: Reciprocal Level of Assist: 5 household exception Balance Picking up an Object (QC): 6 Exercises Supine Ex: Quad Set, Rolling, Heel Slides, Straight leg raise, Hip abd/add Supine Reps: 10 Seated Therapy Exercises: Ankle pumps, Sit to stand, Long arc quads, Hip flexion, Hip abd/add Seated Reps: 12 Assessment Current Status: Good Progress progressed well, meets goals PT Short Term Goals Short Term Goals Time Frame: Sep 18, 2018 Transfers (B,C,W/C) (FIM): 6 Gait (FIM): 5 Gait Distance Comment: 150' Gait Level of Assist: 5 Gait Assistive Device: None PT Reconcilement Clerk Goals [facility] Goals PT Reconcilement Clerk Goals Time Frame: Oct 02, 2018 Transfers (B,C,W/C) (FIM): 6 Sit to Lying (QC): 6 Lying-Sitting on Side/Bed(QC): 6 Sit to Stand (QC): 6 Rollin Roll Left to Right (QC): 6 Chair/Mrn-pu-Dmiwp Xfer(QC): 6 Car Transfer (QC): 6 Gait (FIM): 5 Distance: 200' Walk 10 feet (QC): 4 Walk 10ft-Uneven Surface(QC): 4 Walk 50ft with 2 Turns (QC): 4 Walk 150 ft (QC): 4 Gait Level of Assist: 5 Gait Assistive Device: None Stairs (FIM): 2 # of Steps: 4 1 Step (curb) (QC): 4 4 Steps (QC): 4 Stairs Level Of Assist: 4 PT Plan Treatment/Plan Treatment Plan: Continue Plan of Care Treatment Plan: Bed Mobility, Education, Functional Activity Lucia, Functional Strength, Group Therapy, Gait, Safety, Therapeutic Exercise, Transfers Treatment Duration: Oct 02, 2018 Frequency: At least 5 of 7 days/Wk (IRF) Estimated Hrs Per Day: 1.5 hours per day Patient and/or Family Agrees t: Yes Safety Risks/Education Patient Education: Gait Training, Transfer Techniques, Steps, Correct Positioning, Disease Process, Safety Issues Teaching Recipient: Patient Teaching Methods: Demonstration, Discussion Response to Teaching: Verbalize Understanding, Return Demonstration, Reinforcement Needed Time/GCodes Time In: 1115 Time Out: 1200 Total Billed Treatment Time: 60 Total Billed Treatment 1,FA25m,GT20m G Codes Necessary: SARAH Maki DINKEY DRIVER Sep 17, 2018 11:57
--- NOTE | 2018-09-17 14:42 | Therapy Group Daily Note ---
Therapy Daily Group Note Patient Education Topic Home Safety Exercises LE Seated Exercise, UE Exercise Session Ratio (pt:therapist): 3:1 Goal of Session: Home Safety Strategies, UE/LE Strengthing Goal Met for this Session: Yes Pt Benefit of Group: Contributions to Others, F/U Use of Strategies @Home, Increased Functional Safety, Increased Functional Strength, Improved Cognition, Recognition of Peers, Socialization Other/Notes Pt ambulated with FWW to OT/PT group. Group consisted of introductions (name, place born, unsafe home situations), socialization, seated UE/LE exercises, home safety education and home safety category activity. Pt introduced self appropriately and actively listened to peers. Pt verbalized understanding by name strategies for unsafe situations and how to prevent unsafe situations in the home. Pt able to assist others with coming up with ideas and strategies for home safety. Completed UE/LE seated exercises to increase strength and activity tolerance for daily functional tasks. After therapy, pt sitting EOB with call light/phone in reach. All needs met in room. Start Time: 13:00 Stop Time: 14:15 Total Billed Treatment Time: 75 Total Billed Treatment 1-GRP ABRIL ELENA Sep 17, 2018 14:42
[2018-09-17] MEDS ORDERED: HYDR-3820 PO (16:52)
[2018-09-17] MEDS ORDERED: Lidocaine 4% Patch TOP (16:52)
[2018-09-17] MEDS ORDERED: IPRA3AMP31 INH (16:52)
[2018-09-17] MEDS ORDERED: PRED10TA22 PO (16:52)
[2018-09-17] MEDS ORDERED: LORA10TA7 PO (16:52)
[2018-09-17 17:31] VITALS: BP 193/63
[2018-09-17] MEDS: POLYETHYLENE GLYCOL 17 GM (MIRALAX) PACK PO SCH (20:53)
[2018-09-17] MEDS: LIDOCAINE PATCH REMOVAL TP SCH (20:53)
[2018-09-17] MEDS: ATORVASTATIN 40 MG (LIPITOR) TABLET PO SCH (20:53)
[2018-09-18 03:41] VITALS: BP 141/57
[2018-09-18] MEDS: KCL 10 MEQ TAB (MICRO K) PO SCH (05:25)
[2018-09-18] MEDS: BENZONATATE 100 MG (TESSALON) CAPSULE PO SCH (05:25)
[2018-09-18] MEDS: inSUlin ASPART (NovoLOG) 1 UNIT/0.01 ML (CHARGE PER UNIT) SC SCH (05:25)
[2018-09-18] MEDS: predniSONE 10 MG TAB PO SCH (05:25)
[2018-09-18] MEDS: predniSONE 20 MG TAB PO SCH (05:25)
[2018-09-18] MEDS: RT-ALBUTEROL/IPRATROPIUM 3 ML (DUONEB) VIAL INH SCH (07:27)
--- NOTE | 2018-09-18 10:16 | Therapy Team Discharge Summary ---
Therapy Discharge Summary Discharge Recommendations Date of Discharge Therapy D/C Recommendations: Home w/ Family Support, Occupational Therapy Home Care Occupational Therapy Decreased Activ Tolerance, Impaired Self-Care Skills Speech-Language Pathology The patient is an 88 year old woman who was admitted to ARU due to debility secondary to respiratory disease. The patient was evaluated for cognitive function with the SLUMS. The evaluation results indicated mild neurocognitive evaluation. Deficits in memory and problem solving were the focus of ST services. The patient met all of her goals. She is discharging to her assisted living apartment today as well as from ST services. PT Correction Goals Mason Helper Goals PT Correction Goals Time Frame: Oct 02, 2018 Transfers (B,C,W/C) (FIM): 6 Roll Left to Right (QC): 6 Sit to Lying (QC): 6 Lying-Sitting on Side/Bed(QC): 6 Sit to Stand (QC): 6 Chair/Cqq-ce-Ipgvx Xfer(QC): 6 Car Transfer (QC): 6 Gait (FIM): 5 Distance: 200' Walk 10 feet (QC): 4 Walk 10ft-Uneven Surface(QC): 4 Walk 50ft with 2 Turns (QC): 4 Walk 150 ft (QC): 4 Gait Level of Assist: 5 Gait Assistive Device: None Stairs (FIM): 2 # of Steps: 4 1 Step (curb) (QC): 4 4 Steps (QC): 4 Stairs Level Of Assist: 4 OT Mason Helper Goals Correction Goals Time Frame: Sep 25, 2018 Eating (FIM): 6 (met-09/17/18) Eating (QC): 6 (met-09/17/18) Oral Hygiene (QC): 6 (met-09/17/18) Grooming(FIM): 6 (met-09/17/18) Bathing(FIM): 5 (met-09/17/18) Shower/Bathe Self (QC): 5 (met-09/17/18) Upper Body Dressing(FIM): 6 (met-09/17/18) Upper Body Dressing (QC): 6 (met-09/17/18) Lower Body Dressing(FIM): 6 (met-09/17/18) Lower Body Dressing (QC): 6 (met-09/17/18) On/Off Footwear (QC): 6 (met-09/17/18) Toileting(FIM): 6 (met-09/17/18) Toileting Hygiene (QC): 6 (met-09/17/18) Transfers (B,C,W/C) (FIM): 6 (met-09/17/18) Toilet/Commode Transfer(FIM): 6 (met-09/17/18) Toilet/Commode Transfer (QC): 6 (met-09/17/18) Shower Transfer(FIM): 5 (met-09/17/18) Comprehension(FIM): 6 Expression (FIM): 6 Social Interaction(FIM): 6 Problem Solving(FIM): 6 Memory(FIM): 6 Additional Goals: 1-Demonstrate ADL Tasks, 2-Verbalize Understanding, 3- ImproveStrength/Lucia 1=Demonstrate adherence to instructed precautions during ADL tasks. 2=Patient will verbalize/demonstrate understanding of assistive devices/modifications for ADL. 3=Patient will improve strength/tolerance for activity to enable patient to perform ADL's. Speech Mason Helper Goals Correction Goals The patient will improve her memory and problem solving abilities to increase his level of safety and independence. Met Comprehension: 6 Expression: 6 Social Interaction: 6 Problem Solvin Memory: 6 LITTLE BROWN Sep 18, 2018 10:16
[2018-09-18] MEDS: metFORMIN XR 500 MG (GLUCOPHAGE XR) TAB PO SCH (10:21)
[2018-09-18] MEDS: FUROSEMIDE 40 MG (LASIX) TAB PO SCH (10:21)
[2018-09-18] MEDS: CLOPIDOGREL 75 MG (PLAVIX) TABLET PO SCH (10:21)
[2018-09-18] MEDS: meTOprolol SUCCINATE 100 MG (TOPROL XL) TAB PO SCH (10:22)
[2018-09-18] MEDS: LIDOCAINE 4% (SALONPAS) PATCH TOP SCH (10:22)
[2018-09-18] MEDS: guaiFENesin/DM (ROBITUSSIN DM) 10 ML UDC PO PRN (10:22)
[2018-09-18] MEDS: LORATADINE (CLARITIN) 10 MG TAB PO SCH (10:22)
[2018-09-18] MEDS: SENNA W/DOCUSATE (SENOKOT S) TABLET PO SCH (10:22)
--- NOTE | 2018-09-18 10:56 | Discharge Summary ---
Diagnosis/Chief Complaint Date of Admission September 11, 2018 at 10:55 Date of Discharge Discharge Date: Sep 18, 2018 Discharge Diagnosis Assess & Plan/Chief Complaint Assessment: (1) Pneumonia of both lower lobes Status: Acute (2) STEPHAN treated with BiPAP Status: Chronic (3) Obesity Status: Chronic (4) Weakness Status: Acute (5) Renal insufficiency Status: Acute (6) Elevated brain natriuretic peptide (BNP) level Status: Acute (7) CAD (coronary artery disease) Status: Chronic (8) Constipation Status: Acute (9) Diabetes mellitus Status: Chronic (10) Hypertension (11) Hyperlipemia Status: Chronic (12) Cough Status: Acute (13) Pleurisy Status: Acute (14) Asthma Status: Acute (15) Leukocytosis Status: Acute (16) History of coronary artery stent placement Status: Chronic Plan: Reviewed all meds Improved status Updated daughter and patient on results Lasix prn IRF protocols Nebs TID instead of BID due to coarseness of lungs yesterday and now completely clear on exam Dispo today Discharge Summary Discharge Physical Examination Allergies: Coded Allergies: Penicillins (Verified Allergy, Unknown, 10/15/15) codeine (Verified Allergy, Unknown, 10/15/15) Vitals & I&Os Vital Signs Date Time Temp Pulse Resp B/P (MAP) Pulse Ox O2 Delivery O2 Flow Rate FiO2 09/18/18 09:00 97 Room Air 09/18/18 03:41 98.2 60 18 141/57 (85) 09/13/18 06:03 21 General Appearance: Alert, Oriented X3, Cooperative HEENT: Atraumatic, PERRLA Respiratory: Clear to Auscultation, Normal Air Movement Cardiovascular: Regular Rate, Normal S1, Normal S2 Abdominal: Normal Bowel Sounds, Soft Extremities: No Clubbing, No Cyanosis Skin: No Rashes, No Breakdown Neuro: Normal Gait, Normal Speech, Strength at 5/5 X4 Ext Psych/Mental Status: Mental Status NL, Mood NL Hospital Course Was the Problem List Reviewed?: Yes Hospital Course; Pt had an uneventful hospital course for 8 days in in-patient rehab. Pt was very debilitated and cough with chest pain from pleurisy was an issue. Dr. Friedman was consulted. Pt did not feel like she cold tolerate inhaled corticosteroids making management of her asthma more difficult but Nebulizer treatments were tolerated and did well for her. She participated in all therapies and she was able to walk with a walker and do very well and get back to prior level of functioning to return back to assisted living with the use of the walker and independent ADL's. She will have a close f/u with Dr. Blakely for PCP medical needs. Labs (last 24 hrs) Laboratory Tests 09/12/18 05:30: White Blood Count 10.7, Red Blood Count 3.88L, Hemoglobin 11.0L, Hematocrit 34L, Mean Corpuscular Volume 89, Mean Corpuscular Hemoglobin 28, Mean Corpuscular Hemoglobin Concent 32, Red Cell Distribution Width 15.7H, Platelet Count 274, Mean Platelet Volume 8.8, Neutrophils (%) (Auto) 67, Lymphocytes (%) (Auto) 20, Monocytes (%) (Auto) 11, Eosinophils (%) (Auto) 2, Basophils (%) (Auto) 0, Neutrophils # (Auto) 7.2, Lymphocytes # (Auto) 2.2, Monocytes # (Auto) 1.1H, Eosinophils # (Auto) 0.2, Basophils # (Auto) 0.0, Sodium Level 138, Potassium Level 4.3, Chloride Level 106, Carbon Dioxide Level 26, Anion Gap 6, Blood Urea Nitrogen 30H, Creatinine 0.95, Estimat Glomerular Filtration Rate 56, BUN/Creatinine Ratio 32, Glucose Level 112H, Calcium Level 9.2, Corrected Calcium 9.9, Total Bilirubin 0.5, Aspartate Amino Transf (AST/SGOT) 18, Alanine Aminotransferase (ALT/SGPT) 17, Alkaline Phosphatase 79, Total Protein 5.5L, Albumin 3.1L 09/12/18 16:51: Glucometer 171H 09/13/18 05:13: Glucometer 118H 09/13/18 15:41: Glucometer 252H 09/14/18 05:57: Glucometer 140H 09/14/18 15:30: Glucometer 236H 09/15/18 05:11: Glucometer 125H 09/15/18 05:35: White Blood Count 10.8, Red Blood Count 4.06L, Hemoglobin 11.7, Hematocrit 37, Mean Corpuscular Volume 90, Mean Corpuscular Hemoglobin 29, Mean Corpuscular Hemoglobin Concent 32, Red Cell Distribution Width 15.0H, Platelet Count 272, Mean Platelet Volume 9.2, Neutrophils (%) (Auto) 71, Lymphocytes (%) (Auto) 19, Monocytes (%) (Auto) 9, Eosinophils (%) (Auto) 1, Basophils (%) (Auto) 0, Neutrophils # (Auto) 7.7, Lymphocytes # (Auto) 2.1, Monocytes # (Auto) 0.9, Eosinophils # (Auto) 0.1, Basophils # (Auto) 0.0, Sodium Level 137, Potassium Level 4.3, Chloride Level 103, Carbon Dioxide Level 26, Anion Gap 8, Blood Urea Nitrogen 30H, Creatinine 1.15, Estimat Glomerular Filtration Rate 45, BUN/Creatinine Ratio 26, Glucose Level 120H, Calcium Level 9.1, Corrected Calcium 9.7, Total Bilirubin 0.4, Aspartate Amino Transf (AST/SGOT) 15, Alanine Aminotransferase (ALT/SGPT) 23, Alkaline Phosphatase 73, Total Protein 5.8L, Albumin 3.3 09/15/18 15:39: Glucometer 205H 09/16/18 05:22: Glucometer 108 09/16/18 17:21: Glucometer 221H 09/17/18 05:47: Glucometer 151H 09/17/18 15:34: Glucometer 209H 09/18/18 05:24: Glucometer 131H Pending Labs Laboratory Tests 09/12/18 05:30: White Blood Count 10.7, Red Blood Count 3.88, Hemoglobin 11.0, Hematocrit 34, Mean Corpuscular Volume 89, Mean Corpuscular Hemoglobin 28, Mean Corpuscular Hem oglobin Concent 32, Red Cell Distribution Width 15.7, Platelet Count 274, Mean Platelet Volume 8.8, Neutrophils (%) (Auto) 67, Lymphocytes (%) (Auto) 20, Monocytes (%) (Auto) 11, Eosinophils (%) (Auto) 2, Basophils (%) (Auto) 0, Neutrophils # (Auto) 7.2, Lymphocytes # (Auto) 2.2, Monocytes # (Auto) 1.1, Eosinophils # (Auto) 0.2, Basophils # (Auto) 0.0, Sodium Level 138, Potassium L evel 4.3, Chloride Level 106, Carbon Dioxide Level 26, Anion Gap 6, Blood Urea Nitrogen 30, Creatinine 0.95, Estimat Glomerular Filtration Rate 56, BUN/Creatinine Ratio 32, Glucose Level 112, Calcium Level 9.2, Corrected Calcium 9.9, Total Bilirubin 0.5, Aspartate Amino Transf (AST/SGOT) 18, Alanine Aminotransferase (ALT/SGPT) 17, Alkaline Phosphatase 79, Total Protein 5.5, Albumin 3.1 09/12/18 16:51: Glucometer 171 09/13/18 05:13: Glucometer 118 09/13/18 15:41: Glucometer 252 09/14/18 05:57: Glucometer 140 09/14/18 15:30: Glucometer 236 09/15/18 05:11: Glucometer 125 09/15/18 05:35: White Blood Count 10.8, Red Blood Count 4.06, Hemoglobin 11.7, Hematocrit 37, Mean Corpuscular Volume 90, Mean Corpuscular Hemoglobin 29, Mean Corpuscular Hemoglobin Concent 32, Red Cell Distribution Width 15.0, Platelet Count 272, Mean Platelet Volume 9.2, Neutrophils (%) (Auto) 71, Lymphocytes (%) (Auto) 19, Monocytes (%) (Auto) 9, Eosinophils (%) (Auto) 1, Basophils (%) (Auto) 0, Neutrophils # (Auto) 7.7, Lymphocytes # (Auto) 2.1, Monocytes # (Auto) 0.9, Eosinophils # (Auto) 0.1, Basophils # (Auto) 0.0, Sodium Level 137, Potassium Level 4.3, Chloride Level 103, Carbon Dioxide Level 26, Anion Gap 8, Blood Urea Nitrogen 30, Creatinine 1.15, Estimat Glomerular Filtration Rate 45, BUN/Creatinine Ratio 26, Glucose Level 120, Calcium Level 9.1, Corrected Calcium 9.7, Total Bilirubin 0.4, Aspartate Amino Transf (AST/SGOT) 15, Alanine Aminotransferase (ALT/SGPT) 23, Alkaline Phosphatase 73, Total Protein 5.8, Albumin 3.3 09/15/18 15:39: Glucometer 205 09/16/18 05:22: Glucometer 108 09/16/18 17:21: Glucometer 221 09/17/18 05:47: Glucometer 151 09/17/18 15:34: Glucometer 209 09/18/18 05:24: Glucometer 131 Discharge Home Medications: Active Scripts Active Prednisone 10 Mg Tab.ds.pk 10 Mg PO DAILY Take 5 tabs(50mg)daily,decrease by 1 tab(10MG)daily. [Lidocaine 4% Patch] 1 EA Patch 1 Ea TOP DAILY Hydrocodon-Acetaminophn 10-325 (Hydrocodone/Acetaminophen) 1 Each Tablet 1 Ea PO Q4H PRN Iprat-Albut 0.5-3(2.5) mg/3 ml (Ipratropium/Albuterol Sulfate) 3 Ml Ampul.neb 3 Ml INH RTTID Loratadine 10 Mg Tablet 10 Mg PO DAILY Reported D3-50 (Cholecalciferol (Vitamin D3)) 50,000 Unit Capsule 50,000 Units PO WEEK Cyanocobalamin Injection (Cyanocobalamin) 1,000 Mcg/Ml Inj 1,000 Mcg INJ MONTHLY Ocuvite Eye + Multi Tablet (Mv-Mn/FA/Vit K/Lycop/Lut/Zeaxa) 1 Each Tablet 1 Tab PO DAILY Amlodipine Besylate 5 Mg Tablet 5 Mg PO DAILY Metformin HCl 500 Mg Tablet 1,000 Mg PO DAILY TAKES 2 (500MG) TABLETS Potassium Chloride 10 Meq Tablet.er 10 Meq PO DAILY Clopidogrel (Clopidogrel Bisulfate) 75 Mg Tablet 75 Mg PO DAILY Torsemide 20 Mg Tablet 60 Mg PO DAILY TAKES 3 (20MG) TABLETS Ventolin Hfa (Albuterol Sulfate) 18 Gm Hfa.aer.ad 2 Puff INH QID PRN Labetalol HCl 100 Mg Tablet 100 Mg PO BID Benzonatate 100 Mg Capsule 100 Mg PO Q8H PRN Atorvastatin Calcium 40 Mg Tablet 40 Mg PO HS Instructions to patient/family Please see electronic discharge instructions given to patient. Diagnosis/Problems Diagnosis/Problems (1) Debility (2) Constipation Status: Acute (3) Diabetes mellitus Status: Chronic (4) CAD (coronary artery disease) Status: Chronic (5) Cough Status: Acute (6) Hyperlipemia Status: Chronic (7) Leukocytosis Status: Acute (8) Renal insufficiency Status: Acute (9) Weakness Status: Acute (10) Hypertension (11) Pleurisy Status: Acute (12) Obesity Status: Chronic (13) Asthma Status: Acute Qualifiers: Qualified Codes: J45.909 - Unspecified asthma, uncomplicated (14) Elevated brain natriuretic peptide (BNP) level Status: Acute (15) STEPHAN treated with BiPAP Status: Chronic (16) History of coronary artery stent placement Status: Chronic (17) Pneumonia of both lower lobes Status: Acute Clinical Quality Measures DVT/VTE Risk/Contraindication: Risk Factor Score Per Nursin RFS Level Per Nursing on Admit: 4+=Very High ROXANA BISHOP DO Sep 18, 2018 10:56
--- NOTE | 2018-09-18 13:29 | Therapy Team Discharge Summary ---
Therapy Discharge Summary Discharge Recommendations Date of Discharge Therapy D/C Recommendations: Home w/ Family Support, Occupational Therapy Home Care Physical Therapy Patient admitted to rehab secondary to debility. Patient presented with modified assist with all bed mobility and transfers with adequate strength. Patient ambulate SBA without assistive device ~100' with frequent recovery periods due to fatigue. During rehab stay, patient progressed with treatment plan and advanced to modified independent LOF with all gross motor skills and utilized FWW for energy conservation >200' to enable safe return to home at a safe LOF. Patient dismissed to home and will begin pulmonary rehab as an outpatient. Patient has attained all functional goals and is able to perform step to return to home. Occupational Therapy Decreased Activ Tolerance, Impaired Self-Care Skills PT Chcf Goals Tobacco Prevention Health Educator Goals PT Chcf Goals Time Frame: Oct 02, 2018 Transfers (B,C,W/C) (FIM): 6 (met 09/17/18) Roll Left to Right (QC): 6 (met 09/17/18) Sit to Lying (QC): 6 (met 09/17/18) Lying-Sitting on Side/Bed(QC): 6 (met 09/17/18) Sit to Stand (QC): 6 (met 09/17/18) Chair/Kgn-og-Ayvhb Xfer(QC): 6 (met 09/17/18) Car Transfer (QC): 6 (met 09/17/18) Gait (FIM): 5 (met 09/17/18) Distance: 200' Walk 10 feet (QC): 4 (met 09/17/18) Walk 10ft-Uneven Surface(QC): 4 (met 09/17/18) Walk 50ft with 2 Turns (QC): 4 (met 09/17/18) Walk 150 ft (QC): 4 (met 09/17/18) Gait Level of Assist: 5 (met 09/17/18) Gait Assistive Device: None, FWW Stairs (FIM): 2 (met 09/17/18) # of Steps: 4 (met 09/17/18) 1 Step (curb) (QC): 4 (met 09/17/18) 4 Steps (QC): 4 (met 09/17/18) Stairs Level Of Assist: 4 (met 09/17/18) OT Chcf Goals Chcf Goals Time Frame: Sep 25, 2018 Eating (FIM): 6 (met-09/17/18) Eating (QC): 6 (met-09/17/18) Oral Hygiene (QC): 6 (met-09/17/18) Grooming(FIM): 6 (met-09/17/18) Bathing(FIM): 5 (met-09/17/18) Shower/Bathe Self (QC): 5 (met-09/17/18) Upper Body Dressing(FIM): 6 (met-09/17/18) Upper Body Dressing (QC): 6 (met-09/17/18) Lower Body Dressing(FIM): 6 (met-09/17/18) Lower Body Dressing (QC): 6 (met-09/17/18) On/Off Footwear (QC): 6 (met-09/17/18) Toileting(FIM): 6 (met-09/17/18) Toileting Hygiene (QC): 6 (met-09/17/18) Transfers (B,C,W/C) (FIM): 6 (met-09/17/18) Toilet/Commode Transfer(FIM): 6 (met-09/17/18) Toilet/Commode Transfer (QC): 6 (met-09/17/18) Shower Transfer(FIM): 5 (met-09/17/18) Comprehension(FIM): 6 Expression (FIM): 6 Social Interaction(FIM): 6 Problem Solving(FIM): 6 Memory(FIM): 6 Additional Goals: 1-Demonstrate ADL Tasks, 2-Verbalize Understanding, 3- ImproveStrength/Lucia 1=Demonstrate adherence to instructed precautions during ADL tasks. 2=Patient will verbalize/demonstrate understanding of assistive devices/ modifications for ADL. 3=Patient will improve strength/tolerance for activity to enable patient to perform ADL's. Speech Chcf Goals Tobacco Prevention Health Educator Goals The patient will improve her memory and problem solving abilities to increase his level of safety and independence. Met Comprehension: 6 Expression: 6 Social Interaction: 6 Problem Solvin Memory: 6 IRWIN BARAJAS PT Sep 18, 2018 13:29
--- NOTE | 2018-09-19 15:06 | Therapy Team Discharge Summary ---
Therapy Discharge Summary Discharge Recommendations Date of Discharge Sep 18, 2018 at 13:00 Therapy D/C Recommendations: Home w/ Family Support, Occupational Therapy Home Care Occupational Therapy Pt admitted to ARU secondary to debility. On admission pt required mod assist with LE dressing and min assist with bathing, UE dressing, and transfers. Skilled OT intervention focused on ADL training, transfers, strengthening, and safety education. Pt made good progress with therapy and by discharge is completing ADLs and transfers modified independent to independent. Pt met all OT LTG. D/C ARU OT. Decreased Activ Tolerance, Impaired Self-Care Skills PT Scrap Dealer Goals Scrap Dealer Goals PT Scrap Dealer Goals Time Frame: Oct 02, 2018 Transfers (B,C,W/C) (FIM): 6 (met 09/17/18) Roll Left to Right (QC): 6 (met 09/17/18) Sit to Lying (QC): 6 (met 09/17/18) Lying-Sitting on Side/Bed(QC): 6 (met 09/17/18) Sit to Stand (QC): 6 (met 09/17/18) Chair/Qrs-gq-Witkj Xfer(QC): 6 (met 09/17/18) Car Transfer (QC): 6 (met 09/17/18) Gait (FIM): 5 (met 09/17/18) Distance: 200' Walk 10 feet (QC): 4 (met 09/17/18) Walk 10ft-Uneven Surface(QC): 4 (met 09/17/18) Walk 50ft with 2 Turns (QC): 4 (met 09/17/18) Walk 150 ft (QC): 4 (met 09/17/18) Gait Level of Assist: 5 (met 09/17/18) Gait Assistive Device: None, FWW Stairs (FIM): 2 (met 09/17/18) # of Steps: 4 (met 09/17/18) 1 Step (curb) (QC): 4 (met 09/17/18) 4 Steps (QC): 4 (met 09/17/18) Stairs Level Of Assist: 4 (met 09/17/18) OT Chcf Goals Scrap Dealer Goals Time Frame: Sep 25, 2018 Eating (FIM): 6 (met-09/17/18) Eating (QC): 6 (met-09/17/18) Oral Hygiene (QC): 6 (met-09/17/18) Grooming(FIM): 6 (met-09/17/18) Bathing(FIM): 5 (met-09/17/18) Shower/Bathe Self (QC): 5 (met-09/17/18) Upper Body Dressing(FIM): 6 (met-09/17/18) Upper Body Dressing (QC): 6 (met-09/17/18) Lower Body Dressing(FIM): 6 (-09/17/18) Lower Body Dressing (QC): 6 (-09/17/18) On/Off Footwear (QC): 6 (-09/17/18) Toileting(FIM): 6 (-09/17/18) Toileting Hygiene (QC): 6 (-09/17/18) Transfers (B,C,W/C) (FIM): 6 (-09/17/18) Toilet/Commode Transfer(FIM): 6 (-09/17/18) Toilet/Commode Transfer (QC): 6 (met-09/17/18) Shower Transfer(FIM): 5 (-09/17/18) Comprehension(FIM): 6 Expression (FIM): 6 Social Interaction(FIM): 6 Problem Solving(FIM): 6 Memory(FIM): 6 Additional Goals: 1-Demonstrate ADL Tasks, 2-Verbalize Understanding, 3- ImproveStrength/Lucia 1=Demonstrate adherence to instructed precautions during ADL tasks. 2=Patient will verbalize/demonstrate understanding of assistive maricel param/modifications for ADL. 3=Patient will improve strength/tolerance for activity to enable patient to perform ADL's. Speech Chcf Goals Chcf Goals The patient will improve her memory and problem solving abilities to increase his level of safety and independence. Met Comprehension: 6 Expression: 6 Social Interaction: 6 Problem Solvin Memory: 6 KRISTIN FUENTES OT Sep 19, 2018 15:06
== END 2018-09-18 13:00 | disposition home health service (06) | DRG 947 ==
PROVIDERS: ADMIT Internal Medicine; ATTEND Internal Medicine
DX: R53.81 Other malaise (principal); R53.1 Weakness; R26.2 Difficulty in walking, not elsewhere classified; J18.1 Lobar pneumonia, unspecified organism; I11.0 Hypertensive heart disease with heart failure; I50.33 Acute on chronic diastolic (congestive) heart failure; J98.11 Atelectasis; J44.0 Chronic obstructive pulmonary disease with (acute) lower respiratory infection; E66.2 Morbid (severe) obesity with alveolar hypoventilation; Z68.43 Body mass index [BMI] 50.0-59.9, adult; E11.42 Type 2 diabetes mellitus with diabetic polyneuropathy; R09.1 Pleurisy; N28.9 Disorder of kidney and ureter, unspecified; I25.10 Atherosclerotic heart disease of native coronary artery without angina pectoris; E78.5 Hyperlipidemia, unspecified; I87.2 Venous insufficiency (chronic) (peripheral); B35.1 Tinea unguium; F41.9 Anxiety disorder, unspecified; K59.09 Other constipation; M19.91 Primary osteoarthritis, unspecified site; Z95.5 Presence of coronary angioplasty implant and graft
CPT/HCPCS: 36415; 71045; 80053; 82962; 85025; 94640; 94760

== ENCOUNTER 2019-06-15 17:10 | Observation (INO) | payer MEDICARE ==
[~2019-06-15] VITALS: Ht 160 cm; Wt 134.8 kg
[~2019-06-15 17:10] MED LIST changes: +ACHYD1T PO; +IPRA3AMP31 INH; +IRBE300T17 PO; -IRBE300T18 PO; +LORA10TA7 PO; +Lidocaine 4% Patch TOP; +METF500T19; -METF500T8; +PRED10TA22 PO
[2019-06-15 17:45] LABS: BASOPHILS % (AUTO) 0 % (0-10); EOSINOPHILS # (AUTO) 0.1 10^3/uL (0.0-0.3); EOSINOPHILS % (AUTO) 3 % (0-10); HEMATOCRIT 40 % (35-52); HEMOGLOBIN 12.9 G/DL (11.5-16.0); LYMPHOCYTES # (AUTO) 1.1 X 10^3 (1.0-4.0); LYMPHOCYTES % (AUTO) 25 % (12-44); MEAN CORPUSCULAR HEMOGLOBIN 29 PG (25-34); MEAN CORPUSCULAR HGB CONC 32 G/DL (32-36); MEAN CORPUSCULAR VOLUME 91 FL (80-99); MEAN PLATELET VOLUME 9.4 FL (7.4-10.4); MONOCYTES # (AUTO) 0.7 X 10^3 (0.0-1.0); MONOCYTES % (AUTO) 15 % (0-12); NEUTROPHILS # (AUTO) 2.5 X 10^3 (1.8-7.8); NEUTROPHILS % (AUTO) 57 % (42-75); PLATELET COUNT 264 10^3/uL (130-400); RED CELL DISTRIBUTION WIDTH 15.4 % (10.0-14.5); WHITE BLOOD COUNT 4.4 10^3/uL (4.3-11.0)
[2019-06-15] MEDS ORDERED: NS IV 1000 ML 1,000 ML IV SCH ×2 (17:52)
[2019-06-15 17:59] LABS: BILIRUBIN,TOTAL 0.4 MG/DL (0.1-1.0); CALCIUM 9.6 MG/DL (8.5-10.1); CREATININE SERUM 1.23 MG/DL (0.60-1.30); POTASSIUM 3.6 MMOL/L (3.6-5.0); TOTAL PROTEIN 7.5 GM/DL (6.4-8.2)
[2019-06-15] MEDS ORDERED: cefTRIAXone FOR IV USE 1,000 MG in WATER (STERILE) FOR INJECTION 10 ML IV ONE (18:00)
[2019-06-15] MEDS ORDERED: AZITHROMYCIN INJECTION 500 MG in NS (IVPB) 250 ML IV ONE (18:00)
--- NOTE | 2019-06-15 18:01 | ED Respiratory ---
General Chief Complaint: Respiratory Problems Stated Complaint: PNEUMONIA IN BOTH LUNGS Nursing Triage Note: PT CO OF SOA AND HAS BEEN ON ANTIBIOTIC SINCE SATURDAY. SENT FROM DR CABALLERO OFFICE Source: patient, family (son) Exam Limitations: no limitations History of Present Illness Date Seen by Provider: Jun 15, 2019 Time Seen by Provider: 17:45 Initial Comments Patient arrives to the ER from Dr. Blakely's office with her son Edmond and chief complaint of shortness of breath since the weekend, 3 days ago progressively worsening. She's had a sometimes productive cough with phlegm. She was seen at urgent care on Saturday, 2 days ago and started on cefdinir. She was told she had crackles in the base of her lungs. She went to Dr. Blakely's office and he said that he thought she had double lung pneumonia. No labs, chest x-ray was obtained. Patient's had no fever subjective or objective. Patient says she had pneumonia about this time last year when she was undergoing some respiratory testing by Dr. Friedman, pulmonology to determine whether she had asthma or not. She has not had asthma her entire life and does not use breathing treatments except for the past 2 days when she was prescribed to him by urgent care. She says she's been using them ipwhqx-jdz-xlawt every 5 hours. She denies any wheezing. She denies feeling any better on cefdinir. She does have a history of coronary disease with several stents. She denies any chest pain. She says she feels very weak and since she lives alone in an assisted living apartment she does not feel comfortable staying by herself. She has difficulty getting out of the chair on her own. She typically ambulates independently. Allergies and Home Medications Allergies Coded Allergies: Penicillins (Verified Allergy, Unknown, 10/15/15) codeine (Verified Allergy, Unknown, 10/15/15) Home Medications Albuterol Sulfate 18 Gm Hfa.aer.ad, 2 PUFF INH QID PRN for SHORTNESS OF BREATH, (Reported) Amlodipine Besylate 5 Mg Tablet, 5 MG PO DAILY, (Reported) Atorvastatin Calcium 40 Mg Tablet, 40 MG PO HS, (Reported) Benzonatate 100 Mg Capsule, 100 MG PO Q8H PRN for COUGH, (Reported) Cholecalciferol (Vitamin D3) 50,000 Unit Capsule, 50,000 UNITS PO WEEK, (Reported) Clopidogrel Bisulfate 75 Mg Tablet, 75 MG PO DAILY, (Reported) Cyanocobalamin 1,000 Mcg/Ml Inj, 1,000 MCG INJ MONTHLY, (Reported) Hydrocodone/Acetaminophen 1 Each Tablet, 1 EA PO Q4H PRN for PAIN-MODERATE Prescribed by: ROXANA BISHOP on 09/17/181651 Ipratropium/Albuterol Sulfate 3 Ml Ampul.neb, 3 ML INH RTTID Prescribed by: ROXANA BISHOP on 09/17/181651 Labetalol HCl 100 Mg Tablet, 100 MG PO BID, (Reported) Loratadine 10 Mg Tablet, 10 MG PO DAILY Prescribed by: ROXANA BISHOP on 09/17/181651 Metformin HCl 500 Mg Tablet, 1,000 MG PO DAILY, (Reported) TAKES 2 (500MG) TABLETS Mv-Mn/FA/Vit K/Lycop/Lut/Zeaxa 1 Each Tablet, 1 TAB PO DAILY, (Reported) Potassium Chloride 10 Meq Tablet.er, 10 MEQ PO DAILY, (Reported) Prednisone 10 Mg Tab.ds.pk, 10 MG PO DAILY Take 5 tabs(50mg)daily,decrease by 1 tab(10MG)daily. Prescribed by: ROXANA BISHOP on 09/17/181651 Torsemide 20 Mg Tablet, 60 MG PO DAILY, (Reported) TAKES 3 (20MG) TABLETS [Lidocaine 4% Patch] 1 EA PATCH, 1 EA TOP DAILY Prescribed by: ROXANA BISHOP on 09/17/181651 Patient Home Medication List Home Medication List Reviewed: Yes Review of Systems Review of Systems Constitutional: No chills, No diaphoresis; malaise, weakness EENTM: No ear discharge, No ear pain Respiratory: cough, phlegm, short of breath; No wheezing Cardiovascular: No chest pain, No edema Gastrointestinal: No abdominal pain, No nausea, No vomiting Genitourinary: No discharge, No dysuria Musculoskeletal: No back pain, No joint pain Skin: No pruritus, No rash Psychiatric/Neurological: Denies Headache, Denies Numbness All Other Systems Reviewed Negative Unless Noted: Yes Past Zdanagm-Pmmhnx-Zkjjxr Hx Patient Social History Alcohol Use: Denies Use Recreational Drug Use: No Smoking Status: Never a Smoker Recent Foreign Travel: No Contact w/Someone Who Travel: No Recent Infectious Disease Expo: No Recent Hopitalizations: No Physical Abuse: No Sexual Abuse: No Seasonal Allergies Seasonal Allergies: No Past Medical History Surgeries: Yes Appendectomy, Eye Surgery, Gallbladder Respiratory: Yes (BI PAP) Asthma, Pneumonia, Sleep Apnea Currently Using CPAP: No Currently Using BIPAP: Yes Cardiac: Yes (STENTS) Chronic Edema/Swelling, Hypertension Neurological: No Genitourinary: Yes Renal Failure Gastrointestinal: Yes Chronic Constipation Musculoskeletal: Yes Arthritis, Back Injury Endocrine: Yes (PRE-DIABETES) Diabetes, Non-Insulin dep HEENT: No Cancer: No Psychosocial: No Integumentary: No Blood Disorders: No Adverse Reaction/Blood Tranf: No Physical Exam Vital Signs - First Documented 06/15/19 17:15 Temp 36.4 Pulse 76 Resp 19 B/P (MAP) 189/92 (124) Pulse Ox 92 O2 Delivery Room Air Capillary Refill : Less Than 3 Seconds Height: 5'3.00" Weight: 308lbs. 11.2oz. 140.712156ap; 53.00 BMI Method:Stated General Appearance: WD/WN, no apparent distress Eyes: Bilateral Eye Normal Inspection, Bilateral Eye PERRL, Bilateral Eye EOMI HEENT: PERRL/EOMI, TMs normal; No pharynx normal (oral mucosa is very dry) Neck: full range of motion, supple, normal inspection Respiratory: lungs clear, normal breath sounds, no accessory muscle use, respiratory distress (mild, 95% on room air with a rate of 25), decreased breath sounds Cardiovascular: normal peripheral pulses, regular rate, rhythm Gastrointestinal: normal bowel sounds, non tender, soft Extremities: normal range of motion, non-tender, normal inspection Neurologic/Psychiatric: alert, normal mood/affect, oriented x 3 Skin: normal color, warm/dry Focused Exam Lactate Level 06/15/19 17:20: Lactic Acid Level 1.79 Lactic Acid Level Laboratory Tests Test 06/15/19 17:20 Lactic Acid Level 1.79 MMOL/L (0.50-2.00) Progress/Results/Core Measures Suspected Sepsis Recent Fever Within 48 Hours: No Infection Criteria Present: None New/Unexplained Altered Menta: No Sepsis Screen: No Definite Risk SIRS Temperature: Pulse: 76 Respiratory Rate: 19 Laboratory Tests 06/15/19 17:20: White Blood Count 4.4 Blood Pressure 189 /92 Mean: 124 3/2/20 17:20: Lactic Acid Level 1.79 Laboratory Tests 06/15/19 17:20: Creatinine 1.23, INR Comment 1.0, Platelet Count 264, Total Bilirubin 0.4 Results/Orders Lab Results Laboratory Tests Test 06/15/19 17:20 06/15/19 18:04 Range/Units White Blood Count 4.4 4.3-11.0 10^3/uL Red Blood Count 4.40 4.35-5.85 10^6/uL Hemoglobin 12.9 11.5-16.0 G/DL Hematocrit 40 35-52 % Mean Corpuscular Volume 91 80-99 FL Mean Corpuscular Hemoglobin 29 25-34 PG Mean Corpuscular Hemoglobin Concent 32 32-36 G/DL Red Cell Distribution Width 15.4 H 10.0-14.5 % Platelet Count 264 130-400 10^3/uL Mean Platelet Volume 9.4 7.4-10.4 FL Neutrophils (%) (Auto) 57 42-75 % Lymphocytes (%) (Auto) 25 12-44 % Monocytes (%) (Auto) 15 H 0-12 % Eosinophils (%) (Auto) 3 0-10 % Basophils (%) (Auto) 0 0-10 % Neutrophils # (Auto) 2.5 1.8-7.8 X 10^3 Lymphocytes # (Auto) 1.1 1.0-4.0 X 10^3 Monocytes # (Auto) 0.7 0.0-1.0 X 10^3 Eosinophils # (Auto) 0.1 0.0-0.3 10^3/uL Basophils # (Auto) 0.0 0.0-0.1 10^3/uL Prothrombin Time 13.0 12.2-14.7 SEC INR Comment 1.0 0.8-1.4 Activated Partial Thromboplast Time 25 24-35 SEC Sodium Level 143 135-145 MMOL/L Potassium Level 3.6 3.6-5.0 MMOL/L Chloride Level 103 98-107 MMOL/L Carbon Dioxide Level 30 21-32 MMOL/L Anion Gap 10 5-14 MMOL/L Blood Urea Nitrogen 14 7-18 MG/DL Creatinine 1.23 0.60-1.30 MG/DL Estimat Glomerular Filtration Rate 41 BUN/Creatinine Ratio 11 Glucose Level 124 H 70-105 MG/DL Lactic Acid Level 1.79 0.50-2.00 MMOL/L Calcium Level 9.6 8.5-10.1 MG/DL Corrected Calcium 9.6 8.5-10.1 MG/DL Total Bilirubin 0.4 0.1-1.0 MG/DL Aspartate Amino Transf (AST/SGOT) 16 5-34 U/L Alanine Aminotransferase (ALT/SGPT) 15 0-55 U/L Alkaline Phosphatase 100 40-136 U/L Troponin I < 0.028 <0.028 NG/ML Total Protein 7.5 6.4-8.2 GM/DL Albumin 4.0 3.2-4.5 GM/DL Urine Color YELLOW Urine Clarity CLEAR Urine pH 7.0 5-9 Urine Specific Ransom 1.010 L 1.016-1.022 Urine Protein NEGATIVE NEGATIVE Urine Glucose (UA) NEGATIVE NEGATIVE Urine Ketones NEGATIVE NEGATIVE Urine Nitrite NEGATIVE NEGATIVE Urine Bilirubin NEGATIVE NEGATIVE Urine Urobilinogen 0.2 < = 1.0 MG/DL Urine Leukocyte Esterase NEGATIVE NEGATIVE Urine RBC (Auto) NEGATIVE NEGATIVE Urine RBC NONE /HPF Urine WBC NONE /HPF Urine Squamous Epithelial Cells 0-2 /HPF Urine Crystals NONE /LPF Urine Bacteria TRACE /HPF Urine Casts NONE /LPF Urine Mucus NEGATIVE /LPF Urine Culture Indicated CULTURE PENDING Micro Results Microbiology 06/15/19 Influenza Types A,B Antigen (SUSANNE) - Final, Complete My Orders Orders - TAL HERBERT Blood Culture (06/15/19 17:52) Sputum Culture (06/15/19 17:52) Urinalysis (06/15/19 17:52) Urine Culture (06/15/19 17:52) Protime With Inr (06/15/19 17:52) Partial Thromboplastin Time (06/15/19 17:52) Ed Iv/Invasive Line Start (06/15/19 17:52) Ed Iv/Invasive Line Start (06/15/19 17:52) Ekg Tracing (06/15/19 17:52) Troponin I (06/15/19 17:52) Vital Signs Adult Sepsis Patie Q15M (06/15/19 17:52) O2 (06/15/19 17:52) Remove Rings In Anticipation O (06/15/19 17:52) Lactic Acid Analyzer (06/15/19 17:52) Ns Iv 1000 Ml (Sodium Chloride 0.9%) (06/15/19 17:52) Ceftriaxone For Iv Use (Rocephin For I (06/15/19 18:00) Azithromycin Injection (Zithromax Inject (06/15/19 18:00) Ed Iv/Invasive Line Start (06/15/19 17:52) Ns Iv 1000 Ml (Sodium Chloride 0.9%) (06/15/19 17:52) Medications Given in ED Current Medications Medications Dose Ordered Sig/Desirae Route Start Time Stop Time Status Last Admin Dose Admin Ceftriaxone Sodium 1000 mg/ Sterile Water 10 ml @ 200 mls/hr ONCE ONCE IV 06/15/19 18:00 06/15/19 18:02 DC 06/15/19 18:20 200 MLS/HR Vital Signs/I&O 06/15/19 17:15 Temp 36.4 Pulse 76 Resp 19 B/P (MAP) 189/92 (124) Pulse Ox 92 O2 Delivery Room Air Capillary Refill : Less Than 3 Seconds Blood Pressure Mean: 124 Progress Note #1: Time: 18:01 Progress Note The patient is having some shortness of breath but only here an occasional faint wheeze. Oxygen sats are modest. Heart rate gets in the 90s when she talks 70s at rest. She could have early onset pneumonia. Atypical angina has to be entertained so we'll obtain an EKG and troponin. She would like very much to be admitted as she does not feel safe going home. She certainly does demonstrate debility and difficulty with ambulation. She had to be brought in by wheelchair and sustaining to transition him to the bed is about as mobile as she is right now. We will order a septic workup to include fluids 2 L which is more than 20 mL/kg based on an adjusted ideal body weight is 86 kg. Influenza swab Progress Note #2: Time: 19:04 Progress Note On reexamination the patient still has aseptic vital signs. She is no longer even remotely hyperventilating. She does demonstrate debility and weakness as well as a great amount of fear about going back to her assisted living. She certainly appears clinically to be dry and this would be consistent with somebody who is not getting up to eat something to eat or drink on their own in an independent living situation. She likely has bronchitis or an upper respiratory tract infection. She may be a candidate for some physical rehabilitation. ECG Initial ECG Impression Date: Jun 15, 2019 Initial ECG Impression Time: 18:21 Initial ECG Rate: 67 Initial ECG Rhythm: Normal Sinus Initial ECG Intervals: Normal Initial ECG Impression: Normal Comment Normal sinus rhythm with PVCs and no ST elevation or depression. Diagnostic Imaging Diagonstic Imaging: Xray Plain Films/CT/US/NM/MRI: chest Comments NAME: AMARILYS MINAYA REC#: [id number] PT STATUS: REG ER : 1930 PHYSICIAN: RENETTA PAIZ MD ADMIT DATE: 06/15/19/ER Signed Date of Exam:06/15/19 CHEST PA/LAT (2 VIEW) INDICATION: Shortness of breath. Patient has been on antibiotics. Comparison with 09/13/2018 portable chest. FINDINGS: The lungs are well-aerated. No infiltrates are demonstrated. The heart is not enlarged. No pulmonary edema or hilar adenopathy. No pneumothorax or pleural effusion. No bony abnormalities. IMPRESSION: Normal PA and lateral chest. Dictated by: Dictated on workstation # [id number] Dict: 06/15/191819 Trans: 06/15/191824 BREANNE [id number] Interpreted by: GERSON GARNER MD Electronically signed by: GERSON GARNER MD 06/15/191824 Reviewed: Reviewed by Me Departure Communication (Admissions) Time/Spoke to Admitting Phy: 19:15 Discussed the case with Dr. Bishop on-call internal medicine. Discussed the patient's present symptoms that are mild and her debility which seems to be more of the patient's concern for not wanting to go home. She agrees to put the patient on observation for dehydration, debility and bronchitis versus pneumonia. Continue the antibiotics outpatient, SCDs, Lovenox, albuterol 3 times a day and put in a referral to physical therapy and occupational therapy to evaluate and treat for potential placement. She also wants an inpatient rehabilitation evaluation. Impression Primary Impression: Dehydration Additional Impressions: Physical debility Bronchitis Bronchopneumonia Disposition: ADMITTED INPATIENT Condition: Stable Admissions Decision to Admit Reason: Admit from ER (General) Decision to Admit/Date: Jun 15, 2019 Time/Decision to Admit Time: 19:15 Departure-Patient Inst. Referrals: ELIE BLAKELY DO (PCP/Family) Primary Care Physician TAL HERBERT Jun 15, 2019 18:00
[2019-06-15 18:15] LABS: BILIRUBIN,URINE NEGATIVE (NEGATIVE); CLARITY,URINE CLEAR; COLOR,URINE YELLOW; GLUCOSE, URINE (UA) NEGATIVE (NEGATIVE); KETONES,URINE NEGATIVE (NEGATIVE); LEUKOCYTE ESTERASE ,URINE NEGATIVE (NEGATIVE); NITRITE,URINE NEGATIVE (NEGATIVE); PROTEIN,URINE NEGATIVE (NEGATIVE)
[2019-06-15 18:22] LABS: BACTERIA,URINE TRACE /HPF; SQUAMOUS EPITHELIAL CELL,UR 0-2 /HPF
--- NOTE | 2019-06-15 18:24 | Diagnostic Imaging Report ---
INDICATION: Shortness of breath. Patient has been on antibiotics. Comparison with 09/13/2018 portable chest. FINDINGS: The lungs are well-aerated. No infiltrates are demonstrated. The heart is not enlarged. No pulmonary edema or hilar adenopathy. No pneumothorax or pleural effusion. No bony abnormalities. IMPRESSION: Normal PA and lateral chest. Dictated by: Dictated on workstation # [id number]
--- NOTE | 2019-06-15 20:40 | NUR ---
AMARILYS MINAYA admitted to room 433-1, with an admitting diagnosis of BRONCHITIS, PNA, DEBILITY, DEHYDRATION , on 06/15/19 from ED via CART, accompanied by STAFF. AMARILYS MINAYA introduced to surroundings, call light, bed controls, phone, TV, temperature control, lights, meal times, smoking policy, visitor policy, side rail policy, bathrooms and showers. Patient Rights given to patient in the handbook.AMARILYS MINAYA verbalizes understanding that [facility] is not responsible for the loss or damage to any personal effects or valuables that are kept in the patients posession during their hospitalization.
[2019-06-15] MEDS ORDERED: ONDANSETRON 4 MG/2 ML (SDV) Z0FRAN IV PRN (21:30)
[2019-06-15] MEDS ORDERED: ACETAMINOPHEN 500 MG TAB (TYLENOL) PO PRN ×2 (21:30→21:45)
[2019-06-15] MEDS ORDERED: CALCIUM CARBONATE 500 MG (TUMS) TAB.CHEW PO PRN (21:45)
[2019-06-15] MEDS ORDERED: HYDROcodone/APAP 5 MG/325 MG (LORTAB) TAB PO PRN (21:45)
[2019-06-15] MEDS ORDERED: MELATONIN 3 MG TABLET PO PRN (21:45)
[2019-06-15] MEDS ORDERED: ONDANSETRON 4 MG (ZOFRAN) ORAL DISSOLVE TAB PO PRN (21:45)
[2019-06-15] MEDS ORDERED: ALPRAZolam 0.25 MG (XANAX) TAB PO PRN (21:45)
[2019-06-15] MEDS ORDERED: diphenhydrAMINE 25 MG TAB (BENADRYL) PO PRN (21:45)
[2019-06-15] MEDS ORDERED: ONDANSETRON 4 MG/2 ML (SDV) Z0FRAN IVP PRN (21:45)
[2019-06-15] MEDS ORDERED: DOCUSATE SODIUM 100 MG (COLACE) CAP PO PRN (21:45)
[2019-06-15] MEDS ORDERED: LOPERAMIDE 2 MG (IMODIUM) TABLET PO PRN (21:45)
[2019-06-15 21:57] VITALS: BP 145/73
[2019-06-15] MEDS: NS IV 1000 ML 1,000 ML IV SCH (22:21)
--- NOTE | 2019-06-15 23:35 | NUR ---
PT. REQUESTING MEDICATION TO HELP WITH HER COUGH DR. BISHOP NOTIFIED, NEW ORDERS RECEIVED: LEXX MIKE 1TSP Q4HRS PRN
[2019-06-16] VITALS: BP 188/84
[2019-06-16] MEDS ORDERED: guaiFENesin/DM (ROBITUSSIN DM) 10 ML UDC PO PRN (00:15)
[2019-06-16] MEDS: NS IV 1000 ML 1,000 ML IV SCH (00:42)
[2019-06-16 00:43] VITALS: BP 145/73
[2019-06-16] MEDS: RT-ALBUTEROL/IPRATROPIUM 3 ML (DUONEB) VIAL INH SCH ×2 (01:12→08:27)
[2019-06-16] MEDS ORDERED: RT-ALBUTEROL SULF 2.5 MG/3 ML PRE-MIX VIAL IH PRN (01:15)
[2019-06-16 04:00] VITALS: BP 174/76
[2019-06-16 05:40] LABS: BASOPHILS % (AUTO) 0 % (0-10); EOSINOPHILS # (AUTO) 0.1 10^3/uL (0.0-0.3); EOSINOPHILS % (AUTO) 3 % (0-10); HEMATOCRIT 36 % (35-52); HEMOGLOBIN 11.6 G/DL (11.5-16.0); LYMPHOCYTES % (AUTO) 23 % (12-44); MEAN CORPUSCULAR HEMOGLOBIN 30 PG (25-34); MEAN CORPUSCULAR HGB CONC 32 G/DL (32-36); MEAN CORPUSCULAR VOLUME 92 FL (80-99); MEAN PLATELET VOLUME 9.3 FL (7.4-10.4); MONOCYTES # (AUTO) 0.6 X 10^3 (0.0-1.0); MONOCYTES % (AUTO) 15 % (0-12); NEUTROPHILS # (AUTO) 2.4 X 10^3 (1.8-7.8); NEUTROPHILS % (AUTO) 58 % (42-75); PLATELET COUNT 220 10^3/uL (130-400); RED CELL DISTRIBUTION WIDTH 15.2 % (10.0-14.5); WHITE BLOOD COUNT 4.1 10^3/uL (4.3-11.0)
[2019-06-16 06:00] LABS: ALBUMIN 3.5 GM/DL (3.2-4.5); BILIRUBIN,TOTAL 0.4 MG/DL (0.1-1.0); CALCIUM 9.2 MG/DL (8.5-10.1); CREATININE SERUM 1.05 MG/DL (0.60-1.30); TOTAL PROTEIN 6.2 GM/DL (6.4-8.2)
[2019-06-16] MEDS ORDERED: inSUlin ASPART (NovoLOG) 1 UNIT/0.01 ML (CHARGE PER UNIT) SC SCH (06:00)
[2019-06-16 08:00] VITALS: BP 175/73
[2019-06-16] MEDS ORDERED: RT-ALBUTEROL SULF 2.5 MG/3 ML PRE-MIX VIAL IH SCH (08:00)
--- NOTE | 2019-06-16 08:26 | Diagnostic Imaging Report ---
Portable erect AP chest at 644 hours. INDICATION: Pneumonia. FINDINGS: The heart size is within normal limits and stable when compared to 06/15/2019. The perihilar markings are somewhat prominent but no different than on the prior exam. There is still no evidence for failure, pneumonia or for pleural effusion. The mediastinum is not widened. The osseous structures are intact. IMPRESSION: Stable chest. There has been no adverse change since the prior exam. Dictated by: Dictated on workstation # [id number]
[2019-06-16] MEDS ORDERED: CLOPIDOGREL 75 MG (PLAVIX) TABLET PO SCH (09:00)
[2019-06-16] MEDS ORDERED: SENNA W/DOCUSATE (SENOKOT S) TABLET PO SCH (09:00)
[2019-06-16] MEDS ORDERED: ENOXAPARIN 40 MG/0.4 ML (LOVENOX) SYR SC SCH (09:00)
[2019-06-16] MEDS ORDERED: LABETALOL 200 MG (NORMODYNE) TAB PO SCH (09:00)
[2019-06-16] MEDS ORDERED: ENOXAPARIN 60 MG/0.6 ML (LOVENOX) SYR SC SCH (09:00)
[2019-06-16] MEDS ORDERED: CEFDINIR 300 MG (OMNICEF) CAP PO SCH (09:00)
[2019-06-16] MEDS ORDERED: KCL 20 MEQ TAB (K-DUR) PO NR (10:15)
[2019-06-16] MEDS ORDERED: POTASSIUM CL 10MEQ/50ML IVPB 50 ML IV SCH (10:15)
--- NOTE | 2019-06-16 10:32 | Physical Therapy Evaluation ---
PT Evaluation-General Medical Diagnosis Admission Date Jun 15, 2019 at 19:49 Medical Diagnosis: Bronchitis, PNA, debility, dehydration Onset Date: Jun 15, 2019 Therapy Diagnosis Therapy Diagnosis: Decondtioning Height/Weight Height (Feet): 5 Height (Inches): 3.00 Weight (Pounds): 308 Weight (Ounces): 11.2 Precautions Precautions/Isolations: Fall Prevention, Standard Precautions Referral Physician: Carlos Reason for Referral: Evaluation/Treatment Medical History Pertinent Medical History: Arthritis, CAD, DM, HTN, Renal Insufficiency Additional Medical History Asthma. Current History Patient presented to the ER after going to Dr. Blakely's office with SOA. Patient went to urgent care and has been on antibiotics since. Reviewed History: Yes Social History Home: Assisted Living Prior Prior Level of Function SCALE: Activities may be completed with or without assistive devices. 0-Cxisotyxci-tsxsvfu completes the activity by him/herself with no assistance from a helper. 5-Set-up or Clean-up Assistance-helper sets up or cleans up; patient completes activity. [place] assists only prior to or following the activity. 4-Supervision or Touching Assistance-helper provides verbal cues and/or touching/steadying and/or contact guard assistance as patient completes activity. Assistance may be provided throughout the activity or intermittently. 3-Partial/Moderate Assistance-helper does LESS THAN HALF the effort. [place] lifts, holds or supports trunk or limbs, but provides less than half the effort. 2-Substantial/Maximal Assistance-helper does MORE THAN HALF the effort. [place] lifts or holds trunk or limbs and provides more than half the effort. 8-Monzwaogz-sfesxf does ALL the effort. Patient does none of the effort to complete the activity. Or, the assistance of 2 or more helpers is required for the patient to complete the activity. If activity was not attempted, code reason: 7-Patient Refused. 9-Not Applicable-not attempted and the patient did not perform the activity before the current illness, exacerbation or injury. 10-Not Attempted due to Environmental Limitations-(lack of equipment, weather restraints, etc.). 88-Not Attempted due to Medical Conditions or Safety Concerns. Bed Mobility: 6 Transfers (B,C,W/C): 6 Gait: 6 Prior Devices Use: None PT Evaluation-Current Subjective Patient is agreeable to therapy at this time. Objective Patient Orientation: Person, Place, Time, Situation ROM/Strength ROM Lower Extremities limited hip flexion BLE Strength Lower Extremities 4 / 5 gross BLE Integumentary/Posture Integumentary See nursing notes. Bowel Incontinence: No Bladder Incontinence: No Neuromuscular (Tone, Coordination, Reflexes) grossly intact Sensory Vision: Functional Hearing: Functional Sensation Right Lower Extremit: Intact Sensation Left Lower Extremity: Intact Transfers Sit to Stand (QC): 4 Chair/Sez-as-Rvrxj Xfer(QC): 4 Toilet Transfer: 4 Gait Does the Patient Walk?: Yes Mode of Locomotion: Walk Anticipated Mode of Locomotion: Walk Walk 10 feet (QC): 4 Walk 50 ft with 2 Turns(QC): 4 Distance: 50' Gait Assistive Device: FWW Comments/Gait Description CGA for safety. Patient ambulated around room and stated she doesn't use a walker at home and didn't want to use now. Wheelchair Training Does the Pt Use a Wheelchair?: No Balance Sitting Static: Good Sitting Dynamic: Good Standing Static: Good Standing Dynamic: Good Assessment/Needs Patient is steady during ambulation and tolerates short distance walked within room well without walker. Patient states she has been getting up without walker to go to the bathroom since she arrived in her hospital room. 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 Time Frame: Jun 23, 2019 Roll Left & Right (QC): 6 Sit to Lying (QC): 6 Lying-Sitting on Side/Bed(QC): 6 Sit to Stand (QC): 6 Chair/Fis-ct-Keirn Xfer(QC): 6 Toilet Transfer (QC): 6 Does the Patient Walk: Yes Walk 10 feet (QC): 6 Walk 50ft with 2 Turns (QC): 6 PT Plan Problem List Problem List: Activity Tolerance, Functional Strength, Safety, Balance, Gait, Transfer, Bed Mobility, ROM Treatment/Plan Treatment Plan: Continue Plan of Care Treatment Plan: Bed Mobility, Education, Functional Activity Lucia, Functional Strength, Gait, Safety, Therapeutic Exercise, Transfers Treatment Duration: Jun 23, 2019 Frequency: 5 times per week Estimated Hrs Per Day: .25 hour per day Patient and/or Family Agrees t: Yes Safety Risks/Education Patient Education: Gait Training, Transfer Techniques Teaching Recipient: Patient Teaching Methods: Demonstration, Discussion Response to Teaching: Reinforcement Needed Discharge Recommendations Therapy Discharge Recommendati: Assisted Living Time/GCodes Time In: 919 Time Out: 929 Total Billed Treatment Time: 10 Total Billed Treatment 1 visit EVL 10 IRWIN BARAJAS PT Jun 16, 2019 10:32
--- NOTE | 2019-06-16 10:55 | Progress Note ---
SARAY SOTO,MED STUDENT 06/16/19 1055: Progress Note Hospital course: Ms. Garcia is an 89yo WF who presented to [facility] ED via private vehicle from Dr. Blakely's office on 06/15/2019 c/o shortness of breath and weakness for x3 days. She began to have a cough productive of phlegm on Saturday and went to an urgent care where she was started on cefdinir. She saw Dr. Blakely who thought she had pneumonia, and told her to go to the ED. She also admits occasional sore throat, but denies HONG, subjective fevers, congestion, pleuritic pain, palpitations, abdominal pain, n/v/d, or muscle aches or pains. She has seen Dr. Friedman in the past and has been evaluated for asthma, but notes she has done PFT's which did not show asthma. She has a history of several stent placements and see's Dr. Rubin, cardiology. A CXR was obtained, which did not show any infiltrates, pleural effusions, or adenopathy. Initial CBC showed a WBC of 4.4, and repeat CBC today shows WBC of 4.1. Lactic acid level was 1.79. She states she does not get flu shots, but nasal swab in ED was negative for influenza A and B. Due to the patient's concern for her ability to care for herself, she was admitted to observation under the care of Dr. Bishop for a potential transfer to inpatient rehabilitation. Inpatient rehabilitation evaluation: Pt. lives in an assisted living home where she is brought meals, but generally cares for herself. Her son comes to visit her frequently and they have breakfast most days. She states she does her own laundry, and is able to stand at the sink to do dishes, although she gets fatigued when she does this. She states she has been feeling progressively weak and fatigued, and has been having shortness of breath for some time. She states that walking up the [place] and back to her room makes her short of breath. PT evaluation revealed decreased muscle strength in her lower extremities bilaterally, limited hip flexion bilaterally, and that she requires some assistance to transfer from sit to stand, from bed to chair, and to and from the toilet. She tolerates only short distances walked, although she is able to ambulate without the assistance of a walker around her room. She would benefit from inpatient rehabilitation focusing on activity tolerance and conditioning, functional strength, gait, bed mobility, and transfers. As she lives by herself in an assisted living facility, she would be a good candidate for inpatient rehabilitation with the goal of returning her to her baseline of living in an assisted living community and performing ADL's and caring for herself. RHONDA BISHOP DO 06/16/19 1309: Supervisory-Addendum Brief Verification & Attestation Participated in pt care: history, MDM, physical Personally performed: exam, history, MDM, supervision of care Care discussed with: Medical Student Procedures: n/a Results interpretation: Verified all documentation Verification and Attestation of Medical Student E/M Service A medical student performed and documented this service in my presence. I reviewed and verified all information documented by the medical student and made modifications to such information, when appropriate. I personally performed the physical exam and medical decision making. Rhonda Bishop, Jun 16, 2019,13:08 SARAY SOTO,MED STUDENT Jun 16, 2019 10:55 RHONDA BISHOP DO Jun 16, 2019 13:09
[2019-06-16] MEDS ORDERED: CHOL50005 PO (11:45)
[2019-06-16] MEDS ORDERED: POTA10TA36 PO (11:45)
[2019-06-16] MEDS ORDERED: CEFD300C3 PO (12:03)
[2019-06-16] MEDS ORDERED: ALBU2.5V4 NEB (12:03)
[2019-06-16] MEDS ORDERED: PRD20T PO (12:03)
--- NOTE | 2019-06-16 17:55 | Discharge Summary ---
Discharge Summary Hospital Course Was the Problem List Reviewed?: Yes Problems/Dx: (1) Bronchitis Status: Acute (2) Debility Status: Acute Hospital Course Date of Admission: Jun 15, 2019 at 19:49 Admission Diagnosis : Shortness of breath Family Physician/Provider: Mark Blakely DO Date of Discharge: 06/16/19 Discharge Diagnosis: Bronchitis, debility Hospital Course: Gem Garcia is a an 88-year-old female who presented with shortness of breath and was admitted with bronchitis and debility. Her lab and imaging evaluation did not reveal any acute abnormalities. She was evaluated by acute rehabilitation and was deemed to be a candidate for inpatient rehabilitation. She was discharged to the inpatient rehabilitation facility for ongoing therapies. Labs and Pending Lab Test: Laboratory Tests 06/15/19 18:04: Urine Color YELLOW, Urine Clarity CLEAR, Urine pH 7.0, Urine Specific [place] 1.010L, Urine Protein NEGATIVE, Urine Glucose (UA) NEGATIVE, Urine Ketones NEGATIVE, Urine Nitrite NEGATIVE, Urine Bilirubin NEGATIVE, Urine Urobilinogen 0.2, Urine Leukocyte Esterase NEGATIVE, Urine RBC (Auto) NEGATIVE, Urine RBC NONE, Urine WBC NONE, Urine Squamous Epithelial Cells 0-2, Urine Crystals NONE, Urine Bacteria TRACE, Urine Casts NONE, Urine Mucus NEGATIVE, Urine Culture Indicated CULTURE PENDING 06/16/19 04:28: White Blood Count 4.1L, Red Blood Count 3.92L, Hemoglobin 11.6, Hematocrit 36, Mean Corpuscular Volume 92, Mean Corpuscular Hemoglobin 30, Mean Corpuscular Hemoglobin Concent 32, Red Cell Distribution Width 15.2H, Platelet Count 220, Mean Platelet Volume 9.3, Neutrophils (%) (Auto) 58, Lymphocytes (%) (Auto) 23, Monocytes (%) (Auto) 15H, Eosinophils (%) (Auto) 3, Basophils (%) (Auto) 0, Neutrophils # (Auto) 2.4, Lymphocytes # (Auto) 1.0, Monocytes # (Auto) 0.6, Eosinophils # (Auto) 0.1, Basophils # (Auto) 0.0, Sodium Level 143, Potassium Level 3.0L, Chloride Level 104, Carbon Dioxide Level 26, Anion Gap 13, Blood Urea Nitrogen 14, Creatinine 1.05, Estimat Glomerular Filtration Rate 49, BUN/Creatinine Ratio 13, Glucose Level 117H, Calcium Level 9.2, Corrected Calcium 9.6, Magnesium Level 1.8, Total Bilirubin 0.4, Aspartate Amino Transf (AST/SGOT) 14, Alanine Aminotransferase (ALT/SGPT) 13, Alkaline Phosphatase 85, Total Protein 6.2L, Albumin 3.5 06/16/19 11:54: Glucometer 120H Microbiology 06/15/19 Blood Culture - Preliminary, Resulted No growth 06/15/19 Urine Culture - Final, Complete 3 or more isolates 06/15/19 Influenza Types A,B Antigen (SUSANNE) - Final, Complete Home Meds Active Reported Cefdinir 300 Mg Capsule 300 Mg PO BID FILLED 06-13-2019 #20 DAY SUPPLY Albuterol Sulfate 2.5 Mg/3 Ml Vial.neb 1 Vial NEB Q6H PRN Prednisone 20 Mg Tab 20 Mg PO DAILY D3-50 (Cholecalciferol (Vitamin D3)) 1,250 Mcg Capsule 1,250 Mcg PO FRI Potassium Chloride 10 Meq Tab.er.prt 10 Meq PO DAILY Cyanocobalamin Injection (Cyanocobalamin) 1,000 Mcg/Ml Inj 1,000 Mcg INJ MONTHLY Ocuvite Eye + Multi Tablet (Mv-Mn/FA/Vit K/Lycop/Lut/Zeaxa) 1 Each Tablet 1 Tab PO DAILY Amlodipine Besylate 5 Mg Tablet 5 Mg PO DAILY Metformin HCl 500 Mg Tablet 1,000 Mg PO DAILY TAKES 2 (500MG) TABLETS Clopidogrel (Clopidogrel Bisulfate) 75 Mg Tablet 75 Mg PO MON,WED,FRI TAKES 3 TIMES WEEKLY (MON,WED,SAT) Torsemide 20 Mg Tablet 60 Mg PO DAILY TAKES 3 (20MG) TABLETS Ventolin Hfa (Albuterol Sulfate) 18 Gm Hfa.aer.ad 2 Puff INH QID PRN Labetalol HCl 100 Mg Tablet 100 Mg PO BID Assessment/Pt Instructions Take medications as prescribed. Participate in therapies. Discharge Planning: <30 minutes discharge planning Discharge Instructions Discharge Diet: No Restrictions Activity as Tolerated: Yes Discharge Physical Examination Vital Signs Vital Signs Date Time Temp Pulse Resp B/P (MAP) Pulse Ox O2 Delivery O2 Flow Rate FiO2 06/16/19 11:16 06/16/19 08:28 90 Room Air 06/16/19 08:00 36.9 76 20 General Appearance: No Apparent Distress, Obese Respiratory: Lungs Clear, Normal Breath Sounds, No Respiratory Distress Cardiovascular: Regular Rate, Rhythm, No Edema, No Murmur Gastrointestinal: Normal Bowel Sounds, Non Tender, Soft Extremity: Normal Inspection, Non Tender, No Pedal Edema Skin: Normal Color, Warm/Dry Neurologic/Psychiatric: Alert, Oriented x3, No Motor/Sensory Deficits, Normal Mood/Affect Allergies: Coded Allergies: Penicillins (Verified Allergy, Unknown, 10/15/15) codeine (Verified Allergy, Unknown, 10/15/15) Copy Copies To 1: MARK BLAKELY DO Discharge Summary Date of Admission Jun 15, 2019 at 19:49 Date of Discharge Jun 16, 2019 at 11:25 Discharge Date: Jun 16, 2019 Discharge Time: 11:25 Admission Diagnosis Shortness of breath Discharge Diagnosis (1) Bronchitis Status: Acute (2) Debility Status: Acute Clinical Quality Measures DVT/VTE Risk/Contraindication: Risk Factor Score Per Nursin RFS Level Per Nursing on Admit: 4+=Very High KHANH SALAS MD Jun 16, 2019 17:54
== END 2019-06-16 11:25 | disposition designated cancer center or children's hospital (05) ==
LOC: EDUNIT# 17:10 → ER 17:12 → 4TH 19:49 → INTOOBSV 19:49
PROVIDERS: ADMIT Internal Medicine; ATTEND Internal Medicine
DX: J45.909 Unspecified asthma, uncomplicated (principal); J18.0 Bronchopneumonia, unspecified organism; E86.0 Dehydration; R53.81 Other malaise; G47.30 Sleep apnea, unspecified; I10 Essential (primary) hypertension; K59.09 Other constipation; M19.90 Unspecified osteoarthritis, unspecified site; E11.9 Type 2 diabetes mellitus without complications; Z88.0 Allergy status to penicillin; Z88.5 Allergy status to narcotic agent; Z79.02 Long term (current) use of antithrombotics/antiplatelets; Z79.899 Other long term (current) drug therapy; Z79.891 Long term (current) use of opiate analgesic; Z79.84 Long term (current) use of oral hypoglycemic drugs; Z90.89 Acquired absence of other organs
CPT/HCPCS: 36415; 71045; 71046; 80053; 81000; 82962; 83605; 83735; 84484; 85025; 85610; 85730; 87040; 87088; 87804; 93005; 94640; 94760; G0378

== ENCOUNTER 2019-06-16 10:41 | Inpatient (IN) | payer MEDICARE ==
[~2019-06-16] VITALS: Ht 160 cm; Wt 136.5 kg
--- NOTE | 2019-06-16 10:55 | NUR ---
AMARILYS MINAYA admitted to room 227, with an admitting diagnosis of DEBILITY, on 06/16/19 from [facility]LO[facility] via WHEELCHAIR, accompanied by THERAPY. AMARILYS MINAYA introduced to surroundings, call light, bed controls, phone, TV, temperature control, lights, meal times, smoking policy, visitor policy, side rail policy, bathrooms and showers. Patient Rights given to patient in the handbook. AMARILYS MINAYA verbalizes understanding that [facility] is not responsible for the loss or damage to any personal effects or valuables that are kept in the patient's possession during their hospitalization. The following Patient Care Plans were discussed with the PATIENT: Discharge Planning, IMPAIRED MOBILITY, HIGH RISK: IMPAIRED SKIN INTEGRITY, HIGH RISK: INJURY, RISK OF INFECTION, and KNOWLEDGE DEFICIT. AMARILYS MINAYA verbalizes understanding of Interdisciplinary Patient Education. Patient received Patient Rights Booklet, which includes Privacy Act Statement and Data Collection Information Summary.
[2019-06-16] MEDS ORDERED: guaiFENesin/CODEINE (ROBITUSSIN AC) 10ML UDC PO PRN (11:00)
[2019-06-16] MEDS ORDERED: CALCIUM CARBONATE 500 MG (TUMS) TAB.CHEW PO PRN (11:00)
[2019-06-16] MEDS ORDERED: FLEET ENEMA ADULT 1 EA BTL PR PRN (11:00)
[2019-06-16] MEDS ORDERED: ALPRAZolam 0.25 MG (XANAX) TAB PO PRN (11:00)
[2019-06-16] MEDS ORDERED: ONDANSETRON 4 MG/2 ML (SDV) Z0FRAN IV PRN (11:00)
[2019-06-16] MEDS ORDERED: LACTULOSE SYRUP 10GM/15ML (ENULOSE) 30ML UDC PO PRN (11:00)
[2019-06-16] MEDS ORDERED: DOCUSATE SODIUM 100 MG (COLACE) CAP PO PRN (11:00)
[2019-06-16] MEDS ORDERED: LOPERAMIDE 2 MG (IMODIUM) TABLET PO PRN (11:00)
[2019-06-16] MEDS ORDERED: diphenhydrAMINE 25 MG TAB (BENADRYL) PO PRN (11:00)
[2019-06-16] MEDS ORDERED: MELATONIN 3 MG TABLET PO PRN (11:00)
[2019-06-16] MEDS ORDERED: ONDANSETRON 4 MG (ZOFRAN) ORAL DISSOLVE TAB PO PRN (11:00)
[2019-06-16] MEDS ORDERED: BISACODYL 10 MG SUPP (DULCOLAX) PR PRN (11:00)
[2019-06-16] MEDS ORDERED: CHOL50005 PO (11:45)
[2019-06-16] MEDS ORDERED: POTA10TA36 PO (11:45)
--- NOTE | 2019-06-16 11:54 | NUR ---
PER YENI, 4TH FLOOR RN, DR. SALAS ORDERED 40 MEQ PO POTASSIUM (WHICH SHE GAVE) AND 40 MEQ IV POTASSIUM (WHICH SHE DIDN'T HAVE TIME TO GIVE). DR. BISHOP NOTIFIED OF ABOVE. ORDERS TO GIVE 40 MEQ IV POTASSIUM.
[2019-06-16 11:58] VITALS: BP 130/74
[2019-06-16] MEDS ORDERED: POTASSIUM CL 10MEQ/50ML IVPB 50 ML IV SCH (12:00)
[2019-06-16] MEDS ORDERED: ALBU2.5V4 NEB (12:03)
[2019-06-16] MEDS ORDERED: CEFD300C3 PO (12:03)
[2019-06-16] MEDS ORDERED: PRD20T PO (12:03)
--- NOTE | 2019-06-16 12:04 | NUR ---
PT WAS ADMITTED 06-15-2019 @2100 TO ROOM 433. MED REC WAS NOT DONE AT THAT TIME- BUT PT DID HAVE A WRITTEN MED LIST ON HER CHART. I WENT OVER THAT MED LIST AND WENT THRU THAT EXT MED HISTORY WELL CALLING DR CABALLERO OFFICE TO COMPLETE THE IRF MED REC. CLOPIDOGREL 75MG: WRITTEN ON HER MED LIST IT SAYS TO TAKE ON SATURDAY, SATURDAY AND SATURDAY HOWEVER THE PHARMACY HAD DIRECTIONS OF 1 TAB DAILY. I CALLED [facility] OFFICE AND THE NURSE LOOKED BACK THRU HIS CHART AND IN 2018 HE CHANGED THE DIRECTIONS. THE PT WAS SEEN AT URGENT CARE ON 06-13-2019 AND FILLED CEFDINIR, PREDNISONE AND ALBUTEROL NEB SOLUTION. I HAVE INCLUDED THOSE ON THE MED REC. OTC MEDS: OCUVITE
--- NOTE | 2019-06-16 12:24 | Physical Therapy Evaluation ---
PT Evaluation-General Medical Diagnosis Admission Date Jun 16, 2019 at 10:55 Medical Diagnosis: debility Onset Date: Jun 16, 2019 Therapy Diagnosis Therapy Diagnosis: weakness Height/Weight Height (Feet): 5 Height (Inches): 3.00 Weight (Pounds): 308 Weight (Ounces): 11.2 Precautions Precautions/Isolations: Standard Precautions Referral Physician: Carlos Reason for Referral: Evaluation/Treatment Medical History Pertinent Medical History: Arthritis, CAD, DM, HTN, Renal Insufficiency Current History [facility] for bronchitis and pneumonia. She has been transferred to ARU for continued medical management and skilled therapy services. Reviewed History: Yes Social History Home: Assisted Living ([facility]) Current Living Status: Alone Entry Into Home: Level Entry Prior Prior Level of Function SCALE: Activities may be completed with or without assistive devices. 8-Pwhrjugspw-bbsoqki completes the activity by him/herself with no assistance from a helper. 5-Set-up or Clean-up Assistance-helper sets up or cleans up; patient completes activity. [place] assists only prior to or following the activity. 4-Supervision or Touching Assistance-helper provides verbal cues and/or touching/steadying and/or contact guard assistance as patient completes activity. Assistance may be provided throughout the activity or intermittently. 3-Partial/Moderate Assistance-helper does LESS THAN HALF the effort. [place] lifts, holds or supports trunk or limbs, but provides less than half the effort. 2-Substantial/Maximal Assistance-helper does MORE THAN HALF the effort. [place] lifts or holds trunk or limbs and provides more than half the effort. 1-Jcyikgakg-ahhkdi does ALL the effort. Patient does none of the effort to complete the activity. Or, the assistance of 2 or more helpers is required for the patient to complete the activity. If activity was not attempted, code reason: 7-Patient Refused. 9-Not Applicable-not attempted and the patient did not perform the activity before the current illness, exacerbation or injury. 10-Not Attempted due to Environmental Limitations-(lack of equipment, weather restraints, etc.). 88-Not Attempted due to Medical Conditions or Safety Concerns. Bed Mobility: 6 Transfers (B,C,W/C): 6 Gait: 6 (Pt does not use an AD; she does have a 4WW) Stairs: 6 Indoor Mobility (Ambulation): Independent Stairs: Independent Prior Devices Use: None Pt still drives. Pt is able to walk short community distances. PT Evaluation-Current Subjective Pt agreeable to PT. Denies pain. Her primary complaint is SOA. Pain Numeric Pain Scale: 0-No Pain Location: No Pain Reported Pt/Family Goals Return to [facility] when able. Objective Patient Orientation: Person, Place, Time, Situation Attachments: IV ROM/Strength ROM Lower Extremities WFL Strength Lower Extremities B LE strength is grossly 4/5 throughout. Integumentary/Posture Integumentary Refer to nursing notes forfull assessment. Bowel Incontinence: No Bladder Incontinence: No Posture Normal and symmetrical Neuromuscular (Tone, Coordination, Reflexes) intact and without noted deficit Sensory Vision: Functional Hearing: Functional Hand Dominance: Right Sensation Right Lower Extremit: Intact Sensation Left Lower Extremity: Intact Transfers Roll Left to Right (QC): 6 Sit to Lying (QC): 6 (uses bedrail) Lying to Sitting/Side of Bed(Q: 6 (uses bedrail) Sit to Stand (QC): 5 (Supervision but no cues necessary. ) Chair/Yem-vt-Jiqyw Xfer(QC): 5 Toilet Transfer: 4 (due to low toilet) Car Transfer (QC): 5 Gait Does the Patient Walk?: Yes Mode of Locomotion: Walk Anticipated Mode of Locomotion: Walk Walk 10 feet (QC): 4 Walk 50 ft with 2 Turns(QC): 4 Walk 150 ft (QC): 4 Walking 10ft/uneven surface-QC: 4 Distance: 150 ft x 3 reps Gait Assistive Device: None Comments/Gait Description SBA with gait ; SOA noted. Wheelchair Training Does the Pt Use a Wheelchair?: No Stairs #of Steps: 1 1 Step (curb) (QC): 4 (holds onto firm object) 4 Steps (QC): 88 12 Steps (QC): 88 Balance Sitting Static: Normal Sitting Dynamic: Normal Standing Static: Normal Standing Dynamic: Normal Picking up an Object (QC): 88 Treatment Multiple sit to stand transfers and gait training ; SBA for safety. Assessment/Needs Pt presents post acute stay due to SOA; she does tire easily and requires rest breaks. Pt is SBA for safety. She will benefit from short term PT to address functional activity tolerance, safety and mobilty to allow her to return home as before. Rehab Potential: Good PT Short Term Goals Short Term Goals Time Frame: Jun 23, 2019 Walk 150 feet: 5 4 steps: 5 PT Snf Goals Snf Goals PT Snf Goals Time Frame: Jun 30, 2019 Roll Left & Right (QC): 6 Sit to Lying (QC): 6 Lying-Sitting on Side/Bed(QC): 6 Sit to Stand (QC): 6 Chair/Obp-ov-Vxcdh Xfer(QC): 6 Toilet Transfer (QC): 6 Car Transfer (QC): 6 Does the Patient Walk: Yes Walk 10 feet (QC): 6 Walk 50ft with 2 Turns (QC): 6 Walk 150 ft (QC): 6 Walking 10ft on Uneven Surface: 6 1 Step (curb) (QC): 6 4 Steps (QC): 6 12 Steps (QC): 5 Picking up an Object (QC): 9 Does the Pt use WC or Scooter?: No PT Plan Problem List Problem List: Activity Tolerance, Functional Strength, Safety, Balance, Gait, Transfer, Bed Mobility Treatment/Plan Treatment Plan: Continue Plan of Care Treatment Plan: Bed Mobility, Education, Functional Activity Lucia, Functional Strength, Group Therapy, Gait, Safety, Therapeutic Exercise, Transfers Treatment Duration: Jun 30, 2019 Frequency: At least 5 of 7 days/Wk (IRF) Estimated Hrs Per Day: 1.5 hours per day Patient and/or Family Agrees t: Yes Safety Risks/Education Patient Education: Safety Issues Teaching Recipient: Patient Teaching Methods: Discussion Response to Teaching: Reinforcement Needed Time/GCodes Time In: 1055 Time Out: 1130 Total Billed Treatment Time: 35 Total Billed Treatment visit EVM 15 FA 20 ABRIL HSU PT Jun 16, 2019 11:55
--- NOTE | 2019-06-16 12:25 | PM&R Post Admission Assessment ---
PM&R HP Date of Visit: Jun 16, 2019 Time of Visit: 12:30 History of Present Illness CC: Severe debility HPI: This is an 88yoWF known to us in inpatient rehab who was admitted to the 4th floor on observation yesterday after feeling very dehydrated and weak following an acute bronchitis episode. Workup was negative, no evidence of any pneumonia. She was continued on her Cefdinir treatment that Urgent Care had placed her on this weekend and nebulizer treatments, and gentle IV fluids so she will be assessed and sent down to rehab for further recovery since she lives in an independent cottage at [facility]. 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 Past Qtuarmb-Xkhmjg-Akkzuc Hx Past Med/Social Hx: Reviewed Nursing Past Med/Soc Hx, Reviewed and Corrections made Patient Social History Marrital Status: Employed/Student: part-time employed Alcohol Use: Denies Use Smoking Status: Never a Smoker Recent Foreign Travel: No Contact w/other who traveled: No Recent Hopitalizations: No Recent Infectious Disease Expo: No Immunizations Up To Date Date of Pneumonia Vaccine: Mar 15, 2019 Seasonal Allergies Seasonal Allergies: No Past Medical History Surgeries: Appendectomy, Eye Surgery, Gallbladder Respiratory: Asthma, COPD, Sleep Apnea Currently Using CPAP: No Currently Using BIPAP: Yes (PATIENT REPORTS BIPAP AT HS. ) Cardiac: Chronic Edema/Swelling, Hypertension Genitourinary: Renal Failure Gastrointestinal: Chronic Constipation Musculoskeletal: Arthritis, Chronic Back Pain Endocrine: Diabetes, Non-Insulin dep HEENT: Cataract, Macular Degeneration, Glaucoma History of Blood Disorders: No Adverse Reaction to Blood Baldwin: No Prior Level of Function Bed Mobility: 6 Transfers: 6 Gait: 6 (Pt does not use an AD; she does have a 4WW) Stairs: 6 Indoor Mobility (Ambulation): Independent Stairs: Independent Prior Devices Use: None Current Level of Fuctioning Roll Left to Right: 6 Sit to Lyin (uses bedrail) Lying to Sitting/Side of Bed: 6 (uses bedrail) Sit to Stand: 5 (Supervision but no cues necessary. ) Chair/Wiw-ct-Pttjz Xfer: 5 Car Transfer: 5 Does the Patient Walk: Yes Mode of Locomotion: Walk Anticipated Mode of Locomotion: Walk Walk 10 feet: 4 Walk 50 ft with 2 Turns: 4 Walk 150 ft: 4 Walking 10ft on uneven surface: 4 Gait Assistive Device: None Does the Pt Use a Wheelchair: No #of Steps: 1 1 Step (curb): 4 (holds onto firm object) 4 Steps: 88 12 Steps: 88 Picking up an Object: 88 PM&R Allergy/Meds/Data Review Allergies Coded Allergies: Penicillins (Verified Allergy, Unknown, 10/15/15) codeine (Verified Allergy, Unknown, 10/15/15) Home Medications Scheduled Amlodipine Besylate (Amlodipine Besylate), 5 MG PO DAILY, (Reported) Cefdinir (Cefdinir), 300 MG PO BID, (Reported) Cholecalciferol (Vitamin D3) (D3-50), 1,250 MCG PO FRI, (Reported) Clopidogrel Bisulfate (Clopidogrel), 75 MG PO MON,WED,FRI, (Reported) Cyanocobalamin (Cyanocobalamin Injection), 1,000 MCG INJ MONTHLY, (Reported) Labetalol HCl (Labetalol HCl), 100 MG PO BID, (Reported) Metformin HCl (Metformin HCl), 1,000 MG PO DAILY, (Reported) Mv-Mn/FA/Vit K/Lycop/Lut/Zeaxa (Ocuvite Eye + Multi Tablet), 1 TAB PO DAILY, (Reported) Potassium Chloride (Potassium Chloride), 10 MEQ PO DAILY, (Reported) Prednisone (Prednisone), 20 MG PO DAILY, (Reported) Torsemide (Torsemide), 60 MG PO DAILY, (Reported) Scheduled PRN Albuterol Sulfate (Ventolin Hfa), 2 PUFF INH QID PRN for SHORTNESS OF BREATH, (Reported) Albuterol Sulfate (Albuterol Sulfate), 1 VIAL NEB Q6H PRN for SHORTNESS OF BREATH, (Reported) Discontinued Medications Atorvastatin Calcium (Atorvastatin Calcium), 40 MG PO HS, (Reported) Discontinued Reason: No Longer Taking Benzonatate (Benzonatate), 100 MG PO Q8H PRN for COUGH, (Reported) Discontinued Reason: No Longer Taking Cholecalciferol (Vitamin D3) (D3-50), 50,000 UNITS PO WEEK, (Reported) Discontinued Reason: Duplicate Order Hydrocodone Bit/Acetaminophen (HYDROcodone/APAP 10/325 TABLET), 1 EA PO Q4H PRN for PAIN-MODERATE Discontinued Reason: No Longer Taking Ipratropium/Albuterol Sulfate (Iprat-Albut 0.5-3(2.5) mg/3 ml), 3 ML INH RTTID Discontinued Reason: Duplicate Order Loratadine (Loratadine), 10 MG PO DAILY Discontinued Reason: No Longer Taking Prednisone (Prednisone), 10 MG PO DAILY Discontinued Reason: No Longer Taking [Lidocaine 4% Patch], 1 EA TOP DAILY Discontinued Reason: No Longer Taking Current Medications Current Medications Reviewed Review of Systems Constitutional: see HPI, malaise, weakness EENTM: no symptoms reported Respiratory: no symptoms reported Cardiovascular: no symptoms reported Gastrointestinal: no symptoms reported Genitourinary: no symptoms reported Musculoskeletal: back pain, joint pain Skin: no symptoms reported Psychiatric/Neurological: Anxiety, Depressed All Other Systems Reviewed Negative Unless Noted: Yes Physical Exam Physical Exam Vital Signs Vital Signs - First Documented 06/16/19 11:58 Temp 35.4 Pulse 70 Resp 20 B/P (MAP) 130/74 Pulse Ox 94 O2 Delivery Room Air Capillary Refill : Height, Weight, BMI Height: 5'3.00" Weight: 308lbs. 11.2oz. 140.777475on; 53.32 BMI Method:Stated General Appearance: No Apparent Distress, WD/WN, Chronically ill, Obese Eyes: Bilateral Eye Normal Inspection, Bilateral Eye PERRL HEENT: PERRL/EOMI, Normal ENT Inspection, Pharynx Normal Neck: Full Range of Motion, Normal Inspection, Non Tender, Supple, Carotid Bruit Respiratory: Chest Non Tender, Lungs Clear, Normal Breath Sounds, No Accessory Muscle Use, No Respiratory Distress, Wheezing (subtle RUL) Cardiovascular: Regular Rate, Rhythm, No Edema, No Gallop, No JVD, No Murmur, Normal Peripheral Pulses Gastrointestinal: Normal Bowel Sounds, No Organomegaly, No Pulsatile Mass, Non Tender, Soft Back: Normal Inspection, No CVA Tenderness, No Vertebral Tenderness Extremity: Normal Capillary Refill, Normal Inspection, Normal Range of Motion, Non Tender, No Calf Tenderness, No Pedal Edema Neurologic/Psychiatric: Alert, Oriented x3, No Motor/Sensory Deficits, Normal 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, 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 Norm as Tested, Abnormal Gait Skin: Normal Color, Warm/Dry Lymphatic: No Adenopathy PM&R Medical Assessment & Plan REHAB/MEDICAL ASSESSMENT AND PLAN: REHAB IMPAIRMENT GROUP: Debility ETIOLOGIC DIAGNOSIS: Debility The comorbidities that impact the patients function and/or functional outcome by: Advanced age, obesity, fall risk, DM, CAD, STEPHAN REHAB PLAN: The patient is being admitted to our comprehensive inpatient rehabilitation facility and can tolerate the intensity of service consisting of at least: 180 minutes of therapy a day, 5 out of 7 days a week Rehab treatment will consist of: PT OT will focus on increasing stamina and building muscle strength and focus on fall risk prevention The patient/family has a good understanding of our discharge process and will benefit from an interdisciplinary inpatient rehabilitation program. The patient has potential to make improvement and is in need of at least two of the following multidisciplinary therapies including but not limited to physical, occupational, speech, and prosthetics and orthotics. Additionally the patient will need services from respiratory, nutritional services, wound care, psychology, etc. (Customize this to each patient). Given the patients complex condition and risk of further medical complications, rehabilitation services cannot be safely or effectively provided at a lower level of care such as a prison facility. BARRIERS TO DISCHARGE: Advanced age and lives alone in [facility] ESTIMATED LOS: 7 days DISPOSITION: AL RELEVANT CHANGES SINCE PREADMISSION SCREENING: I have compared the patients medical and functional status at the time of the preadmission screening and there are: no changes PROGNOSIS: Good REHABILITATION GOALS: 1. PT OT will focus on increasing stamina and building muscle strength and focus on fall risk prevention All the above goals were reviewed with the patient and he/she is in agreement. By signing this document, I acknowledge that I have personally performed a full physical examination on this patient within 24 hours of admission to this inpatient rehabilitation facility and have determined the patient to be able to tolerate the above course of treatment at an intensive level for a reasonable period of time. I will be completing a detailed individualized Plan of Care for this patient by day #4 of the patients stay based upon the Preadmission Screen, the Post-Admission Evaluation, and the therapy evaluations. Admission Dx/Comorbidities: (1) Dehydration ICD Codes: E86.0 - Dehydration (2) Bronchitis Status: Acute ICD Codes: J40 - Bronchitis, not specified as acute or chronic (3) Debility Status: Acute ICD Codes: R53.81 - Other malaise (4) Asthma Status: Acute ICD Codes: J45.909 - Unspecified asthma, uncomplicated (5) Debility ICD Codes: R53.81 - Other malaise (6) Constipation Status: Acute ICD Codes: K59.00 - Constipation, unspecified (7) Diabetes mellitus Status: Chronic ICD Codes: E11.9 - Type 2 diabetes mellitus without complications (8) CAD (coronary artery disease) Status: Chronic ICD Codes: I25.10 - Atherosclerotic heart disease of [place] coronary artery without angina pectoris (9) Cough Status: Acute ICD Codes: R05 - Cough (10) Hyperlipemia Status: Chronic ICD Codes: E78.5 - Hyperlipidemia, unspecified (11) Leukocytosis Status: Acute ICD Codes: D72.829 - Elevated white blood cell count, unspecified (12) Renal insufficiency Status: Acute ICD Codes: N28.9 - Disorder of kidney and ureter, unspecified (13) Weakness Status: Acute ICD Codes: R53.1 - Weakness (14) Hypertension ICD Codes: I10 - Essential (primary) hypertension (15) Pleurisy Status: Acute ICD Codes: R09.1 - Pleurisy (16) Obesity Status: Chronic ICD Codes: E66.9 - Obesity, unspecified (17) Elevated brain natriuretic peptide (BNP) level Status: Acute ICD Codes: R79.89 - Other specified abnormal findings of blood chemistry (18) STEPHAN treated with BiPAP Status: Chronic ICD Codes: G47.33 - Obstructive sleep apnea (adult) (pediatric) (19) Dehydration Status: Acute (20) PNA (pneumonia) ICD Codes: J18.9 - Pneumonia, unspecified organism Assessment/Plan Assessment and Plan Assess & Plan/Chief Complaint (1) Debility 1A) Hypokalemia 1B) Acute bronchitis (2) Constipation Status: Acute (3) Diabetes mellitus Status: Chronic (4) CAD (coronary artery disease) Status: Chronic (5) Cough Status: Acute (6) Hyperlipemia Status: Chronic (7) Leukocytosis resolved Status: Acute (8) Renal insufficiency Status: Acute (9) Weakness Status: Acute (10) Hypertension (11) Pleurisy resolved Status: Acute (12) Obesity Status: Chronic (13) Asthma Status: Acute (14) Elevated brain natriuretic peptide (BNP) level Status: Acute (15) STEPHAN treated with BiPAP Status: Chronic (16) History of coronary artery stent placement Status: Chronic Plan: Home meds IRF protocol Pain control O2 Replaced potassium ROXANA BISHOP DO Jun 16, 2019 12:24
[2019-06-16] MEDS ORDERED: RT-ALBUTEROL SULF 2.5 MG/3 ML PRE-MIX VIAL INH PRN (12:30)
[2019-06-16] MEDS ORDERED: KCL 20 MEQ TAB (K-DUR) PO SCH (13:15)
--- NOTE | 2019-06-16 14:00 | NUR ---
UNABLE TO TOLERATE IV POTASSIUM EVEN Y'D IN TO IVF. DR. BISHOP NOTIFIED WITH ORDERS TO CHANGE TO ORAL POTASSIUM- 20 MEQ PO BID X2 DAYS THEN BACK TO 10 MEQ PO DAILY.
--- NOTE | 2019-06-16 14:14 | Occupational Therapy Eval ---
OT Evaluation-General/PLF Medical Diagnosis Admission Date Jun 16, 2019 at 10:55 Medical Diagnosis: debility Onset Date: Jun 16, 2019 Therapy Diagnosis Therapy Diagnosis: impaired ADLs Height/Weight Height (Feet): 5 Height (Inches): 3.00 Weight (Pounds): 308 Weight (Ounces): 11.2 Precautions Precautions/Isolations: Fall Prevention, Standard Precautions Referral Physician: Carlos Referral Reason: Activity Tolerance, Self Care, Evaluation/Treatment, Streng thening/ROM Medical History Pertinent Medical History: Arthritis, CAD, DM, HTN, Renal Insufficiency Additional Medical History coronary stent, sleep apnea (BiPAP) Current History Pt admitted acutely on 06/15/2019, transferred to ARU on 06/16/2019 for continued medication management and skilled therapy services. Reviewed History: Yes Social History Home: Assisted Living ([facility]) Current Living Status: Alone Entry Into Home: Level Entry ADL-Prior Level of Function SCALE: Activities may be completed with or without assistive devices. 4-Fsgmmdclxt-apuhnzz completes the activity by him/herself with no assistance from a helper. 5-Set-up or Clean-up Assistance-helper sets up or cleans up; patient completes activity. [place] assists only prior to or following the activity. 4-Supervision or Touching Assistance-helper provides verbal cues and/or touching/steadying and/or contact guard assistance as patient completes activit y. Assistance may be provided throughout the activity or intermittently. 3-Partial/Moderate Assistance-helper does LESS THAN HALF the effort. [place] lifts, holds or supports trunk or limbs, but provides less than half the effort. 2-Substantial/Maximal Assistance-helper does MORE THAN HALF the effort. [place] lifts or holds trunk or limbs and provides more than half the effort. 8-Riqyzakxj-kmsrkx does ALL the effort. Patient does none of the effort to complete the activity. Or, the assistance of 2 or more helpers is required for the patient to complete the activity. If activity was not attempted, code reason: 7-Patient Refused. 9-Not Applicable-not attempted and the patient did not perform the activity before the current illness, exacerbation or injury. 10-Not Attempted due to Environmental Limitations-(lack of equipment, weather restraints, etc.). 88-Not Attempted due to Medical Conditions or Safety Concerns. ADL PLOF Comments Prior to hospitalization, pt completed bathing, dressing and laundry independently. She reports she has meals brought in so she does not have to cook, she also has someone come in to clean her house once a week. She has a walk-in, level entry shower with grab bars in it. At prior level, pt completed showers standing up. She has a shower chair but did not use prior. She does not use AD for functional mobility, but she required breaks. Pt reports being able to walk from the bedroom to the front room where she rest before continuing on. She washes dishes and leans on the counter while completing task. Self Care: Independent Functional Cognition: Independent DME/Equipment: Grab Bars, Shower OT Current Status Subjective Pt seated in recliner post PT session, agreeable to OT evaluation/treatment at this time. she did not report any pain. Mental Status/Objective Patient Orientation: Person, Place, Time, Situation Attachments: IV Current Glasses/Contacts: Yes Hearing Aids: No Dentures/Partials: No Hand Dominance: Right Upper Extremity ROM WFL, BUE shoulder flexion to approx 150 degrees, she is able to touch the back of her head with her hands. Upper Extremity Coordination WFL Upper Extremity Sensation pt denied tingling/numbness BUEs. She states the only place she has numbness is in her feet. Upper Extremity Strength grossly 4/5 MMT Other Treatments Pt seated in recliner throughout session. OT educated pt on purpose and benefits of OT, she verbalized understanding. Pt provided information about PLOF and home set up. She participated in ROM/MMT screening. Pt reports she would like to get back to be able to walk from her living facility to the main club house again where she can socialize with others at breakfast, and where the gym is also located. OT educated pt on what to expect on the rehab unit. Post OT session, pt seated in recliner, call light in reach and all needs met. Education OT Patient Education: Correct positioning, Progress toward Goal/Update tx plan, Purpose of tx/functional activities, Rehab process Teaching Recipient: Patient Teaching Methods: Discussion Response to Teaching: Verbalize Understanding OT Emulsion Coater Goals Penitentiary Goals Time Frame: Jun 30, 2019 Oral Hygiene (QC): 6 Toileting Hygiene (QC): 6 Shower/Bathe Self (QC): 6 Upper Body Dressing (QC): 6 Lower Body Dressing (QC): 6 On/Off Footwear (QC): 6 Additional Goals: 1-Demonstrate ADL Tasks, 2-Verbalize Understanding, 3- ImproveStrength/Lucia 1=Demonstrate adherence to instructed precautions during ADL tasks. 2=Patient will verbalize/demonstrate understanding of assistive devic es/modifications for ADL. 3=Patient will improve strength/tolerance for activity to enable patient to perform ADL's. OT Education/Plan Problem List/Assessment Assessment: Decreased Activ Tolerance, Decreased UE Strength, Impaired Bed Mobility, Impaired I ADL's, Impaired Self-Care Skills Discharge Recommendations Plan/Recommendations: Continue POC Treatment Plan/Plan of Care Treatment,Training & Education: Yes Patient would benefit from OT for education, treatment and training to promote independence in ADL's, mobility, safety and/or upper extremity function for ADL's. Plan of Care: ADL Retraining, Functional Mobility, Group Exercise/Act as Ind, UE Funct Exercise/Act Treatment Duration: Jun 30, 2019 Frequency: At least 5 of 7 days/Wk (IRF) Estimated Hrs Per Day: 1.5 hours per day Agreement: Yes Rehab Potential: Good Time/GCodes Start Time: 11:30 Stop Time: 12:00 Total Time Billed (hr/min): 30 Billed Treatment Time 1, EVM (20'), FA (10') CHAVEZ RIDER OT Jun 16, 2019 14:14
--- NOTE | 2019-06-16 14:26 | ST Cognitive Linguistic Eval ---
Speech Evaluation-General Medical Diagnosis debility Onset Date: Jun 16, 2019 Therapy Diagnosis Therapy Diagnosis: Cognitive-communication Referral Referring Physician: Dr. Gonzalez Reason for Referral: Evaluation/Treatment Medical History Pertinent Medical History: Arthritis, CAD, DM, HTN, Renal Insufficiency Reviewed History: Yes Social History Current Living Status: Alone Speech PLF-Current Status Prior Level of Function Patient lives in an assisted living apartment and independent with most household tasks. Subjective Patient was alert, upbeat, and cooperative for all therapy tasks. Patient repor rosendo that she was feeling good although she is tired when she stands and walks. Patient sat upright in her chair for the duration of the evaluation. Language Eval: Auditory Comprehends Simple Yes/No Ques: Functional Indent/Objects Multiple [place]: Functional Ident/Pics in Multiple [place]: Functional Follows 1-Step Commands: Functional Follows Complex Directions: Functional Follows General Conversations: Functional Language Eval: Verbal Language Completes Spontaneous Greeting: Functional Produces Auto, Serial Info: Functional Imitates Simple Words/Phrases: Functional Word Finding: Functional Requests Basic Needs: Functional States Basic Personal Info: Functional Expresses Complex Ideas: Functional Objective Cognitive Domain Attention: WNL Memory: WNL Problem Solving: Functional Executive Functions: WNL Visuospatial Skills: WNL Composite Severity Rating: WNL Clock Drawing Severity Rating: WNL Objective Formal/Standardized Tests [facility] Mental Status (UMS) Examination was administered Results The patient was administered the SLUMS and scored 28/30 which falls within normal limits of cognitive function. Oral Motor/Speech Production Within functional limits. Impression The patient is an 88-year-old female who was admitted to the [facility] s/p debility. The patient was administered the SLUMS and scored 28/30 which falls within normal limits of cognitive function. The patient does not qualify for skilled ST therapy at this time due to adequate skills in cognitive-communication and effectively communicating wants/needs. Speech Patient Assess Expression of Ideas/Wants: Expression (4) Understanding Verbal Content: Understands (4) Brief Interview-Mental Status: Yes Repetition of Three Words: Three (3) Temporal Orientation: Year: Correct (3) Temporal Orientation: Month: Accurate within 5 days(2) Temporal Orientation: Day: Correct (1) Recall : Wear to say "Sock": Yes, no cue required (2) Recall : Color: Yes, no cue required (2) Recall : Bed: Yes,after cueing (1) Memory/Recall Ability: Current season, That he or she is in a hsp/hsp unit Speech-Plan Patient/Family Goals Patient/Family Goals: Patient reports wishing to return home to her assisted living apartment and return to prior level of independence and mobility. Treatment Plan Speech Therapy Treatment Plan: Discontinue ST Treatment Duration: Jun 16, 2019 Frequency: 1 time per week Estimated Hrs Per Day: .25 hour per day Rehab Potential: Good Barriers to Learning: Current medical status Pt/Family Agrees to Plan: Yes Safety Risks/Education Teaching Recipient: Patient Teaching Methods: Demonstration, Discussion Response to Teaching: Verbalize Understanding Education Topics Provided: Evaluation tasks and cognitive areas being assessed Time Speech Therapy Time In: 14:00 Speech Therapy Time Out: 14:15 Total Billed Time: 15 Billed Treatment Time 1, LITTLE Li Jun 16, 2019 14:26
--- NOTE | 2019-06-16 14:34 | Occupational Ther Daily Note ---
OT Current Status-Daily Note Subjective Pt sitting upright in recliner at start of session, stating she had not received her lunch yet. OT notified nurse. Pt did not verbalize any pain during tx. Mental Status/Objective Patient Orientation: Normal For Age Attachments: IV ADL-Treatment Therapy Code Descriptions/Definitions Functional [place] Measure: 0=Not Assessed/NA 4=Minimal Assistance 1=Total Assistance 5=Supervision or Setup 2=Maximal Assistance 6=Modified [place] 3=Moderate Assistance 7=Complete IndependenceSCALE: Activities may be completed with or without assistive devices. 5-Cybyjfhius-jhyvved completes the activity by him/herself with no assistance from a helper. 5-Set-up or Clean-up Assistance-helper sets up or cleans up; patient completes activity. [place] assists only prior to or following the activity. 4-Supervision or Touching Assistance-helper provides verbal cues and/or touching/steadying and/or contact guard assistance as patient completes activity. Assistance may be provided throughout the activity or intermittently. 3-Partial/Moderate Assistance-helper does LESS THAN HALF the effort. [place] lifts, holds or supports trunk or limbs, but provides less than half the effort. 2-Substantial/Maximal Assistance-helper does MORE THAN HALF the effort. [place] lifts or holds trunk or limbs and provides more than half the effort. 0-Bbrckvqzz-evaaeu does ALL the effort. Patient does none of the effort to complete the activity. Or, the assistance of 2 or more helpers is required for the patient to complete the activity. If activity was not attempted, code reason: 7-Patient Refused. 9-Not Applicable-not attempted and the patient did not perform the activity bef ore the current illness, exacerbation or injury. 10-Not Attempted due to Environmental Limitations-(lack of equipment, weather r estraints, etc.). 88-Not Attempted due to Medical Conditions or Safety Concerns. Eating (QC): 6 (Pt able to cut food, and bring food to her mouth without assistance. ) Other Treatment Pt seated in recliner, stating she was still waiting on lunch. OT notified nurse who said she would check on it. OT talked with pt about plans for tx this a fternoon, pt verbalized agreement. Pt declined completing showering/dressing today, stating she had completed these tasks prior to admission to ARU. Pt's lunch arrived, and her niece came to visit. Pt visited with niece as she ate her meal, instructing her niece on items she needs from her house as well as the steps to get into her house. After pt ate, she completed BUE exercises all planes x15 reps each, with rest breaks between exercises. Post OT session, nursing present talking to pt, pt seated upright in recliner, call light in reach and all needs met. Education OT Patient Education: Correct positioning, Energy conservation, Exercise program, Modified ADL techniques, Progress toward Goal/Update tx plan, Purpose of tx/functional activities, Rehab process Teaching Recipient: Patient Teaching Methods: Discussion Response to Teaching: Verbalize Understanding OT Hotel Attendant Goals Group Home Goals Time Frame: Jun 30, 2019 Oral Hygiene (QC): 6 Toileting Hygiene (QC): 6 Shower/Bathe Self (QC): 6 Upper Body Dressing (QC): 6 Lower Body Dressing (QC): 6 On/Off Footwear (QC): 6 Additional Goals: 1-Demonstrate ADL Tasks, 2-Verbalize Understanding, 3- ImproveStrength/Lucia 1=Demonstrate adherence to instructed precautions during ADL tasks. 2=Patient will verbalize/demonstrate understanding of assistive devices/modifications for ADL. 3=Patient will improve strength/tolerance for activity to enable patient to perform ADL's. OT Education/Plan Problem List/Assessment Assessment: Decreased Activ Tolerance, Decreased UE Strength, Impaired I ADL's, Impaired Self-Care Skills Discharge Recommendations Plan/Recommendations: Continue POC Treatment Plan/Plan of Care Patient would benefit from OT for education, treatment and training to promote independence in ADL's, mobility, safety and/or upper extremity function for ADL's. Plan of Care: ADL Retraining, Functional Mobility, Group Exercise/Act as Ind, UE Funct Exercise/Act Treatment Duration: Jun 30, 2019 Frequency: At least 5 of 7 days/Wk (IRF) Estimated Hrs Per Day: 1.5 hours per day Agreement: Yes Rehab Potential: Good Time/GCodes Start Time: 12:55 Stop Time: 13:55 Total Time Billed (hr/min): 60 Billed Treatment Time 1, ADL 2 (30'), EX 2 (30') CHAVEZ RIDER OT Jun 16, 2019 14:34
--- NOTE | 2019-06-16 14:52 | NUR ---
PATIENT ASKING FAMILY TO BRING VITAMIN D3 AND OCUVITE FROM HOME.
[2019-06-16] MEDS ORDERED: PATIENT MAY USE OWN MED,SINGLE MED PO SCH (15:30)
[2019-06-16] MEDS: inSUlin ASPART (NovoLOG) 1 UNIT/0.01 ML (CHARGE PER UNIT) SC SCH ×2 (16:07→21:27)
--- NOTE | 2019-06-16 16:26 | Physical Therapy Daily Note ---
PT Daily Note-Current Subjective Pt is sitting in recliner upon arrival. Pt reports feeling better than previous days. Pt agrees to PT. Pain Location: No Pain Reported Mental Status Patient Orientation: Person, Place, Situation Transfers SCALE: Activities may be completed with or without assistive devices. 2-Vbyflmskxv-ljpzsna completes the activity by him/herself with no assistance from a helper. 5-Set-up or Clean-up Assistance-helper sets up or cleans up; patient completes activity. [place] assists only prior to or following the activity. 4-Supervision or Touching Assistance-helper provides verbal cues and/or touching/steadying and/or contact guard assistance as patient completes activity. Assistance may be provided throughout the activity or intermittently. 3-Partial/Moderate Assistance-helper does LESS THAN HALF the effort. [place] lifts, holds or supports trunk or limbs, but provides less than half the effort. 2-Substantial/Maximal Assistance-helper does MORE THAN HALF the effort. [place] lifts or holds trunk or limbs and provides more than half the effort. 6-Islltozth-rrmnzf does ALL the effort. Patient does none of the effort to complete the activity. Or, the assistance of 2 or more helpers is required for the patient to complete the activity. If activity was not attempted, code reason: 7-Patient Refused. 9-Not Applicable-not attempted and the patient did not perform the activity before the current illness, exacerbation or injury. 10-Not Attempted due to Environmental Limitations-(lack of equipment, weather restraints, etc.). 88-Not Attempted due to Medical Conditions or Safety Concerns. Weight Bearing Right Lower Extremity: Right Full Weight Bearing Left Lower Extremity: Left Full Weight Bearing Gait Training Does the Patient Walk?: Yes Distance: 175' x2 Walk 10 feet (QC): 5 Walk 50 ft with 2 Turns(QC): 5 Walk 150 ft (QC): 5 Gait Persons Needed: 1 Gait Assistive Device: None Pt fatigues at times and takes standing RB as needed during ambulation. Wheelchair Training Does the Pt Use a Wheelchair?: No Exercises NuStep Minutes: 10 NuStep Workload: 3 Treatments Pt discusses improvements pt is feeling with health and how long/expectations of ARU stay. Pt transfers from recliner to standing and ambulates in hallway, resting as needed. Pt completes Seated EX as well as NuStep for 10m at WL 3. Pt quickly returns to room when she sees daughter has brought clothes & medications that was requested by Nursing. Pt resting in recliner with all needs met, call light in hand. Assessment Current Status: Fair Progress Pt is preoccupied with receiving clothes when daughter returned. Pt is able to tolerate Rx well, only limited by activity tolerance & occasional SOA at this time. PT Short Term Goals Short Term Goals Time Frame: Jun 23, 2019 Walk 150 feet: 5 4 steps: 5 PT Contact Center Manager Goals Contact Center Manager Goals PT Contact Center Manager Goals Time Frame: Jun 30, 2019 Roll Left & Right (QC): 6 Sit to Lying (QC): 6 Lying-Sitting on Side/Bed(QC): 6 Sit to Stand (QC): 6 Chair/Esq-ry-Ptwop Xfer(QC): 6 Toilet Transfer (QC): 6 Car Transfer (QC): 6 Does the Patient Walk: Yes Walk 10 feet (QC): 6 Walk 50ft with 2 Turns (QC): 6 Walk 150 ft (QC): 6 Walking 10ft on Uneven Surface: 6 1 Step (curb) (QC): 6 4 Steps (QC): 6 12 Steps (QC): 5 Picking up an Object (QC): 9 Does the Pt use WC or Scooter?: No PT Plan Problem List Problem List: Activity Tolerance, Safety, Gait Treatment/Plan Treatment Plan: Continue Plan of Care Treatment Plan: Bed Mobility, Education, Functional Activity Lucia, Functional Strength, Group Therapy, Gait, Safety, Therapeutic Exercise, Transfers Treatment Duration: Jun 30, 2019 Frequency: At least 5 of 7 days/Wk (IRF) Estimated Hrs Per Day: 1.5 hours per day Patient and/or Family Agrees t: Yes Safety Risks/Education Patient Education: Gait Training, Transfer Techniques, Correct Positioning, Safety Issues Teaching Recipient: Patient Teaching Methods: Discussion Response to Teaching: Verbalize Understanding Time/GCodes Time In: 1435 Time Out: 1515 Total Billed Treatment Time: 40 Total Billed Treatment 1, GT (10m), EX (20m) & FA (10m) LENY HAJI PART MAKER Jun 16, 2019 16:26
[2019-06-16 16:29] VITALS: BP 132/56
[2019-06-16] MEDS: KCL 20 MEQ TAB (K-DUR) PO SCH (17:36)
[2019-06-16] MEDS: CEFDINIR 300 MG (OMNICEF) CAP PO SCH (20:39)
[2019-06-16] MEDS: LABETALOL 200 MG (NORMODYNE) TAB PO SCH (20:39)
[2019-06-16] MEDS: SENNA W/DOCUSATE (SENOKOT S) TABLET PO SCH (20:39)
[2019-06-16] MEDS: RT-ALBUTEROL SULF 2.5 MG/3 ML PRE-MIX VIAL IH PRN (20:45)
[2019-06-16] MEDS ORDERED: NON-FORMULARY MEDICATION 1 EA EA (Labetalol HCl 100 MG) PO SCH (21:00)
[2019-06-16] MEDS: polyethylene glycoL POWDER 17 GM (MIRALAX) PACK PO SCH (21:27)
[2019-06-16] MEDS: DOCUSATE SODIUM 100 MG (COLACE) CAP PO SCH (21:27)
[2019-06-16] MEDS: ENOXAPARIN 60 MG/0.6 ML (LOVENOX) SYR SC SCH (22:00)
[2019-06-17 06:00] VITALS: BP 149/74
[2019-06-17] MEDS: predniSONE 20 MG TAB PO SCH (06:03)
[2019-06-17] MEDS: metFORMIN 500 MG (GLUCOPHAGE) TAB PO SCH (06:03)
[2019-06-17] MEDS: KCL 20 MEQ TAB (K-DUR) PO SCH ×2 (06:03→17:20)
[2019-06-17] MEDS: OCUVITE PO SCH (06:18)
[2019-06-17 06:34] LABS: BASOPHILS % (AUTO) 0 % (0-10); EOSINOPHILS # (AUTO) 0.1 10^3/uL (0.0-0.3); EOSINOPHILS % (AUTO) 3 % (0-10); HEMATOCRIT 35 % (35-52); HEMOGLOBIN 11.1 G/DL (11.5-16.0); LYMPHOCYTES # (AUTO) 1.4 X 10^3 (1.0-4.0); LYMPHOCYTES % (AUTO) 38 % (12-44); MEAN CORPUSCULAR HEMOGLOBIN 29 PG (25-34); MEAN CORPUSCULAR HGB CONC 32 G/DL (32-36); MEAN CORPUSCULAR VOLUME 93 FL (80-99); MEAN PLATELET VOLUME 9.4 FL (7.4-10.4); MONOCYTES # (AUTO) 0.5 X 10^3 (0.0-1.0); MONOCYTES % (AUTO) 12 % (0-12); NEUTROPHILS # (AUTO) 1.8 X 10^3 (1.8-7.8); NEUTROPHILS % (AUTO) 47 % (42-75); PLATELET COUNT 211 10^3/uL (130-400); RED CELL DISTRIBUTION WIDTH 15.3 % (10.0-14.5); WHITE BLOOD COUNT 3.8 10^3/uL (4.3-11.0)
[2019-06-17 06:57] LABS: ALBUMIN 3.4 GM/DL (3.2-4.5); BILIRUBIN,TOTAL 0.3 MG/DL (0.1-1.0); CALCIUM 9.4 MG/DL (8.5-10.1); CREATININE SERUM 1.06 MG/DL (0.60-1.30); POTASSIUM 3.7 MMOL/L (3.6-5.0); TOTAL PROTEIN 6.2 GM/DL (6.4-8.2)
[2019-06-17] MEDS: inSUlin ASPART (NovoLOG) 1 UNIT/0.01 ML (CHARGE PER UNIT) SC SCH ×4 (06:59→21:21)
[2019-06-17] MEDS ORDERED: KCL 10 MEQ TAB (MICRO K) PO SCH (07:00)
--- NOTE | 2019-06-17 08:12 | Individualized Plan of Care ---
Individualized Plan of Care Rehab Nursing IPOC Order Admission Date Jun 16, 2019 at 10:55 Current Orders Orders Admission Order(Inpt,Obs,Sdc) (06/16/19 10:53) Vital Signs: Per Unit Policy ( 08,16,00 (06/16/19 10:53) Flying Teacher-Inpt Rehab Con (06/16/19 10:53) Rehab Nursing Orders-Ipoc (06/16/19 10:53) Physical Therapy Rehab Orders (06/16/19 10:53) Occupational Therapy Rehab Ord (06/16/19 10:53) Speech Therapy Rehab Orders (06/16/19 10:53) Cbc With Automated Diff (06/17/19 06:00) Comprehensive Metabolic Panel (06/17/19 06:00) General/Regular (06/16/19 Dinner) Intake & Output 06,14,22 (06/16/19 10:53) Precautions (Aru) (06/16/19 10:53) Weekly Weight WEEK (06/16/19 10:53) Rehab-Intensity Of Therapy (06/16/19 10:53) Initiate Admission Nursing Pro .admission (06/16/19 10:53) Alprazolam Tablet (Xanax Tablet) (06/16/19 11:00) Calcium Carbonate Chew Tablet (Antacid C (06/16/19 11:00) Diphenhydramine Tablet (Benadryl Tablet) (06/16/19 11:00) Docusate Sodium Capsule (Colace Capsule) (06/16/19 21:00) Docusate Sodium Capsule (Colace Capsule) (06/16/19 11:00) Bisacodyl Suppository (Dulcolax Supposit (06/16/19 11:00) Lactulose Oral Solution (Enulose Oral So (06/16/19 11:00) Na Phos/Na Biphos Enema (Fleet Enema Memo (06/16/19 11:00) Guaifenesin/Codeine Syrup (Robitussin Ac (06/16/19 11:00) Loperamide Tablet (Imodium Tablet) (06/16/19 11:00) Melatonin Tablet (Melatonin Tablet) (06/16/19 11:00) Polyethylene Glycol Powder Pkt (Miralax (06/16/19 21:00) Ondansetron Injection (Zofran Injectio (06/16/19 11:00) Ondansetron Oral Dissolve Tab (Zofran (06/16/19 11:00) Senna S Tablet (Senokot S Tablet) (06/16/19 21:00) Initiate Admission Nursing Pro .admission (06/16/19 10:53) Admission Arrival Bed Request (06/16/19 10:55) Admission Arrival Bed Request (06/16/19 11:28) Enoxaparin Injection (Lovenox Injection) (06/16/19 22:00) Potassium Cl 10meq/50ml Ivpb (Kcl 10 Meq (06/16/19 12:00) Accucheck Achs ACHS (06/16/19 11:58) Albuterol Pre-Mix Nebs (Rt) (Proventil (06/16/19 12:30) Albuterol Pre-Mix Nebs (Rt) (Proventil (06/16/19 12:30) Amlodipine Tablet (Norvasc Tablet) (06/17/19 09:00) Cefdinir Capsule (Omnicef Capsule) (06/16/19 21:00) Clopidogrel Tablet (Plavix Tablet) (06/17/19 09:00) Metformin Tablet (Glucophage Tablet) (06/17/19 07:00) Prednisone Tablet (Deltasone Tablet) (06/17/19 07:00) Torsemide Tablet (Demadex Tablet) (06/17/19 09:00) (Nf) Labetalol Hcl (06/16/19 21:00) (Nf) Mv-Mn/Fa/Vit K/Lycop/Lut/Zeaxa (Ocu (06/17/19 07:00) (Nf) Potassium Chloride (06/17/19 09:00) Svn Small Volume Nebulizer (06/16/19 12:21) Potassium Chloride (Tablet) (Klor Con Ta (06/17/19 07:00) Labetalol Tablet (Normodyne Tablet) (06/16/19 21:00) Cho 60g/M 3snack (16-2000 Hunter) (06/16/19 Lunch) Potassium Chloride (Tablet) (K Dur Table (06/16/19 13:15) Potassium Chloride (Tablet) (Klor Con Ta (06/18/19 07:00) Code/Resuscitation (06/16/19 13:32) Patient Visit (06/16/19 ) Pt Eval Moderate Complexity (06/16/19 ) Functional Activities, Ea 15 (06/16/19 ) Potassium Chloride (Tablet) (K Dur Table (06/16/19 17:00) Ambulate 08,12,20 (06/16/19 14:13) Sequential Compression Device Q4H (06/16/19 14:13) Dvt/Vte Risk - Notifiy Physici Q4H (06/16/19 14:13) Guaifenesin/Dm Syrup (Robitussin Dm Syru (06/16/19 14:45) Cyanocobalamin Injection (Vitamin B-12 I (07/12/19 09:00) Insulin Aspart (Novolog) (Novolog (Charg (06/16/19 16:00) Patient May Use Own Med,Single (Patient (06/16/19 15:30) Patient Visit (06/16/19 ) Gait Training, Ea 15 Min (06/16/19 ) Exercise Therap, Ea 15 Min (06/16/19 ) Functional Activities, Ea 15 (06/16/19 ) Patient Visit (06/16/19 ) Speech Sound Lang Comp (06/16/19 ) (Nf) Cholecalciferol (Vitamin D3) (D3-50 (06/19/19 09:00) Patient Visit (06/17/19 ) Gait Training, Ea 15 Min (06/17/19 ) Functional Activities, Ea 15 (06/17/19 ) Exercise Therap, Ea 15 Min (06/17/19 ) Patient Visit (06/17/19 ) Rehab Nursing Orders: Ongoing Assess. of Cognitive Status, Ongoing Assess. of Function Status, Bladder Management, Bladder Scan, Bladder Training, Bowel Management, Bowel Training, Disease Management & Educaiton, DVT Prophylaxis, Fall Prevention, Fluid/Electrolyte/Nutrition Mgmt, Infection Prevention, Medication Management & Education, Management of Risks & Complications, Nutrition Management, Pain Management, Patient/Family Support, Safety Management, Swallow Precautions Intensity of Therapy to be met Patient to be seen: Min.3h per day/5 of 7d PT IPOC Problem List: Activity Tolerance, Safety, Gait Treatment Plan: Continue Plan of Care Bed Mobility, Education, Functional Activity Lucia, Functional Strength, Group Therapy, Gait, Safety, Therapeutic Exercise, Transfers Treatment Duration: Jun 30, 2019 Frequency: At least 5 of 7 days/Wk (IRF) Estimated Hrs Per Day: 1.5 hours per day OT IPOC Problems: Decreased Activ Tolerance, Decreased UE Strength, Impaired I ADL's, Impaired Self-Care Skills OT Treatment, Training and Edu: Yes Plan of Care: ADL Retraining, Functional Mobility, Group Exercise/Act as Ind, UE Funct Exercise/Act Treatment Duration: Jun 30, 2019 Frequency: At least 5 of 7 days/Wk (IRF) Estimated Hrs Per Day: 1.[address] IPOC Speech Therapy Treatment Plan: Discontinue ST Treatment Duration: Jun 16, 2019 Frequency: 1 time per week Estimated Hrs Per Day: .25 hour per day Flying Teacher/Case Mgmt Flying Teacher/Case Managemen: Discharge Planning Dietitian/Clinic Clerk Dietitian/Clinic Clerk to monitor nutritional status and make changes and/or recommendations as needed and work with speech pathology on dietary upgrades as the occur. Physician IPOC Medical Issues being managed closely and that require the 24 hour availability of a physician: Advanced age with pulmonary issues at high risk for respiratory decompensation Medical Issues: Bowel/Bladder Function, DVT Prophylaxis, Falls Precautions, Fluid/Electrolyte/Nutrition Balance, Infection Protection, Pain Management Brief Synthesis of Preadmission Screen, Post-Admission Evaluation, and Therapy Evaluations: PT OT will focus on increasing stamina and preventing falls when DC home Medical Prognosis: Good Anticipated Length of Stay: 7 days ROXANA BISHOP DO Jun 17, 2019 08:12
--- NOTE | 2019-06-17 08:12 | PM&R Progress Note ---
Subjective HPI/CC On Admission Date Seen by Provider: Jun 17, 2019 Time Seen by Provider: 08:30 Subjective/Events-last exam Pt doing very well. Has some room for some modification and strengthening but overall doing very well. Bowels will move after laxatives given she says. Checked meds and labs. Reviewed therapy notes. Conferred with RN. Review of Systems General: Fatigue Neurological: Weakness, Numbness, Incoordination Objective Exam Vital Signs Vital Signs Date Time Temp Pulse Resp B/P (MAP) Pulse Ox O2 Delivery O2 Flow Rate FiO2 06/18/19 06:00 35.8 59 18 137/69 (91) 95 Room Air Capillary Refill : Less Than 3 Seconds General Appearance: No Apparent Distress, WD/WN, Chronically ill, Obese HEENT: PERRL/EOMI, Normal ENT Inspection, Pharynx Normal Neck: Full Range of Motion, Normal Inspection, Non Tender, Supple, Carotid Bruit Respiratory: Chest Non Tender, Lungs Clear, Normal Breath Sounds, No Accessory Muscle Use, No Respiratory Distress, Wheezing (subtle RUL) Cardiovascular: Regular Rate, Rhythm, No Edema, No Gallop, No JVD, No Murmur, Normal Peripheral Pulses Gastrointestinal: Normal Bowel Sounds, No Organomegaly, No Pulsatile Mass, Non Tender, Soft Back: Normal Inspection, No CVA Tenderness, No Vertebral Tenderness Extremity: Normal Capillary Refill, Normal Inspection, Normal Range of Motion, Non Tender, No Calf Tenderness, No Pedal Edema Neurologic/Psychiatric: Alert, Oriented x3, No Motor/Sensory Deficits, Normal Mood/Affect, it infrastructure manager II-XII Norm as Tested, Abnormal Gait Skin: Normal Color, Warm/Dry Lymphatic: No Adenopathy Results/Procedures Lab Patient resulted labs reviewed. FIM Transfers Therapy Code Descriptions/Definitions Functional [place] Measure: 0=Not Assessed/NA 4=Minimal Assistance 1=Total Assistance 5=Supervision or Setup 2=Maximal Assistance 6=Modified [place] 3=Moderate Assistance 7=Complete IndependenceSCALE: Activities may be completed with or without assistive devices. 8-Iozgrqrqio-oxcaoon completes the activity by him/herself with no assistance from a helper. 5-Set-up or Clean-up Assistance-helper sets up or cleans up; patient completes activity. [place] assists only prior to or following the activity. 4-Supervision or Touching Assistance-helper provides verbal cues and/or touching/steadying and/or contact guard assistance as patient completes activity . Assistance may be provided throughout the activity or intermittently. 3-Partial/Moderate Assistance-helper does LESS THAN HALF the effort. [place] lifts, holds or supports trunk or limbs, but provides less than half the effort. 2-Substantial/Maximal Assistance-helper does MORE THAN HALF the effort. [place] lifts or holds trunk or limbs and provides more than half the effort. 2-Cvdpifeuu-cwumau does ALL the effort. Patient does none of the effort to complete the activity. Or, the assistance of 2 or more helpers is required for the patient to complete the activity. If activity was not attempted, code reason: 7-Patient Refused. 9-Not Applicable-not attempted and the patient did not perform the activity before the current illness, exacerbation or injury. 10-Not Attempted due to Environmental Limitations-(lack of equipment, weather restraints, etc.). 88-Not Attempted due to Medical Conditions or Safety Concerns. Roll Left to Right (QC): 6 Sit to Lying (QC): 6 (uses bedrail) Sit to Stand (QC): 5 (Supervision but no cues necessary. ) Chair/Qip-vo-Yswwq Xfer(QC): 5 Car Transfer (QC): 5 Gait Training Does the Patient Walk?: Yes Distance: 175' x2 Walk 10 feet (QC): 5 Walk 50 ft with 2 Turns(QC): 5 Walk 150 ft (QC): 5 Walking 10ft/uneven surface-QC: 4 Gait Persons Needed: 1 Gait Assistive Device: None Wheelchair Training Does the Pt Use a Wheelchair?: No Stair Training #of Steps: 1 1 Step (curb) (QC): 4 (holds onto firm object) 4 Steps (QC): 88 12 Steps (QC): 88 Balance Picking up an Object (QC): 88 ADL-Treatment Eating (QC): 6 (Pt able to cut food, and bring food to her mouth without assistance. ) Assessment/Plan Assessment and Plan Assess & Plan/Chief Complaint (1) Debility 1A) Hypokalemia 1B) Acute bronchitis (2) Constipation Status: Acute (3) Diabetes mellitus Status: Chronic (4) CAD (coronary artery disease) Status: Chronic (5) Cough Status: Acute (6) Hyperlipemia Status: Chronic (7) Leukocytosis resolved Status: Acute (8) Renal insufficiency Status: Acute (9) Weakness Status: Acute (10) Hypertension (11) Pleurisy resolved Status: Acute (12) Obesity Status: Chronic (13) Asthma Status: Acute (14) Elevated brain natriuretic peptide (BNP) level Status: Acute (15) STEPHAN treated with BiPAP Status: Chronic (16) History of coronary artery stent placement Status: Chronic Plan: Home meds IRF protocol Pain control O2 Replaced potassium (1) Dehydration (2) Bronchitis Status: Acute (3) Debility Status: Acute (4) Asthma Status: Acute (5) Debility (6) Constipation Status: Acute (7) Diabetes mellitus Status: Chronic (8) CAD (coronary artery disease) Status: Chronic (9) Cough Status: Acute (10) Hyperlipemia Status: Chronic (11) Leukocytosis Status: Acute (12) Renal insufficiency Status: Acute (13) Weakness Status: Acute (14) Hypertension (15) Pleurisy Status: Acute (16) Obesity Status: Chronic (17) Elevated brain natriuretic peptide (BNP) level Status: Acute (18) STEPHAN treated with BiPAP Status: Chronic (19) Dehydration Status: Acute (20) PNA (pneumonia) ROXANA BISHOP DO Jun 17, 2019 08:12
--- NOTE | 2019-06-17 08:53 | Occupational Ther Daily Note ---
OT Current Status-Daily Note Subjective Pt seated upright in recliner at start of session, agreeable to OT tx with focus on ADLs. She denied having any pain. Pain Numeric Pain Scale: 0-No Pain Mental Status/Objective Patient Orientation: Normal For Age ADL-Treatment Therapy Code Descriptions/Definitions Functional [place] Measure: 0=Not Assessed/NA 4=Minimal Assistance 1=Total Assistance 5=Supervision or Setup 2=Maximal Assistance 6=Modified [place] 3=Moderate Assistance 7=Complete IndependenceSCALE: Activities may be completed with or without assistive devices. 0-Kusslayjxz-jpexzfp completes the activity by him/herself with no assistance from a helper. 5-Set-up or Clean-up Assistance-helper sets up or cleans up; patient completes activity. [place] assists only prior to or following the activity. 4-Supervision or Touching Assistance-helper provides verbal cues and/or touching/steadying and/or contact guard assistance as patient completes activity. Assistance may be provided throughout the activity or intermittently. 3-Partial/Moderate Assistance-helper does LESS THAN HALF the effort. [place] lifts, holds or supports trunk or limbs, but provides less than half the effort. 2-Substantial/Maximal Assistance-helper does MORE THAN HALF the effort. [place] lifts or holds trunk or limbs and provides more than half the effort. 8-Vtufuhuvr-hpktjh does ALL the effort. Patient does none of the effort to co mplete the activity. Or, the assistance of 2 or more helpers is required for the patient to complete the activity. If activity was not attempted, code reason: 7-Patient Refused. 9-Not Applicable-not attempted and the patient did not perform the activity before the current illness, exacerbation or injury. 10-Not Attempted due to Environmental Limitations-(lack of equipment, weather restraints, etc.). 88-Not Attempted due to Medical Conditions or Safety Concerns. Eating (QC): 6 (Per pt report she was able to open all containers and eat breakfast independently. ) Oral Hygiene (QC): 4 (SBA standing at sink, no AD) Shower/Bathe Self (QC): 4 (SBA during stand.) Upper Body Dressing (QC): 5 (Set up assist) Lower Body Dressing (QC): 4 (SBA during stand.) On/Off Footwear: 2 (Pt able to kick off flip flops, required total assistance donning slipper socks. She reports she usually wears flip flops at home.) Toileting Hygiene (QC): 4 (SBA during stand for clothing management) Toilet Transfer (QC): 4 (SBA on/off of toilet) Other Treatment Pt gathered clothing and brought it to the bathroom with SBA during functional mobility, no AD. She then completed toileting, bathing and dressing. Pt stood at sink to brush her teeth, then sat in a chair to put on her make up and fix her hair. OT educated pt on energy conservation with tasks, encouraging pt to take rest breaks as needed and to sit during tasks as she is able to. Pt verbalized understanding, stating she usually sits down at home as she does her hair. Pt then performed functional mobility from bedroom to therapy gym with SBA. In order to increase functional endurance and UE strengthening, pt completed arm bike x15 mins, min resistance. Pt took a rest break before returning to her room. Post OT session, pt seated upright in recliner, call light in reach and all needs met. Education OT Patient Education: Correct positioning, Energy conservation, Exercise program, Modified ADL techniques, Progress toward Goal/Update tx plan, Purpose of tx/functional activities Teaching Recipient: Patient Teaching Methods: Discussion Response to Teaching: Verbalize Understanding OT Mixer Operator Vacuum Pan Salt Goals Intermediate Goals Time Frame: Jun 30, 2019 Oral Hygiene (QC): 6 Toileting Hygiene (QC): 6 Shower/Bathe Self (QC): 6 Upper Body Dressing (QC): 6 Lower Body Dressing (QC): 6 On/Off Footwear (QC): 6 Additional Goals: 1-Demonstrate ADL Tasks, 2-Verbalize Understanding, 3- ImproveStrength/Lucia 1=Demonstrate adherence to instructed precautions during ADL tasks. 2=Patient will verbalize/demonstrate understanding of assistive devices/modifications for ADL. 3=Patient will improve strength/tolerance for activity to enable patient to perform ADL's. OT Education/Plan Problem List/Assessment Assessment: Decreased Activ Tolerance, Decreased UE Strength, Impaired I ADL's, Impaired Self-Care Skills Discharge Recommendations Plan/Recommendations: Continue POC Treatment Plan/Plan of Care Patient would benefit from OT for education, treatment and training to promote independence in ADL's, mobility, safety and/or upper extremity function for ADL's. Plan of Care: ADL Retraining, Functional Mobility, Group Exercise/Act as Ind, UE Funct Exercise/Act Treatment Duration: Jun 30, 2019 Frequency: At least 5 of 7 days/Wk (IRF) Estimated Hrs Per Day: 1.5 hours per day Agreement: Yes Rehab Potential: Good Time/GCodes Start Time: 08:00 Stop Time: 09:00 Total Time Billed (hr/min): 60 Billed Treatment Time 1, ADL 3 (45'), EX (15') CHAVEZ RIDER OT Jun 17, 2019 08:53
[2019-06-17] MEDS ORDERED: NON-FORMULARY MEDICATION 1 EA EA (Potassium Chloride 10 MEQ) PO SCH (09:00)
[2019-06-17] MEDS: DOCUSATE SODIUM 100 MG (COLACE) CAP PO SCH ×2 (10:00→21:18)
[2019-06-17] MEDS: TORSEMIDE 20 MG (DEMADEX) TAB PO SCH (10:01)
[2019-06-17] MEDS: LABETALOL 200 MG (NORMODYNE) TAB PO SCH ×2 (10:01→21:19)
[2019-06-17] MEDS: CLOPIDOGREL 75 MG (PLAVIX) TABLET PO SCH (10:02)
[2019-06-17] MEDS: CEFDINIR 300 MG (OMNICEF) CAP PO SCH ×2 (10:02→21:20)
[2019-06-17] MEDS: amLODIPine 5 MG (NORVASC) TAB PO SCH (10:02)
[2019-06-17] MEDS: ENOXAPARIN 60 MG/0.6 ML (LOVENOX) SYR SC SCH ×2 (10:03→21:20)
[2019-06-17] MEDS: SENNA W/DOCUSATE (SENOKOT S) TABLET PO SCH ×2 (10:03→21:20)
[2019-06-17] MEDS: polyethylene glycoL POWDER 17 GM (MIRALAX) PACK PO SCH ×2 (10:04→21:18)
--- NOTE | 2019-06-17 11:01 | Physical Therapy Daily Note ---
PT Daily Note-Current Subjective Pt. agrees to Rx and states she is doing better and hopes to go home on Sat. Shares that she sleeps in a recliner and that supine makes her too SOB Pain Location: No Pain Reported Mental Status Patient Orientation: Normal For Age Transfers SCALE: Activities may be completed with or without assistive devices. 4-Aippgzmegr-rulrwws completes the activity by him/herself with no assistance from a helper. 5-Set-up or Clean-up Assistance-helper sets up or cleans up; patient completes activity. [place] assists only prior to or following the activity. 4-Supervision or Touching Assistance-helper provides verbal cues and/or touching/steadying and/or contact guard assistance as patient completes activity. Assistance may be provided throughout the activity or intermittently. 3-Partial/Moderate Assistance-helper does LESS THAN HALF the effort. [place] lifts, holds or supports trunk or limbs, but provides less than half the effort. 2-Substantial/Maximal Assistance-helper does MORE THAN HALF the effort. [place] lifts or holds trunk or limbs and provides more than half the effort. 4-Iqnxzghie-wbdmyo does ALL the effort. Patient does none of the effort to complete the activity. Or, the assistance of 2 or more helpers is required for the patient to complete the activity. If activity was not attempted, code reason: 7-Patient Refused. 9-Not Applicable-not attempted and the patient did not perform the activity before the current illness, exacerbation or injury. 10-Not Attempted due to Environmental Limitations-(lack of equipment, weather restraints, etc.). 88-Not Attempted due to Medical Conditions or Safety Concerns. Roll Left & Right (QC): 6 Sit to Lying (QC): 6 Lying to Sitting/Side of Bed(Q: 6 Sit to Stand (QC): 6 Chair/Mnf-og-Uxnml Xfer(QC): 6 Toilet Transfer (QC): 6 up ad patricia Weight Bearing Right Lower Extremity: Right Full Weight Bearing Left Lower Extremity: Left Full Weight Bearing Gait Training Does the Patient Walk?: Yes Walk 10 feet (QC): 6 Walk 50 ft with 2 Turns(QC): 6 Walk 150 ft (QC): 6 Gait Persons Needed: 0 Gait Assistive Device: None pt. ambulated with no device with min SOB and needs some rest breaks but no LOB, this HOSPICE HOME HEALTH AIDE okd pt. for up ad patricia status Stair Training Stair Training: Handrails/: 2 handrails #of Steps: 4 1 Step (curb) (QC): 6 4 Steps (QC): 6 Stairs: Pattern: Reciprocal Exercises Supine Ex: Ankle pumps, Rolling Supine Reps: 8 Seated Therapy Exercises: Ankle pumps, Sit to stand, Long arc quads, Hip flexion, Hip abd/add Seated Reps: 15 Standing: Hip Abduction, Hamstring curls, Heel/toe raises, Marching, Mini squats, Sit to Stand Standing Reps: 15 pt. cannot tolerate supine exercises, becomes SOB quickly NuStep Minutes: 10 NuStep Workload: 1 Assessment Current Status: Good Progress PT Short Term Goals Short Term Goals Time Frame: Jun 23, 2019 Walk 150 feet: 5 4 steps: [address] Maintenance Crew Worker Goals Fdc Goals PT Highway Maintenance Crew Worker Goals Time Frame: Jun 30, 2019 Roll Left & Right (QC): 6 Sit to Lying (QC): 6 Lying-Sitting on Side/Bed(QC): 6 Sit to Stand (QC): 6 Chair/Kuz-bu-Rksku Xfer(QC): 6 Toilet Transfer (QC): 6 Car Transfer (QC): 6 Does the Patient Walk: Yes Walk 10 feet (QC): 6 Walk 50ft with 2 Turns (QC): 6 Walk 150 ft (QC): 6 Walking 10ft on Uneven Surface: 6 1 Step (curb) (QC): 6 4 Steps (QC): 6 12 Steps (QC): 5 Picking up an Object (QC): 9 Does the Pt use WC or Scooter?: No PT Plan Treatment/Plan Treatment Plan: Continue Plan of Care Treatment Plan: Bed Mobility, Education, Functional Activity Lucia, Functional Strength, Group Therapy, Gait, Safety, Therapeutic Exercise, Transfers Treatment Duration: Jun 30, 2019 Frequency: At least 5 of 7 days/Wk (IRF) Estimated Hrs Per Day: 1.5 hours per day Patient and/or Family Agrees t: Yes Safety Risks/Education Patient Education: Gait Training, Transfer Techniques, Steps, Correct Position ing, Disease Process, Safety Issues Teaching Recipient: Patient Teaching Methods: Demonstration, Discussion Response to Teaching: Verbalize Understanding, Return Demonstration discussed rest breaks as well as use of FWW for energy conservation Time/GCodes Time In: 1000 Time Out: 1100 Total Billed Treatment Time: 60 Total Billed Treatment 1,GT20m,EX25m,FA15m SARAH PIZANO HOSPICE HOME HEALTH AIDE Jun 17, 2019 11:01
[2019-06-17] MEDS: RT-ALBUTEROL SULF 2.5 MG/3 ML PRE-MIX VIAL IH PRN ×2 (13:04→21:35)
--- NOTE | 2019-06-17 14:31 | Therapy Group Daily Note ---
Therapy Daily Group Note Patient Education Topic Exercises, Other List Below (handwashing, ARU description) Exercises LE Seated Exercise, UE Exercise Session Ratio (pt:therapist): 4:1 Goal of Session: Education on ARU Expectations, UE/LE Strengthing Goal Met for this Session: Yes Pt Benefit of Group: Contributions to Others, Increased Functional Strength, Improved Cognition, Recognition of Peers, Socialization Other/Notes Pt ambulated to [facility] [place] area for OT/PT group. Group consisted of introductions (name, place living, what did you want to grow up to be), socialization, pt lead UE/LE seated exercises, education on benefits of exercise and handwashing. Pt introduced self appropriately and actively listened to peers. Pt able to lead one exercise for group and tolerated completing other exercises. Pt acknowledge understanding of exercises by verbalizing understanding and given own personal strategies to complete. After session, pt lying in bed with call light/phone in reach. All needs met in room. Start Time: 13:00 Stop Time: 14:00 Total Billed Treatment Time: 60 Total Billed Treatment 1-GRP ABRIL ELENA Jun 17, 2019 14:31
[2019-06-17] MEDS: guaiFENesin/DM (ROBITUSSIN DM) 10 ML UDC PO PRN ×2 (15:14→21:27)
--- NOTE | 2019-06-17 15:14 | NUR ---
C/O CONTINUOUS COUGHING. ROBITUSSIN PER ORDER GIVEN PO. WARM BLANKETS APPLIED, PT RESTS IN CHAIR. VOICES, EASIER SLEEPING IN RECLINER HERE, THAT IS WHAT SHE DOES AT HOME WELL.
--- NOTE | 2019-06-17 15:26 | NUR ---
"RD ASSESSMENT PMHx: COPD; HTN; chronic constipation; DM PT INTERACTION: Pt was awake and pleasant during nutrition assessment. Pt states current appetite is good and has been for some time. Note avg PO intake of 90% x3d, per chart review. Pt states following a regular diet at home and has no issues with chewing/swallowing food. Pt states no recent issues with n/v/c/d at this time, and that her last BM was 3/4. Note pt currently on bowel regimen of colace BID; senna BID; and miralax BID, per chart review. Pt state no recent wt changes. Note unable to determine recent wt hx, per chart review. ABNORMAL NUTRITION-RELATED LAB VALUES LOW: Pro 6.2 HIGH: Cl 108; glu 117 Est. kcal needs: 2267-6968 kcal | 15-18 kcal/kg Est. Pro needs: 109-137 g Pro | 0.8-1.0 g Pro/kg PES STATEMENT: Given current PO intake, no nutrition diagnosis at this time (NO-1.1) INTERVENTION: Continue with current diet order of Regular diet. Will continue to follow and reassess as pt needs, intake, and status change. MONITOR/EVALUATE: PO Intake; Plan of Care; Hydration Status; Weight Status; Lab Values Joaquina Vick, MS, RD, LD"
[2019-06-17 16:00] VITALS: BP 136/62
[2019-06-17 17:39] VITALS: BP 165/92
[2019-06-18 06:00] VITALS: BP 137/69
[2019-06-18] MEDS: inSUlin ASPART (NovoLOG) 1 UNIT/0.01 ML (CHARGE PER UNIT) SC SCH ×4 (06:14→20:46)
[2019-06-18] MEDS: KCL 10 MEQ TAB (MICRO K) PO SCH (06:23)
[2019-06-18] MEDS: metFORMIN 500 MG (GLUCOPHAGE) TAB PO SCH (06:23)
[2019-06-18] MEDS: predniSONE 20 MG TAB PO SCH (06:23)
[2019-06-18] MEDS: OCUVITE PO SCH (06:48)
[2019-06-18 08:00] VITALS: BP 121/56
[2019-06-18] MEDS: CEFDINIR 300 MG (OMNICEF) CAP PO SCH ×2 (08:40→21:01)
[2019-06-18] MEDS: LABETALOL 200 MG (NORMODYNE) TAB PO SCH ×2 (08:41→21:01)
[2019-06-18] MEDS: amLODIPine 5 MG (NORVASC) TAB PO SCH ×2 (08:41→10:46)
[2019-06-18] MEDS: TORSEMIDE 20 MG (DEMADEX) TAB PO SCH (08:41)
[2019-06-18] MEDS: SENNA W/DOCUSATE (SENOKOT S) TABLET PO SCH ×2 (08:43→19:41)
[2019-06-18] MEDS: DOCUSATE SODIUM 100 MG (COLACE) CAP PO SCH ×2 (08:43→19:41)
[2019-06-18] MEDS: polyethylene glycoL POWDER 17 GM (MIRALAX) PACK PO SCH ×2 (08:43→19:41)
--- NOTE | 2019-06-18 08:53 | Occupational Ther Daily Note ---
OT Current Status-Daily Note Subjective Pt seated upright in recliner, stated she would like to take a shower this AM. She did not report any pain during session. Mental Status/Objective Patient Orientation: Normal For Age ADL-Treatment Therapy Code Descriptions/Definitions Functional [place] Measure: 0=Not Assessed/NA 4=Minimal Assistance 1=Total Assistance 5=Supervision or Setup 2=Maximal Assistance 6=Modified [place] 3=Moderate Assistance 7=Complete IndependenceSCALE: Activities may be completed with or without assistive devices. 0-Zjvvntvgod-rxyqqiw completes the activity by him/herself with no assistance from a helper. 5-Set-up or Clean-up Assistance-helper sets up or cleans up; patient completes activity. [place] assists only prior to or following the activity. 4-Supervision or Touching Assistance-helper provides verbal cues and/or touching/steadying and/or contact guard assistance as patient completes activity. Assistance may be provided throughout the activity or intermittently. 3-Partial/Moderate Assistance-helper does LESS THAN HALF the effort. [place] l ifts, holds or supports trunk or limbs, but provides less than half the effort. 2-Substantial/Maximal Assistance-helper does MORE THAN HALF the effort. [place] lifts or holds trunk or limbs and provides more than half the effort. 6-Jrykubtbc-iyboju does ALL the effort. Patient does none of the effort to complete the activity. Or, the assistance of 2 or more helpers is required for t he patient to complete the activity. If activity was not attempted, code reason: 7-Patient Refused. 9-Not Applicable-not attempted and the patient did not perform the activity before the current illness, exacerbation or injury. 10-Not Attempted due to Environmental Limitations-(lack of equipment, weather restraints, etc.). 88-Not Attempted due to Medical Conditions or Safety Concerns. Oral Hygiene (QC): 6 (independent standing at sink) Shower/Bathe Self (QC): 4 (SBA, pt able to wash/dry all parts) Upper Body Dressing (QC): 4 (SBA. Pt gathered clothes and took them to the bathroom to don post shower. She stood up while donning shirt, no LOB noted. Pt required a verbal reminder to take rest breaks as she needs to and sit down during tasks for energy conservation.) Lower Body Dressing (QC): 4 (SBA. Pt able to don/doff pants/underwear. Pt required verbal reminder during task to take rest breaks as needed and to sit during task to conserve energy. ) On/Off Footwear: 1 (Pt attempted to don socks using metal sock aide. She states it is smaller than the one she has at home and she is unable to reach down and grab the wires to assist today. She declined trial of plastic sock aide, stating she likes the one she has at home and is not interested in trialing the plastic sock aide. OT dependently donned socks for pt.) Other Treatment Pt sitting in recliner, ambulated to bathroom without AD in order to stand at sink to complete oral hygiene, then she completed her shower and dressing. Pt then put on her make up and fixed her hair seated at the sink. Pt's nurse arrived to give pt meds, then pt ambulated to the therapy gym. In order to increase BUE strength and functional endurance with tasks, pt completed x10 mins on arm bike with mod resistance. Pt did not take any rest breaks during task, but required a break after task. After rest break, pt returned to her room. Post OT session, pt seated upright in recliner, call light in reach and all needs met. Education OT Patient Education: Correct positioning, Energy conservation, Exercise program, Progress toward Goal/Update tx plan, Purpose of tx/functional activiti es, Transfer techniques, Use of adapted equipment Teaching Recipient: Patient Teaching Methods: Discussion Response to Teaching: Verbalize Understanding OT Jail Goals Jail Goals Time Frame: Jun 30, 2019 Oral Hygiene (QC): 6 Toileting Hygiene (QC): 6 Shower/Bathe Self (QC): 6 Upper Body Dressing (QC): 6 Lower Body Dressing (QC): 6 On/Off Footwear (QC): 6 Additional Goals: 1-Demonstrate ADL Tasks, 2-Verbalize Understanding, 3- ImproveStrength/Lucia 1=Demonstrate adherence to instructed precautions during ADL tasks. 2=Patient will verbalize/demonstrate understanding of assistive devices/modifications for ADL. 3=Patient will improve strength/tolerance for activity to enable patient to perform ADL's. OT Education/Plan Problem List/Assessment Assessment: Decreased Activ Tolerance, Decreased UE Strength Discharge Recommendations Plan/Recommendations: Continue POC Treatment Plan/Plan of Care Patient would benefit from OT for education, treatment and training to promote independence in ADL's, mobility, safety and/or upper extremity function for ADL's. Plan of Care: ADL Retraining, Functional Mobility, Group Exercise/Act as Ind, UE Funct Exercise/Act Treatment Duration: Jun 30, 2019 Frequency: At least 5 of 7 days/Wk (IRF) Estimated Hrs Per Day: 1.5 hours per day Agreement: Yes Rehab Potential: Good Time/GCodes Start Time: 08:00 Stop Time: 09:00 Total Time Billed (hr/min): 60 Billed Treatment Time 1, ADL 3 (45), EX (15) CHAVEZ RIDER OT Jun 18, 2019 08:53
--- NOTE | 2019-06-18 09:00 | NUR ---
DENIES PAIN. ADMITS TO A TIGHT, NONPRODUCTIVE COUGH AND FEELS WHEEZY AT TIMES. STATES COUGH SYRUP AND BREATHING TREATMENTS "REALLY HELP". STATES LOWER EXTREMITY EDEMA IS CHRONIC.
--- NOTE | 2019-06-18 09:01 | PM&R Progress Note ---
Subjective HPI/CC On Admission Date Seen by Provider: Jun 18, 2019 Time Seen by Provider: 09:00 Subjective/Events-last exam Wheezing a bit this morning but after Prednisone given that seems to have helped Denies any significant SOB right now Feels like she is ready to go on Saturday Edema is 1 + in the legs but that is chronic No O2 needed Checked meds and labs. Reviewed therapy notes. Conferred with RN. Review of Systems Pulmonary: Dyspnea, Cough Objective Exam Vital Signs Vital Signs Date Time Temp Pulse Resp B/P (MAP) Pulse Ox O2 Delivery O2 Flow Rate FiO2 06/19/19 08:10 Room Air 06/19/19 06:17 36.2 56 16 124/67 (86) 96 Capillary Refill : Less Than 3 Seconds General Appearance: No Apparent Distress, WD/WN, Chronically ill, Obese HEENT: PERRL/EOMI, Normal ENT Inspection, Pharynx Normal Neck: Full Range of Motion, Normal Inspection, Non Tender, Supple, Carotid Bruit Respiratory: Chest Non Tender, Lungs Clear, Normal Breath Sounds, No Accessory Muscle Use, No Respiratory Distress, Wheezing (subtle RUL) Cardiovascular: Regular Rate, Rhythm, No Edema, No Gallop, No JVD, No Murmur, Normal Peripheral Pulses Gastrointestinal: Normal Bowel Sounds, No Organomegaly, No Pulsatile Mass, Non Tender, Soft Back: Normal Inspection, No CVA Tenderness, No Vertebral Tenderness Extremity: Normal Capillary Refill, Normal Inspection, Normal Range of Motion, Non Tender, No Calf Tenderness, No Pedal Edema Neurologic/Psychiatric: Alert, Oriented x3, No Motor/Sensory Deficits, Normal 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 FIM Transfers Therapy Code Descriptions/Definitions Functional [place] Measure: 0=Not Assessed/NA 4=Minimal Assistance 1=Total Assistance 5=Supervision or Setup 2=Maximal Assistance 6=Modified [place] 3=Moderate Assistance 7=Complete IndependenceSCALE: Activities may be completed with or without assistive devices. 2-Twyewmquhy-xvavosa completes the activity by him/herself with no assistance from a helper. 5-Set-up or Clean-up Assistance-helper sets up or cleans up; patient completes activity. [place] assists only prior to or following the activity. 4-Supervision or Touching Assistance-helper provides verbal cues and/or touching/steadying and/or contact guard assistance as patient completes activity. Assistance may be provided throughout the activity or intermittently. 3-Partial/Moderate Assistance-helper does LESS THAN HALF the effort. [place] lifts, holds or supports trunk or limbs, but provides less than half the effort. 2-Substantial/Maximal Assistance-helper does MORE THAN HALF the effort. [place] lifts or holds trunk or limbs and provides more than half the effort. 7-Wshtxrkbz-kjphyi does ALL the effort. Patient does none of the effort to complete the activity. Or, the assistance of 2 or more helpers is required for the patient to complete the activity. If activity was not attempted, code reason: 7-Patient Refused. 9-Not Applicable-not attempted and the patient did not perform the activity before the current illness, exacerbation or injury. 10-Not Attempted due to Environmental Limitations-(lack of equipment, weather restraints, etc.). 88-Not Attempted due to Medical Conditions or Safety Concerns. Roll Left to Right (QC): 6 Sit to Lying (QC): 6 Sit to Stand (QC): 6 Chair/Ids-tq-Cexpe Xfer(QC): 6 Car Transfer (QC): 5 Gait Training Does the Patient Walk?: Yes Distance: 175' x2 Walk 10 feet (QC): 6 Walk 50 ft with 2 Turns(QC): 6 Walk 150 ft (QC): 6 Walking 10ft/uneven surface-QC: 4 Gait Persons Needed: 0 Gait Assistive Device: None Wheelchair Training Does the Pt Use a Wheelchair?: No Stair Training Stair Training: Handrails/: 2 handrails #of Steps: 4 1 Step (curb) (QC): 6 4 Steps (QC): 6 12 Steps (QC): 88 Stairs: Pattern: Reciprocal Balance Picking up an Object (QC): 88 ADL-Treatment Eating (QC): 6 (Per pt report she was able to open all containers and eat b reakfast independently. ) Oral Hygiene (QC): 6 (independent standing at sink) Shower/Bathe Self (QC): 4 (SBA, pt able to wash/dry all parts) Upper Body Dressing (QC): 4 (SBA. Pt gathered clothes and took them to the bathroom to don post shower. She stood up while donning shirt, no LOB noted. Pt required a verbal reminder to take rest breaks as she needs to and sit down during tasks for energy conservation.) Lower Body Dressing (QC): 4 (SBA. Pt able to don/doff pants/underwear. Pt required verbal reminder during task to take rest breaks as needed and to sit during task to conserve energy. ) On/Off Footwear (QC): 1 (Pt attempted to don socks using metal sock aide. She states it is smaller than the one she has at home and she is unable to reach down and grab the wires to assist today. She declined trial of plastic sock aide, stating she likes the one she has at home and is not interested in trialing the plastic sock aide. OT dependently donned socks for pt.) Toileting Hygiene (QC): 4 (SBA during stand for clothing management) Toilet Transfer (QC): 4 (SBA on/off of toilet) Assessment/Plan Assessment and Plan Assess & Plan/Chief Complaint (1) Debility 1A) Hypokalemia 1B) Acute bronchitis (2) Constipation Status: Acute (3) Diabetes mellitus Status: Chronic (4) CAD (coronary artery disease) Status: Chronic (5) Cough Status: Acute (6) Hyperlipemia Status: Chronic (7) Leukocytosis resolved Status: Acute (8) Renal insufficiency Status: Acute (9) Weakness Status: Acute (10) Hypertension (11) Pleurisy resolved Status: Acute (12) Obesity Status: Chronic (13) Asthma Status: Acute (14) Elevated brain natriuretic peptide (BNP) level Status: Acute (15) STEPHAN treated with BiPAP Status: Chronic (16) History of coronary artery stent placement Status: Chronic Plan: Home meds IRF protocol Pain control O2 Replaced potassium Prednisone as ordered (1) Dehydration (2) Bronchitis Status: Acute (3) Debility Status: Acute (4) Asthma Status: Acute (5) Debility (6) Constipation Status: Acute (7) Diabetes mellitus Status: Chronic (8) CAD (coronary artery disease) Status: Chronic (9) Cough Status: Acute (10) Hyperlipemia Status: Chronic (11) Leukocytosis Status: Acute (12) Renal insufficiency Status: Acute (13) Weakness Status: Acute (14) Hypertension (15) Pleurisy Status: Acute (16) Obesity Status: Chronic (17) Elevated brain natriuretic peptide (BNP) level Status: Acute (18) STEPHAN treated with BiPAP Status: Chronic (19) Dehydration Status: Acute (20) PNA (pneumonia) ROXANA BISHOP DO Jun 18, 2019 09:01
[2019-06-18] MEDS: guaiFENesin/DM (ROBITUSSIN DM) 10 ML UDC PO PRN ×2 (09:21→21:05)
--- NOTE | 2019-06-18 10:25 | Physical Therapy Daily Note ---
PT Daily Note-Current Subjective Pt reports she slept all night last night and hasn't done that in a while. Requests cough syrup at start of treatment. Reports she feels it is helpful Mental Status Patient Orientation: Person, Place, Time, Situation Transfers SCALE: Activities may be completed with or without assistive devices. 3-Vduiswqzwi-kbzyzqo completes the activity by him/herself with no assistance f rom a helper. 5-Set-up or Clean-up Assistance-helper sets up or cleans up; patient completes activity. [place] assists only prior to or following the activity. 4-Supervision or Touching Assistance-helper provides verbal cues and/or touching/steadying and/or contact guard assistance as patient completes activity. Assistance may be provided throughout the activity or intermittently. 3-Partial/Moderate Assistance-helper does LESS THAN HALF the effort. [place] lifts, holds or supports trunk or limbs, but provides less than half the effort. 2-Substantial/Maximal Assistance-helper does MORE THAN HALF the effort. [place] lifts or holds trunk or limbs and provides more than half the effort. 5-Aezrcfawj-wlwaiw does ALL the effort. Patient does none of the effort to complete the activity. Or, the assistance of 2 or more helpers is required for the patient to complete the activity. If activity was not attempted, code reason: 7-Patient Refused. 9-Not Applicable-not attempted and the patient did not perform the activity before the current illness, exacerbation or injury. 10-Not Attempted due to Environmental Limitations-(lack of equipment, weather restraints, etc.). 88-Not Attempted due to Medical Conditions or Safety Concerns. Sit to Stand (QC): 5 Chair/Qtq-ae-Xdxqj Xfer(QC): 5 Multiple sit to stand transfers perfromed from recliner and standard chair. Weight Bearing Right Lower Extremity: Right Full Weight Bearing Left Lower Extremity: Left Full Weight Bearing Gait Training Does the Patient Walk?: Yes Distance: 200' x 4 reps Walk 150 ft (QC): 5 (supervision for safety. ) Gait Assistive Device: None Normal gait pattern that is steady without noted balance/safety concerns. Stair Training Stair Training: Handrails/: 2 handrails 4 Steps (QC): 5 Stairs: Pattern: Reciprocal up/down 4 steps x 4 reps. Safe and steady. Pt goes up/down steps to get her mail at home. Exercises Seated Therapy Exercises: Ankle pumps (15), Sit to stand (2x5), Long arc quads, Hip flexion, Hip abd/add Standing: Heel/toe raises, Marching, Mini squats Standing Reps: 15 LE ther ex for functional strength and functional activity tolerance to improve functional mobility and safety. Assessment Current Status: Good Progress Progressing well. Primary limit is reports of increased coughing and SOA with activity. Good balance and mobility PT Short Term Goals Short Term Goals Time Frame: Jun 23, 2019 Walk 150 feet: 5 (met) 4 steps: 5 (met) PT Metal Cabinet Finisher Goals Skilled Nursing Goals PT Metal Cabinet Finisher Goals Time Frame: Jun 30, 2019 Roll Left & Right (QC): 6 Sit to Lying (QC): 6 Lying-Sitting on Side/Bed(QC): 6 Sit to Stand (QC): 6 Chair/Cqg-na-Aztmr Xfer(QC): 6 Toilet Transfer (QC): 6 Car Transfer (QC): 6 Does the Patient Walk: Yes Walk 10 feet (QC): 6 Walk 50ft with 2 Turns (QC): 6 Walk 150 ft (QC): 6 Walking 10ft on Uneven Surface: 6 1 Step (curb) (QC): 6 4 Steps (QC): 6 12 Steps (QC): 5 Picking up an Object (QC): 9 Does the Pt use WC or Scooter?: No PT Plan Problem List Problem List: Activity Tolerance, Functional Strength, Safety Treatment/Plan Treatment Plan: Continue Plan of Care Treatment Plan: Bed Mobility, Education, Functional Activity Lucia, Functional Strength, Group Therapy, Gait, Safety, Therapeutic Exercise, Transfers Treatment Duration: Jun 30, 2019 Frequency: At least 5 of 7 days/Wk (IRF) Estimated Hrs Per Day: 1.5 hours per day Patient and/or Family Agrees t: Yes Safety Risks/Education Patient Education: Safety Issues Teaching Recipient: Patient Teaching Methods: Discussion Response to Teaching: Verbalize Understanding Discharge Recommendations Therapy Discharge Recommendati: Post Acute PT (outpt PT) Time/GCodes Time In: 905 Time Out: 1005 Total Billed Treatment Time: 60 Total Billed Treatment visit GT 30 EX 30 ABRIL HUS PT Jun 18, 2019 10:24
[2019-06-18] MEDS: ENOXAPARIN 60 MG/0.6 ML (LOVENOX) SYR SC SCH ×2 (10:47→21:02)
--- NOTE | 2019-06-18 11:00 | NUR ---
PATIENT HAD SAID EARLIER SHE HAS BEEN OFF [facility] X 1 YEAR, BUT NOW HAS DECIDED THAT SHE IS STILL TAKING IT.
--- NOTE | 2019-06-18 12:26 | NUR ---
CM/SS ADMISSION and WEEKLY REHAB TEAM CONFERENCE SUMMARY Patient was admitted to ARU 06/16/19 for debility. Comorbidities include, in part, arthritis, CAD, DM, HTN, renal insufficiency. Prior to hospitalization, patient resided in a duplex at [facility] living in [place]. When well, she is IADL and ambulates independently. She continues to drive in [place] and occasionally to [place] for appointments. 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 PCP: Dr. Mark Blakely, DO, [facility] DME: Has lift chair, home bipap, FWW. History of home O2 but no longer qualifies. Patient does not use FWW. INSURANCE: Medicare, [employer] M[employer] Supplement, [facility] Care Insurance PHARMACY: [employer], [employer] [facility] ADVANCED DIRECTIVE: Yes, daughter Bette Hussein is DPOA, general, does not appear to include health care directives. CONTACTS: Bette Hussein, Daughter, DPOA (General) [address] [place] [address] Edmond Lilly, Son [address] [place] [address] DISCHARGE: Reviewed Summary with patient, she has requested to be released Saturday, June 20, 2019. Physician and team are in agreement. OP PT: Patient has requested OP PT orders so that she can make arrangements with [facility] OP therapy for three times per week. [facility] [employer] will provide [place] [facility], patient will make her own appointments at her request. There are no needs for new DME per patient.
[2019-06-18] MEDS: RT-ALBUTEROL SULF 2.5 MG/3 ML PRE-MIX VIAL IH PRN (13:00)
--- NOTE | 2019-06-18 13:00 | NUR ---
COMPLAIN SEVERE WEAKNESS WHEN WORKING WITH OT. BP 165/78, P 64 AND RA SAT 95%. FELT BETTER AFTER RESTING.
[2019-06-18 13:10] VITALS: BP 165/78
--- NOTE | 2019-06-18 13:27 | Occupational Ther Daily Note ---
OT Current Status-Daily Note Subjective Pt seated upright in recliner after a breathing tx. She agreed to OT tx, denied pain. During session, pt reports she did not feel good, and thinks the medicine may be making her feel weird. Pt unable to describe her symptoms except "I don't feel good".Nurse notified and BP taken. ADL-Treatment Therapy Code Descriptions/Definitions Functional [place] Measure: 0=Not Assessed/NA 4=Minimal Assistance 1=Total Assistance 5=Supervision or Setup 2=Maximal Assistance 6=Modified [place] 3=Moderate Assistance 7=Complete IndependenceSCALE: Activities may be completed with or without assistive devices. 4-Gugkqoeexf-haxlzbg completes the activity by him/herself with no assistance from a helper. 5-Set-up or Clean-up Assistance-helper sets up or cleans up; patient completes activity. [place] assists only prior to or following the activity. 4-Supervision or Touching Assistance-helper provides verbal cues and/or touching/steadying and/or contact guard assistance as patient completes activity. Assistance may be provided throughout the activity or intermittently. 3-Partial/Moderate Assistance-helper does LESS THAN HALF the effort. [place] lifts, holds or supports trunk or limbs, but provides less than half the effort. 2-Substantial/Maximal Assistance-helper does MORE THAN HALF the effort. [place] lifts or holds trunk or limbs and provides more than half the effort. 1-Ygsirvsjq-adfsrk does ALL the effort. Patient does none of the effort to complete the activity. Or, the assistance of 2 or more helpers is required for the patient to complete the activity. If activity was not attempted, code reason: 7-Patient Refused. 9-Not Applicable-not attempted and the patient did not perform the activity before the current illness, exacerbation or injury. 10-Not Attempted due to Environmental Limitations-(lack of equipment, weather restraints, etc.). 88-Not Attempted due to Medical Conditions or Safety Concerns. Toileting Hygiene (QC): 6 Toilet Transfer (QC): 6 Other Treatment Pt seated upright in recliner, OT attempted tx with focus on functional activities and community mobility. Pt ambulated to elevators with SBA, and she was able to push the elevator buttons in order to get to the 1st floor. Pt walked off the elevator and began stating she did not feel like herself. When as ked what she meant, pt stated she just doesn't feel right. Pt reported she wanted to try to keep going, and continued a little ways towards the main lobby. She then again states something just doesn't feel right. Pt agreed to going back upstairs, and she held onto the railing on the wall as she walked. Pt arrived at the therapy gym and sat down, and her nurse was notified and BP taken. Pt rested, then stated she felt as though she could return to her room. Pt ambulated to her room without AD and sat in recliner. After a short rest break, pt performed X15 reps BUE of the following in order to increase BUE strength and functional endurance: elbow flex/extension, wrist flexion/extension, shoulder flexion. Post OT session, pt in recliner, call light in reach and all needs met. Education OT Patient Education: Correct positioning, Energy conservation, Exercise program, Modified ADL techniques, Progress toward Goal/Update tx plan, Purpose of tx/functional activities Teaching Recipient: Patient Teaching Methods: Discussion Response to Teaching: Verbalize Understanding OT Trolley Cleaner Goals Fpc Goals Time Frame: Jun 30, 2019 Oral Hygiene (QC): 6 Toileting Hygiene (QC): 6 Shower/Bathe Self (QC): 6 Upper Body Dressing (QC): 6 Lower Body Dressing (QC): 6 On/Off Footwear (QC): 6 Additional Goals: 1-Demonstrate ADL Tasks, 2-Verbalize Understanding, 3-Im proveStrength/Lucia 1=Demonstrate adherence to instructed precautions during ADL tasks. 2=Patient will verbalize/demonstrate understanding of assistive devices/modifications for ADL. 3=Patient will improve strength/tolerance for activity to enable patient to perform ADL's. OT Education/Plan Problem List/Assessment Assessment: Decreased Activ Tolerance, Decreased UE Strength, Impaired I ADL's, Impaired Self-Care Skills Discharge Recommendations Plan/Recommendations: Continue POC Treatment Plan/Plan of Care Patient would benefit from OT for education, treatment and training to promote independence in ADL's, mobility, safety and/or upper extremity function for ADL's. Plan of Care: ADL Retraining, Functional Mobility, Group Exercise/Act as Ind, UE Funct Exercise/Act Treatment Duration: Jun 30, 2019 Frequency: At least 5 of 7 days/Wk (IRF) Estimated Hrs Per Day: 1.5 hours per day Agreement: Yes Rehab Potential: Good Time/GCodes Start Time: 13:00 Stop Time: 13:30 Total Time Billed (hr/min): 30 Billed Treatment Time 1, FA (20'), EX (10') CHAVEZ RIDER OT Jun 18, 2019 13:27
--- NOTE | 2019-06-18 14:08 | Occupational Ther Daily Note ---
OT Current Status-Daily Note Subjective Pt sitting upright in recliner at start of session, agreeable to OT session. She denied needing to use the restroom at this time. She did not verbalize a pain rating but requested pain meds, OT notified nursing. ADL-Treatment Therapy Code Descriptions/Definitions Functional [place] Measure: 0=Not Assessed/NA 4=Minimal Assistance 1=Total Assistance 5=Supervision or Setup 2=Maximal Assistance 6=Modified [place] 3=Moderate Assistance 7=Complete IndependenceSCALE: Activities may be completed with or without assistive devices. 2-Vuewkdleas-fbjqnli completes the activity by him/herself with no assistance from a helper. 5-Set-up or Clean-up Assistance-helper sets up or cleans up; patient completes a ctivity. [place] assists only prior to or following the activity. 4-Supervision or Touching Assistance-helper provides verbal cues and/or touching/steadying and/or contact guard assistance as patient completes activity. Assistance may be provided throughout the activity or intermittently. 3-Partial/Moderate Assistance-helper does LESS THAN HALF the effort. [place] lifts, holds or supports trunk or limbs, but provides less than half the effort. 2-Substantial/Maximal Assistance-helper does MORE THAN HALF the effort. [place] lifts or holds trunk or limbs and provides more than half the effort. 3-Awdoouhzx-wtvrhf does ALL the effort. Patient does none of the effort to complete the activity. Or, the assistance of 2 or more helpers is required for the patient to complete the activity. If activity was not attempted, code reason: 7-Patient Refused. 9-Not Applicable-not attempted and the patient did not perform the activity before the current illness, exacerbation or injury. 10-Not Attempted due to Environmental Limitations-(lack of equipment, weather restraints, etc.). 88-Not Attempted due to Medical Conditions or Safety Concerns. On/Off Footwear: 4 (SBA, pt able to doff slipper socks, then don RLE brace and shoes without assistance. Pt reports she felt like she was going to fall out of chair during task, OT provided SBA with task.) Other Treatment Pt seated upright in recliner, denied needing to use the restroom. Pt agreed to donning RLE brace and shoes. Pt then completed functional activity of removing beads from red theraputty in order to increase fine motor strength/coordination and functional endurance with tasks. Post OT session, pt seated upright in recliner, call light in reach and all needs met. Education OT Patient Education: Correct positioning, Energy conservation, Exercise program, Modified ADL techniques, Progress toward Goal/Update tx plan, Purpose of tx/functional activities Teaching Recipient: Patient Teaching Methods: Discussion Response to Teaching: Verbalize Understanding OT Director Of Sales Marketing Goals Director Of Sales Marketing Goals Time Frame: Jun 30, 2019 Oral Hygiene (QC): 6 Toileting Hygiene (QC): 6 Shower/Bathe Self (QC): 6 Upper Body Dressing (QC): 6 Lower Body Dressing (QC): 6 On/Off Footwear (QC): 6 Additional Goals: 1-Demonstrate ADL Tasks, 2-Verbalize Understanding, 3- ImproveStrength/Lucia 1=Demonstrate adherence to instructed precautions during ADL tasks. 2=Patient will verbalize/demonstrate understanding of assistive devices/modifications for ADL. 3=Patient will improve strength/tolerance for activity to enable patient to perform ADL's. OT Education/Plan Problem List/Assessment Assessment: Decreased Activ Tolerance, Decreased UE Strength, Impaired Funct Balance, Impaired I ADL's, Impaired Self-Care Skills Discharge Recommendations Plan/Recommendations: Continue POC Treatment Plan/Plan of Care Patient would benefit from OT for education, treatment and training to promote independence in ADL's, mobility, safety and/or upper extremity function for ADL's. Plan of Care: ADL Retraining, Functional Mobility, Group Exercise/Act as Ind, UE Funct Exercise/Act Treatment Duration: Jun 30, 2019 Frequency: At least 5 of 7 days/Wk (IRF) Estimated Hrs Per Day: 1.5 hours per day Agreement: Yes Rehab Potential: Good Time/GCodes Start Time: 13:30 Stop Time: 14:00 Total Time Billed (hr/min): 30 Billed Treatment Time 1, ADL (20'), FA (10') CHAVEZ RIDER OT Jun 18, 2019 14:08
--- NOTE | 2019-06-18 14:37 | Physical Therapy Daily Note ---
PT Daily Note-Current Subjective Pt agreeable to PT session. States she is not having any pain just weakness and some difficulty with breathing at times. Pain Numeric Pain Scale: 0-No Pain Appearance Pt sitting up in recliner awake and alert upon arrival. At end of session, pt sitting up in recliner with call light, phone and bedside table within reach. Mental Status Patient Orientation: Person, Place, Time, Eyes Open, Situation Attachments: [place] Transfers SCALE: Activities may be completed with or without assistive devices. 7-Xlypcuqbnp-zkassag completes the activity by him/herself with no assistance from a helper. 5-Set-up or Clean-up Assistance-helper sets up or cleans up; patient completes activity. [place] assists only prior to or following the activity. 4-Supervision or Touching Assistance-helper provides verbal cues and/or touching/steadying and/or contact guard assistance as patient completes activity. Assistance may be provided throughout the activity or intermittently. 3-Partial/Moderate Assistance-helper does LESS THAN HALF the effort. [place] lifts, holds or supports trunk or limbs, but provides less than half the effort. 2-Substantial/Maximal Assistance-helper does MORE THAN HALF the effort. [place] lifts or holds trunk or limbs and provides more than half the effort. 3-Thgcqlkfz-ssghfi does ALL the effort. Patient does none of the effort to complete the activity. Or, the assistance of 2 or more helpers is required for the patient to complete the activity. If activity was not attempted, code reason: 7-Patient Refused. 9-Not Applicable-not attempted and the patient did not perform the activity before the current illness, exacerbation or injury. 10-Not Attempted due to Environmental Limitations-(lack of equipment, weather restraints, etc.). 88-Not Attempted due to Medical Conditions or Safety Concerns. Sit to Stand (QC): 6 pt demo good safe techniques Weight Bearing Right Lower Extremity: Right Full Weight Bearing Left Lower Extremity: Left Full Weight Bearing Gait Training Does the Patient Walk?: Yes Distance: 153 x2 Walk 10 feet (QC): 6 Walk 50 ft with 2 Turns(QC): 4 Walk 150 ft (QC): 4 Gait Persons Needed: 1 Gait Assistive Device: None fatigue and slight SOA noted at end of gait distances, recovery within 2-3 minutes Exercises NuStep Minutes: 15 NuStep Workload: 3 (seat and arms 11) Treatments education, safety, activity tolerance, transfers, gait, functional mobility, strength, energy conservation Assessment Performs well but with fatigue and SOA, recovery within 2-3 minutes PT Short Term Goals Short Term Goals Time Frame: Jun 23, 2019 Walk 150 feet: 5 (met) 4 steps: 5 (met) PT [facility] Goals Reservations Specialist Goals PT Reservations Specialist Goals Time Frame: Jun 30, 2019 Roll Left & Right (QC): 6 Sit to Lying (QC): 6 Lying-Sitting on Side/Bed(QC): 6 Sit to Stand (QC): 6 Chair/Zlf-bl-Odgds Xfer(QC): 6 Toilet Transfer (QC): 6 Car Transfer (QC): 6 Does the Patient Walk: Yes Walk 10 feet (QC): 6 Walk 50ft with 2 Turns (QC): 6 Walk 150 ft (QC): 6 Walking 10ft on Uneven Surface: 6 1 Step (curb) (QC): 6 4 Steps (QC): 6 12 Steps (QC): 5 Picking up an Object (QC): 9 Does the Pt use WC or Scooter?: No PT Plan Treatment/Plan Treatment Plan: Continue Plan of Care Treatment Plan: Bed Mobility, Education, Functional Activity Lucia, Functional Strength, Group Therapy, Gait, Safety, Therapeutic Exercise, Transfers Treatment Duration: Jun 30, 2019 Frequency: At least 5 of 7 days/Wk (IRF) Estimated Hrs Per Day: 1.5 hours per day Patient and/or Family Agrees t: Yes Safety Risks/Education Patient Education: Gait Training, Transfer Techniques, Safety Issues Teaching Recipient: Patient Teaching Methods: Discussion Response to Teaching: Verbalize Understanding Time/GCodes Time In: 1430 Time Out: 1500 Total Billed Treatment Time: 30 Total Billed Treatment 1 visit, GT x10 min, EX x15 min PEDRITO ROSS PTA Jun 18, 2019 14:37
[2019-06-18] MEDS ORDERED: CATHETER FLUSH 10 ML SYR IV PRN (16:15)
[2019-06-18 18:00] VITALS: BP 157/73
[2019-06-18] MEDS: CATHETER FLUSH 10 ML SYR IV SCH (21:02)
[2019-06-19] MEDS: OCUVITE PO SCH (06:07)
[2019-06-19] MEDS: KCL 10 MEQ TAB (MICRO K) PO SCH (06:08)
[2019-06-19] MEDS: metFORMIN 500 MG (GLUCOPHAGE) TAB PO SCH (06:08)
[2019-06-19] MEDS: CATHETER FLUSH 10 ML SYR IV SCH ×3 (06:08→20:20)
[2019-06-19] MEDS: predniSONE 20 MG TAB PO SCH (06:08)
[2019-06-19] MEDS: inSUlin ASPART (NovoLOG) 1 UNIT/0.01 ML (CHARGE PER UNIT) SC SCH ×4 (06:09→21:18)
[2019-06-19 06:17] VITALS: BP 124/67
[2019-06-19] MEDS ORDERED: VITAMIN D3 50000 UNIT PO SCH (09:00)
[2019-06-19] MEDS: TORSEMIDE 20 MG (DEMADEX) TAB PO SCH (09:00)
[2019-06-19] MEDS: CLOPIDOGREL 75 MG (PLAVIX) TABLET PO SCH (09:00)
[2019-06-19] MEDS: LABETALOL 200 MG (NORMODYNE) TAB PO SCH ×2 (09:01→20:19)
[2019-06-19] MEDS: SENNA W/DOCUSATE (SENOKOT S) TABLET PO SCH ×2 (09:01→20:20)
[2019-06-19] MEDS: polyethylene glycoL POWDER 17 GM (MIRALAX) PACK PO SCH ×2 (09:01→19:36)
[2019-06-19] MEDS: CEFDINIR 300 MG (OMNICEF) CAP PO SCH ×2 (09:01→20:19)
[2019-06-19] MEDS: DOCUSATE SODIUM 100 MG (COLACE) CAP PO SCH ×2 (09:01→20:19)
[2019-06-19] MEDS: amLODIPine 5 MG (NORVASC) TAB PO SCH (09:01)
[2019-06-19] MEDS: guaiFENesin/DM (ROBITUSSIN DM) 10 ML UDC PO PRN ×2 (09:10→22:15)
--- NOTE | 2019-06-19 09:35 | Occupational Ther Daily Note ---
OT Current Status-Daily Note Subjective Pt sitting upright in recliner with nursing present to give pt meds. Pt agreeable to OT tx with focus on ADLs. She did not verbalize any pain. Mental Status/Objective Patient Orientation: Normal For Age ADL-Treatment Therapy Code Descriptions/Definitions Functional [place] Measure: 0=Not Assessed/NA 4=Minimal Assistance 1=Total Assistance 5=Supervision or Setup 2=Maximal Assistance 6=Modified [place] 3=Moderate Assistance 7=Complete IndependenceSCALE: Activities may be completed with or without assistive devices. 6-Wbtuupjhco-cgtbate completes the activity by him/herself with no assistance from a helper. 5-Set-up or Clean-up Assistance-helper sets up or cleans up; patient completes activity. [place] assists only prior to or following the activity. 4-Supervision or Touching Assistance-helper provides verbal cues and/or touching/steadying and/or contact guard assistance as patient completes activity. Assistance may be provided throughout the activity or intermittently. 3-Partial/Moderate Assistance-helper does LESS THAN HALF the effort. [place] lifts, holds or supports trunk or limbs, but provides less than half the effort. 2-Substantial/Maximal Assistance-helper does MORE THAN HALF the effort. [place] lifts or holds trunk or limbs and provides more than half the effort. 2-Sgllfiixv-evibks does ALL the effort. Patient does none of the effort to complete the activity. Or, the assistance of 2 or more helpers is required for the patient to complete the activity. If activity was not attempted, code reason: 7-Patient Refused. 9-Not Applicable-not attempted and the patient did not perform the activity before the current illness, exacerbation or injury. 10-Not Attempted due to Environmental Limitations-(lack of equipment, weather restraints, etc.). 88-Not Attempted due to Medical Conditions or Safety Concerns. Eating (QC): 6 (Per pt report, she was independent eating breakfast.) Oral Hygiene (QC): 6 (Pt completed standing at sink, no AD) Shower/Bathe Self (QC): 5 (Set up, OT covered pt's IV to prevent it from getting wet. Pt then completed all other parts of task.) Upper Body Dressing (QC): 6 (Pt gathered all items for clothing, doffed night gown, and donned pack puller shirt and bra.) Lower Body Dressing (QC): 6 (Pt gathered clothing items prior to shower, then donned pants/underwear without assistance. ) On/Off Footwear: 1 (Pt unable to jorden socks by herself due to being unable to reach her feet. Pt reports having a wire sock aide that she uses at home. She attempted the wire sock aide during yesterdays session but was unsuccessful due to the sock aide being too small. Pt unable to jorden socks here but based on what pt reports, she should have no difficulty when she returns home.) Toileting Hygiene (QC): 6 Toilet Transfer (QC): 6 Other Treatment Pt sitting upright in recliner, ambulated to the bathroom to complete toileting, then her shower/dressing. Pt stood at sink to brush her teeth. She then performed functional mobility from her room to the therapy gym, no AD, no LOB noted. She performed x15 mins on arm bike, min resistance in order to increase functional assistance with tasks and to increase UE strengthening. After a rest break, pt completed functional activity of placing/removing 1" pegs into foam pegboard, alternating R/L UEs with 1 lb wrist weight on each hand, in order to increase fine motor coordination/strength, BUE strength, and functional endurance with tasks. Pt took a rest break, then performed dowel exercises with 2 lb weight, performing 2 sets, 15 reps each of the following: shoulder flexion, elbow flexion, wrist flexion, and wrist extension. Pt then returned to her room where she sat in her recliner, call light was in reach and all needs met. Education OT Patient Education: Correct positioning, Energy conservation, Exercise program, Modified ADL techniques, Progress toward Goal/Update tx plan, Purpose of tx/functional activities, Safety issues, Transfer techniques Teaching Recipient: Patient Teaching Methods: Discussion Response to Teaching: Verbalize Understanding OT Long-Term Goals Long-Term Goals Time Frame: Jun 30, 2019 Oral Hygiene (QC): 6 (met) Toileting Hygiene (QC): 6 (met) Shower/Bathe Self (QC): 6 (not met, set up ) Upper Body Dressing (QC): 6 (met) Lower Body Dressing (QC): 6 (met) On/Off Footwear (QC): 6 (not met, dependent due to pt not having her specific sock aide from home) Additional Goals: 1-Demonstrate ADL Tasks, 2-Verbalize Understanding, 3- ImproveStrength/Lucia 1=Demonstrate adherence to instructed precautions during ADL tasks. 2=Patient will verbalize/demonstrate understanding of assistive devices/modifications for ADL. 3=Patient will improve strength/tolerance for activity to enable patient to perform ADL's. OT Education/Plan Problem List/Assessment Assessment: Decreased Activ Tolerance, Impaired I ADL's, Impaired Self-Care Skills Discharge Recommendations Plan/Recommendations: Continue POC Treatment Plan/Plan of Care Patient would benefit from OT for education, treatment and training to promote independence in ADL's, mobility, safety and/or upper extremity function for ADL's. Plan of Care: ADL Retraining, Functional Mobility, Group Exercise/Act as Ind, UE Funct Exercise/Act Treatment Duration: Jun 30, 2019 Frequency: At least 5 of 7 days/Wk (IRF) Estimated Hrs Per Day: 1.5 hours per day Agreement: Yes Rehab Potential: Good Time/GCodes Start Time: 09:00 Stop Time: 10:30 Total Time Billed (hr/min): 90 Billed Treatment Time 1, ADL 2 (30'), EX 2 (30'), FA 2 (30') CHAVEZ RIDER OT Jun 19, 2019 09:35
[2019-06-19] MEDS ORDERED: PRD20T PO (09:45)
--- NOTE | 2019-06-19 09:50 | PM&R Progress Note ---
Subjective HPI/CC On Admission Date Seen by Provider: Jun 19, 2019 Time Seen by Provider: 10:00 Subjective/Events-last exam Set for DC home Saturday on PT [facility] Out patient No pain is reported Walking very well and has recovered faster than originally predicted No N/V Checked meds and labs. Reviewed therapy notes. Conferred with RN. Review of Systems Pulmonary: Dyspnea, Cough Objective Exam Vital Signs Vital Signs Date Time Temp Pulse Resp B/P (MAP) Pulse Ox O2 Delivery O2 Flow Rate FiO2 06/19/19 08:10 Room Air 06/19/19 06:17 36.2 56 16 124/67 (86) 96 Capillary Refill : Less Than 3 Seconds General Appearance: No Apparent Distress, WD/WN, Chronically ill, Obese HEENT: PERRL/EOMI, Normal ENT Inspection, Pharynx Normal Neck: Full Range of Motion, Normal Inspection, Non Tender, Supple, Carotid Bruit Respiratory: Chest Non Tender, Lungs Clear, Normal Breath Sounds, No Accessory Muscle Use, No Respiratory Distress, Wheezing (subtle RUL) Cardiovascular: Regular Rate, Rhythm, No Edema, No Gallop, No JVD, No Murmur, Normal Peripheral Pulses Gastrointestinal: Normal Bowel Sounds, No Organomegaly, No Pulsatile Mass, Non Tender, Soft Back: Normal Inspection, No CVA Tenderness, No Vertebral Tenderness Extremity: Normal Capillary Refill, Normal Inspection, Normal Range of Motion, Non Tender, No Calf Tenderness, No Pedal Edema Neurologic/Psychiatric: Alert, Oriented x3, No Motor/Sensory Deficits, Normal Mood/Affect, mural painter II-XII Norm as Tested, Abnormal Gait Skin: Normal Color, Warm/Dry Lymphatic: No Adenopathy Results/Procedures Lab Patient resulted labs reviewed. FIM Transfers Therapy Code Descriptions/Definitions Functional [place] Measure: 0=Not Assessed/NA 4=Minimal Assistance 1=Total Assistance 5=Supervision or Setup 2=Maximal Assistance 6=Modified [place] 3=Moderate Assistance 7=Complete IndependenceSCALE: Activities may be completed with or without assistive devices. 0-Vcpwkpymvv-dlywekv completes the activity by him/herself with no assistance from a helper. 5-Set-up or Clean-up Assistance-helper sets up or cleans up; patient completes activity. [place] assists only prior to or following the activity. 4-Supervision or Touching Assistance-helper provides verbal cues and/or zia chele/steadying and/or contact guard assistance as patient completes activity. Assistance may be provided throughout the activity or intermittently. 3-Partial/Moderate Assistance-helper does LESS THAN HALF the effort. [place] lifts, holds or supports trunk or limbs, but provides less than half the effort. 2-Substantial/Maximal Assistance-helper does MORE THAN HALF the effort. [place] lifts or holds trunk or limbs and provides more than half the effort. 8-Wfgytisaw-lztvka does ALL the effort. Patient does none of the effort to complete the activity. Or, the assistance of 2 or more helpers is required for the patient to complete the activity. If activity was not attempted, code reason: 7-Patient Refused. 9-Not Applicable-not attempted and the patient did not perform the activity before the current illness, exacerbation or injury. 10-Not Attempted due to Environmental Limitations-(lack of equipment, weather restraints, etc.). 88-Not Attempted due to Medical Conditions or Safety Concerns. Roll Left to Right (QC): 6 Sit to Lying (QC): 6 Sit to Stand (QC): 6 Chair/Toj-mh-Dwwfd Xfer(QC): 5 Car Transfer (QC): 5 Gait Training Does the Patient Walk?: Yes Distance: 153 x2 Walk 10 feet (QC): 6 Walk 50 ft with 2 Turns(QC): 4 Walk 150 ft (QC): 4 Walking 10ft/uneven surface-QC: 4 Gait Persons Needed: 1 Gait Assistive Device: None Wheelchair Training Does the Pt Use a Wheelchair?: No Stair Training Stair Training: Handrails/: 2 handrails #of Steps: 4 1 Step (curb) (QC): 6 4 Steps (QC): 5 12 Steps (QC): 88 Stairs: Pattern: Reciprocal Balance Picking up an Object (QC): 88 ADL-Treatment Eating (QC): 6 (Per pt report, she was independent eating breakfast.) Oral Hygiene (QC): 6 (Pt completed standing at sink, no AD) Shower/Bathe Self (QC): 5 (Set up, OT covered pt's IV to prevent it from getting wet. Pt then completed all other parts of task.) Upper Body Dressing (QC): 6 (Pt gathered all items for clothing, doffed night gown, and donned pulley worker shirt and bra.) Lower Body Dressing (QC): 6 (Pt gathered clothing items prior to shower, then donned pants/underwear without assistance. ) On/Off Footwear (QC): 1 (Pt unable to jorden socks by herself due to being unable to reach her feet. Pt reports having a wire sock aide that she uses at home. She attempted the wire sock aide during yesterdays session but was unsuccessful due to the sock aide being too small. Pt unable to jorden socks here but based on what pt reports, she should have no difficulty when she returns home.) Toileting Hygiene (QC): 6 Toilet Transfer (QC): 6 Assessment/Plan Assessment and Plan Assess & Plan/Chief Complaint (1) Debility 1A) Hypokalemia 1B) Acute bronchitis (2) Constipation Status: Acute (3) Diabetes mellitus Status: Chronic (4) CAD (coronary artery disease) Status: Chronic (5) Cough Status: Acute (6) Hyperlipemia Status: Chronic (7) Leukocytosis resolved Status: Acute (8) Renal insufficiency Status: Acute (9) Weakness Status: Acute (10) Hypertension (11) Pleurisy resolved Status: Acute (12) Obesity Status: Chronic (13) Asthma Status: Acute (14) Elevated brain natriuretic peptide (BNP) level Status: Acute (15) 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 treated with BiPAP Status: Chronic (16) History of coronary artery stent placement Status: Chronic Plan: Home meds IRF protocol Pain control O2 DC home tomorrow on PT (1) Dehydration (2) Bronchitis Status: Acute (3) Debility Status: Acute (4) Asthma Status: Acute (5) Debility (6) Constipation Status: Acute (7) Diabetes mellitus Status: Chronic (8) CAD (coronary artery disease) Status: Chronic (9) Cough Status: Acute (10) Hyperlipemia Status: Chronic (11) Leukocytosis Status: Acute (12) Renal insufficiency Status: Acute (13) Weakness Status: Acute (14) Hypertension (15) Pleurisy Status: Acute (16) Obesity Status: Chronic (17) Elevated brain natriuretic peptide (BNP) level Status: Acute (18) STEPHAN treated with BiPAP Status: Chronic (19) Dehydration Status: Acute (20) PNA (pneumonia) ROXANA BISHOP DO Jun 19, 2019 09:50
[2019-06-19] MEDS: ENOXAPARIN 60 MG/0.6 ML (LOVENOX) SYR SC SCH ×2 (11:00→20:20)
--- NOTE | 2019-06-19 11:23 | Physical Therapy Daily Note ---
PT Daily Note-Current Subjective Pt agreeable to PT session both sessions. States she is looking forward to going home tomorrow Pain Numeric Pain Scale: 0-No Pain Appearance Pt sitting up in recliner awake and alert upon arrival. Bathroom I during tx session. At end of session, pt sitting up in recliner with call light, phone and bedside table within reach. 2nd session, pt sitting up in recliner before and after session, call light, phone and bedside table within reach Mental Status Patient Orientation: Person, Place, Time, Eyes Open, Situation Transfers SCALE: Activities may be completed with or without assistive devices. 4-Sbylmbuait-tnylzhp completes the activity by him/herself with no assistance from a helper. 5-Set-up or Clean-up Assistance-helper sets up or cleans up; patient completes activity. [place] assists only prior to or following the activity. 4-Supervision or Touching Assistance-helper provides verbal cues and/or touching/steadying and/or contact guard assistance as patient completes activity. Assistance may be provided throughout the activity or intermittently. 3-Partial/Moderate Assistance-helper does LESS THAN HALF the effort. [place] lifts, holds or supports trunk or limbs, but provides less than half the effort. 2-Substantial/Maximal Assistance-helper does MORE THAN HALF the effort. [place] lifts or holds trunk or limbs and provides more than half the effort. 6-Hojcgonup-tnpeeo does ALL the effort. Patient does none of the effort to complete the activity. Or, the assistance of 2 or more helpers is required for the patient to complete the activity. If activity was not attempted, code reason: 7-Patient Refused. 9-Not Applicable-not attempted and the patient did not perform the activity before the current illness, exacerbation or injury. 10-Not Attempted due to Environmental Limitations-(lack of equipment, weather restraints, etc.). 88-Not Attempted due to Medical Conditions or Safety Concerns. Roll Left & Right (QC): 6 (with bedrail) Sit to Lying (QC): 6 Lying to Sitting/Side of Bed(Q: 6 Sit to Stand (QC): 6 Chair/Bae-et-Xnsaw Xfer(QC): 6 Toilet Transfer (QC): 6 (use of grab bars) Car Transfer (QC): 6 pt demo good technique and safety during transitions Weight Bearing Right Lower Extremity: Right Full Weight Bearing Left Lower Extremity: Left Full Weight Bearing Gait Training Does the Patient Walk?: Yes Distance: 200, 150, 120, 120 Walk 10 feet (QC): 6 Walk 50 ft with 2 Turns(QC): 6 Walk 150 ft (QC): 6 Walking 10ft/uneven surface-QC: 6 Gait Persons Needed: 0 Gait Assistive Device: None slight lateral trunk sway, decreased hip and knee flexion, fair pace, no LOB or unsteadiness Wheelchair Training Does the Pt Use a Wheelchair?: No Stair Training Stair Training: Handrails/: 1 handrail #of Steps: 12 1 Step (curb) (QC): 6 4 Steps (QC): 6 12 Steps (QC): 5 Stairs: Pattern: Step to (and reciprocating) no LOB or unsteadiness, SOA upon completion of 12 steps Balance Picking up an Object (QC): 9 Exercises Standing: Marching, Mini squats, Retro gait, Side steps Standing Reps: 10 NuStep Minutes: 15 (2nd session 20) NuStep Workload: 3 (seat 10, arms 9) Treatments education, safety, bed mobility, transfers, toileting, gait, stairs, activity tolerance, strength, functional mobility Assessment Current Status: Good Progress pt will be ready for discharge home to [facility] tomorrow and will benefit from outpatient physical therapy PT Short Term Goals Short Term Goals Time Frame: Jun 23, 2019 Walk 150 feet: 5 (met) 4 steps: 5 (met) PT Skilled Nursing Goals [employer] Goals PT Skilled Nursing Goals Time Frame: Jun 30, 2019 Roll Left & Right (QC): 6 Sit to Lying (QC): 6 Lying-Sitting on Side/Bed(QC): 6 Sit to Stand (QC): 6 Chair/Kkx-op-Ujdkw Xfer(QC): 6 Toilet Transfer (QC): 6 Car Transfer (QC): 6 Does the Patient Walk: Yes Walk 10 feet (QC): 6 Walk 50ft with 2 Turns (QC): 6 Walk 150 ft (QC): 6 Walking 10ft on Uneven Surface: 6 1 Step (curb) (QC): 6 4 Steps (QC): 6 12 Steps (QC): 5 Picking up an Object (QC): 9 Does the Pt use WC or Scooter?: No PT Plan Treatment/Plan Treatment Plan: Continue Plan of Care, Discontinue PT, goals met Treatment Plan: Bed Mobility, Education, Functional Activity Lucia, Functional Strength, Group Therapy, Gait, Safety, Therapeutic Exercise, Transfers Treatment Duration: Jun 30, 2019 Frequency: At least 5 of 7 days/Wk (IRF) Estimated Hrs Per Day: 1.5 hours per day Patient and/or Family Agrees t: Yes Safety Risks/Education Patient Education: Gait Training, Transfer Techniques, Safety Issues Teaching Recipient: Patient Teaching Methods: Discussion Response to Teaching: Verbalize Understanding Discharge Recommendations Therapy Discharge Recommendati: Assisted Living (Assisted Living ([facility]), Outpatient Physical Therapy) Time/GCodes Time In: 1100 (2nd session: 1400) Time Out: 1200 (2nd session: 1430) Total Billed Treatment Time: 60 (2nd session: 30) Total Billed Treatment 1 visit, GT x25 min, EX x15 min, FA x20 min. 2nd session: 1 visit, GT x10 min, EX x20 min PEDRITO ROSS PTA Jun 19, 2019 11:08
--- NOTE | 2019-06-19 13:45 | NUR ---
CM/SS FINAL DISCHARGE PLANNING Patient on target for discharge tomorrow back to her duplex in [facility]. IMM2 presented, signed, charted. Patient initiated the request to leave tomorrow and team was in agreement based on her LOF and status. OP PT: Referral was sent as planned [place] [facility]. Patient understands she should contact them once home to coordinate her desired schedule for M-W-F. Agency aware patient will be making her own appointments. Patient fully dressed today. 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 All post hospital care arrangements completed unless situation changes to warrant alteration.
[2019-06-19 17:11] VITALS: BP 150/97
[2019-06-20] MEDS: OCUVITE PO SCH (05:55)
[2019-06-20] MEDS: predniSONE 20 MG TAB PO SCH (05:56)
[2019-06-20] MEDS: metFORMIN 500 MG (GLUCOPHAGE) TAB PO SCH (05:56)
[2019-06-20] MEDS: KCL 10 MEQ TAB (MICRO K) PO SCH (05:56)
[2019-06-20 06:00] VITALS: BP 113/64
[2019-06-20] MEDS: inSUlin ASPART (NovoLOG) 1 UNIT/0.01 ML (CHARGE PER UNIT) SC SCH (06:06)
[2019-06-20] MEDS: CATHETER FLUSH 10 ML SYR IV SCH (06:06)
--- NOTE | 2019-06-20 08:00 | NUR ---
STATES LUNGS STILL TIGHTEN UP AT TIMES, BUT MUCH BETTER. ALSO STATES WEAKNESS IN IMPROVED. FEELS READY TO GO HOME TODAY.
[2019-06-20] MEDS: CEFDINIR 300 MG (OMNICEF) CAP PO SCH (08:37)
[2019-06-20] MEDS: TORSEMIDE 20 MG (DEMADEX) TAB PO SCH (08:37)
[2019-06-20] MEDS: LABETALOL 200 MG (NORMODYNE) TAB PO SCH (08:38)
[2019-06-20] MEDS: SENNA W/DOCUSATE (SENOKOT S) TABLET PO SCH (08:40)
[2019-06-20] MEDS: polyethylene glycoL POWDER 17 GM (MIRALAX) PACK PO SCH (08:40)
[2019-06-20] MEDS: DOCUSATE SODIUM 100 MG (COLACE) CAP PO SCH (08:40)
[2019-06-20] MEDS: amLODIPine 5 MG (NORVASC) TAB PO SCH (08:46)
[2019-06-20] MEDS: ENOXAPARIN 60 MG/0.6 ML (LOVENOX) SYR SC SCH (10:13)
--- NOTE | 2019-06-20 11:20 | Discharge Summary ---
Diagnosis/Chief Complaint Date of Admission Jun 16, 2019 at 10:55 Date of Discharge Discharge Date: Jun 20, 2019 Discharge Diagnosis (1) Debility 1A) Hypokalemia 1B) Acute bronchitis (2) Constipation Status: Acute (3) Diabetes mellitus Status: Chronic (4) CAD (coronary artery disease) Status: Chronic (5) Cough Status: Acute (6) Hyperlipemia Status: Chronic (7) Leukocytosis resolved Status: Acute (8) Renal insufficiency Status: Acute (9) Weakness Status: Acute (10) Hypertension (11) Pleurisy resolved Status: Acute (12) Obesity Status: Chronic (13) Asthma Status: Acute (14) Elevated brain natriuretic peptide (BNP) level Status: Acute (15) STEPHAN treated with BiPAP Status: Chronic (16) History of coronary artery stent placement Status: Chronic Plan: Home meds IRF protocol Pain control O2 DC home today on PT Discharge Summary Discharge Physical Examination Allergies: Coded Allergies: Penicillins (Verified Allergy, Unknown, 10/15/15) codeine (Verified Allergy, Unknown, 10/15/15) Vitals & I&Os Vital Signs Date Time Temp Pulse Resp B/P (MAP) Pulse Ox O2 Delivery O2 Flow Rate FiO2 06/20/19 12:48 36.4 73 20 149/71 96 Room Air General Appearance: Alert, Oriented X3, Cooperative Respiratory: Clear to Auscultation Cardiovascular: Regular Rate Neuro: Normal Gait, Normal Speech, Strength at 5/5 X4 Ext Psych/Mental Status: Mental Status NL Hospital Course Was the Problem List Reviewed?: Yes Hospital course: patient had an uncomplicated course although shorter than expected after she was admitted for debility following acute bronchitis with wheezing requiring abx and steroids. Labs remained stable and potassium was fully supplemented by time of DC. Bowel function remained normal. PT OT provided therapy focused on stamina and fall risk prevention. She was able to return to [facility] in improved condition. Labs (last 24 hrs) Laboratory Tests 06/16/19 15:35: Glucometer 135H 06/16/19 20:16: Glucometer 141H 06/17/19 05:25: White Blood Count 3.8L, Red Blood Count 3.79L, Hemoglobin 11.1L, Hematocrit 35, Mean Corpuscular Volume 93, Mean Corpuscular Hemoglobin 29, Mean Corpuscular Hemoglobin Concent 32, Red Cell Distribution Width 15.3H, Platelet Count 211, Mean Platelet Volume 9.4, Neutrophils (%) (Auto) 47, Lymphocytes (%) (Auto) 38, Monocytes (%) (Auto) 12, Eosinophils (%) (Auto) 3, Basophils (%) (Auto) 0, Neutrophils # (Auto) 1.8, Lymphocytes # (Auto) 1.4, Monocytes # (Auto) 0.5, Eosinophils # (Auto) 0.1, Basophils # (Auto) 0.0, Sodium Level 143, Potassium Level 3.7, Chloride Level 108H, Carbon Dioxide Level 26, Anion Gap 9, Blood Urea Nitrogen 15, Creatinine 1.06, Estimat Glomerular Filtration Rate 49, BUN/Creatinine Ratio 14, Glucose Level 117H, Calcium Level 9.4, Corrected Calcium 9.9, Total Bilirubin 0.3, Aspartate Amino Transf (AST/SGOT) 18, Alanine Aminotransferase (ALT/SGPT) 13, Alkaline Phosphatase 77, Total Protein 6.2L, Albumin 3.4 06/17/19 10:54: Glucometer 123H 06/17/19 15:33: Glucometer 124H 06/17/19 20:04: Glucometer 145H 06/18/19 05:52: Glucometer 110 06/18/19 11:08: Glucometer 176H 06/18/19 15:37: Glucometer 165H 06/18/19 20:45: Glucometer 135H 06/19/19 05:59: Glucometer 101 06/19/19 10:49: Glucometer 145H 06/19/19 15:36: Glucometer 128H 06/19/19 20:51: Glucometer 113H 06/20/19 05:29: Glucometer 119H Pending Labs Laboratory Tests 06/16/19 15:35: Glucometer 135 06/16/19 20:16: Glucometer 141 06/17/19 05:25: White Blood Count 3.8, Red Blood Count 3.79, Hemoglobin 11.1, Hematocrit 35, Mean Corpuscular Volume 93, Mean Corpuscular Hemoglobin 29, Mean Corpuscular Hemoglobin Concent 32, Red Cell Distribution Width 15.3, Platelet Count 211, Mean Platelet Volume 9.4, Neutrophils (%) (Auto) 47, Lymphocytes (%) (Auto) 38, Monocytes (%) (Auto) 12, Eosinophils (%) (Auto) 3, Basophils (%) (Auto) 0, Neutrophils # (Auto) 1.8, Lymphocytes # (Auto) 1.4, Monocytes # (Auto) 0.5, Eosinophils # (Auto) 0.1, Basophils # (Auto) 0.0, Sodium Level 143, Potassium Level 3.7, Chloride Level 108, Carbon Dioxide Level 26, Anion Gap 9, Blood Urea Nitrogen 15, Creatinine 1.06, Estimat Glomerular Filtration Rate 49, BUN/Creatinine Ratio 14, Glucose Level 117, Calcium Level 9.4, Corrected Calcium 9.9, Total Bilirubin 0.3, Aspartate Amino Transf (AST/SGOT) 18, Alanine Aminotransferase (ALT/SGPT) 13, Alkaline Phosphatase 77, Total Protein 6.2, Albumin 3.4 06/17/19 10:54: Glucometer 123 06/17/19 15:33: Glucometer 124 06/17/19 20:04: Glucometer 145 06/18/19 05:52: Glucometer 110 06/18/19 11:08: Glucometer 176 06/18/19 15:37: Glucometer 165 06/18/19 20:45: Glucometer 135 06/19/19 05:59: Glucometer 101 06/19/19 10:49: Glucometer 145 06/19/19 15:36: Glucometer 128 06/19/19 20:51: Glucometer 113 06/20/19 05:29: Glucometer 119 Discharge Home Medications: Active Scripts Active Prednisone 20 Mg Tab 20 Mg PO DAILY Reported Cefdinir 300 Mg Capsule 300 Mg PO BID FILLED 06-13-2019 #20/ DAY SUPPLY Albuterol Sulfate 2.5 Mg/3 Ml Vial.neb 1 Vial NEB Q6H PRN D3-50 (Cholecalciferol (Vitamin D3)) 1,250 Mcg Capsule 1,250 Mcg PO FRI Potassium Chloride 10 Meq Tab.er.prt 10 Meq PO DAILY Cyanocobalamin Injection (Cyanocobalamin) 1,000 Mcg/Ml Inj 1,000 Mcg INJ MONTHLY Ocuvite Eye + Multi Tablet (Mv-Mn/FA/Vit K/Lycop/Lut/Zeaxa) 1 Each Tablet 1 Tab PO DAILY Amlodipine Besylate 5 Mg Tablet 5 Mg PO DAILY Metformin HCl 500 Mg Tablet 1,000 Mg PO DAILY TAKES 2 (500MG) TABLETS Clopidogrel (Clopidogrel Bisulfate) 75 Mg Tablet 75 Mg PO MON,WED,FRI TAKES 3 TIMES WEEKLY (MON,WED,SAT) Torsemide 20 Mg Tablet 60 Mg PO DAILY TAKES 3 (20MG) TABLETS Ventolin Hfa (Albuterol Sulfate) 18 Gm Hfa.aer.ad 2 Puff INH QID PRN Labetalol HCl 100 Mg Tablet 100 Mg PO BID Instructions to patient/family Please see electronic discharge instructions given to patient. Diagnosis/Problems Diagnosis/Problems (1) Dehydration (2) Bronchitis Status: Acute (3) Debility Status: Acute (4) Asthma Status: Acute (5) Debility (6) Constipation Status: Acute (7) Diabetes mellitus Status: Chronic (8) CAD (coronary artery disease) Status: Chronic (9) Cough Status: Acute (10) Hyperlipemia Status: Chronic (11) Leukocytosis Status: Acute (12) Renal insufficiency Status: Acute (13) Weakness Status: Acute (14) Hypertension (15) Pleurisy Status: Acute (16) Obesity Status: Chronic (17) Elevated brain natriuretic peptide (BNP) level Status: Acute (18) STEPHAN treated with BiPAP Status: Chronic (19) Dehydration Status: Acute (20) PNA (pneumonia) Clinical Quality Measures DVT/VTE Risk/Contraindication: Risk Factor Score Per Nursin RFS Level Per Nursing on Admit: 4+=Very High ROXANA BISHOP DO Jun 20, 2019 11:20
[2019-06-20 12:48] VITALS: BP 149/71
--- OUTSIDE RECORDS SUMMARY | 2019-06-22 02:38 | XMS REPORT | Continuity of Care Document ---
Author Organization Unknown Address Unknown Phone Unavailable Allergies Active Description Code Type Severity Reaction Onset Reported/Identified Relationship to Patient Clinical Status Yes CODEINE SULFATE U NKNOWN OTHER Yes CODEINE SULFATE U NKNOWN UNKNOWN Yes NO KNOWN DRUG ALLERGIES UNKNOWN NO KNOWN DRUG ALLERG Yes PENICILLINS UNKNOWN ITCHING Yes PENICILLINS UNKNOWN UNKNOWN Yes codeine [id number] Drug Allergy Unknown N/A 10/15/2015 Yes Penicillins [id number] Drug Aller gy Unknown N/A 10/15/2015 Medications Medication Packaging Start Date St op Date Route Dosage Sig NEOSYNEPHRINE NASAL SPRAY LI Q 1 % (PHENYLEPHRINE NS) spray 03/17/2018 03/17/2018 ONCE&1230 Tranexamic acid IV solution 1 Gm vials (TX A) ML 05/13/2018 05/13/2018 ONCE&2350 ONDANSETRON VIAL INJ 4 MG/2CC (ZOFRAN 2CC VIAL) MG 04/05/2019 04/05/2019 ONCE&1122 NORMAL SALINE 1000CC IV BAG INJ 0.9 % (NS 1000CC IV BAG) ml 04/05/2019 04/20/2019 CONTINUOUSEVERY 0 Hour Problems Date Dx Coded Attending Type Code Diagnosis Diagnosed By 09/11/2013 ELIE LYLES DO Ot 327.23 OBSTRUCTIVE SLEEP APNEA (ADULT) (PEDIATR 09/11/2013 ELIE LYLES DO Ot 401.9 HYPERTENSION NOS 09/11/2013 ELIE LYLES DO Ot 799.02 HYPOXEMIA 10/25/2014 ELIE LYLES DO Ot 401.9 11/17/2014 PAVEL LYLESP Ot 719.45 11/17/2014 PAVEL LYLESP Ot 724.3 12/06/2014 PAVEL LYLESP Ot 719.45 12/06/2014 PAVEL LYLES SENIOR BEHAVIORAL SCIENTIST Ot 724.3 04/16/2015 ELIE LYLES DO Ot 401.9 04/16/2015 PAVEL LYLES SENIOR BEHAVIORAL SCIENTIST Ot 719.45 04/16/2015 PAVEL LYLES SENIOR BEHAVIORAL SCIENTIST Ot 724.3 04/17/2015 ELIE LYLSE DO Ot G47.33 OBSTRUCTIVE SLEEP APNEA (ADULT) (PEDIATR 10/15/2015 SILVIA DO, ALEX K Ot E86.0 DEHYDRATION 10/15/2015 SILVIA DO, ALEX K Ot I44.0 ATRIOVENTRICULAR BLOCK, FIRST DEGREE 10/15/2015 SILVIA DO, ALEX K Ot N39.0 URINARY TRACT INFECTION, SITE NOT SPECIF 10/19/2015 SILVIA DO, ALEX K Ot E86.0 DEHYDRATION 10/19/2015 SILVIA DO, ALEX K Ot I44.0 ATRIOVENTRICULAR BLOCK, FIRST DEGREE 10/19/2015 SILVIA DO, ALEX K Ot N39.0 URINARY TRACT INFECTION, SITE NOT SPECIF 11/29/2017 SARAY ONEIL JR 724.4 THORACIC OR LUMBOSACRAL NEURITIS OR RADICULITIS, UNSPECIFIED 11/29/2017 SARAY ONEIL JR M54.1 6 RADICULOPATHY, LUMBAR REGION 11/29/2017 SARAY ONEIL JR 724.4 THORACIC OR LUMBOSACRAL NEURITIS OR RADICULITIS, UNSPECIFIED 11/29/2017 SARAY ONEIL JR M54.1 6 RADICULOPATHY, LUMBAR REGION 12/05/2017 ELIE LYLES DO Ot I10 ESSENTIAL (PRIMARY) HYPERTENSION 12/05/2017 ELIE LYLES DO Ot R06.00 DYSPNEA, UNSPECIFIED 01/03/2018 ELIE LYLES DO Ot I10 ESSENTIAL (PRIMARY) HYPERTENSION 01/03/2018 ELIE LYLES DO Ot R06.00 DYSPNEA, UNSPECIFIED 01/08/2018 ELIE LYLES DO Ot I10 ESSENTIAL (PRIMARY) HYPERTENSION 01/08/2018 ELIE LYLES DO Ot R06.00 DYSPNEA, UNSPECIFIED 02/27/2018 Lucas Morel 784.7 EPISTAXIS 02/27/2018 Lucas Morel R04.0 EPISTAXIS 03/17/2018 Ar French 784.7 EPISTAXIS 03/17/2018 Howayek, Ar A R04.0 EPISTAXIS 03/18/2018 Ar French V58.30 ENCOUNTER FOR CHANGE OR REMOVAL OF NONSURGICAL WOUND DRESSING 03/18/2018 Ar French Z48.00 ENCOUNTER FOR CHANGE OR REMOVAL OF NONSURG WOUND DRESSING 03/18/2018 Ar French A 784.7 EPISTAXIS 03/18/2018 Ar French A R04.0 EPISTAXIS 05/13/2018 Lucas Morel 784.7 EPISTAXIS 05/13/2018 Lucas Morel R04.0 EPISTAXIS 06/17/2018 Manolo Ar W 784.7 EPISTAXIS 06/17/2018 Ar French R04.0 EPISTAXIS 07/08/2018 SISSY LEE DO, Ot E66. 01 MORBID (SEVERE) OBESITY DUE TO EXCESS CA 07/08/2018 SISSY LEE DO Ot G47. 33 OBSTRUCTIVE SLEEP APNEA (ADULT) (PEDIATR 07/08/2018 SISSY LEE DO Ot R04. 0 EPISTAXIS 07/08/2018 SISSY LEE DO Ot R05 COUGH 07/08/2018 SISSY LEE DO Ot R06. 00 DYSPNEA, UNSPECIFIED 07/08/2018 SISSY LEE DO Ot R60. 9 EDEMA, UNSPECIFIED 07/08/2018 SISSY LEE DO Ot R60. 9 EDEMA, UNSPECIFIED 07/16/2018 SISSY LEE DO Ot R60. 9 EDEMA, UNSPECIFIED 07/31/2018 SISSY LEE DO Ot E66. 01 MORBID (SEVERE) OBESITY DUE TO EXCESS CA 07/31/2018 SISSY LEE DO Ot G47. 33 OBSTRUCTIVE SLEEP APNEA (ADULT) (PEDIATR 07/31/2018 SISSY LEE DO Ot R04. 0 EPISTAXIS 07/31/2018 SISSY LEE DO Ot R05 COUGH 07/31/2018 SISSY LEE DO Ot R06. 00 DYSPNEA, UNSPECIFIED 07/31/2018 SISSY LEE DO Ot R60. 9 EDEMA, UNSPECIFIED 08/06/2018 SISSY LEE DO Ot E66. 01 MORBID (SEVERE) OBESITY DUE TO EXCESS CA 08/06/2018 SISSY LEE DO Ot G47. 33 OBSTRUCTIVE SLEEP APNEA (ADULT) (PEDIATR 08/06/2018 SISSY LEE DO Ot R04. 0 EPISTAXIS 08/06/2018 SISSY LEE DO Ot R05 COUGH 08/06/2018 SISSY LEE DO Ot R06. 00 DYSPNEA, UNSPECIFIED 08/06/2018 SISSY LEE DO Ot R60. 9 EDEMA, UNSPECIFIED 08/12/2018 ELIE LYLES DO Ot 401.9 HYPERTENSION NOS 08/12/2018 PAVEL LYLES SENIOR BEHAVIORAL SCIENTIST Ot 719.45 JOINT PAIN-PELVIS 08/12/2018 PAVEL LYLES SENIOR BEHAVIORAL SCIENTIST Ot 724.3 SCIATICA 08/12/2018 ELIE LYLES DO Ot I10 ESSENTIAL (PRIMARY) HYPERTENSION 08/12/2018 ELIE LYLES DO Ot R06.00 DYSPNEA, UNSPECIFIED 08/12/2018 SISSY LEE DO Ot E66. 01 MORBID (SEVERE) OBESITY DUE TO EXCESS CA 08/12/2018 SISSY LEE DO Ot G47. 33 OBSTRUCTIVE SLEEP APNEA (ADULT) (PEDIATR 08/12/2018 SISSY LEE DO Ot R04. 0 EPISTAXIS 08/12/2018 SISSY LEE DO Ot R05 COUGH 08/12/2018 SISSY LEE DO Ot R06. 00 DYSPNEA, UNSPECIFIED 08/12/2018 SISSY LEE DO Ot R60. 9 EDEMA, UNSPECIFIED 08/12/2018 SISSY LEE DO Ot R60. 0 LOCALIZED EDEMA 08/12/2018 SISSY LEE DO Ot R60. 0 LOCALIZED EDEMA 08/13/2018 SISSY LEE DO Ot R60. 0 LOCALIZED EDEMA 08/13/2018 SISSY LEE DO Ot R60. 0 LOCALIZED EDEMA 08/13/2018 SISSY LEE DO Ot R60. 0 LOCALIZED EDEMA 09/04/2018 SISSY LEE DO Ot E66. 01 MORBID (SEVERE) OBESITY DUE TO EXCESS CA 09/04/2018 SISSY LEE DO Ot G47. 33 OBSTRUCTIVE SLEEP APNEA (ADULT) (PEDIATR 09/04/2018 SISSY LEE DO Ot I70. 0 ATHEROSCLEROSIS OF [place] 09/04/2018 SISSY LEE DO Ot M79. 89 OTHER SPECIFIED SOFT TISSUE DISORDERS 09/04/2018 SISSY LEE DO Ot R04. 0 EPISTAXIS 09/04/2018 SISSY LEE DO Ot Z90. 49 ACQUIRED ABSENCE OF OTHER SPECIFIED PART 09/11/2018 MARIA EUGENIA CARRILLO MD Ot E11. 9 TYPE 2 DIABETES MELLITUS WITHOUT COMPLIC 09/11/2018 MARIA EUGENIA CARRILLO MD Ot E66. 2 MORBID (SEVERE) OBESITY WITH ALVEOLAR HY 09/11/2018 MARIA EUGENIA CARRILLO MD Ot E78. 2 MIXED HYPERLIPIDEMIA 09/11/2018 MARIA EUGENIA CARRILLO MD Ot E83. 52 HYPERCALCEMIA 09/11/2018 MARIA EUGENIA CARRILLO MD Ot G47. 30 SLEEP APNEA, UNSPECIFIED 09/11/2018 MARIA EUGENIA CARRILLO MD Ot I10 ESSENTIAL (PRIMARY) HYPERTENSION 09/11/2018 MARIA EUGENIA CARRILLO MD Ot I11. 0 HYPERTENSIVE HEART DISEASE WITH HEART FA 09/11/2018 MARIA EUGENIA CARRILLO MD Ot I25. 10 ATHSCL HEART DISEASE OF [place] CORONARY 09/11/2018 MARIA EUGENIA CARRILLO MD Ot I50. 33 ACUTE ON CHRONIC DIASTOLIC (CONGESTIVE) 09/11/2018 MARIA EUGENIA CARRILLO MD Ot J18. 1 LOBAR PNEUMONIA, UNSPECIFIED ORGANISM 09/11/2018 MARIA EUGENIA CARRILLO MD Ot J45. 41 MODERATE PERSISTENT ASTHMA WITH (ACUTE) 09/11/2018 MARIA EUGENIA CARRILLO MD Ot J45.909 UNSPECIFIED ASTHMA, UNCOMPLICATED 09/11/2018 MARIA EUGENIA CARRILLO MD Ot J98. 11 ATELECTASIS 09/11/2018 MARIA EUGENIA CARRILLO MD Ot K59. 01 SLOW TRANSIT CONSTIPATION 09/11/2018 MARIA EUGENIA CARRILLO MD Ot M19. 91 PRIMARY OSTEOARTHRITIS, UNSPECIFIED SITE 09/11/2018 MARIA EUGENIA CARRILLO MD Ot N17. 9 ACUTE KIDNEY FAILURE, UNSPECIFIED 09/11/2018 MARIA EUGENIA CARRILLO MD Ot R07. 81 PLEURODYNIA 09/11/2018 MARIA EUGENIA CARRILLO MD Ot R53. 1 WEAKNESS 09/11/2018 MARIA EUGENAI CARRILLO MD Ot R60. 0 LOCALIZED EDEMA 09/11/2018 MARIA EUGENIA CARRILLO MD Ot R60. 9 EDEMA, UNSPECIFIED 09/11/2018 MARIA EUGENIA CARRILLO MD Ot Z68. 43 BODY MASS INDEX (BMI) 50-59.9, ADULT 09/11/2018 MARIA EUGENIA CARRILLO MD Ot Z79. 84 SENIOR CARE (CURRENT) USE OF ORAL HYPOGLYC 09/11/2018 MARIA EUGENIA CARRILLO MD Ot Z95. 5 PRESENCE OF CORONARY ANGIOPLASTY IMPLANT 09/11/2018 SISSY LEE DO Ot E66. 01 MORBID (SEVERE) OBESITY DUE TO EXCESS CA 09/11/2018 SISSY LEE DO Ot G47. 33 OBSTRUCTIVE SLEEP APNEA (ADULT) (PEDIATR 09/11/2018 SISSY LEE DO Ot I70. 0 ATHEROSCLEROSIS OF [place] 09/11/2018 SISSY LEE DO Ot M79. 89 OTHER SPECIFIED SOFT TISSUE DISORDERS 09/11/2018 SISSY LEE DO Ot R04. 0 EPISTAXIS 09/11/2018 SISSY LEE DO Ot Z90. 49 ACQUIRED ABSENCE OF OTHER SPECIFIED PART 09/18/2018 ROXANA BISHOP DO Ot B35.1 TINEA UNGUIUM 09/18/2018 EDNA MAURO ROXANA Ot E11.42 TYPE 2 DIABETES MELLITUS WITH DIABETIC P 09/18/2018 ROXANA BISHOP DO Ot E66.2 MORBID (SEVERE) OBESITY WITH ALVEOLAR HY 09/18/2018 EDNA MAURO ROXANA Ot E78.5 HYPERLIPIDEMIA, UNSPECIFIED 09/18/2018 EDNA MAURO ROXANA Ot F41.9 ANXIETY DISORDER, UNSPECIFIED 09/18/2018 EDNA MAURO ROXANA Ot I11.0 HYPERTENSIVE HEART DISEASE WITH HEART FA 09/18/2018 EDNA MAURO ROXANA Ot I25.10 ATHSCL HEART DISEASE OF [place] CORONARY 09/18/2018 EDNA MAURO ROXANA Ot I50.33 ACUTE ON CHRONIC DIASTOLIC (CONGESTIVE) 09/18/2018 YO BISHOP DOI Ot I87.2 VENOUS INSUFFICIENCY (CHRONIC) (PERIPHER 09/18/2018 EDNA MAURO ROXANA Ot J18.1 LOBAR PNEUMONIA, UNSPECIFIED ORGANISM 09/18/2018 YO BISHOP DOI Ot 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 09/18/2018 YO BISHOP DOI Ot J98.11 ATELECTASIS 09/18/2018 EDNA MAURO ROXANA Ot K59.09 OTHER CONSTIPATION 09/18/2018 EDNA MAURO ROXANA Ot M19.91 PRIMARY OSTEOARTHRITIS, UNSPECIFIED SITE 09/18/2018 EDNA MAURO ROXANA Ot N28.9 DISORDER OF KIDNEY AND URETER, UNSPECIFI 09/18/2018 EDNA MAURO ROXANA Ot R09.1 PLEURISY 09/18/2018 EDNA MAURO ROXANA Ot R26.2 DIFFICULTY IN WALKING, NOT ELSEWHERE CLA 09/18/2018 YO BISHOP DOI Ot R53.1 WEAKNESS 09/18/2018 EDNA MAURO ROXANA Ot R53.81 OTHER MALAISE 09/18/2018 EDNA MAURO ROXANA Ot Z68.43 BODY MASS INDEX (BMI) 50-59.9, ADULT 09/18/2018 EDNA MAURO ROXANA Ot Z95.5 PRESENCE OF CORONARY ANGIOPLASTY IMPLANT 09/26/2018 Brown, Rajat W 786.05 SHORTNESS OF BREATH 09/26/2018 Brown, Rajat W R06.02 SHORTNESS OF BREATH 09/26/2018 Brown, Rajat W 786.05 SHORTNESS OF BREATH 09/26/2018 Brown, Rajat W R06.02 SHORTNESS OF BREATH 09/26/2018 Brown, Rajat W 786.05 SHORTNESS OF BREATH 09/26/2018 Brown, Rajat W R06.02 SHORTNESS OF BREATH 02/25/2019 Brown, Rajat W 493.90 ASTHMA, UNSPECIFIED 02/25/2019 Brown, Rajat W J45.909 UNSPECIFIED ASTHMA, UNCOMPLICATED 02/25/2019 Brown, Rajat W M54.16 RADICULOPATHY, LUMBAR REGION 02/25/2019 Brown, Rajat W R04.0 EPISTAXIS 02/25/2019 Brown, Rajat W R06.02 SHORTNESS OF BREATH 02/25/2019 Brown, Rajat W Z48.00 ENCOUNTER FOR CHANGE OR REMOVAL OF NONSURG WOUND DRESSING 04/05/2019 HOLLI GONZALEZ W 558.9 OTHER AND UNSPECIFIED NONINFECTIOUS GASTROENTERITIS AND COLITIS 04/05/2019 HOLLI GONZALEZ K52.9 NONINFECTIVE GASTROENTERITIS AND COLITIS, UNSPECIFIED 04/05/2019 HOLLI GONZALEZ M54.1 6 RADICULOPATHY, LUMBAR REGION 04/05/2019 HOLLI GONZALEZ R04.0 EPISTAXIS 04/05/2019 HOLLI GONZALEZ R06.0 2 SHORTNESS OF BREATH 04/05/2019 HOLLI GONZALEZ Z48.0 0 ENCOUNTER FOR CHANGE OR REMOVAL OF NONSURG WOUND DRESSING 06/16/2019 BISHOP DO, ROXANA Ot E11.9 TYPE 2 DIABETES MELLITUS WITHOUT COMPLIC 06/16/2019 BISHOP DO, ROXANA Ot E86.0 DEHYDRATION 06/16/2019 BISHOP DO, ROXANA Ot G47.30 SLEEP APNEA, UNSPECIFIED 06/16/2019 BISHOP DO, ROXANA Ot I10 ESSENTIAL (PRIMARY) HYPERTENSION 06/16/2019 BISHOP DO, ROXANA Ot J18.0 BRONCHOPNEUMONIA, UNSPECIFIED ORGANISM 06/16/2019 BISHOP DO, ROXANA Ot J45.90 9 UNSPECIFIED ASTHMA, UNCOMPLICATED 06/16/2019 BSIHOP DO, ROXANA Ot K59.09 OTHER CONSTIPATION 06/16/2019 BISHOP DO, ROXANA Ot M19.90 UNSPECIFIED OSTEOARTHRITIS, UNSPECIFIED 06/16/2019 BISHOP DO, ROXANA Ot R53.81 OTHER MALAISE 06/16/2019 BISHOP DO, ROXANA Ot Z79.02 SENIOR CARE (CURRENT) USE OF ANTITHROMBOTI 06/16/2019 EDNA MAURO ROXANA Ot Z79.84 METER SETTER (CURRENT) USE OF ORAL HYPOGLYC 06/16/2019 EDNA DO, ROXANA Ot Z79.89 1 METER SETTER (CURRENT) USE OF OPIATE ANALGE 06/16/2019 EDNA MAURO, ROXANA Ot Z79.89 9 OTHER METER SETTER (CURRENT) DRUG THERAPY 06/16/2019 EDNA MAURO, ROXANA Ot Z88.0 ALLERGY STATUS TO PENICILLIN 06/16/2019 BISHOP DO, ROXANA Ot Z88.5 ALLERGY STATUS TO NARCOTIC AGENT STATUS 06/16/2019 EDNA MAURO ROXANA Ot Z90.89 ACQUIRED ABSENCE OF OTHER ORGANS 06/17/2019 EDNA DO, ROXANA Ot E11.9 TYPE 2 DIABETES MELLITUS WITHOUT COMPLIC 06/17/2019 BISHOP DO, ROXANA Ot E66.9 OBESITY, UNSPECIFIED 06/17/2019 BISHOP DO, ROXANA Ot E78.5 HYPERLIPIDEMIA, UNSPECIFIED 06/17/2019 BISHOP DO, ROXANA Ot F32.9 MAJOR DEPRESSIVE DISORDER, SINGLE EPISOD 06/17/2019 BISHOP DO, ROXANA Ot F41.9 ANXIETY DISORDER, UNSPECIFIED 06/17/2019 BISHOP DO, ROXANA Ot G47.33 OBSTRUCTIVE SLEEP APNEA (ADULT) (PEDIATR 06/17/2019 BISHOP DO, ROXANA Ot H35.30 UNSPECIFIED MACULAR DEGENERATION 06/17/2019 BISHOP DO, ROXANA Ot H40.9 UNSPECIFIED GLAUCOMA 06/17/2019 BISHOP DO, ROXANA Ot I10 ESSENTIAL (PRIMARY) HYPERTENSION 06/17/2019 BISHOP DO, ROXANA Ot I25.10 ATHSCL HEART DISEASE OF [place] CORONARY 06/17/2019 BISHOP DO, ROXANA Ot J20.9 ACUTE BRONCHITIS, UNSPECIFIED 06/17/2019 BISHOP DO, ROXANA Ot J44.0 CHR OBSTRUCTIVE PULMON DISEASE WITH (ACU 06/17/2019 BISHOP DO, ROXANA Ot K59.09 OTHER CONSTIPATION 06/17/2019 BISHOP DO, ROXANA Ot M19.91 PRIMARY OSTEOARTHRITIS, UNSPECIFIED SITE 06/17/2019 BISHOP DO, ROXANA Ot M54.9 DORSALGIA, UNSPECIFIED 06/17/2019 BISHOP DO, ROXANA Ot Z66 DO NOT RESUSCITATE 06/17/2019 BISHOP DO, ROXANA Ot Z68.43 BODY MASS INDEX (BMI) 50.0-59.9, ADULT 06/17/2019 BISHOP DO, ROXANA Ot Z79.84 METER SETTER (CURRENT) USE OF ORAL HYPOGLYC 06/17/2019 BISHOP DO, ROXANA Ot Z95.5 PRESENCE OF CORONARY ANGIOPLASTY IMPLANT 06/20/2019 BISHOP DO, ROXANA Ot E11.9 TYPE 2 DIABETES MELLITUS WITHOUT COMPLIC 06/20/2019 BISHOP DO, ROXANA Ot E66.9 OBESITY, UNSPECIFIED 06/20/2019 BISHOP DO, ROXANA Ot E78.5 HYPERLIPIDEMIA, UNSPECIFIED 06/20/2019 BISHOP DO, ROXANA Ot F32.9 MAJOR DEPRESSIVE DISORDER, SINGLE EPISOD 06/20/2019 BISHOP DO, ROXANA Ot F41.9 ANXIETY DISORDER, UNSPECIFIED 06/20/2019 BISHOP DO, ROXANA Ot G47.33 OBSTRUCTIVE SLEEP APNEA (ADULT) (PEDIATR 06/20/2019 BISHOP DO, ROXANA Ot H35.30 UNSPECIFIED MACULAR DEGENERATION 06/20/2019 BISHOP DO, ROXANA Ot H40.9 UNSPECIFIED GLAUCOMA 06/20/2019 BISHOP DO, ROXANA Ot I10 ESSENTIAL (PRIMARY) HYPERTENSION 06/20/2019 BISHOP DO, ROXANA Ot I25.10 ATHSCL HEART DISEASE OF [place] CORONARY 06/20/2019 BISHOP DO, ROXANA Ot J20.9 ACUTE BRONCHITIS, UNSPECIFIED 06/20/2019 BISHOP DO, ROXANA Ot J44.0 CHR OBSTRUCTIVE PULMON DISEASE WITH (ACU 06/20/2019 EDNA MAURO, ROXANA Ot K59.09 OTHER CONSTIPATION 06/20/2019 BISHOP DO, ROXANA Ot M19.91 PRIMARY OSTEOARTHRITIS, UNSPECIFIED SITE 06/20/2019 ROXANA BISHOP DO Ot M54.9 DORSALGIA, UNSPECIFIED 06/20/2019 BISHOP DOYOI Ot Z66 DO NOT RESUSCITATE 06/20/2019 EDNA DO, ROXANA Ot Z68.43 BODY MASS INDEX (BMI) 50.0-59.9, ADULT 06/20/2019 EDNA DO, ROXANA Ot Z79.84 SENIOR CARE (CURRENT) USE OF ORAL HYPOGLYC 06/20/2019 ROXANA BISOHP DO Ot Z95.5 PRESENCE OF CORONARY ANGIOPLASTY IMPLANT Procedures There is no data. Results Test Result Range CBC with Auto Diff - 03/17/18 12:55 Baso% 0.30 % 0.00-2.50 Eos 0.1 K/uL 0.0-0.7 Eos% 1.7 % 0.0-7.0 Hct 36.3 % 36.0-46.0 Hgb 11.3 g/dL 13.0-15.0 Lym 1.02 K/uL 0.60-3.40 Lym% 14.2 % 10.0-50.0 MCH 30.0 pg 27.0-31.0 MCHC 31.1 g/dL 32.0-36.0 MCV 96.3 fL 80.0-97.0 Blanco% 7.5 % 0.0-12.0 MPV 9.0 fL 7.4-10.0 Leno% 76.3 % 37.0-80.0 Plt 274 K/uL 150-400 RBC 3.77 M/uL 3.60-5.00 RDW 14.2 % 11.6-14.8 WBC 7.16 K/uL 5.00-10.00 Leno 5.46 K/uL 2.00-6.90 Blanco 0.5 K/uL 0.0-0.9 Baso 0.0 K/uL 0.0-0.2 HH - 03/18/18 20:15 Hct 36.2 % 36.0-46.0 Hgb 11.3 Result Verified by Repeat Analysis g/dL 13.0-15.0 Arterial blood gas measurement - 9 14:57 Blood pCO2 39 mm[Hg] 35-45 Blood pO2 72 mm[Hg] 79-93 Arterial blood bicarbonate measurement (moles/volume) 24 mmol/L 23-27 Arterial blood base excess by calculation -0.5 mmo l/L -2.5-2.5 Arterial blood oxygen saturation measurement 96 % 94-100 * Inhaled oxygen flow rate RA NRG Arterial blood pH measurement with patient temperature correction 7.40 7.37-7.43 Arterial blood carbon dioxide, total measurement (mole s/volume) 25.1 mmol/L 21.0-31.0 Body site R BRACH NRG Assessment of wrist artery patency prior to arterial p uncture YES-POS NRG Setting of ventilation mode NO NR G Measurement of body temperature 96.3 NRG Complete blood count (CBC) with automate d white blood cell (WBC) differential - 09/07/18 10:50 Blood leukocytes automated count (number/volume) 7.6 10*3/uL 4.3-11.0 Blood erythrocytes automated count (number/volume) 4.04 10*6/uL 4.35-5.85 Venous blood hemoglobin measurement (mass/volume) 11.5 g/dL 11.5-16.0 Blood hematocrit (volume fraction) 36 % 35-52 Automated erythrocyte mean corpuscular volume 90 [ foz_us] 80-99 Automated erythrocyte mean corpuscular h emoglobin (mass per erythrocyte) 29 pg 25-34 Automated erythrocyte mean corpuscular h emoglobin concentration measurement (mass/volume) 32 g/dL 32-36 Automated erythrocyte distribution width ratio 15. 5 % 10.0- 14.5 Automated blood platelet count [...] 10*3 1.0-4.0 Blood monocytes automated count (number/volume) 0. 6 10*3 0.0-1.0 Automated eosinophil count 0.1 10*3/uL 0 .0-0.3 Automated blood basophil count (count/volume) 0.0 10*3/uL 0.0-0.1 Blood lactic acid measurement (moles/vol ume) - 09/07/18 10:50 Blood lactic acid measurement (moles/volume) 1.67 mmol/L 0.50-2.00 PT panel in platelet poor plasma by coag ulation assay - 09/07/18 10:50 Prothrombin time (PT) in platelet poor plasma by coagu lation assay 14.0 s 12.2-14.7 INR in platelet poor plasma or blood by coagulation as say 1.0 0.8-1.4 Activated partial thromboplastin time (a PTT) in platelet poor plasma bycoagulation assay - 09/07/18 10:50 Activated partial thromboplastin time (a PTT) in platelet poor plasma bycoagulation assay 24 s 24-35 Comprehensive metabolic panel - 09/07/18 10:50 Serum or plasma sodium measurement (moles/volume) 141 mmol/L 135-145 Serum or plasma potassium measurement (moles/volume) 4.3 mmol/L 3.6-5.0 Serum or plasma chloride measurement (moles/volume) 103 mmol/L 98-107 Carbon dioxide 31 mmol/L 21-32 Serum or plasma anion gap determination (moles/volume) 7 mmol/L 5-14 Serum or plasma urea nitrogen measurement (mass/volume ) 35 mg/dL 7-18 Serum or plasma creatinine measurement (mass/volume) 1.61 mg/dL 0.60-1.30 Serum or plasma urea nitrogen/creatinine mass ratio 22 NRG Serum or plasma creatinine measurement w ith calculation of estimated glomerular filtration rate 30 NRG Serum or plasma glucose measurement (mass/volume) 102 mg/dL 70-105 Serum or plasma calcium measurement (mass/volume) 10.1 mg/dL 8.5-10.1 Serum or plasma total bilirubin measurement (mass/volu me) 0.4 mg/dL 0.1-1.0 Serum or plasma alkaline phosphatase ventura surement (enzymatic activity/volume) 91 U/L 40-136 Serum or plasma aspartate aminotransfera se measurement (enzymatic activity/volume) 14 U/L 5-34 Serum or plasma alanine aminotransferase measurement (enzymatic activity/volume) 13 U/L 0-55 Serum or plasma protein measurement (mass/volume) 6.5 g/dL 6.4-8.2 Serum or plasma albumin measurement (mass/volume) 3.7 g/dL 3.2-4.5 CALCIUM CORRECTED 10.3 mg/dL 8.5-10.1 Serum or plasma troponin i.cardiac measu rement (mass/volume) - 09/07/18 10:50 Serum or plasma troponin i.cardiac measurement (mass/v olume) < ng/mL <0.028 Bacterial blood culture - 09/07/18 10:50 Bacterial blood culture NG NRG Bacterial blood culture - 09/07/18 12:36 Bacterial blood culture NG NRG Complete urinalysis with reflex to cultu re - 09/07/18 13:03 Urine color determination YELLOW NRG Urine clarity determination CLEAR NR G Urine pH measurement by test strip 7 5-9 Specific gravity of urine by test strip 1.010 1.016-1.022 Urine protein assay by test strip, semi-quantitative NEGATIVE NEGATIVE Urine glucose detection by automated test strip NE GATIVE NEGATIVE Erythrocytes detection in urine sediment by light micr oscopy NEGATIVE NEGATIVE Urine ketones detection by automated test strip NE GATIVE NEGATIVE Urine nitrite detection by test strip NEGATIVE NEGATIVE Urine total bilirubin detection by test strip NEGA TIVE NEGATIVE Urine urobilinogen measurement by automated test strip (mass/volume) NORMAL NORMAL Urine leukocyte esterase detection by dipstick NEG ATIVE NEGATIVE Automated urine sediment erythrocyte cou nt by microscopy (number/high power field) NONE NRG Automated urine sediment leukocyte count by microscopy (number/high power field) NONE NRG Bacteria detection in urine sediment by light microsco py NEGATIVE NRG Squamous epithelial cells detection in u rine sediment by light microscopy RARE NRG Crystals detection in urine sediment by light microsco py NONE NRG Casts detection in urine sediment by light microscopy NONE NRG Mucus detection in urine sediment by light microscopy NEGATIVE NRG Complete urinalysis with reflex to culture CULTURE PENDING NRG Bacterial urine culture - 09/07/18 13:03 Bacterial urine culture NG NRG Complete blood count (CBC) with automate d white blood cell (WBC) differential - 09/08/18 05:25 Blood leukocytes automated count (number/volume) 9.8 10*3/uL 4.3-11.0 Blood erythrocytes automated count (number/volume) 3.77 10*6/uL 4.35-5.85 Venous blood hemoglobin measurement (mass/volume) 10.9 g/dL 11.5-16.0 Blood hematocrit (volume fraction) 34 % 35-52 Automated erythrocyte mean corpuscular volume 90 [ foz_us] 80-99 Automated erythrocyte mean corpuscular h emoglobin (mass per erythrocyte) 29 pg 25-34 Automated erythrocyte mean corpuscular h emoglobin concentration measurement (mass/volume) 32 g/dL 32-36 Automated erythrocyte distribution width ratio 15. 7 % 10.0- 14.5 Automated blood platelet count (count/volume) 263 10*3/uL 130-400 Automated blood platelet mean volume measurement 9.0 [foz_us] 7.4-10.4 Automated blood neutrophils/100 leukocytes 70 % 42-75 Automated blood lymphocytes/100 leukocytes 20 % 12-44 Blood monocytes/100 leukocytes 9 % 0-12 Automated blood eosinophils/100 leukocytes 1 % 0-10 Automated blood basophils/100 leukocytes 0 % 0-10 Blood neutrophils automated count (number/volume) 6.9 10*3 1.8-7.8 Blood lymphocytes automated count (number/volume) 2.0 10*3 1.0-4.0 Blood monocytes automated count (number/volume) 0. 8 10*3 0.0-1.0 Automated eosinophil count 0.1 10*3/uL 0 .0-0.3 Automated blood basophil count (count/volume) 0.0 10*3/uL 0.0-0.1 Comprehensive metabolic panel - 09/08/18 05:25 Serum or plasma sodium measurement (moles/volume) 141 mmol/L 135-145 Serum or plasma potassium measurement (moles/volume) 4.2 mmol/L 3.6-5.0 Serum or plasma chloride measurement (moles/volume) 107 mmol/L 98-107 Carbon dioxide 24 mmol/L 21-32 Serum or plasma anion gap determination (moles/volume) 10 mmol/L 5-14 Serum or plasma urea nitrogen measurement (mass/volume ) 33 mg/dL 7-18 Serum or plasma creatinine measurement (mass/volume) 1.35 mg/dL 0.60-1.30 Serum or plasma urea nitrogen/creatinine mass ratio 24 NRG Serum or plasma creatinine measurement w ith calculation of estimated glomerular filtration rate 37 NRG Serum or plasma glucose measurement (mass/volume) 112 mg/dL 70-105 Serum or plasma calcium measurement (mass/volume) 9.4 mg/dL 8.5-10.1 Serum or plasma total bilirubin measurement (mass/volu me) 0.5 mg/dL 0.1-1.0 Serum or plasma alkaline phosphatase ventura surement (enzymatic activity/volume) 72 U/L 40-136 Serum or plasma aspartate aminotransfera se measurement (enzymatic activity/volume) 13 U/L 5-34 Serum or plasma alanine aminotransferase measurement (enzymatic activity/volume) 11 U/L 0-55 Serum or plasma protein measurement (mass/volume) 5.7 g/dL 6.4-8.2 Serum or plasma albumin measurement (mass/volume) 3.2 g/dL 3.2-4.5 CALCIUM CORRECTED 10.0 mg/dL 8.5-10.1 Serum or plasma intact pararthyroid horm one measurement (mass/volume) - 09/08/18 05:25 Serum or plasma intact parathyroid hormone measurement (mass/volume) 93.0 H 9.0-77.0 Bio-intact parathyroid hormone (PTH) measurement with calcium 9.8 mg/dL 8.5-10.5 Whole blood basic metabolic panel - 08/14 12/01 03:55 Serum or plasma sodium measurement (moles/volume) 136 mmol/L 135-145 Serum or plasma potassium measurement (moles/volume) 4.8 mmol/L 3.6-5.0 Serum or plasma chloride measurement (moles/volume) 106 mmol/L 98-107 Carbon dioxide 23 mmol/L 21-32 Serum or plasma anion gap determination (moles/volume) 7 mmol/L 5-14 Serum or plasma urea nitrogen measurement (mass/volume ) 32 mg/dL 7-18 Serum or plasma creatinine measurement (mass/volume) 1.29 mg/dL 0.60-1.30 Serum or plasma urea nitrogen/creatinine mass ratio 25 NRG Serum or plasma creatinine measurement w ith calculation of estimated glomerular filtration rate 39 NRG Serum or plasma glucose measurement (mass/volume) 153 mg/dL 70-105 Serum or plasma calcium measurement (mass/volume) 9.7 mg/dL 8.5-10.1 Vancomycin trough - 09/09/18 03:55 Vancomycin trough 18.0 ug/mL 10.0-20.0 Complete blood count (CBC) with automate d white blood cell (WBC) differential - 09/10/18 07:20 Blood leukocytes automated count (number/volume) 11.2 10*3/uL 4.3-11.0 Blood erythrocytes automated count (number/volume) 4.17 10*6/uL 4.35-5.85 Venous blood hemoglobin measurement (mass/volume) 11.9 g/dL 11.5-16.0 Blood hematocrit (volume fraction) 38 % 35-52 Automated erythrocyte mean corpuscular volume 90 [ foz_us] 80-99 Automated erythrocyte mean corpuscular h emoglobin (mass per erythrocyte) 29 pg 25-34 Automated erythrocyte mean corpuscular h emoglobin concentration measurement (mass/volume) 32 g/dL 32-36 Automated erythrocyte distribution width ratio 15. 7 % 10.0- 14.5 Automated blood platelet count (count/volume) 305 10*3/uL 130-400 Automated blood platelet mean volume measurement 8.6 [foz_us] 7.4-10.4 Automated blood neutrophils/100 leukocytes 74 % 42-75 Automated blood lymphocytes/100 leukocytes 15 % 12-44 Blood monocytes/100 leukocytes 10 % 0-12 Automated blood eosinophils/100 leukocytes 1 % 0-10 Automated blood basophils/100 leukocytes 0 % 0-10 Blood neutrophils automated count (number/volume) 8.3 10*3 1.8-7.8 Blood lymphocytes automated count (number/volume) 1.7 10*3 1.0-4.0 Blood monocytes automated count (number/volume) 1. 1 10*3 0.0-1.0 Automated eosinophil count 0.1 10*3/uL 0 .0-0.3 Automated blood basophil count (count/volume) 0.0 10*3/uL 0.0-0.1 Whole blood basic metabolic panel - 08/14 01/01 07:20 Serum or plasma sodium measurement (moles/volume) 141 mmol/L 135-145 Serum or plasma potassium measurement (moles/volume) 4.6 mmol/L 3.6-5.0 Serum or plasma chloride measurement (moles/volume) 107 mmol/L 98-107 Carbon dioxide 26 mmol/L 21-32 Serum or plasma anion gap determination (moles/volume) 8 mmol/L 5-14 Serum or plasma urea nitrogen measurement (mass/volume ) 29 mg/dL 7-18 Serum or plasma creatinine measurement (mass/volume) 1.05 mg/dL 0.60-1.30 Serum or plasma urea nitrogen/creatinine mass ratio 28 NRG Serum or plasma creatinine measurement w ith calculation of estimated glomerular filtration rate 49 NRG Serum or plasma glucose measurement (mass/volume) 112 mg/dL 70-105 Serum or plasma calcium measurement (mass/volume) 9.7 mg/dL 8.5-10.1 Serum or plasma phosphate measurement (m ass/volume) - 09/10/18 07:20 Serum or plasma phosphate measurement (mass/volume) 4.0 mg/dL 2.3-4.7 Magnesium - 09/10/18 07:20 Magnesium 2.0 mg/dL 1.8-2.4 Serum or plasma lithium measurement (mol es/volume) - 09/10/18 07:20 BNP level 531.1 pg/mL <100.0 Complete blood count (CBC) with automate d white blood cell (WBC) differential - 09/11/18 05:38 Blood leukocytes automated count (number/volume) 10.5 10*3/uL 4.3-11.0 Blood erythrocytes automated count (number/volume) 3.93 10*6/uL 4.35-5.85 Venous blood hemoglobin measurement (mass/volume) 11.2 g/dL 11.5-16.0 Blood hematocrit (volume fraction) 35 % 35-52 Automated erythrocyte mean corpuscular volume 89 [ foz_us] 80-99 Automated erythrocyte mean corpuscular h emoglobin (mass per erythrocyte) 29 pg 25-34 Automated erythrocyte mean corpuscular h emoglobin concentration measurement (mass/volume) 32 g/dL 32-36 Automated erythrocyte distribution width ratio 15. 6 % 10.0- 14.5 Automated blood platelet count (count/volume) 278 10*3/uL 130-400 Automated blood platelet mean volume measurement 9.0 [foz_us] 7.4-10.4 Automated blood neutrophils/100 leukocytes 68 % 42-75 Automated blood lymphocytes/100 leukocytes 20 % 12-44 Blood monocytes/100 leukocytes 11 % 0-12 Automated blood eosinophils/100 leukocytes 1 % 0-10 Automated blood basophils/100 leukocytes 0 % 0-10 Blood neutrophils automated count (number/volume) 7.2 10*3 1.8-7.8 Blood lymphocytes automated count (number/volume) 2.1 10*3 1.0-4.0 Blood monocytes automated count (number/volume) 1. 1 10*3 0.0-1.0 Automated eosinophil count 0.1 10*3/uL 0 .0-0.3 Automated blood basophil count (count/volume) 0.0 10*3/uL 0.0-0.1 Comprehensive metabolic panel - 09/11/18 05:38 Serum or plasma sodium measurement (moles/volume) 141 mmol/L 135-145 Serum or plasma potassium measurement (moles/volume) 4.8 mmol/L 3.6-5.0 Serum or plasma chloride measurement (moles/volume) 106 mmol/L 98-107 Carbon dioxide 28 mmol/L 21-32 Serum or plasma anion gap determination (moles/volume) 7 mmol/L 5-14 Serum or plasma urea nitrogen measurement (mass/volume ) 32 mg/dL 7-18 Serum or plasma creatinine measurement (mass/volume) 1.08 mg/dL 0.60-1.30 Serum or plasma urea nitrogen/creatinine mass ratio 30 NRG Serum or plasma creatinine measurement w ith calculation of estimated glomerular filtration rate 48 NRG Serum or plasma glucose measurement (mass/volume) 114 mg/dL 70-105 Serum or plasma calcium measurement (mass/volume) 9.6 mg/dL 8.5-10.1 Serum or plasma total bilirubin measurement (mass/volu me) 0.4 mg/dL 0.1-1.0 Serum or plasma alkaline phosphatase ventura surement (enzymatic activity/volume) 86 U/L 40-136 Serum or plasma aspartate aminotransfera se measurement (enzymatic activity/volume) 16 U/L 5-34 Serum or plasma alanine aminotransferase measurement (enzymatic activity/volume) 14 U/L 0-55 Serum or plasma protein measurement (mass/volume) 5.9 g/dL 6.4-8.2 Serum or plasma albumin measurement (mass/volume) 3.3 g/dL 3.2-4.5 CALCIUM CORRECTED 10.2 mg/dL 8.5-10.1 Complete blood count (CBC) with automate d white blood cell (WBC) differential - 09/12/18 05:30 Blood leukocytes automated count (number/volume) 10.7 10*3/uL 4.3-11.0 Blood erythrocytes automated count (number/volume) 3.88 10*6/uL 4.35-5.85 Venous blood hemoglobin measurement (mass/volume) 11.0 g/dL 11.5-16.0 Blood hematocrit (volume fraction) 34 % 35-52 Automated erythrocyte mean corpuscular volume 89 [ foz_us] 80-99 Automated erythrocyte mean corpuscular h emoglobin (mass per erythrocyte) 28 pg 25-34 Automated erythrocyte mean corpuscular h emoglobin concentration measurement (mass/volume) 32 g/dL 32-36 Automated erythrocyte distribution width ratio 15. 7 % 10.0- 14.5 Automated blood platelet count (count/volume) 274 10*3/uL 130-400 Automated blood platelet mean volume measurement 8.8 [foz_us] 7.4-10.4 Automated blood neutrophils/100 leukocytes 67 % 42-75 Automated blood lymphocytes/100 leukocytes 20 % 12-44 Blood monocytes/100 leukocytes 11 % 0-12 Automated blood eosinophils/100 leukocytes 2 % 0-10 Automated blood basophils/100 leukocytes 0 % 0-10 Blood neutrophils automated count (number/volume) 7.2 10*3 1.8-7.8 Blood lymphocytes automated count (number/volume) 2.2 10*3 1.0-4.0 Blood monocytes automated count (number/volume) 1. 1 10*3 0.0-1.0 Automated eosinophil count 0.2 10*3/uL 0 .0-0.3 Automated blood basophil count (count/volume) 0.0 10*3/uL 0.0-0.1 Comprehensive metabolic panel - 09/12/18 05:30 Serum or plasma sodium measurement (moles/volume) 138 mmol/L 135-145 Serum or plasma potassium measurement (moles/volume) 4.3 mmol/L 3.6-5.0 Serum or plasma chloride measurement (moles/volume) 106 mmol/L 98-107 Carbon dioxide 26 mmol/L 21-32 Serum or plasma anion gap determination (moles/volume) 6 mmol/L 5-14 Serum or plasma urea nitrogen measurement (mass/volume ) 30 mg/dL 7-18 Serum or plasma creatinine measurement (mass/volume) 0.95 mg/dL 0.60-1.30 Serum or plasma urea nitrogen/creatinine mass ratio 32 NRG Serum or plasma creatinine measurement w ith calculation of estimated glomerular filtration rate 56 NRG Serum or plasma glucose measurement (mass/volume) 112 mg/dL 70-105 Serum or plasma calcium measurement (mass/volume) 9.2 mg/dL 8.5-10.1 Serum or plasma total bilirubin measurement (mass/volu me) 0.5 mg/dL 0.1-1.0 Serum or plasma alkaline phosphatase ventura surement (enzymatic activity/volume) 79 U/L 40-136 Serum or plasma aspartate aminotransfera se measurement (enzymatic activity/volume) 18 U/L 5-34 Serum or plasma alanine aminotransferase measurement (enzymatic activity/volume) 17 U/L 0-55 Serum or plasma protein measurement (mass/volume) 5.5 g/dL 6.4-8.2 Serum or plasma albumin measurement (mass/volume) 3.1 g/dL 3.2-4.5 CALCIUM CORRECTED 9.9 mg/dL 8.5-10.1 Capillary blood glucose measurement by g lucometer (mass/volume) - 09/12/18 16:51 Capillary blood glucose measurement by glucometer (mas s/volume) 171 mg/dL 70-110 Capillary blood glucose measurement by g lucometer (mass/volume) - 09/13/18 05:13 Capillary blood glucose measurement by glucometer (mas s/volume) 118 mg/dL 70-110 Capillary blood glucose measurement by g lucometer (mass/volume) - 09/13/18 15:41 Capillary blood glucose measurement by glucometer (mas s/volume) 252 mg/dL 70-110 Capillary blood glucose measurement by g lucometer (mass/volume) - 09/14/18 05:57 Capillary blood glucose measurement by glucometer (mas s/volume) 140 mg/dL 70-110 Capillary blood glucose measurement by g lucometer (mass/volume) - 09/14/18 15:30 Capillary blood glucose measurement by glucometer (mas s/volume) 236 mg/dL 70-110 Capillary blood glucose measurement by g lucometer (mass/volume) - 09/15/18 05:11 Capillary blood glucose measurement by glucometer (mas s/volume) 125 mg/dL 70-110 Complete blood count (CBC) with automate d white blood cell (WBC) differential - 09/15/18 05:35 Blood leukocytes automated count (number/volume) 10.8 10*3/uL 4.3-11.0 Blood erythrocytes automated count (number/volume) 4.06 10*6/uL 4.35-5.85 Venous blood hemoglobin measurement (mass/volume) 11.7 g/dL 11.5-16.0 Blood hematocrit (volume fraction) 37 % 35-52 Automated erythrocyte mean corpuscular volume 90 [ foz_us] 80-99 Automated erythrocyte mean corpuscular h emoglobin (mass per erythrocyte) 29 pg 25-34 Automated erythrocyte mean corpuscular h emoglobin concentration measurement (mass/volume) 32 g/dL 32-36 Automated erythrocyte distribution width ratio 15. 0 % 10.0- 14.5 Automated blood platelet count (count/volume) 272 10*3/uL 130-400 Automated blood platelet mean volume measurement 9.2 [foz_us] 7.4-10.4 Automated blood neutrophils/100 leukocytes 71 % 42-75 Automated blood lymphocytes/100 leukocytes 19 % 12-44 Blood monocytes/100 leukocytes 9 % 0-12 Automated blood eosinophils/100 leukocytes 1 % 0-10 Automated blood basophils/100 leukocytes 0 % 0-10 Blood neutrophils automated count (number/volume) 7.7 10*3 1.8-7.8 Blood lymphocytes automated count (number/volume) 2.1 10*3 1.0-4.0 Blood monocytes automated count (number/volume) 0. 9 10*3 0.0-1.0 Automated eosinophil count 0.1 10*3/uL 0 .0-0.3 Automated blood basophil count (count/volume) 0.0 10*3/uL 0.0-0.1 Comprehensive metabolic panel - 09/15/18 05:35 Serum or plasma sodium measurement (moles/volume) 137 mmol/L 135-145 Serum or plasma potassium measurement (moles/volume) 4.3 mmol/L 3.6-5.0 Serum or plasma chloride measurement (moles/volume) 103 mmol/L 98-107 Carbon dioxide 26 mmol/L 21-32 Serum or plasma anion gap determination (moles/volume) 8 mmol/L 5-14 Serum or plasma urea nitrogen measurement (mass/volume ) 30 mg/dL 7-18 Serum or plasma creatinine measurement (mass/volume) 1.15 mg/dL 0.60-1.30 Serum or plasma urea nitrogen/creatinine mass ratio 26 NRG Serum or plasma creatinine measurement w ith calculation of estimated glomerular filtration rate 45 NRG Serum or plasma glucose measurement (mass/volume) 120 mg/dL 70-105 Serum or plasma calcium measurement (mass/volume) 9.1 mg/dL 8.5-10.1 Serum or plasma total bilirubin measurement (mass/volu me) 0.4 mg/dL 0.1-1.0 Serum or plasma alkaline phosphatase ventura surement (enzymatic activity/volume) 73 U/L 40-136 Serum or plasma aspartate aminotransfera se measurement (enzymatic activity/volume) 15 U/L 5-34 Serum or plasma alanine aminotransferase measurement (enzymatic activity/volume) 23 U/L 0-55 Serum or plasma protein measurement (mass/volume) 5.8 g/dL 6.4-8.2 Serum or plasma albumin measurement (mass/volume) 3.3 g/dL 3.2-4.5 CALCIUM CORRECTED 9.7 mg/dL 8.5-10.1 Capillary blood glucose measurement by g lucometer (mass/volume) - 09/15/18 15:39 Capillary blood glucose measurement by glucometer (mas s/volume) 205 mg/dL 70-110 Capillary blood glucose measurement by g lucometer (mass/volume) - 09/16/18 05:22 Capillary blood glucose measurement by glucometer (mas s/volume) 108 mg/dL 70-110 Capillary blood glucose measurement by g lucometer (mass/volume) - 09/16/18 17:21 Capillary blood glucose measurement by glucometer (mas s/volume) 221 mg/dL 70-110 Capillary blood glucose measurement by g lucometer (mass/volume) - 09/17/18 05:47 Capillary blood glucose measurement by glucometer (mas s/volume) 151 mg/dL 70-110 Capillary blood glucose measurement by g lucometer (mass/volume) - 09/17/18 15:34 Capillary blood glucose measurement by glucometer (mas s/volume) 209 mg/dL 70-110 Capillary blood glucose measurement by g lucometer (mass/volume) - 09/18/18 05:24 Capillary blood glucose measurement by glucometer (mas s/volume) 131 mg/dL 70-110 Comprehensive Metabolic Panel - 04/05/19 11:22 Albumin 4.0 g/dL 3.6-5.1 ALP 102 U/L 35-130 ALT 15 U/L 6-45 Anion Gap 18 6-14 AST 14 U/L 2-40 BUN 28 mg/dL 5-25 Calcium 9.4 mg/dL 8.3-10.4 Chloride 104 mmol/L 95-114 CO2 24 mEq/L 22-33 Creat 1.23 mg/dL 0.50-1.50 eGFR 41 mL/min/1.73m2 >59 Globulin 3.3 g/dL 2.3-3.5 Glucose 159 mg/dL 70-110 Osmo 301 280-295 Potassium 4.2 mmol/L 3.5-5.3 Sodium 142 mmol/L 134-148 TBil 0.7 mg/dL 0.2-1.2 TP 7.3 g/dL 6.0-8.3 Urinalysis - 04/05/19 12:40 Icotest N/A Negative Urine Volume Urine Volume Sufficient (10mL) Urine Yeast No Yeast present Urine-Appearance Clear Clear Urine-Bacteria Negative Urine-Bilirubin Negative Negative Urine-Blood Trace-intact Negative Urine-Color Yellow Colorless-Lt. Early ow Urine-Epithelial Cells 0-5/HPF Urine-Glucose Negative Negative Urine-Ketones Negative Negative Urine-Leukocytes Negative Negative Urine-Nitrite Negative Negative Urine-Other Urine Saved if Culture Need ed (48hrs from time of collection) Urine-pH 5.5 5-8.5 Urine-Protein Negative Negative Urine-RBC Rare/HPF Urine-Specific [place] 1.015 1.000-1 .030 Urine-WBC Negative Urobilinogen 0.2 E.U./dL 0.2-1.0 Complete blood count (CBC) with automate d white blood cell (WBC) differential - 06/15/19 17:20 Blood leukocytes automated count (number/volume) 4.4 10*3/uL 4.3-11.0 Blood erythrocytes automated count (number/volume) 4.40 10*6/uL 4.35-5.85 Venous blood hemoglobin measurement (mass/volume) 12.9 g/dL 11.5-16.0 Blood hematocrit (volume fraction) 40 % 35-52 Automated erythrocyte mean corpuscular volume 91 [ foz_us] 80-99 Automated erythrocyte mean corpuscular h emoglobin (mass per erythrocyte) 29 pg 25-34 Automated erythrocyte mean corpuscular h emoglobin concentration measurement (mass/volume) 32 g/dL 32-36 Automated erythrocyte distribution width ratio 15. 4 % 10.0- 14.5 Automated blood platelet count (count/volume) 264 10*3/uL 130-400 Automated blood platelet mean volume measurement 9.4 [foz_us] 7.4-10.4 Automated blood neutrophils/100 leukocytes 57 % 42-75 Automated blood lymphocytes/100 leukocytes 25 % 12-44 Blood monocytes/100 leukocytes 15 % 0-12 Automated blood eosinophils/100 leukocytes 3 % 0-10 Automated blood basophils/100 leukocytes 0 % 0-10 Blood neutrophils automated count (number/volume) 2.5 10*3 1.8-7.8 Blood lymphocytes automated count (number/volume) 1.1 10*3 1.0-4.0 Blood monocytes automated count (number/volume) 0. 7 10*3 0.0-1.0 Automated eosinophil count 0.1 10*3/uL 0 .0-0.3 Automated blood basophil count (count/volume) 0.0 10*3/uL 0.0-0.1 Comprehensive metabolic panel - 06/15/19 17:20 Serum or plasma sodium measurement (moles/volume) 143 mmol/L 135-145 Serum or plasma potassium measurement (moles/volume) 3.6 mmol/L 3.6-5.0 Serum or plasma chloride measurement (moles/volume) 103 mmol/L 98-107 Carbon dioxide 30 mmol/L 21-32 Serum or plasma anion gap determination (moles/volume) 10 mmol/L 5-14 Serum or plasma urea nitrogen measurement (mass/volume ) 14 mg/dL 7-18 Serum or plasma creatinine measurement (mass/volume) 1.23 mg/dL 0.60-1.30 Serum or plasma urea nitrogen/creatinine mass ratio 11 NRG Serum or plasma creatinine measurement w ith calculation of estimated glomerular filtration rate 41 NRG Serum or plasma glucose measurement (mass/volume) 124 mg/dL 70-105 Serum or plasma calcium measurement (mass/volume) 9.6 mg/dL 8.5-10.1 Serum or plasma total bilirubin measurement (mass/volu me) 0.4 mg/dL 0.1-1.0 Serum or plasma alkaline phosphatase ventura surement (enzymatic activity/volume) 100 U/L 40-136 Serum or plasma aspartate aminotransfera se measurement (enzymatic activity/volume) 16 U/L 5-34 Serum or plasma alanine aminotransferase measurement (enzymatic activity/volume) 15 U/L 0-55 Serum or plasma protein measurement (mass/volume) 7.5 g/dL 6.4-8.2 Serum or plasma albumin measurement (mass/volume) 4.0 g/dL 3.2-4.5 CALCIUM CORRECTED 9.6 mg/dL 8.5-10.1 PT panel in platelet poor plasma by coag ulation assay - 06/15/19 17:20 Prothrombin time (PT) in platelet poor plasma by coagu lation assay 13.0 s 12.2-14.7 INR in platelet poor plasma or blood by coagulation as say 1.0 0.8-1.4 Activated partial thromboplastin time (a PTT) in platelet poor plasma bycoagulation assay - 06/15/19 17:20 Activated partial thromboplastin time (a PTT) in platelet poor plasma bycoagulation assay 25 s 24-35 Blood lactic acid measurement (moles/vol ume) - 06/15/19 17:20 Blood lactic acid measurement (moles/volume) 1.79 mmol/L 0.50-2.00 Serum or plasma troponin i.cardiac measu rement (mass/volume) - 06/15/19 17:20 Serum or plasma troponin i.cardiac measurement (mass/v olume) < ng/mL <0.028 Bacterial blood culture - 06/15/19 17:20 Bacterial blood culture NG NRG Influenza virus A and B antigen detectio n - 06/15/19 17:25 FLU RESULT NEGATIVE FOR INFLUENZA A AND B ANTIGENS BY IA NRG Complete urinalysis with reflex to cultu re - 06/15/19 18:04 Urine color determination YELLOW NRG Urine clarity determination CLEAR NR G Urine pH measurement by test strip 7.0 5-9 Specific gravity of urine by test strip 1.010 1.016-1.022 Urine protein assay by test strip, semi-quantitative NEGATIVE NEGATIVE Urine glucose detection by automated test strip NE GATIVE NEGATIVE Erythrocytes detection in urine sediment by light micr oscopy NEGATIVE NEGATIVE Urine ketones detection by automated test strip NE GATIVE NEGATIVE Urine nitrite detection by test strip NEGATIVE NEGATIVE Urine total bilirubin detection by test strip NEGA TIVE NEGATIVE Urine urobilinogen measurement by automated test strip (mass/volume) 0.2 mg/dL < = 1.0 Urine leukocyte esterase detection by dipstick NEG ATIVE NEGATIVE Automated urine sediment erythrocyte cou nt by microscopy (number/high power field) NONE NRG Automated urine sediment leukocyte count by microscopy (number/high power field) NONE NRG Bacteria detection in urine sediment by light microsco py TRACE NRG Squamous epithelial cells detection in u rine sediment by light microscopy 0-2 NRG Crystals detection in urine sediment by light microsco py NONE NRG Casts detection in urine sediment by light microscopy NONE NRG Mucus detection in urine sediment by light microscopy NEGATIVE NRG Complete urinalysis with reflex to culture CULTURE PENDING NRG Bacterial urine culture - 06/15/19 18:04 Bacterial urine culture 3 OR MORE NRG COLONY COUNT <10,000 NRG FTX;REPORTABLE GRAM POSITIVES, SUGGESTING PROBABLE NRG FREE TEXT ENTRY 2 COLLECTION CONTAMINATION WITH SK IN JORGE NRG FREE TEXT ENTRY 3 NO SUSCEPTIBILITY PERFORMED NRG Bacterial blood culture - 06/15/19 18:16 Bacterial blood culture NG NRG Complete blood count (CBC) with automate d white blood cell (WBC) differential - 06/16/19 04:28 Blood leukocytes automated count (number/volume) 4.1 10*3/uL 4.3-11.0 Blood erythrocytes automated count (number/volume) 3.92 10*6/uL 4.35-5.85 Venous blood hemoglobin measurement (mass/volume) 11.6 g/dL 11.5-16.0 Blood hematocrit (volume fraction) 36 % 35-52 Automated erythrocyte mean corpuscular volume 92 [ foz_us] 80-99 Automated erythrocyte mean corpuscular h emoglobin (mass per erythrocyte) 30 pg 25-34 Automated erythrocyte mean corpuscular h emoglobin concentration measurement (mass/volume) 32 g/dL 32-36 Automated erythrocyte distribution width ratio 15. 2 % 10.0- 14.5 Automated blood platelet count (count/volume) 220 10*3/uL 130-400 Automated blood platelet mean volume measurement 9.3 [foz_us] 7.4-10.4 Automated blood neutrophils/100 leukocytes 58 % 42-75 Automated blood lymphocytes/100 leukocytes 23 % 12-44 Blood monocytes/100 leukocytes 15 % 0-12 Automated blood eosinophils/100 leukocytes 3 % 0-10 Automated blood basophils/100 leukocytes 0 % 0-10 Blood neutrophils automated count (number/volume) 2.4 10*3 1.8-7.8 Blood lymphocytes automated count (number/volume) 1.0 10*3 1.0-4.0 Blood monocytes automated count (number/volume) 0. 6 10*3 0.0-1.0 Automated eosinophil count 0.1 10*3/uL 0 .0-0.3 Automated blood basophil count (count/volume) 0.0 10*3/uL 0.0-0.1 Comprehensive metabolic panel - 06/16/19 04:28 Serum or plasma sodium measurement (moles/volume) 143 mmol/L 135-145 Serum or plasma potassium measurement (moles/volume) 3.0 mmol/L 3.6-5.0 Serum or plasma chloride measurement (moles/volume) 104 mmol/L 98-107 Carbon dioxide 26 mmol/L 21-32 Serum or plasma anion gap determination (moles/volume) 13 mmol/L 5-14 Serum or plasma urea nitrogen measurement (mass/volume ) 14 mg/dL 7-18 Serum or plasma creatinine measurement (mass/volume) 1.05 mg/dL 0.60-1.30 Serum or plasma urea nitrogen/creatinine mass ratio 13 NRG Serum or plasma creatinine measurement w ith calculation of estimated glomerular filtration rate 49 NRG Serum or plasma glucose measurement (mass/volume) 117 mg/dL 70-105 Serum or plasma calcium measurement (mass/volume) 9.2 mg/dL 8.5-10.1 Serum or plasma total bilirubin measurement (mass/volu me) 0.4 mg/dL 0.1-1.0 Serum or plasma alkaline phosphatase ventura surement (enzymatic activity/volume) 85 U/L 40-136 Serum or plasma aspartate aminotransfera se measurement (enzymatic activity/volume) 14 U/L 5-34 Serum or plasma alanine aminotransferase measurement (enzymatic activity/volume) 13 U/L 0-55 Serum or plasma protein measurement (mass/volume) 6.2 g/dL 6.4-8.2 Serum or plasma albumin measurement (mass/volume) 3.5 g/dL 3.2-4.5 CALCIUM CORRECTED 9.6 mg/dL 8.5-10.1 Magnesium - 06/16/19 04:28 Magnesium 1.8 mg/dL 1.6-2.4 Capillary blood glucose measurement by g lucometer (mass/volume) - 06/16/19 11:54 Capillary blood glucose measurement by glucometer (mas s/volume) 120 mg/dL 70-110 Capillary blood glucose measurement by g lucometer (mass/volume) - 06/16/19 15:35 Capillary blood glucose measurement by glucometer (mas s/volume) 135 mg/dL 70-110 Capillary blood glucose measurement by g lucometer (mass/volume) - 06/16/19 20:16 Capillary blood glucose measurement by glucometer (mas s/volume) 141 mg/dL 70-110 Complete blood count (CBC) with automate d white blood cell (WBC) differential - 06/17/19 05:25 Blood leukocytes automated count (number/volume) 3.8 10*3/uL 4.3-11.0 Blood erythrocytes automated count (number/volume) 3.79 10*6/uL 4.35-5.85 Venous blood hemoglobin measurement (mass/volume) 11.1 g/dL 11.5-16.0 Blood hematocrit (volume fraction) 35 % 35-52 Automated erythrocyte mean corpuscular volume 93 [ foz_us] 80-99 Automated erythrocyte mean corpuscular h emoglobin (mass per erythrocyte) 29 pg 25-34 Automated erythrocyte mean corpuscular h emoglobin concentration measurement (mass/volume) 32 g/dL 32-36 Automated erythrocyte distribution width ratio 15. 3 % 10.0- 14.5 Automated blood platelet count (count/volume) 211 10*3/uL 130-400 Automated blood platelet mean volume measurement 9.4 [foz_us] 7.4-10.4 Automated blood neutrophils/100 leukocytes 47 % 42-75 Automated blood lymphocytes/100 leukocytes 38 % 12-44 Blood monocytes/100 leukocytes 12 % 0-12 Automated blood eosinophils/100 leukocytes 3 % 0-10 Automated blood basophils/100 leukocytes 0 % 0-10 Blood neutrophils automated count (number/volume) 1.8 10*3 1.8-7.8 Blood lymphocytes automated count (number/volume) 1.4 10*3 1.0-4.0 Blood monocytes automated count (number/volume) 0. 5 10*3 0.0-1.0 Automated eosinophil count 0.1 10*3/uL 0 .0-0.3 Automated blood basophil count (count/volume) 0.0 10*3/uL 0.0-0.1 Comprehensive metabolic panel - 06/17/19 05:25 Serum or plasma sodium measurement (moles/volume) 143 mmol/L 135-145 Serum or plasma potassium measurement (moles/volume) 3.7 mmol/L 3.6-5.0 Serum or plasma chloride measurement (moles/volume) 108 mmol/L 98-107 Carbon dioxide 26 mmol/L 21-32 Serum or plasma anion gap determination (moles/volume) 9 mmol/L 5-14 Serum or plasma urea nitrogen measurement (mass/volume ) 15 mg/dL 7-18 Serum or plasma creatinine measurement (mass/volume) 1.06 mg/dL 0.60-1.30 Serum or plasma urea nitrogen/creatinine mass ratio 14 NRG Serum or plasma creatinine measurement w ith calculation of estimated glomerular filtration rate 49 NRG Serum or plasma glucose measurement (mass/volume) 117 mg/dL 70-105 Serum or plasma calcium measurement (mass/volume) 9.4 mg/dL 8.5-10.1 Serum or plasma total bilirubin measurement (mass/volu me) 0.3 mg/dL 0.1-1.0 Serum or plasma alkaline phosphatase ventura surement (enzymatic activity/volume) 77 U/L 40-136 Serum or plasma aspartate aminotransfera se measurement (enzymatic activity/volume) 18 U/L 5-34 Serum or plasma alanine aminotransferase measurement (enzymatic activity/volume) 13 U/L 0-55 Serum or plasma protein measurement (mass/volume) 6.2 g/dL 6.4-8.2 Serum or plasma albumin measurement (mass/volume) 3.4 g/dL 3.2-4.5 CALCIUM CORRECTED 9.9 mg/dL 8.5-10.1 Capillary blood glucose measurement by g lucometer (mass/volume) - 06/17/19 10:54 Capillary blood glucose measurement by glucometer (mas s/volume) 123 mg/dL 70-110 Capillary blood glucose measurement by g lucometer (mass/volume) - 06/17/19 15:33 Capillary blood glucose measurement by glucometer (mas s/volume) 124 mg/dL 70-110 Capillary blood glucose measurement by g lucometer (mass/volume) - 06/17/19 20:04 Capillary blood glucose measurement by glucometer (mas s/volume) 145 mg/dL 70-110 Capillary blood glucose measurement by g lucometer (mass/volume) - 06/18/19 05:52 Capillary blood glucose measurement by glucometer (mas s/volume) 110 mg/dL 70-110 Capillary blood glucose measurement by g lucometer (mass/volume) - 06/18/19 11:08 Capillary blood glucose measurement by glucometer (mas s/volume) 176 mg/dL 70-110 Capillary blood glucose measurement by g lucometer (mass/volume) - 06/18/19 15:37 Capillary blood glucose measurement by glucometer (mas s/volume) 165 mg/dL 70-110 Capillary blood glucose measurement by g lucometer (mass/volume) - 06/18/19 20:45 Capillary blood glucose measurement by glucometer (mas s/volume) 135 mg/dL 70-110 Capillary blood glucose measurement by g lucometer (mass/volume) - 06/19/19 05:59 Capillary blood glucose measurement by glucometer (mas s/volume) 101 mg/dL 70-110 Capillary blood glucose measurement by g lucometer (mass/volume) - 06/19/19 10:49 Capillary blood glucose measurement by glucometer (mas s/volume) 145 mg/dL 70-110 Capillary blood glucose measurement by g lucometer (mass/volume) - 06/19/19 15:36 Capillary blood glucose measurement by glucometer (mas s/volume) 128 mg/dL 70-110 Capillary blood glucose measurement by g lucometer (mass/volume) - 06/19/19 20:51 Capillary blood glucose measurement by glucometer (mas s/volume) 113 mg/dL 70-110 Capillary blood glucose measurement by g lucometer (mass/volume) - 06/20/19 05:29 Capillary blood glucose measurement by glucometer (mas s/volume) 119 mg/dL 70-110 Encounters ACCT No. Visit Date/Time Discharge Status Pt. Type Provider Facility Loc./Unit Complaint [id number] 06/13/2019 12:09:00 06/13/2019 23:59 :00 DIS Outpatient HARRIETT VIGIL [id number] 04/05/2019 11:21:00 04/05/2019 13:40 :00 DIS Outpatient HOLLI GONZALEZ [facility] [id number] 04/03/2019 10:30:00 04/03/2019 23:59 :00 DIS Outpatient ELIE LYLES [id number] 09/29/2018 12:33:00 02/25/2019 15:11: 00 DIS Outpatient Rajat Almeida [id number] 10/20/2018 13:45:00 10/20/2018 23:59: 00 DIS Outpatient ELIE LYLES [id number] 09/26/2018 09:42:00 09/26/2018 23:59: 00 DIS Outpatient Rajat Almeida [id number] 06/17/2018 11:00:00 06/17/2018 11:58: 00 DIS Outpatient [facility] ER [id number] 05/13/2018 23:17:00 05/13/2018 23:53: 00 DIS Outpatient [facility] enter ER [id number] 03/18/2018 19:31:00 03/18/2018 20:55: 00 [id number] 03/18/2018 07:52:00 03/18/2018 08:10: 00 DIS Outpatient [facility] [id number] 03/17/2018 11:49:00 03/17/2018 13:12: 00 DIS Outpatient [facility] ER [id number] 02/27/2018 12:44:00 02/27/2018 13:20: 00 DIS Outpatient [facility] enter ER [id number] 11/26/2017 13:48:00 11/29/2017 15:20: 00 DIS Outpatient SARAY ONEIL JR [id number] 03/17/2018 12:59:17 Document Registration [id number] 06/16/2019 10:55:00 020 10:45:00 DIS Inpatient BISHOP DO, ROXANA V [facility] IRF DEBILTY [id number] 06/15/2019 19:49:00 020 11:25:00 DIS Outpatient BISHOP DO, ROXANA [facility] 4TH BRONCHITIS,PNA,DEBILITY ,DEHYDRATION [id number] 09/11/2018 10:55:00 019 13:00:00 DIS Inpatient BISHOP DO, ROXANA V [facility] IRF DEBILITY [id number] 09/07/2018 12:45:00 019 10:50:00 DIS Inpatient MARIA EUGENIA CARRILLO MD [facility] 4TH LLL PNEUMONIA [id number] 08/13/2018 13:53:00 019 23:59:59 CLS Outpatient SISSY LEE DO [facility] RAD STEPHAN ON CPAP, MORBID OBE SITY. [id number] 07/08/2018 15:58:00 019 23:59:59 CLS Preadmit SISSY LEE DO [facility] RAD STEPHAN ON CPAP, MORBID OBE SITY [id number] 07/07/2018 14:23:00 019 23:59:59 CLS Outpatient SISSY LEE DO [facility] RT G47.33,E66.01,R05 [id number] 04/30/2018 11:45:00 019 23:59:59 CLS Preadmit ELIE LYLES DO [facility] RT R06.00 DYSPNEA [id number] 12/02/2017 06:33:00 018 23:59:59 CLS Outpatient ELIE LYLES DO [facility] CARD HYPERTENSION,DY SPNEA [id number] 10/15/2015 17:25:00 016 20:25:00 DIS Emergency SILVIA ALEX K Vi a [facility] ER WEAKNESS [id number] 04/16/2015 19:47:00 016 07:10:00 DIS Outpatient ELIE LYLES DO [facility] SLEEP OBSERVED SLEEP APPNEA, [id number] 10/25/2014 12:30:00 015 23:59:59 CLS Outpatient PAVEL LYLES [facility] RAD HIP PAIN [id number] 09/10/2013 21:02:00 014 06:45:00 DIS Outpatient ELIE LYLES DO [facility] SLEEP STEPHAN,SNORING [id number] 06/26/2013 09:33:00 014 23:59:59 CLS Outpatient ELIE LYLES DO [facility] CARD REFRACTORY HTN
--- NOTE | 2019-06-22 08:57 | Therapy Team Discharge Summary ---
Therapy Discharge Summary Discharge Recommendations Date of Discharge Jun 20, 2019 at 10:45 Occupational Therapy Pt admitted to ARU on 06/16/2019 with dx of debility. At admission, pt was indep endent with eating, SBA oral hygiene, SBA shower, set up upper body dressing, SBA lower body dressing, max assist with footwear and SBA with toileting/toilet transfer. Over the course of therapy, OT txs focused on increasing independence and safety with ADLs/functional mobility, education on energy conservation, and increasing UE strength and functional endurance. At discharge, pt was independent with eating, oral hygiene, upper body dressing, lower body dressing, toileting and toilet transfers. She required set up assist with shower due to requiring her IV port to be covered, and she was dependent for footwear. Pt was unable to don/doff socks at discharge due to [facility] not having the exact sock aide pt uses at home, she trialed using a sock aide but was unsuccessful due to it being smaller than the one at home. Pt reports she should have no difficulty when she returns home and can use her own sock aide again. Pt discharged back to her duplex in [facility] with no further OT services indicated at this time. Decreased Activ Tolerance, Impaired I ADL's, Impaired Self-Care Skills PT Porcelain Turner Goals Porcelain Turner Goals PT Porcelain Turner Goals Time Frame: Jun 30, 2019 Roll Left to Right (QC): 6 Sit to Lying (QC): 6 Lying-Sitting on Side/Bed(QC): 6 Sit to Stand (QC): 6 Chair/Vib-tl-Yghmm Xfer(QC): 6 Car Transfer (QC): 6 Does the Patient Walk: Yes Walk 10 feet (QC): 6 Walk 10ft-Uneven Surface(QC): 6 Walk 50ft with 2 Turns (QC): 6 Walk 150 ft (QC): 6 Does the Pt use WC or Scooter?: No 1 Step (curb) (QC): 6 4 Steps (QC): 6 12 Steps (QC): 5 Picking up an Object (QC): 9 OT Porcelain Turner Goals Nursing Home Goals Time Frame: Jun 30, 2019 Eating (FIM): 6 Oral Hygiene (QC): 6 (met) Shower/Bathe Self (QC): 6 (not met, set up ) Upper Body Dressing (QC): 6 (met) Lower Body Dressing (QC): 6 (met) On/Off Footwear (QC): 6 (not met, dependent due to pt not having her specific sock aide from home) Toileting(FIM): 6 Toileting Hygiene (QC): 6 (met) Toilet/Commode Transfer (QC): 6 (met) Additional Goals: 1-Demonstrate ADL Tasks, 2-Verbalize Understanding, 3- ImproveStrength/Lucia 1=Demonstrate adherence to instructed precautions during ADL tasks. 2=Patient will verbalize/demonstrate understanding of assistive devices/modifications for ADL. 3=Patient will improve strength/tolerance for activity to enable patient to perform ADL's. CHAVEZ RIDER OT Jun 22, 2019 08:57
--- NOTE | 2019-06-22 09:49 | Therapy Team Discharge Summary ---
Therapy Discharge Summary Discharge Recommendations Date of Discharge Jun 20, 2019 at 10:45 Therapy D/C Recommendations: Physical Therapy Outpatient Physical Therapy This patient admitted to ARU after short acute stay. She was admitted to this facility with a dx of debility. Her PLOF was indep with home and community mobility, living in a cottage at a nearby [facility]. Upon initial assessment, pt was set up assist with sit to stand and transfers. She was SBA with gait, able to walk >150 ft without an AD; although noting decreased functional act evangelina and SOA. Treatment focused on safety with functional mobiltiy, functional strength and activity tolerance training and safety with mobiltiy. She has made excellent progress. She is indep with bed mobility, transfers and gait at last visit. In addition, she is able to go up and down steps without assist. Pt persists with decreased functional act evangelina and strength and will benefit from outpt PT for continued progression of functional strength. She has met goals. DC PT at this time. Occupational Therapy Decreased Activ Tolerance, Impaired I ADL's, Impaired Self-Care Skills PT Long-Term Goals Wood Shingle Roofer Goals PT Wood Shingle Roofer Goals Time Frame: Jun 30, 2019 Roll Left to Right (QC): 6 Sit to Lying (QC): 6 Lying-Sitting on Side/Bed(QC): 6 Sit to Stand (QC): 6 Chair/Uao-rf-Nloze Xfer(QC): 6 Car Transfer (QC): 6 Does the Patient Walk: Yes Walk 10 feet (QC): 6 Walk 10ft-Uneven Surface(QC): 6 Walk 50ft with 2 Turns (QC): 6 Walk 150 ft (QC): 6 Does the Pt use WC or Scooter?: No 1 Step (curb) (QC): 6 4 Steps (QC): 6 12 Steps (QC): 5 Picking up an Object (QC): 9 All goals met. OT Wood Shingle Roofer Goals Long-Term Goals Time Frame: Jun 30, 2019 Eating (FIM): 6 Oral Hygiene (QC): 6 (met) Shower/Bathe Self (QC): 6 (not met, set up ) Upper Body Dressing (QC): 6 (met) Lower Body Dressing (QC): 6 (met) On/Off Footwear (QC): 6 (not met, dependent due to pt not having her specific sock aide from home) Toileting(FIM): 6 Toileting Hygiene (QC): 6 (met) Toilet/Commode Transfer (QC): 6 (met) Additional Goals: 1-Demonstrate ADL Tasks, 2-Verbalize Understanding, 3- ImproveStrength/Lucia 1=Demonstrate adherence to instructed precautions during ADL tasks. 2=Patient will verbalize/demonstrate understanding of assistive devices/modifications for ADL. 3=Patient will improve strength/tolerance for activity to enable patient to perform ADL's. ABRIL HSU PT Jun 22, 2019 09:49
[2019-07-12] MEDS ORDERED: CYANOCOBALAMIN INJ 1000 MCG/ML IM SCH (09:00)
== END 2019-06-20 10:45 | DRG 191 ==
PROVIDERS: ADMIT Internal Medicine; ATTEND Internal Medicine
DX: J44.0 Chronic obstructive pulmonary disease with (acute) lower respiratory infection (principal); J20.9 Acute bronchitis, unspecified; G47.33 Obstructive sleep apnea (adult) (pediatric); I10 Essential (primary) hypertension; K59.09 Other constipation; E66.9 Obesity, unspecified; Z68.43 Body mass index [BMI] 50.0-59.9, adult; M19.91 Primary osteoarthritis, unspecified site; Z66 Do not resuscitate; M54.9 Dorsalgia, unspecified; E11.9 Type 2 diabetes mellitus without complications; H35.30 Unspecified macular degeneration; H40.9 Unspecified glaucoma; F41.9 Anxiety disorder, unspecified; F32.9 Major depressive disorder, single episode, unspecified; E78.5 Hyperlipidemia, unspecified; I25.10 Atherosclerotic heart disease of native coronary artery without angina pectoris; Z79.84 Long term (current) use of oral hypoglycemic drugs; Z95.5 Presence of coronary angioplasty implant and graft
CPT/HCPCS: 36415; 80053; 82962; 85025; 94640; 94760